=== PATIENT | female | born 1960 | race Caucasian/White ===

== ENCOUNTER 2018-04-30 11:20 | Emergency (ER) | payer OTHER ==
[2018-04-30 11:30] VITALS: TEMP 97.6
--- NOTE | 2018-04-30 12:16 | ED ---
General Adult HPI - General Chief complaint: Fall Stated complaint: fall Time Seen by Provider: 04/30/18 11:47 Source: patient, RN notes reviewed Mode of arrival: ambulatory Limitations: no limitations - History of Present Illness Initial comments: Patient's a 58-year-old female presented to the emergency room today with a chief complaint of a fall that occurred 2 days ago. She states that she was at work tripped over a pallet falling hitting right side of her head and cheek area. Patient also admits to pain to the right wrist and left shoulder and elbow area. Patient states that she was advised coming here to the emergency room for further evaluation today. Patient does admit that she's been having headaches. Does admit pain to the right cheek. Patient states pain to the right wrist, left shoulder and elbow are worse with movements. Patient denies any other complaints. Patient denies any recent fever, chills, shortness of breath, chest pain, back pain, abdominal pain, nausea or vomiting, numbness or tingling, visual changes, or any other complaints. - Related Data Allergies Allergy/AdvReac Type Severity Reaction Status Date / Time aspirin Allergy Unknown Verified 04/30/18 11:27 Penicillins Allergy Unknown Verified 04/30/18 11:27 Review of Systems ROS Statement: Those systems with pertinent positive or pertinent negative responses have been documented in the HPI. ROS Other: All systems not noted in ROS Statement are negative. Past Medical History Past Medical History: Diabetes Mellitus History of Any Multi-Drug Resistant Organisms: None Reported Past Surgical History: No Surgical Hx Reported Past Psychological History: No Psychological Hx Reported Smoking Status: Never smoker Past Alcohol Use History: None Reported Past Drug Use History: None Reported General Exam - General Exam Comments Initial Comments: General: The patient is awake and alert, in no distress, and does not appear acutely ill. Eye: Pupils are equal, round and reactive to light, extra-ocular movements are intact. No nystagmus. There is normal conjunctiva bilaterally. No signs of icterus. Ears, nose, mouth and throat: There are moist mucous membranes and no oral lesions. Tender around the right cheek. Mild bruising. Neck: The neck is supple, there is no tenderness or JVD. Cardiovascular: There is a regular rate and rhythm. No murmur, rub or gallop is appreciated. Respiratory: Lungs are clear to auscultation, respirations are non-labored, breath sounds are equal. No wheezes, stridor, rales, or rhonchi. Musculoskeletal: Normal ROM. Patient does have normal appearance of the cervical, thoracic or lumbar spine. No step-offs or deformity. Patient has tenderness over the distal radius and ulna on the right side. Patient tender to palpation over the proximal humerus on the left and posterior olecranon on the left. No other bony tenderness on exam. Strength 5/5. Sensation intact. Pulses equal bilaterally 2+. Neurological: A&O x 3. CN II-XII intact, There are no obvious motor or sensory deficits. Coordination appears grossly intact. Speech is normal. Skin: Skin is warm and dry and intact. Patient does have some mild bruising to the right cheek and swelling. Psychiatric: Cooperative, appropriate mood & affect, normal judgment. Limitations: no limitations Course Vital Signs 04/30/18 04/30/18 11:27 13:44 Temperature 97.6 F Pulse Rate 80 98 Respiratory 18 16 Rate Blood Pressure 154/87 125/80 O2 Sat by Pulse 99 Oximetry Medical Decision Making - Medical Decision Making Patient's a CT of the head neck and facial bones are negative for any acute abnormalities. Patient's x-ray of the left elbow shows loose body formations no other acute abnormality. Patient's x-ray of the right wrist shows possible ligamentous injury but no acute fracture or dislocation. Patient's x-ray of the left shoulder shows possible greater tuberosity fracture. Patient does have tenderness in this area. She'll be given arm sling. She is advised follow -up with orthopedics also her family physician for concussion-like symptoms. Advised return here to the emergency room symptoms increase or worsen or for any other concerns. Disposition Clinical Impression: Shoulder fracture, Concussion Disposition: HOME SELF-CARE Condition: Good Instructions: Scapular Fracture (ED) Additional Instructions: Please use medication as discussed. Please follow-up with family doctor in the next 2 days of symptoms have not improved. Please return to emergency room if the symptoms increase or worsen or for any other concerns. Is patient prescribed a controlled substance at d/c from ED?: No Referrals: None,Stated [Primary Care Provider] - 1-2 days Curt Delgado MD [STAFF PHYSICIAN] - 1-2 days Time of Disposition: 13:57
--- NOTE | 2018-04-30 13:10 | CT ---
EXAMINATION TYPE: CT brain jana wyatt con DATE OF EXAM: 04/30/2018 COMPARISON: 02/19/2012 HISTORY: 58-year-old femalek left sided injury. Complains of headache and dizziness CT DLP: 1421.5 mGycm Automated exposure control for dose reduction was used. Technique: Examination of the head was done in axial plane without intravenous contrast. Coronal and sagittal reconstructions performed. CT of the cervical spine was obtained in axial plane without intravenous injection of contrast mater ial. Coronal and sagittal reformatted images were obtained from the axial views for evaluation of f ractures, spinal alignment and canal. FINDINGS: Head: There is no evidence of acute intracranial hemorrhage, acute ischemic changes, mass, mass-effect, or extra-axial fluid collection. There is no effacement of cerebral sulci or basal subarachnoid cister ns. There is no hydrocephalus. There is no midline shift. Gallagher-white matter distinction is preserv ed. Benign basal ganglia calcifications. Mastoid air cells are well pneumatized. No calvarial fracture. Cervical spine: The alignment of the cervical spine is normal on coronal and reformatted images. There is no cranial vertebral abnormality. Fracture of the cervical spine is not seen. Moderate degenerative disc disease C6/C7 with disc osteophyte complex causing possible moderate narrowing of the spinal canal. Assessme nt of the spinal canal from C6-C7 and below with limited due to artifact from patient's shoulders. Mi ld bilateral neuroforaminal stenosis at this level. Straightening of the normal cervical curvature. Sagittal and coronal reformatted images confirm above findings. COMBINED IMPRESSION: 1. No acute intracranial abnormality seen. 2. No acute fracture or malalignment of the cervical spine. Moderate spondylotic change at C6-C7. 3. Facial bones reported separately.
--- NOTE | 2018-04-30 13:11 | CT ---
EXAMINATION TYPE: CT facial bones wo con DATE OF EXAM: 04/30/2018 COMPARISON: None HISTORY: 58-year-old female left sided injury. Complains of headache and dizziness TECHNIQUE: Contiguous high resolution axial scanning of the facial bones without IV contrast. Coronal reconstruction performed. CT DLP: 596.5 mGycm Automated exposure control for dose reduction was used. FINDINGS: Paranasal sinuses are well pneumatized. Orbits and globes are intact. No facial bone fracture. The ma ndible is intact. IMPRESSION: NO ACUTE FACIAL BONE FRACTURE.
--- NOTE | 2018-04-30 13:27 | XR ---
EXAMINATION TYPE: XR shoulder complete 3 views LT, XR elbow complete 3 views LT, XR wrist complete 4 views RT DATE OF EXAM: 04/30/2018 COMPARISON: Shoulder 07/17/2012 HISTORY: 50-year-old female fall a few days ago, pain. FINDINGS: Left shoulder: Mild degenerative joint space narrowing with marginal spurring and capsular hypertrophy at the acromi oclavicular joint. Subacromial space is preserved. The configuration of the greater tuberosity is dif ferent compared to 07/17/2012. A 1.9 x 0.7 cm mildly displaced fracture of the greater tube is diffic ult to exclude. Left elbow: Tiny loose bodies within the posterior elbow joint. Mild degenerative spurring at the coronoid proces s. No elbow joint effusion. Punctate density at the medial epicondyles suggest changes of common flex or tendinopathy. No acute fracture, subluxation, or dislocation. Right wrist: Degenerative spurring at the base of the thumb. The distal radial ulnar joint and radiocarpal joint a ppear intact. On the navicular view, there is underlying widening of the scapholunate interval. Other chow, no acute fracture, subluxation, or dislocation seen. IMPRESSION: 1. Left shoulder: Correlate for focal pain to exclude a mildly displaced fracture of the greater tube rosity. This appearance is different from the exam done on 2011. 2. Left elbow: Small posterior loose bodies and mild degenerative change at the elbow. No acute osseo us abnormality seen. 3. Right wrist: Borderline widening of the scapholunate interval suggests underlying age-indeterminat e ligamentous sprain. Mild degenerative change at the base of the thumb.
[2018-04-30] MEDS ORDERED: ACETAMINOPHEN TAB 325 MG TAB PO STA (13:37)
[2018-04-30 14:16] VITALS: BP 140/86; PULSE 80; RESP 18
== END 2018-04-30 14:15 | disposition home or self-care (01) ==
LOC: EC 11:20
DX: S06.0X0A Concussion without loss of consciousness, initial encounter (principal); S42.92XA Fracture of left shoulder girdle, part unspecified, initial encounter for closed fracture; M25.531 Pain in right wrist; M25.522 Pain in left elbow; Z88.0 Allergy status to penicillin; Z88.6 Allergy status to analgesic agent; W01.198A Fall on same level from slipping, tripping and stumbling with subsequent striking against other object, initial encounter; Y92.69 Other specified industrial and construction area as the place of occurrence of the external cause; Y99.0 Civilian activity done for income or pay
CPT/HCPCS: 70450; 70486; 72125; 99284

== ENCOUNTER 2018-10-24 12:16 | Emergency (ER) | payer OTHER ==
[2018-10-24 12:38] VITALS: RESP 18
[2018-10-24] MEDS ORDERED: Potassium Replacement Protocol 1 EACH MISC MISCELLANE PRN (13:04)
[2018-10-24] MEDS ORDERED: Magnesium Replacement Protocol 1 EACH MISC MISCELLANE PRN (13:04)
[2018-10-24] MEDS ORDERED: INSULIN REGULAR BOLUS (FROM DRIP BAG) IV ONE (13:04)
[2018-10-24] MEDS ORDERED: SODIUM CHLORIDE 0.9% 1,000 ML IV SCH (13:15)
[2018-10-24] MEDS ORDERED: INSULIN REGULAR 100 UNIT in SODIUM CHLORIDE 0.9% 100 ML IV SCH (13:15)
[2018-10-24 14:11] LABS: Basophils % (A) 1 %; Eosinophils # (A) 0.2 k/uL (0-0.7); Eosinophils % (A) 4 %; HCT 44.9 % (34.0-46.0); HGB 15.1 gm/dL (11.4-16.0); Lymphocytes # (A) 1.6 k/uL (1.0-4.8); Lymphocytes % (A) 34 %; MCH 29.6 pg (25.0-35.0); MCHC 33.6 g/dL (31.0-37.0); MCV 88.1 fL (80.0-100.0); Mean Platelet Volume 6.4; Monocytes # (A) 0.3 k/uL (0-1.0); Monocytes % (A) 6 %; Neutrophils # (A) 2.5 k/uL (1.3-7.7); Neutrophils % (A) 53 %; Platelet Count 271 k/uL (150-450); RDW 13.3 % (11.5-15.5); WBC 4.7 k/uL (3.8-10.6)
[2018-10-24 14:16] LABS: Appearance,Urine Clear (Clear); Bacteria,Urine Few /hpf; Bilirubin,Urine Negative (Negative); Blood,Urine Negative (Negative); Color,Urine Light Yellow; Glucose,Urine (UA) 4+ (Negative); Ketones,Urine Negative (Negative); Leukocyte Esterase,Urine Small (Negative); Mucus,Urine Rare /hpf; Nitrite,Urine Negative (Negative); Protein,Urine Negative (Negative); RBC,Urine 3 /hpf (0-5); Specific Gravity,Urine 1.034 (1.001-1.035); Squamous Epithelial Cell,Urine 2 /hpf (0-4); Urobilinogen,Urine <2.0 mg/dL (<2.0); WBC,Urine 8 /hpf (0-5)
[2018-10-24 14:20] LABS: Anion Gap 9 mmol/L; Blood Urea Nitrogen 11 mg/dL (7-17); Carbon Dioxide 29 mmol/L (22-30); Chloride 97 mmol/L (98-107); Potassium 4.1 mmol/L (3.5-5.1); Sodium 135 mmol/L (137-145)
[2018-10-24 15:08] LABS: Glucose,Whole Blood 476 mg/dL (75-99)
[2018-10-24 15:09] LABS: Glucose 517 mg/dL (74-99)
[2018-10-24 15:19] LABS: Glucose,Whole Blood 362 mg/dL (75-99)
--- NOTE | 2018-10-24 15:34 | ED ---
General Adult HPI - General Chief complaint: Nausea/Vomiting/Diarrhea Stated complaint: high blood sugar Time Seen by Provider: 10/24/18 12:20 Source: patient, RN notes reviewed Mode of arrival: ambulatory Limitations: no limitations - History of Present Illness Initial comments: This is a 58-year-old female who has diabetes. Patient comes in today because she was vomiting all day Tuesday and all day Tuesday. Patient states she has yet to vomit today. Patient states she's also been having diarrhea since she's been taking Pepto-Bismol and drinking a lot of Sprite so that she gets hydrated. Patient states her sugars were over 500 so she came to the emergency department. Patient denies any chest pain difficulty breathing shortness of breath per patient denies any headache patient denies numbness weakness. Patient denies lightheadedness dizziness or near syncopal episode. Patient denies any abdominal pain patient states she is not nauseated this time. Patient states her diarrhea is also slow down. Patient denies any recent fever chills or cough. - Related Data Previous Rx's Medication Instructions Recorded Insulin Glargine,Hum.rec.anlog 15 unit SQ DAILY 14 Days ml 10/24/18 [Lantus Solostar] Allergies Allergy/AdvReac Type Severity Reaction Status Date / Time aspirin Allergy Unknown Verified 10/24/18 12:48 Penicillins Allergy Unknown Verified 10/24/18 12:48 Review of Systems ROS Statement: Those systems with pertinent positive or pertinent negative responses have been documented in the HPI. ROS Other: All systems not noted in ROS Statement are negative. Past Medical History Past Medical History: Diabetes Mellitus, Hypertension History of Any Multi-Drug Resistant Organisms: None Reported Past Surgical History: Section, Hysterectomy Additional Past Surgical History / Comment(s): right rotator cuff, left hand surgery twice Past Psychological History: No Psychological Hx Reported Smoking Status: Never smoker Past Alcohol Use History: None Reported Past Drug Use History: None Reported General Exam - General Exam Comments Initial Comments: GENERAL: Patient is well-developed and well-nourished. Patient is nontoxic and well- hydrated and is in no acute distress. ENT: Neck is soft and supple. No significant lymphadenopathy is noted. Oropharynx is clear. Dry mucous membranes Neck has full range of motion without eliciting any pain. EYES: The sclera were anicteric and conjunctiva were pink and moist. Extraocular movements were intact and pupils were equal round and reactive to light. Eyelids were unremarkable. PULMONARY: Unlabored respirations. Good breath sounds bilaterally. No audible rales rhonchi or wheezing was noted. CARDIOVASCULAR: There is a regular rate and rhythm without any murmurs gallops or rubs. ABDOMEN: Soft and nontender with normal bowel sounds. No palpable organomegaly was noted. There is no palpable pulsatile mass. SKIN: Skin is clear with no lesions or rashes and otherwise unremarkable. NEUROLOGIC: Patient is alert and oriented x3. Cranial nerves II through XII are grossly intact. Motor and sensory are also intact. Normal speech, volume and content. Symmetrical smile. MUSCULOSKELETAL: Normal extremities with adequate strength and full range of motion. LYMPHATICS: No significant lymphadenopathy is noted PSYCHIATRIC: Normal psychiatric evaluation. Limitations: no limitations Course Vital Signs 10/24/18 10/24/18 12:35 15:27 Temperature 98.3 F Pulse Rate 86 89 Respiratory 18 18 Rate Blood Pressure 163/91 129/83 O2 Sat by Pulse 99 97 Oximetry Medical Decision Making - Medical Decision Making Patient was placed on an insulin drip after she had a bolus in the emergency department her sugar came down to 280 at which point time she had a Humalog injection subcu. Patient initially told me she was on insulin home but upon further review after 2-1/2 hours of being in the emergency department she indicated to me that she is supposed to be on insulin but she hasn't taken it in 2 months because she just moved to the area. Patient states she takes 15 units of Lantus once a day patient is feeling considerably better and would like to be discharged home. - Lab Data Result diagrams: 10/24/18 13:52 10/24/18 13:52 Lab Results 10/24/18 10/24/18 10/24/18 Range/Units 13:52 13:52 13:52 WBC 4.7 (3.8-10.6) k/uL RBC 5.10 (3.80-5.40) m/uL Hgb 15.1 (11.4-16.0) gm/dL Hct 44.9 (34.0-46.0) % MCV 88.1 (80.0-100.0) fL MCH 29.6 (25.0-35.0) pg MCHC 33.6 (31.0-37.0) g/dL RDW 13.3 (11.5-15.5) % Plt Count 271 (150-450) k/uL Neutrophils % 53 % Lymphocytes % 34 % Monocytes % 6 % Eosinophils % 4 % Basophils % 1 % Neutrophils # 2.5 (1.3-7.7) k/uL Lymphocytes # 1.6 (1.0-4.8) k/uL Monocytes # 0.3 (0-1.0) k/uL Eosinophils # 0.2 (0-0.7) k/uL Basophils # 0.0 (0-0.2) k/uL Sodium 135 L (137-145) mmol/L Potassium 4.1 (3.5-5.1) mmol/L Chloride 97 L (98-107) mmol/L Carbon Dioxide 29 (22-30) mmol/L Anion Gap 9 mmol/L BUN 11 (7-17) mg/dL Creatinine 0.42 L (0.52-1.04) mg/dL Est GFR (CKD-EPI)AfAm >90 (>60 ml/min/1.73 sqM) Est GFR (CKD-EPI)NonAf >90 (>60 ml/min/1.73 sqM) Glucose 517 H* (74-99) mg/dL POC Glucose (mg/dL) (75-99) mg/dL POC Glu Seasonal Recruiter ID Urine Color Light Yellow Urine Appearance Clear (Clear) Urine pH 5.0 (5.0-8.0) Ur Specific Flynn 1.034 (1.001-1.035) Urine Protein Negative (Negative) Urine Glucose (UA) 4+ H (Negative) Urine Ketones Negative (Negative) Urine Blood Negative (Negative) Urine Nitrite Negative (Negative) Urine Bilirubin Negative (Negative) Urine Urobilinogen <2.0 (<2.0) mg/dL Ur Leukocyte Esterase Small H (Negative) Urine RBC 3 (0-5) /hpf Urine WBC 8 H (0-5) /hpf Ur Squamous Epith Cells 2 (0-4) /hpf Urine Bacteria Few H (None) /hpf Urine Mucus Rare H (None) /hpf Acetone, Qual Negative (Negative) 10/24/18 10/24/18 Range/Units 14:27 15:17 WBC (3.8-10.6) k/uL RBC (3.80-5.40) m/uL Hgb (11.4-16.0) gm/dL Hct (34.0-46.0) % MCV (80.0-100.0) fL MCH (25.0-35.0) pg MCHC (31.0-37.0) g/dL RDW (11.5-15.5) % Plt Count (150-450) k/uL Neutrophils % % Lymphocytes % % Monocytes % % Eosinophils % % Basophils % % Neutrophils # (1.3-7.7) k/uL Lymphocytes # (1.0-4.8) k/uL Monocytes # (0-1.0) k/uL Eosinophils # (0-0.7) k/uL Basophils # (0-0.2) k/uL Sodium (137-145) mmol/L Potassium (3.5-5.1) mmol/L Chloride (98-107) mmol/L Carbon Dioxide (22-30) mmol/L Anion Gap mmol/L BUN (7-17) mg/dL Creatinine (0.52-1.04) mg/dL Est GFR (CKD-EPI)AfAm (>60 ml/min/1.73 sqM) Est GFR (CKD-EPI)NonAf (>60 ml/min/1.73 sqM) Glucose (74-99) mg/dL POC Glucose (mg/dL) 476 H 362 H (75-99) mg/dL POC Glu Seasonal Recruiter Kristopher Templeton [place] Urine Color Urine Appearance (Clear) Urine pH (5.0-8.0) Ur Specific Flynn (1.001-1.035) Urine Protein (Negative) Urine Glucose (UA) (Negative) Urine Ketones (Negative) Urine Blood (Negative) Urine Nitrite (Negative) Urine Bilirubin (Negative) Urine Urobilinogen (<2.0) mg/dL Ur Leukocyte Esterase (Negative) Urine RBC (0-5) /hpf Urine WBC (0-5) /hpf Ur Squamous Epith Cells (0-4) /hpf Urine Bacteria (None) /hpf Urine Mucus (None) /hpf Acetone, Qual (Negative) Disposition Clinical Impression: Gastroenteritis, Hyperglycemia Disposition: HOME SELF-CARE Condition: Good Instructions (If sedation given, give patient instructions): Gastroenteritis ( ED), Diabetic Hyperglycemia (ED) Prescriptions: Insulin Glargine,Hum.rec.anlog [Lantus Solostar] 15 unit SQ DAILY 14 Days ml Is patient prescribed a controlled substance at d/c from ED?: No Referrals: None,Stated [Primary Care Provider] - 1-2 days Time of Disposition: 15:54
[2018-10-24] MEDS ORDERED: ACETAMINOPHEN TAB 500 MG TAB PO STA (15:42)
[2018-10-24] MEDS ORDERED: INSULIN ASPART (NovoLOG) 100 UNIT/ML VIAL SQ ONE (15:52)
[2018-10-24 15:58] LABS: Glucose,Whole Blood 284 mg/dL (75-99)
[2018-10-24 16:17] LABS: Glucose,Whole Blood 229 mg/dL (75-99)
[2018-10-24 16:24] VITALS: BP 137/88; PULSE 86; TEMP 98
== END 2018-10-24 16:22 | disposition home or self-care (01) ==
LOC: EC 12:16
DX: K52.9 Noninfective gastroenteritis and colitis, unspecified (principal); E11.65 Type 2 diabetes mellitus with hyperglycemia; Z88.0 Allergy status to penicillin; Z88.6 Allergy status to analgesic agent
CPT/HCPCS: 36415; 80051; 81001; 82009; 82565; 82947; 84520; 85025; 96360; 99284

== ENCOUNTER 2019-11-13 21:33 | Emergency (ER) | payer OTHER ==
[2019-11-13 21:37] VITALS: RESP 18; TEMP 99.3
--- NOTE | 2019-11-13 21:49 | ED ---
General Adult HPI - General Chief complaint: Eye Problems Stated complaint: Head injury Time Seen by Provider: 11/13/19 21:37 Source: patient Mode of arrival: ambulatory Limitations: no limitations - History of Present Illness Initial comments: Dictation was produced using [employer] dictation software. please excuse any grammatical, word or spelling errors. Chief Complaint: 59-year-old female presents with facial pain after head trauma. History of Present Illness:-year-old female Tuesday she was trying to get into her car. She states her car . She Dr. devendra however did not do clonus. She struck the top of her head on her car. Patient states that since injury she's been having facial pain to the upper right face. 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 Denies any watering of the eye. Patient has any headache. Does complain of some point tenderness to the top of her head and to the right face. The ROS documented in this emergency department record has been reviewed and confirmed by me. Those systems with pertinent positive or negative responses have been documented in the HPI. All other systems are other negative and/or noncontributory. PHYSICAL EXAM: General Impression: Alert and oriented x3, not in acute distress HEENT: Small 2 x 2 centimeter hematoma over the top of the head just right of midline, extra-ocular movements intact, pupils equal and reactive to light bilaterally, mucous membranes moist, mild facial swelling around the right forehead and right maxillary area Ocular: Pupils are equal. No conjunctivitis Cardiovascular: Heart regular rate and rhythm, S1&S2 audible, no murmurs, rubs or gallops Chest: Lungs clear to auscultation bilaterally, no rhonchi, no wheeze, no rales Abdomen: Bowel sounds present, abdomen soft, non-tender, non-distended, no organomegaly Musculoskeletal: Pulses present and equal in all extremities, no peripheral edema Motor: no focal deficits noted Neurological: CN II-XII grossly intact, no focal motor or sensory deficits noted Skin: Intact with no visualized rashes Psych: Normal affect and mood ED course: 59yo F presents with head trauma and resultant facial pain. Upon arrival are within acceptable limits. Computed tomography scan of the brain is unremarkable. Vision testing shows 20/70 to the right eye and 20/100 to the left eye. Her vision surprisingly is better in the affected eye versus the contralateral eye. Patient given Tylenol 3 starter pack. Patient told that her symptoms are likely secondary to tissue swelling from the trauma. She is reassured that her symptoms should go away. She is advised follow-up with her primary care physician upon discharge. - Related Data Home Medications Medication Instructions Recorded Confirmed Insulin Glargine,Hum.rec.anlog 25 unit SQ HS 11/13/19 11/13/19 [Lantus Solostar] Allergies Allergy/AdvReac Type Severity Reaction Status Date / Time Penicillins Allergy Rash/Hives Verified 11/13/19 22:15 aspirin AdvReac Nausea & Verified 11/13/19 22:15 Vomiting & Diarrhea Review of Systems ROS Statement: Those systems with pertinent positive or pertinent negative responses have been documented in the HPI. ROS Other: All systems not noted in ROS Statement are negative. Past Medical History Past Medical History: Diabetes Mellitus, Hypertension History of Any Multi-Drug Resistant Organisms: None Reported Past Surgical History: Section, Hysterectomy Additional Past Surgical History / Comment(s): right rotator cuff, left hand surgery twice Past Psychological History: No Psychological Hx Reported Smoking Status: Never smoker Past Alcohol Use History: None Reported Past Drug Use History: None Reported General Exam Limitations: no limitations Course Vital Signs 11/13/19 21:34 Temperature 99.3 F Pulse Rate 94 Respiratory 18 Rate Blood Pressure 189/94 O2 Sat by Pulse 98 Oximetry Disposition Clinical Impression: Facial pain Disposition: HOME SELF-CARE Condition: Good Instructions (If sedation given, give patient instructions): Atypical Facial Pain (ED) Is patient prescribed a controlled substance at d/c from ED?: No Referrals: None,Stated [Primary Care Provider] - 1-2 days Time of Disposition: 22:26
--- NOTE | 2019-11-13 22:13 | CT ---
EXAMINATION TYPE: CT brain wo con DATE OF EXAM: 11/13/2019 COMPARISON: April 30, 2018 HISTORY: headache post head injury CT DLP: 1091.4 mGycm Automated exposure control for dose reduction was used. Ventricles have normal size. There is no mass effect nor midline shift. There is no sign of intracran ial hemorrhage. Calvarium is intact. There is mild right posterior frontal scalp soft tissue swelling . IMPRESSION: No acute intracranial abnormality. Mild scalp soft tissue swelling. Brain unchanged compared to old e kearam.
[2019-11-13] MEDS ORDERED: ACET/COD 300 MG/30 MG STARTER PACK 6 TAB BTL PO STA (22:26)
[2019-11-13 22:46] VITALS: BP 126/88; PULSE 76
== END 2019-11-13 22:45 | disposition home or self-care (01) ==
LOC: EC 21:33
DX: S00.83XA Contusion of other part of head, initial encounter (principal); E11.9 Type 2 diabetes mellitus without complications; Z88.0 Allergy status to penicillin; Z88.6 Allergy status to analgesic agent; Z79.4 Long term (current) use of insulin; W22.8XXA Striking against or struck by other objects, initial encounter; Y93.89 Activity, other specified
CPT/HCPCS: 70450; 99283

== ENCOUNTER 2022-07-24 15:01 | Emergency (ER) | payer MEDICARE, OTHER ==
[2022-07-24 16:56] VITALS: TEMP 98.1
[2022-07-24] MEDS ORDERED: SODIUM CHLORIDE 0.9% 1,000 ML IV ONE (18:07)
[2022-07-24] MEDS ORDERED: MORPHINE SULFATE 4 MG/ML SYRINGE IV STA (18:07)
[2022-07-24] MEDS ORDERED: ONDANSETRON 4 MG/2 ML VIAL IVP STA (18:07)
[2022-07-24 18:57] LABS: Basophils # (A) 0.1 k/uL (0-0.2); Basophils % (A) 1 %; Eosinophils # (A) 0.3 k/uL (0-0.7); Eosinophils % (A) 3 %; HCT 40.5 % (34.0-46.0); HGB 14.8 gm/dL (11.4-16.0); Lymphocytes # (A) 2.7 k/uL (1.0-4.8); Lymphocytes % (A) 32 %; MCH 30.8 pg (25.0-35.0); MCHC 36.5 g/dL (31.0-37.0); MCV 84.5 fL (80.0-100.0); Mean Platelet Volume 7.9; Monocytes # (A) 0.3 k/uL (0-1.0); Monocytes % (A) 4 %; Neutrophils # (A) 4.8 k/uL (1.3-7.7); Neutrophils % (A) 58 %; Platelet Count 266 k/uL (150-450); RBC 4.79 m/uL (3.80-5.40); WBC 8.3 k/uL (3.8-10.6)
[2022-07-24 19:07] LABS: Prothrombin Time 10.9 sec (9.0-12.0)
[2022-07-24 19:36] LABS: ALT 21 U/L (4-34); AST 23 U/L (14-36); African American GFR (CKD) >90 (>60 ml/min/1.73 sqM); Albumin 4.1 g/dL (3.5-5.0); Alkaline Phosphatase 69 U/L (38-126); Anion Gap 7 mmol/L; Blood Urea Nitrogen 22 mg/dL (7-17); Calcium 9.2 mg/dL (8.4-10.2); Carbon Dioxide 28 mmol/L (22-30); Chloride 99 mmol/L (98-107); Glucose 337 mg/dL (74-99); Non-African American GFR(CKD) >90 (>60 ml/min/1.73 sqM); Potassium 3.7 mmol/L (3.5-5.1); Sodium 134 mmol/L (137-145); Total Protein 6.9 g/dL (6.3-8.2)
[2022-07-24 20:23] VITALS: BP 129/78; PULSE 72; RESP 18
--- NOTE | 2022-07-24 20:24 | CT ---
EXAMINATION TYPE: CT abdomen pelvis w con DATE OF EXAM: 07/24/2022 COMPARISON: None HISTORY: Low back pain post fall one week ago, and abdominal pain. CT DLP: 971.5 mGycm Automated exposure control for dose reduction was used. CONTRAST: Performed with IV Contrast, patient injected with 100ML mL of Isovue 300. Images obtained from the diaphragm to the floor the pelvis with the IV contrast. There is coarse interstitial infiltrate at the lung bases. There are small right pleural effusion. He art size is normal. No pericardial effusion. Liver spleen and stomach pancreas and gallbladder appear normal. The bile ducts are not dilated. There is no adrenal mass. Kidneys show normal size and contour. No hydronephrosis. Ureters are not di lated. No retroperitoneal adenopathy. Bladder distends smoothly. No inguinal hernia. No free fluid in the pelvis. No pelvic mass. Delayed images show normal renal excretion. There is no mesenteric edema. No ascites or free air. No sign of a bowel obstruction. Appendix not se en. No signs of thickened appendix. There is hysterectomy. There is narrowing at L4-5 disc space. Lum bar vertebrae have normal alignment. No compression fracture. There is posterior disc bulging at L4-5 and L5-S1. Bony pelvis is intact. The hip joints are intact. IMPRESSION: No acute abnormality of the abdomen and pelvis. Mild interstitial infiltrate at the lung bases.
--- NOTE | 2022-07-24 20:38 | ED ---
Fall HPI - General Chief Complaint: Fall Stated Complaint: Fall-back injury Time Seen by Provider: 07/24/22 17:57 Source: patient, RN notes reviewed Mode of arrival: wheelchair - History of Present Illness Initial Comments: This is a pleasant 62-year-old diabetic female presents to emergency department after sustaining a mechanical fall about 8 days ago. Patient states she was leaning over by a fireplace and ended up falling forward and striking her right lower back on the handle of the fireplace. Patient was able to get up on her own but states she is still having pain to the area which is exacerbated by movement. No headache, no fever or chills, no changes in vision or hearing, no sore throat or difficulty with speech, no neck pain, no chest pain or shortness of breath, no abdominal pain, no nausea or vomiting, no changes in urination or bowel movements, no numbness or tingling, no extremity pain, no skin rashes or lesions. Past medical, surgical, social, and family history reviewed. MD Complaint: fall - Related Data Home Medications Medication Instructions Recorded Confirmed Insulin Glargine,Hum.rec.anlog 25 unit SQ HS 11/13/19 11/13/19 [Lantus Solostar] Previous Rx's Medication Instructions Recorded Acetaminophen Tab [Tylenol Tab] 500 mg PO Q6H PRN #24 tablet 07/24/22 Lidocaine 5% Patch [Lidoderm 5% 1 patch TOPICAL DAILY #9 patch 07/24/22 Patch] Allergies Allergy/AdvReac Type Severity Reaction Status Date / Time Penicillins Allergy Rash/Hives Verified 07/24/22 16:56 aspirin AdvReac Nausea & Verified 07/24/22 16:56 Vomiting & Diarrhea Review of Systems ROS Statement: Those systems with pertinent positive or pertinent negative responses have been documented in the HPI. ROS Other: All systems not noted in ROS Statement are negative. Past Medical History Past Medical History: Diabetes Mellitus, Hypertension History of Any Multi-Drug Resistant Organisms: None Reported Past Surgical History: Section, Hysterectomy Additional Past Surgical History / Comment(s): right rotator cuff, left hand surgery twice Past Psychological History: No Psychological Hx Reported Smoking Status: Never smoker Past Alcohol Use History: None Reported Past Drug Use History: None Reported General Exam - General Exam Comments Initial Comments: Vital signs stable, patient afebrile. Patient does not appear to be ill or toxic. Limitations: no limitations General appearance: in distress (Mild) Head exam: Present: atraumatic, normocephalic, normal inspection Eye exam: Present: normal appearance, PERRL, EOMI. Absent: scleral icterus, conjunctival injection, periorbital swelling ENT exam: Present: normal exam, normal oropharynx, mucous membranes dry, mucous membranes moist, normal external ear exam Neck exam: Present: normal inspection, full ROM. Absent: tenderness, meningismus, lymphadenopathy Respiratory exam: Present: normal lung sounds bilaterally. Absent: respiratory distress, wheezes, rales, rhonchi, stridor, chest wall tenderness, accessory muscle use, decreased breath sounds, prolonged expiratory Cardiovascular Exam: Present: regular rate, normal rhythm, normal heart sounds. Absent: systolic murmur, diastolic murmur, rubs, gallop, clicks GI/Abdominal exam: Present: soft, normal bowel sounds. Absent: distended, tenderness, guarding, rebound, rigid Extremities exam: Present: normal inspection, full ROM, normal capillary refill. Absent: tenderness, pedal edema, joint swelling, calf tenderness Back exam: Present: normal inspection, tenderness, paraspinal tenderness (Right lumbar paraspinal), other (Abrasion noted to the right lower back, appears to be healing well. No evidence of secondary infection.). Absent: CVA tenderness (L), muscle spasm, vertebral tenderness, rash noted Neurological exam: Present: alert, oriented X3, CN II-XII intact, normal gait. Absent: motor sensory deficit Psychiatric exam: Present: normal affect, normal mood Skin exam: Present: warm, dry, intact, normal color. Absent: rash, cyanosis, urticaria, vesicles, petechiae, pallor, mottled, abrasion Course Vital Signs 07/24/22 07/24/22 16:52 20:22 Temperature 98.1 F Pulse Rate 87 72 Respiratory 16 18 Rate Blood Pressure 101/67 129/78 O2 Sat by Pulse 99 97 Oximetry - Reevaluation(s) Reevaluation #1: 07/24/22 20:54 Medical record is reviewed Symptoms are improved here in the emergency department Patient is informed of results and questions answered Patient in no distress Medical Decision Making - Medical Decision Making Computed tomography scan of abdomen and pelvis with contrast interpreted by me reveals no evidence of acute abnormality. There is a tiny right pleural effusion. Per radiology interpretation patient's a small right pleural effusion, mild interstitial infiltrate lung bases. No other acute abnormality. Concur with radiology interpretation. Patient presents with mechanical back pain. Review be hyperglycemic with expected reduction and serum sodium. Computed tomography scan shows no evidence of acute findings. This showed evidence of bilateral lower lobe infiltrate and right pleural effusion. However the patient has no respiratory distress. Patient is afebrile. -No history of cancer, this is not a mass effect, MRI not indicated. -No anticoagulation, this is not a bleed. -No fevers, no IVDU, this is not an infectious process. -With a normal neuro exam, and no urinary or bowel retention or incontinence, there is no clinical sign of motor defect or cauda equina - MRI is not indicated at this point. -No pulsating abdominal mass or risk factors for AAA. -Pain is relieved with rest, which is also less concerning. -I do not believe emergent MRI is indicated at this time. -We will treat symptomatically and discharge home with follow up instructions. -Stretching/strengthening exercise given to patient and they will be referred to physical therapy -Patient is instructed to use [id number] analgesics as directed on packaging for pain. Patient was told to return to the ER for any signs or symptoms worsen. Told to return immediately if any other problems arise. All questions answered. Treatment plan discussed. Patient in agreement Every effort has been made to ensure accuracy of this dictation. However, due to the limitations of electronic medical records and dictation devices, errors in charting still occur. Supervising physician is Dr. Reeder - Lab Data Result diagrams: 07/24/22 18:44 07/24/22 18:44 Lab Results 07/24/22 07/24/22 07/24/22 Range/Units 18:44 18:44 18:44 WBC 8.3 (3.8-10.6) k/uL RBC 4.79 (3.80-5.40) m/uL Hgb 14.8 (11.4-16.0) gm/dL Hct 40.5 (34.0-46.0) % MCV 84.5 (80.0-100.0) fL MCH 30.8 (25.0-35.0) pg MCHC 36.5 (31.0-37.0) g/dL RDW 13.0 (11.5-15.5) % Plt Count 266 (150-450) k/uL MPV 7.9 Neutrophils % 58 % Lymphocytes % 32 % Monocytes % 4 % Eosinophils % 3 % Basophils % 1 % Neutrophils # 4.8 (1.3-7.7) k/uL Lymphocytes # 2.7 (1.0-4.8) k/uL Monocytes # 0.3 (0-1.0) k/uL Eosinophils # 0.3 (0-0.7) k/uL Basophils # 0.1 (0-0.2) k/uL PT 10.9 (9.0-12.0) sec INR 1.0 (<1.2) Sodium 134 L (137-145) mmol/L Potassium 3.7 (3.5-5.1) mmol/L Chloride 99 (98-107) mmol/L Carbon Dioxide 28 (22-30) mmol/L Anion Gap 7 mmol/L BUN 22 H (7-17) mg/dL Creatinine 0.61 (0.52-1.04) mg/dL Est GFR (CKD-EPI)AfAm >90 (>60 ml/min/1.73 sqM) Est GFR (CKD-EPI)NonAf >90 (>60 ml/min/1.73 sqM) Glucose 337 H (74-99) mg/dL Calcium 9.2 (8.4-10.2) mg/dL Total Bilirubin 2.0 H (0.2-1.3) mg/dL AST 23 (14-36) U/L ALT 21 (4-34) U/L Alkaline Phosphatase 69 (38-126) U/L Total Protein 6.9 (6.3-8.2) g/dL Albumin 4.1 (3.5-5.0) g/dL Disposition Clinical Impression: Contusion of lower back Disposition: HOME SELF-CARE Condition: Stable Instructions (If sedation given, give patient instructions): Fall Prevention for Older Adults (ED), Back Pain (ED), Contusion in Adults (ED), Abrasion (ED) Additional Instructions: Follow-up with your regular physician as directed. Return to the ER immediately if any symptoms worsen, new symptoms arise, or any other problems develop. Is patient prescribed a controlled substance at d/c from ED?: No Referrals: [facility] [Primary Care Provider] - 07/26/22 Time of Disposition: 20:54
[2022-07-24] MEDS ORDERED: ACETAMINOPHEN TAB 500 MG TAB PO STA (20:50)
[2022-07-24] MEDS ORDERED: LIDOCAINE 5% PATCH TOPICAL STA (20:50)
== END 2022-07-24 21:30 | disposition home or self-care (01) ==
LOC: EC 15:01
DX: S30.0XXA Contusion of lower back and pelvis, initial encounter (principal); E11.9 Type 2 diabetes mellitus without complications; I10 Essential (primary) hypertension; Z88.0 Allergy status to penicillin; Z88.6 Allergy status to analgesic agent; Z79.4 Long term (current) use of insulin; W01.198A Fall on same level from slipping, tripping and stumbling with subsequent striking against other object, initial encounter
CPT/HCPCS: 36415; 80053; 85025; 85610; 74177; 99284; 96374; 96375; 96361; J2270; J2405; Q9967

== ENCOUNTER 2022-11-25 11:28 | Observation (INO) | payer MEDICARE, OTHER ==
[2022-11-25 12:36] LABS: Glucose,Whole Blood 340 mg/dL (70-110)
[2022-11-25] MEDS ORDERED: SODIUM CHLORIDE 0.9% 1,000 ML IV SCH (13:00)
[2022-11-25] MEDS ORDERED: INSULIN ASPART (NovoLOG) 100 UNIT/ML VIAL SQ ONE (13:23)
[2022-11-25 15:04] LABS: Basophils % (A) 1 %; Eosinophils # (A) 0.1 k/uL (0-0.7); Eosinophils % (A) 2 %; HGB 13.6 gm/dL (11.4-16.0); Lymphocytes # (A) 2.2 k/uL (1.0-4.8); Lymphocytes % (A) 33 %; MCH 28.3 pg (25.0-35.0); MCHC 35.8 g/dL (31.0-37.0); MCV 78.9 fL (80.0-100.0); Mean Platelet Volume 8.3; Monocytes # (A) 0.3 k/uL (0-1.0); Monocytes % (A) 4 %; Neutrophils # (A) 3.8 k/uL (1.3-7.7); Neutrophils % (A) 59 %; Platelet Count 235 k/uL (150-450); RBC 4.81 m/uL (3.80-5.40); RDW 15.5 % (11.5-15.5); WBC 6.5 k/uL (3.8-10.6)
--- NOTE | 2022-11-25 15:04 | P.GSCN ---
History of Present Illness Consult date: 11/25/22 Reason for Consult: Triple-vessel coronary artery disease Requesting physician: Vincent Sanchez History of present illness: This is a 62-year-old female patient who follows on an outpatient basis with Dr. Michelle Caba for her primary care service and Dr. Sanchez for cardiology care. The patient has a past medical history significant for hypertension, dyslipidemia, diabetes mellitus type 2, COPD, TIA with left facial droop and 2000 with no residual deficits, vertigo, peripheral arterial disease with recent amputation of her great toe, second and third toe to her right foot, and she is a lifetime nonsmoker. Recently, the patient reports complaints of chest pain/pressure with episodes of shortness of breath and lower extremity edema. She denies any recent fever, chills, nausea, vomiting, diarrhea, constipation, lightheadedness, palpitations, presyncope or syncopal. On 09/20/2022 showed an underwent a transthoracic 2-D echocardiogram which showed severe cardiomyopathy with an ejection fraction between 30 and 35%. She was evaluated by Dr. Sanchez and recommendations were made to undergo an elective heart catheterization. The heart catheterization was completed today at [facility] which revealed triple-vessel coronary artery disease. The patient was subsequently transferred here to [facility] for further evaluation and treatment recommendations including myocardial revascularization surgery. A consult was placed to Dr. Sammy Sanchez from cardiothoracic surgery. Review of Systems A 14 point review of systems was completed and was negative except as mentioned in the HPI. Past Medical History Past Medical History: COPD, CVA/TIA (History of TIA in 1999 with facial droop with no residual deficits), Diabetes Mellitus, Hyperlipidemia, Hypertension, Osteoarthritis (OA) History of Any Multi-Drug Resistant Organisms: None Reported Past Surgical History: Section, Hernia Repair (Umbilical hernia repair), Hysterectomy Additional Past Surgical History / Comment(s): right rotator cuff, left hand surgery twice Past Anesthesia/Blood Transfusion Reactions: No Reported Reaction Past Psychological History: No Psychological Hx Reported Smoking Status: Never smoker Past Alcohol Use History: None Reported Past Drug Use History: None Reported Medications and Allergies Home Medications Medication Instructions Recorded Confirmed Type Insulin Glargine,Hum.rec.anlog 40 unit SQ HS 11/13/19 11/25/22 History [Lantus Solostar] Atorvastatin [Lipitor] 40 mg PO HS 11/25/22 11/25/22 History Empagliflozin [Jardiance] 10 mg PO DAILY 11/25/22 11/25/22 History Ergocalciferol [Vitamin D2 (1250 1,250 mcg PO FLOYD 11/25/22 11/25/22 History Mcg = 10184 Iu)] Furosemide [Lasix] 40 mg PO BID 11/25/22 11/25/22 History Insulin Lispro [humaLOG Kwikpen] 30 unit SQ AC-TID 11/25/22 11/25/22 History Loperamide [Imodium] 2 mg PO QID PRN 11/25/22 11/25/22 History Metoprolol Tartrate [Lopressor] 25 mg PO DAILY 11/25/22 11/25/22 History Potassium Chloride ER [K-Dur 20] 20 meq PO BID 11/25/22 11/25/22 History Allergies Allergy/AdvReac Type Severity Reaction Status Date / Time Penicillins Allergy Rash/Hives Verified 11/25/22 14:05 aspirin AdvReac Nausea & Verified 11/25/22 14:05 Vomiting & Diarrhea Surgical - Exam - General well developed, well nourished, no distress, no pain, chronically ill - Eyes PERRL, normal ocular movement, no pale, no icteric - ENT Edentulous normal pinna, normal nares, normal mucosa, no hearing loss, no congestion - Neck Neck is supple, no lymphadenopathy. no masses, no bruits, trachea midline, no venous distension - Respiratory Lungs sounds essentially clear throughout, diminished bilateral bases. Respirations are symmetrical and nonlabored. - Cardiovascular Regular rhythm and rate. S1 and S2 present, negative for S3, gallop or murmur. No edema present. - Abdomen Abdomen is soft, nontender and nondistended. Active bowel sounds present all 4 abdominal quadrants. No guarding or rigidity. No organomegaly appreciated. - Genitourinary Deferred - Rectum Deferred - Integumentary Skin is warm and dry. No clubbing or cyanosis is present. Right foot dressing is clean, dry and intact. no rash, no growths, no abnormal pigmentation - Neurologic No focal deficits. normal coordination - Musculoskeletal Moves all 4 extremities with equal strength bilateral. - Psychiatric oriented to time, oriented to person, oriented to place, speech is normal, memory intact Results - Labs Abnormal Lab Results - Last 24 Hours (Table) 11/25/22 Range/Units 12:34 POC Glucose (mg/dL) 340 H (70-110) mg/dL Assessment and Plan Assessment: Triple-vessel coronary artery disease Hypertension Hyperlipidemia Diabetes mellitus type 2 Cardiomyopathy with an ejection fraction per transthoracic 2-D echocardiogram 30-35% Peripheral arterial disease with history of amputation of her great toe, second and third toes to her right foot COPD History of TIA in 1999 with no residual deficits Vertigo Lifetime nonsmoker Plan: The patient was seen and examined at her bedside on the sixth floor cardiac observation unit with Dr. Sammy Sanchez. Her chart and diagnostics were reviewed. Dr. Sanchez reviewed her cardiac catheterization films and discussed the results with the patient. Treatment options have been discussed with the patient including myocardial revascularization surgery. The patient is scheduled to follow-up with Dr. Sanchez in the office next , 12/02/2022 at 11:15 AM. Preoperative testing and preoperative teaching has been initiated. Once all of her preoperative testing has been collected an STS risk score will be calculated in a discussed with the patient. We will obtain a 2-D transthoracic echocardiogram. Once the patient is able to ambulate a 5 m walk test will be completed with the patient. Continue to maximize medical therapy with statin and beta griselda, the patient is currently not on aspirin as she has an ALLERGY to aspirin. Medical management and other comorbidities primary care service and cardiology. Thank you Dr. Sanchez for this consult and we'll look for to working with you in the care of this patient. I have personally seen and examined the patient, performed the documentation and the assessment and plan as written. 30 minutes spent on the visit . [place] VALLADARES
[2022-11-25 15:10] LABS: Partial Thromboplastin Time 22.1 sec (22.0-30.0); Prothrombin Time 10.5 sec (9.0-12.0)
[2022-11-25 15:30] LABS: Glucose,Whole Blood 277 mg/dL (70-110)
--- NOTE | 2022-11-25 16:02 | XR ---
EXAMINATION TYPE: XR chest 2V DATE OF EXAM: 11/25/2022 COMPARISON: None INDICATION: Presurgical clearance TECHNIQUE: Frontal and lateral views of the chest are obtained. FINDINGS: The heart size is normal. The pulmonary vasculature is normal. The lungs are clear. IMPRESSION: 1. No acute pulmonary process.
[2022-11-25 17:17] LABS: Glucose,Whole Blood 324 mg/dL (70-110)
[2022-11-25] MEDS ORDERED: INSULIN ASPART (NovoLOG) 100 UNIT/ML VIAL SQ SCH (17:30)
[2022-11-25] MEDS: INSULIN ASPART (NovoLOG) 100 UNIT/ML VIAL SQ SCH ×3 (17:35→21:57)
[2022-11-25] MEDS: DAPAGLIFLOZIN PROPANEDIOL 5 MG TABLET PO SCH (17:56)
[2022-11-25] MEDS: FUROSEMIDE 40 MG TAB PO SCH (17:56)
--- NOTE | 2022-11-25 20:15 | US ---
EXAMINATION TYPE: US carotid duplex BILAT DATE OF EXAM: 11/25/2022 COMPARISON: None CLINICAL HISTORY: Pre-Op Cardiac Surgery. Pre-op cardiac surgery TECHNIQUE: Carotid duplex ultrasound examination. Indirect Doppler criteria was utilized. FINDINGS: EXAM MEASUREMENTS: RIGHT: Peak Systolic Velocity (PSV) cm/sec ----- Right CCA: 56.6 ----- Right ICA: 100.2 ----- Right ECA: 111.8 ICA/CCA ratio: 1.8 RIGHT: End Diastole cm/sec ----- Right CCA: 12.9 ----- Right ICA: 33.3 ----- Right ECA: 4.2 LEFT: Peak Systolic Velocity (PSV) cm/sec ----- Left CCA: 66.7 ----- Left ICA: 91.4 ----- Left ECA: 117.6 ICA/CCA ratio: 1.4 LEFT: End Diastole cm/sec ----- Left CCA: 14.4 ----- Left ICA: 26.0 ----- Left ECA: 5.7 VERTEBRALS (direction of flow): Right Vertebral: Antegrade Left Vertebral: Antegrade Rhythm: Normal IMPRESSION: 1. No significant stenosis. 2. Bilateral carotid bulb and proximal left ICA plaque noted. Criteria for Assigning % of Stenosis / Diameter reduction (Estimation based on the indirect measurements of the internal carotid artery velocities (ICA PSV). 1. Normal (no stenosis)=ICA PSV < 125 cm/s: ratio < 2.0: ICA EDV<40 cm/s. 2. Less than 50% stenosis=ICA PSV < 125 cm/s: ratio < 2.0: ICA EDV<40 cm/s. 3. 50 to 69% stenosis=ICA PSV of 125 to 230 cm/s: ration 2.0 ? 4.0: ICA EDV 40-100 cm/s. 4. Greater than 70% stenosis to near occlusion= ICA PSV > 230 cm/s: ratio > 4.0: ICA EDV > 100 cm/s. 5. Near occlusion= ICA PSV velocities may be low or undetectable: variable ratio and ICA EDV. 6. Total occlusion=unable to detect flow.
[2022-11-25 20:21] VITALS: RESP 16
[2022-11-25] MEDS ORDERED: ATORVASTATIN 40 MG TAB PO SCH (21:00)
[2022-11-25] MEDS ORDERED: INSULIN DETEMIR (LEVEMIR) 100 UNIT/ML SYR SQ SCH ×2 (21:00)
[2022-11-25 21:41] LABS: Glucose,Whole Blood 248 mg/dL (70-110)
[2022-11-25] MEDS: POTASSIUM CHLORIDE ER 20 MEQ TAB.ER PO SCH (21:55)
[2022-11-25 23:25] LABS: Amorphous Sediment,Urine Rare /hpf; Appearance,Urine Cloudy (Clear); Bacteria,Urine Few /hpf; Bilirubin,Urine Negative (Negative); Blood,Urine Negative (Negative); Color,Urine Colorless; Glucose,Urine (UA) 4+ (Negative); Ketones,Urine Negative (Negative); Leukocyte Esterase,Urine Moderate (Negative); Mucus,Urine Rare /hpf; Nitrite,Urine Negative (Negative); Protein,Urine Negative (Negative); RBC,Urine 1 /hpf (0-5); Specific Gravity,Urine 1.017 (1.001-1.035); Squamous Epithelial Cell,Urine 1 /hpf (0-4); Urobilinogen,Urine <2.0 mg/dL (<2.0); WBC,Urine 38 /hpf (0-5)
--- NOTE | 2022-11-25 23:34 | US ---
EXAMINATION TYPE: US vein mapping BILAT DATE OF EXAM: 11/25/2022 6:50 PM COMPARISON: NONE CLINICAL HISTORY: PreOp Cardiac Surgery. Pre-op cardiac surgery SIDE PERFORMED: Bilateral TECHNIQUE: Lower extremity saphenous vein is examined and measured utilizing real time linear array sonography. DUPLEX FINDINGS: Greater Saphenous: Color flow seen Measurements in mm: Right Greater Saphenous: Groin: 9.8 x 9.4 mm High Thigh: 7.4 x 4.1 mm Mid Thigh: 5.1 x 4.5 mm Above Knee: 5.0 x 4.4 mm Knee: 6.7 x 5.1 mm Below Knee: 4.7 x 5.0 mm Mid Calf: 3.2 x 3.1 mm At Ankle: 3.6 x 2.7 mm Left Greater Saphenous: Groin: 9.0 x 8.4 mm High Thigh: 3.8 x 3.2 mm Mid Thigh: 3.6 x 3.5 mm Above Knee: 3.0 x 1.8 mm Knee: 3.9 x 3.2 mm Below Knee: 2.0 x 1.5 mm Mid Calf: 3.2 x 3.2mm At Ankle: 2.8 x 1.9 mm IMPRESSION: 1. Bilateral GSV measurements listed above. 2. Performing surgeon to determine viability as conduit.
--- NOTE | 2022-11-25 23:34 | US ---
EXAMINATION TYPE: Pre-Operative Non-Invasive Evaluation of the hand for Potential Radial Artery Nik st, Measurements only DATE OF EXAM: 11/25/2022 6:49 PM CLINICAL HISTORY: Pre-Op Cardiac Surgery. Pre-op cardiac surgery SIDE PERFORMED: Left TECHNIQUE: Radial artery is measured utilizing real time linear array sonography. Dominant hand: Right Duplex Findings: Radial Artery: Color flow seen Measurements in mm, transverse view: Left Radial: mm Proximal: Not visualized due to IV Mid: 2.9 x 2.6 mm Distal: 2.4 x 2.4 mm IMPRESSION: 1. Left upper extremity radial artery measurements listed above. 2. Performing surgeon to determine viability as conduit.
[2022-11-26 00:15] LABS: ALT 30 U/L (8-44); AST 16 U/L (13-35); African American GFR (CKD) 46.6 (60.0-200.0); Albumin 4.2 g/dL (3.8-4.9); Albumin/Globulin Ratio 1.31 (1.60-3.17); Alkaline Phosphatase 111 U/L (41-126); BUN/Creat Ratio 46.64 Ratio (12.00-20.00); Blood Urea Nitrogen 65.3 mg/dL (9.0-27.0); Calcium 10.5 mg/dL (8.7-10.3); Carbon Dioxide 26.6 mmol/L (20.0-27.5); Chloride 93 mmol/L (96-109); Chol/HDL Ratio 3.68 Ratio; Globulin 3.2 g/dL (1.6-3.3); Glucose 288 mg/dL (70-110); LDL Cholesterol,Calculated 75.3 mg/dL (0.0-131.0); Magnesium 2.7 mg/dL (1.5-2.4); Non-African American GFR(CKD) 40.2 (60.0-200.0); Potassium 3.9 mmol/L (3.5-5.5); Sodium 134 mmol/L (135-145); Total Protein 7.4 g/dL (6.2-8.2)
[2022-11-26 00:35] LABS: Hepatitis A Antibody IgM Nonreactive (Nonreactive); Hepatitis B Core IgM Nonreactive (Nonreactive); Hepatitis B Surface Antigen Nonreactive (Nonreactive); Hepatitis C IgG Antibody Nonreactive (Nonreactive)
[2022-11-26 06:46] VITALS: BP 105/67; PULSE 69; TEMP 98
[2022-11-26 07:40] LABS: Glucose,Whole Blood 216 mg/dL (70-110)
[2022-11-26 08:14] LABS: African American GFR (CKD) 46 (>60 ml/min/1.73 sqM); Anion Gap 12 mmol/L; Blood Urea Nitrogen 66 mg/dL (7-17); Calcium 9.8 mg/dL (8.4-10.2); Carbon Dioxide 26 mmol/L (22-30); Chloride 96 mmol/L (98-107); Glucose 213 mg/dL (74-99); Non-African American GFR(CKD) 40 (>60 ml/min/1.73 sqM); Potassium 4.1 mmol/L (3.5-5.1); Sodium 134 mmol/L (137-145)
[2022-11-26] MEDS: INSULIN ASPART (NovoLOG) 100 UNIT/ML VIAL SQ SCH ×4 (08:29→13:52)
[2022-11-26] MEDS: FUROSEMIDE 40 MG TAB PO SCH (08:30)
[2022-11-26] MEDS: POTASSIUM CHLORIDE ER 20 MEQ TAB.ER PO SCH (08:30)
[2022-11-26] MEDS: DAPAGLIFLOZIN PROPANEDIOL 5 MG TABLET PO SCH (08:33)
[2022-11-26] MEDS ORDERED: METOPROLOL TARTRATE 25 MG TAB PO SCH (09:00)
--- NOTE | 2022-11-26 09:23 | CA ---
Transthoracic Echo Report Name: Aziza Harrison Age: 62 Gender: F : 1960 Exam Date: 11/25/2022 13:53 Exam Location: [facility] Ht (in): 65 Wt (lb): 147 Ordering Physician: Reyes Griffiths Attending/Referring Phys: Signal Helper Cedrick Tate RDCS Procedure CPT: Indications: pre op cardiac surgery Cardiac Hx: D. M. type I ; Diabetic arteriopathy; Technical Quality: Fair Contrast 1: Total Dose (mL): Contrast 2: Total Dose (mL): MEASUREMENTS (Male / Female) Normal Values 2D ECHO LV Diastolic Diameter PLAX 4.3 cm 4.2 - 5.9 / 3.9 - 5.3 cm LV Systolic Diameter PLAX 3.4 cm LV Fractional Shortening PLAX 20.3 % IVS Diastolic Thickness 1.0 cm 0.6 - 1.0 / 0.6 - 0.9 cm IVS Systolic Thickness 1.2 cm LVPW Diastolic Thickness 1.1 cm 0.6 - 1.0 / 0.6 - 0.9 cm LV Relative Wall Thickness 0.5 RV Internal Dim ED PLAX 2.8 cm LVOT Diameter 1.9 cm LA Systolic Diameter LX 2.8 cm 3.0 - 4.0 / 2.7 - 3.8 cm LV Diastolic Volume MOD BP 90.9 cm??? 67 - 155 / 56 - 104 cm??? LV Systolic Volume MOD BP 43.7 cm??? 22 - 58 / 19 - 49 cm??? LV Ejection Fraction MOD BP 52.0 % >= 55 % LV Stroke Volume MOD BP 47.3 cm??? LV Diastolic Volume MOD 4C 83.1 cm??? LV Systolic Volume MOD 4C 42.2 cm??? LV Ejection Fraction MOD 4C 49.2 % LV Stroke Volume MOD 4C 40.9 cm??? LV Diastolic Length 4C 7.3 cm LV Systolic Length 4C 5.9 cm LV Diastolic Volume MOD 2C 93.0 cm??? LV Systolic Volume MOD 2C 41.4 cm??? LV Ejection Fraction MOD 2C 55.5 % LV Stroke Volume MOD 2C 51.6 cm??? LV Diastolic Length 2C 6.8 cm LV Systolic Length 2C 5.3 cm Ascending Aorta Diameter 2.6 cm M-MODE Aortic Root Diameter MM 2.9 cm LA Systolic Diameter MM 3.1 cm LA Ao Ratio MM 1.1 MV E Point Septal Separation 2.1 cm AV Cusp Separation MM 1.3 cm DOPPLER AV Peak Velocity 99.1 cm/s AV Peak Gradient 3.9 mmHg MV Peak Velocity 105.4 cm/s MV Peak Gradient 4.4 mmHg MV Mean Velocity 60.8 cm/s MV Mean Gradient 1.7 mmHg MV Velocity Time Integral 31.4 cm MV Deceleration [place] 242.1 cm/s??? Mitral E Point Velocity 62.1 cm/s Mitral A Point Velocity 96.6 cm/s Mitral E to A Ratio 0.6 MV Deceleration Time 256.6 ms MV E' Velocity 3.3 cm/s Mitral E to MV E' Ratio 18.7 TR Peak Velocity 181.0 cm/s TR Peak Gradient 13.1 mmHg Right Ventricular Systolic Press 21.1 mmHg PV Peak Velocity 80.1 cm/s PV Peak Gradient 2.6 mmHg FINDINGS Left Ventricle Left ventricular ejection fraction is estimated at 50-55 %. Borderline left ventricular hypertrophy. Grade 1 diastolic dysfunction. Right Ventricle Normal right ventricular size and function. Right Atrium Normal right atrial size. Left Atrium Normal left atrial size. Mitral Valve Mitral valve thickened. Moderate thickening/calcification of the anterior mitral valve leaflet. Trace to mild mitral regurgitation. Aortic Valve Diffuse thickening (sclerosis) of the aortic valve cusps without reduced excursion. Tricuspid Valve Mild tricuspid regurgitation. Pulmonic Valve Structurally normal pulmonic valve. Pericardium Normal pericardium. No pericardial effusion. Aorta Normal size aortic root and proximal ascending aorta. CONCLUSIONS Left ventricular ejection fraction 50-55% Trace to mild mitral regurgitation Mild tricuspid regurgitation No pericardial effusion Previewed by: Dr. Bryce Peters DO (Electronically Signed) Final Date: 26 November 2022 09:22
--- NOTE | 2022-11-26 10:59 | P.PN ---
Subjective Progress Note Date: 11/26/22 Principal diagnosis: Triple-vessel coronary artery disease. Past medical history significant for hypertension, dyslipidemia, uncontrolled diabetes mellitus type 2 with hemoglobin A1c of 13.0, COPD, TIA with left facial droop and 2000 with no residual deficits, vertigo, peripheral arterial disease with recent amputation of her great toe, second and third toe to her right foot, and she is a lifetime nonsmoker. The patient was seen and examined in follow-up today 11/26/2022 at her bedside on the sixth floor cardiac observation unit. She is lying in bed, is awake, alert, oriented 3 and is in no acute distress. Denies any complaints of chest pain/chest pressure, shortness of breath nausea or vomiting. Preoperative testing is in progress. Laboratory results yesterday showed a WBC count 6.5, hemoglobin 13.6, hematocrit 38.0, PT 10.5, INR 1.0, PTT 22.1, sodium 134, pot assium 3.9, BUN 65.3, creatinine 1.4, glucose 288, hemoglobin A1c 13.0, calcium 10.5, magnesium 2.7, total bilirubin 1.3, and triglycerides 155. Repeat BMP this morning showed sodium 134, potassium 4.1, BUN 66, creatinine 1.42, glucose 216 and calcium 9.8. Oxygen saturations are 98% on room air and she is achieving 2500 mL on her incentive spirometry. A carotid duplex was completed just today which showed no significant stenosis. An STS risk score was calculated and discussed with the patient. A 5 m walk test was completed with the patient with time 1: 11.72 seconds, time 2: 10.9 seconds, and time 3:10.04 seconds. Also, as part of her preoperative workup a bedside FEV1 was completed which showed a 77% of predicted value with a base volume of 2.00 L. The patient's transthoracic 2-D echocardiogram completed yesterday 11/25/2022 demonstrated a left ventricular ejection fraction estimated at 50-55% which has improved since her August 2022 2-D echocardiogram. It also demonstrated trace to mild mitral valve regurgitation, mild tricuspid valve regurgitation, normal size aortic root and proximal ascending aorta and no pericardial effusion. Objective - Vital Signs Vital signs: Vital Signs Temp 98.0 F 11/26/22 06:44 Pulse 69 11/26/22 06:44 Resp 16 11/26/22 06:44 BP 105/67 11/26/22 06:44 Pulse Ox 98 11/26/22 06:44 FiO2 Intake & Output 11/25/22 11/26/22 11/26/22 18:59 06:59 18:59 Weight 66.8 kg Other: # Voids 1 1 - Exam CONSTITUTIONAL: Appears comfortable, cooperative, no acute distress RESPIRATORY: Lungs sounds essentially clear throughout. Respirations are symmetrical, nonlabored. Currently on room air with oxygen saturation 98%. Able to achieve 2500 mL on incentive spirometry. Strong cough. CARDIOVASCULAR: S1, S2 present, negative for S3, gallop or murmur. Regular rate and rhythm. Palpable peripheral pulses bilaterally. No edema present. No calf pain or tenderness noted. GASTROINTESTINAL: Abdomen soft, nontender, nondistended. Active bowel sounds present 4 quadrants. Tolerating diet. GENITOURINARY: Continues to void. INTEGUMENTARY: Skin is warm and dry with no clubbing or cyanosis. Dressing is clean, dry and intact to her right foot. NEUROLOGIC: Cranial nerves II through XII intact. No focal deficits. MUSKULOSKELETAL: Able to move all extremities, strength equal bilaterally, gait normal. PSYCHIATRIC: Alert and oriented to person place and time, appropriate affect, intact judgment and insight. - Allied health notes Allied health notes reviewed: nursing - Labs CBC & Chem 7: 11/25/22 14:36 11/26/22 07:35 Labs: Abnormal Lab Results - Last 24 Hours (Table) 11/25/22 11/25/22 11/25/22 Range/Units 12:34 14:36 14:36 MCV 78.9 L (80.0-100.0) fL Sodium (135-145) mmol/L Chloride (96-109) mmol/L BUN (9.0-27.0) mg/dL Creatinine (0.52-1.04) mg/dL Est GFR (CKD-EPI)AfAm (60.0-200.0) Est GFR (CKD-EPI)NonAf (60.0-200.0) BUN/Creatinine Ratio (12.00-20.00) Ratio Glucose (70-110) mg/dL POC Glucose (mg/dL) 340 H (70-110) mg/dL Hemoglobin A1c 13.0 H (0.0-6.0) % Calcium (8.7-10.3) mg/dL Magnesium (1.5-2.4) mg/dL Total Bilirubin (0.30-1.20) mg/dL Albumin/Globulin Ratio (1.60-3.17) g/dL Triglycerides (0.00-149.00) mg/dL HDL Cholesterol (40.00-60.00) mg/dL Urine Appearance (Clear) Urine Glucose (UA) (Negative) Ur Leukocyte Esterase (Negative) Urine WBC (0-5) /hpf Urine WBC Clumps (None) /hpf Amorphous Sediment (None) /hpf Urine Bacteria (None) /hpf Urine Mucus (None) /hpf 11/25/22 11/25/22 11/25/22 Range/Units 14:36 15:28 17:15 MCV (80.0-100.0) fL Sodium 134 L (135-145) mmol/L Chloride 93 L (96-109) mmol/L BUN 65.3 H (9.0-27.0) mg/dL Creatinine (0.52-1.04) mg/dL Est GFR (CKD-EPI)AfAm 46.6 L (60.0-200.0) Est GFR (CKD-EPI)NonAf 40.2 L (60.0-200.0) BUN/Creatinine Ratio 46.64 H (12.00-20.00) Ratio Glucose 288 H (70-110) mg/dL POC Glucose (mg/dL) 277 H 324 H (70-110) mg/dL Hemoglobin A1c (0.0-6.0) % Calcium 10.5 H (8.7-10.3) mg/dL Magnesium 2.7 H (1.5-2.4) mg/dL Total Bilirubin 1.30 H (0.30-1.20) mg/dL Albumin/Globulin Ratio 1.31 L (1.60-3.17) g/dL Triglycerides 155.00 H (0.00-149.00) mg/dL HDL Cholesterol 39.70 L (40.00-60.00) mg/dL Urine Appearance (Clear) Urine Glucose (UA) (Negative) Ur Leukocyte Esterase (Negative) Urine WBC (0-5) /hpf Urine WBC Clumps (None) /hpf Amorphous Sediment (None) /hpf Urine Bacteria (None) /hpf Urine Mucus (None) /hpf 11/25/22 11/25/22 11/26/22 Range/Units 21:11 21:39 07:35 MCV (80.0-100.0) fL Sodium 134 L (135-145) mmol/L Chloride 96 L (96-109) mmol/L BUN 66 H (9.0-27.0) mg/dL Creatinine 1.42 H (0.52-1.04) mg/dL Est GFR (CKD-EPI)AfAm (60.0-200.0) Est GFR (CKD-EPI)NonAf (60.0-200.0) BUN/Creatinine Ratio (12.00-20.00) Ratio Glucose 213 H (70-110) mg/dL POC Glucose (mg/dL) 248 H (70-110) mg/dL Hemoglobin A1c (0.0-6.0) % Calcium (8.7-10.3) mg/dL Magnesium (1.5-2.4) mg/dL Total Bilirubin (0.30-1.20) mg/dL Albumin/Globulin Ratio (1.60-3.17) g/dL Triglycerides (0.00-149.00) mg/dL HDL Cholesterol (40.00-60.00) mg/dL Urine Appearance Cloudy H (Clear) Urine Glucose (UA) 4+ H (Negative) Ur Leukocyte Esterase Moderate H (Negative) Urine WBC 38 H (0-5) /hpf Urine WBC Clumps Occasional H (None) /hpf Amorphous Sediment Rare H (None) /hpf Urine Bacteria Few H (None) /hpf Urine Mucus Rare H (None) /hpf 11/26/22 Range/Units 07:39 MCV (80.0-100.0) fL Sodium (135-145) mmol/L Chloride (96-109) mmol/L BUN (9.0-27.0) mg/dL Creatinine (0.52-1.04) mg/dL Est GFR (CKD-EPI)AfAm (60.0-200.0) Est GFR (CKD-EPI)NonAf (60.0-200.0) BUN/Creatinine Ratio (12.00-20.00) Ratio Glucose (70-110) mg/dL POC Glucose (mg/dL) 216 H (70-110) mg/dL Hemoglobin A1c (0.0-6.0) % Calcium (8.7-10.3) mg/dL Magnesium (1.5-2.4) mg/dL Total Bilirubin (0.30-1.20) mg/dL Albumin/Globulin Ratio (1.60-3.17) g/dL Triglycerides (0.00-149.00) mg/dL HDL Cholesterol (40.00-60.00) mg/dL Urine Appearance (Clear) Urine Glucose (UA) (Negative) Ur Leukocyte Esterase (Negative) Urine WBC (0-5) /hpf Urine WBC Clumps (None) /hpf Amorphous Sediment (None) /hpf Urine Bacteria (None) /hpf Urine Mucus (None) /hpf Microbiology - Last 24 Hours (Table) 11/25/22 21:11 Urine Culture - Preliminary Urine,Voided 11/25/22 17:08 Nasal Screen MRSA/MSSA - Preliminary Nasopharyngeal Swab - Imaging and Cardiology Chest x-ray: report reviewed, image reviewed Stress the 2-D echocardiogram results reviewed. Carotid duplex study results reviewed. Assessment and Plan Assessment: Triple-vessel coronary artery disease Hypertension Hyperlipidemia Uncontrolled diabetes mellitus type 2 with a hemoglobin A1c of 13.0% Cardiomyopathy with an ejection fraction per transthoracic 2-D echocardiogram 30-35% Peripheral arterial disease with history of amputation of her great toe, second and third toes to her right foot, most recent ABIs to her right 0.76 and to the left 1.41 COPD, with a preoperative FEV1 77% of predicted value with a base volume of 2.00 L History of TIA in 1999 with no residual deficits Vertigo Lifetime nonsmoker Plan: Continue to optimize medical management with statin and beta griselda. She is not on aspirin at this time due to an ALLERGY. She has been scheduled follow-up with her primary care physician on 11/29/2022 as her hemoglobin A1c is 13.0%, she needs better glucose control. She is scheduled to follow-up with Dr. Sammy Sanchez in the office on 12/02/2022 to discuss further treatment options including myocardial revascularization surgery. A 5 meter walk test was completed with the patient with time 1: 11.72 seconds, time 2: 10.9 seconds, and time 3: 10.04 seconds. STS risk score has been calculated discussed with the patient. Encourage use of incentive spirometry 10 times every hour while awake. Medical management and other comorbidities per primary care service and cardiology. More recommendations to follow based on patient's clinical course. Time with Patient: Greater than 30
[2022-11-26 11:57] LABS: Glucose,Whole Blood 196 mg/dL (70-110)
[2022-11-26 12:34] VITALS: BMI 24.5
--- NOTE | 2022-11-26 12:43 | P.DS ---
Providers Date of admission: 11/25/22 12:18 Attending physician: Vincent Sanchez Consults: 11/25/22 12:51 Consult Physician Routine Consulting Provider: Sammy Sanchez Consult Reason/Comments: triple vessel disease, open heart consult Do you want consulting provider notified?: Already Contacted Primary care physician: [facility] Hospital Course: This is a 62-year-old female patient with a past medical history significant for diabetes and hypertension and dyslipidemia who was diagnosed recently with cardiomyopathy. She underwent a heart catheterization yesterday and that revealed severe triple-vessel coronary artery disease was extremely calcified right and left coronary system. Subsequently the patient was transferred to [facility] where we consulted cardiothoracic surgery service on her and she was seen by Dr. Sanchez. Further investigation performed including an echo which revealed improvement in the left ventricular systolic function. Carotid duplex study showed mild disease bilaterally. Lower extremity is arterial duplex study showed mild abnormalities in the ANTONINA on the right side. The patient is scheduled to be seen by her clinical assistant professor because her last he moglobin A1c was elevated and she scheduled to undergo an open heart surgery in the next week or so. Clinically she is asymptomatic. Hemodynamically she is stable. The patient is going to be discharged home today and I'll follow-up with the patient in the next few days Plan - Discharge Summary New Discharge Prescriptions: Continue Insulin Glargine,Hum.rec.anlog [Lantus Solostar Pen] 14 unit SQ HS Loperamide [Imodium] 2 mg PO QID PRN PRN Reason: Diarrhea Potassium Chloride ER [K-Dur 20] 20 meq PO BID Metoprolol Tartrate [Lopressor] 25 mg PO DAILY Empagliflozin [Jardiance] 10 mg PO DAILY Atorvastatin [Lipitor] 40 mg PO HS Insulin Lispro [humaLOG Kwikpen] 5 unit SQ AC-TID Ergocalciferol [Vitamin D2 (1250 Mcg = 18461 Iu)] 1,250 mcg PO FLOYD Furosemide [Lasix] 40 mg PO BID Discharge Medication List Insulin Glargine,Hum.rec.anlog [Lantus Solostar Pen] 14 unit SQ HS 11/13/19 [History] Atorvastatin [Lipitor] 40 mg PO HS 11/25/22 [History] Empagliflozin [Jardiance] 10 mg PO DAILY 11/25/22 [History] Ergocalciferol [Vitamin D2 (1250 Mcg = 10266 Iu)] 1,250 mcg PO FLOYD 11/25/22 [History] Furosemide [Lasix] 40 mg PO BID 11/25/22 [History] Insulin Lispro [humaLOG Kwikpen] 5 unit SQ AC-TID 11/25/22 [History] Loperamide [Imodium] 2 mg PO QID PRN 11/25/22 [History] Metoprolol Tartrate [Lopressor] 25 mg PO DAILY 11/25/22 [History] Potassium Chloride ER [K-Dur 20] 20 meq PO BID 11/25/22 [History] Follow up Appointment(s)/Referral(s): Sammy Sanchez MD [STAFF PHYSICIAN] - 12/02/22 11:15 am Kaylin Reveles MD [STAFF PHYSICIAN] - 1 Week Michelle Caba [Primary Care Provider] - 11/29/22 1:00 pm (Hemoglobin A1c 13.0%) Vincent Sanchez MD [STAFF PHYSICIAN] - 3 Days
--- NOTE | 2022-11-29 07:43 | US ---
EXAMINATION TYPE: US arterial LE multi level DATE OF EXAM: 11/25/2022 8:31 PM CLINICAL HISTORY: Ankle Brachial Index (ANTONINA) . Cardiac pre-op surgery Right Brachial Pressure: 91 Left Brachial Pressure: Deferred due to IV Ankle-Brachial Indices: Right: 0.76, 1.09 in calf Left: 1.41 Toe Brachial Indices: Right: Deferred due to surgically removed big toe Left: 0.68 IMPRESSION: Known peripheral arterial disease in the right lower extremity is confirmed by this stud y.
== END 2022-11-26 14:41 | disposition home or self-care (01) ==
LOC: 6NMEDSUR 12:18
PROVIDERS: ADMIT Internal Medicine Interventional Cardiology; ATTEND Internal Medicine Interventional Cardiology
DX: I25.10 Atherosclerotic heart disease of native coronary artery without angina pectoris (principal); E11.65 Type 2 diabetes mellitus with hyperglycemia; I42.9 Cardiomyopathy, unspecified; I10 Essential (primary) hypertension; E78.5 Hyperlipidemia, unspecified; I65.22 Occlusion and stenosis of left carotid artery; I08.1 Rheumatic disorders of both mitral and tricuspid valves; J44.9 Chronic obstructive pulmonary disease, unspecified; E11.51 Type 2 diabetes mellitus with diabetic peripheral angiopathy without gangrene; R42 Dizziness and giddiness; Z79.84 Long term (current) use of oral hypoglycemic drugs; Z79.4 Long term (current) use of insulin; Z79.899 Other long term (current) drug therapy; Z88.0 Allergy status to penicillin; Z88.6 Allergy status to analgesic agent; Z86.73 Personal history of transient ischemic attack (TIA), and cerebral infarction without residual deficits; Z89.411 Acquired absence of right great toe; Z89.421 Acquired absence of other right toe(s); Z90.710 Acquired absence of both cervix and uterus; Z98.891 History of uterine scar from previous surgery
CPT/HCPCS: 96360; 96361; 94150; 93306; 80061; 80053; 80048; 80074; 84443; 83735; 85025; 85610; 85730; 81001; 87070; 87086; 87077; 87186; 83036; 71046; 93931; 93970; 93923; 93880; G0379; G0378 ×2

== ENCOUNTER → 2022-11-30 | Outpatient (CLI) | payer MEDICARE, OTHER ==
[2022-11-30 17:30] LABS: African American GFR (CKD) 47.8 (60.0-200.0); Albumin 4.2 g/dL (3.8-4.9); Albumin/Globulin Ratio 1.29 (1.60-3.17); BUN/Creat Ratio 40.66 Ratio (12.00-20.00); Blood Urea Nitrogen 55.7 mg/dL (9.0-27.0); Calcium 10.1 mg/dL (8.7-10.3); Carbon Dioxide 26.8 mmol/L (20.0-27.5); Globulin 3.3 g/dL (1.6-3.3); Non-African American GFR(CKD) 41.2 (60.0-200.0); Potassium 4.3 mmol/L (3.5-5.5); Total Bilirubin 0.9 mg/dL (0.30-1.20); Total Protein 7.5 g/dL (6.2-8.2)
[2022-12-01 08:49] LABS: C-Peptide 4.58 ng/mL (0.81-3.85)
== END | disposition home or self-care (01) ==
LOC: LABWHC1 10:41
PROVIDERS: ATTEND Internal Medicine Endocrinology, Diabetes & Metabolism
DX: E11.65 Type 2 diabetes mellitus with hyperglycemia (principal)
CPT/HCPCS: 36415; 80053; 84681

== ENCOUNTER 2022-12-07 05:37 | Inpatient (IN) | payer MEDICARE, OTHER ==
[~2022-12-07 05:37] MED LIST: ALBUMIN HUMAN 25% 50 ML IV ONE; ALBUMIN HUMAN 5% 500 ML IVPB ONE; CALCIUM CHLORIDE 100 MG/ML 10 ML SYRINGE IV ONE; CARDIOPLEGIC SOLN (K+ 16 MEQ/L 1,000 ML with SODIUM BICARB (1 MEQ/ML) 20 ML, LIDOCAINE ... PERFUSION ONE; CHLORHEXIDINE GLUCONATE 15 ML CUP MUCOUS MEM ONE; CLEVIDIPINE BUTYRATE 25 MG in EMPTY BAG 1 BAG IV ONE; DILTIAZEM 125 MG in SODIUM CHLORIDE 0.9% 100 ML IV ONE; HEPARIN SODIUM 1,000 UN/ML (10ML VL) IV ONE; HEPARIN SODIUM,PORCINE 5,000 UNIT in SODIUM CHLORIDE 0.9% 500 ML 500 ML IV ONE; INSULIN REGULAR 100 UNIT in SODIUM CHLORIDE 0.9% 100 ML IV ONE; LACTATED RINGERS 1,000 ML IV ONE; MAGNESIUM SULFATE 16.24 MEQ in EMPTY SYRINGE 1 SYR IV ONE; MANNITOL 25% 12.5 GM/50 ML VIAL IV ONE; NITROGLYCERIN SL TABS 0.4 MG TAB SUBLINGUAL ONE; NITROGLYCERIN-D5W PMX 25 MG/250 ML BTL IV ONE; NITROGLYCERIN-D5W PMX 50 MG in DEXTROSE/WATER 1 250ML.BAG IV ONE; NOREPINEPHRINE 4 MG in SODIUM CHLORIDE 0.9% 250 ML IV ONE; PAPAVERINE 360 MG in SODIUM CHLORIDE 0.9% 90 ML IV ONE; PHENYLEPHRINE 10 MG/ML VIAL IV ONE; PHENYLEPHRINE 40 MG in SODIUM CHLORIDE 0.9% 250 ML IV ONE; PROTAMINE SULFATE 10 MG/ML 25 ML VIAL IV ONE; PROTAMINE SULFATE 250 MG in EMPTY BAG 1 BAG IV ONE; SODIUM BICARB 8.4% 50 ML SYR (1 MEQ/ML) IV ONE; SODIUM CHLORIDE 0.9% 1,000 ML IV ONE; TRANEXAMIC ACID 2,000 MG in SODIUM CHLORIDE 0.9% 80 ML IV ONE; ceFAZolin 1,000 MG in SODIUM CHLORIDE 0.9% IRRIGATIO 1,000 ML IRRIGATION ONE; propofoL 1,000 MG/100 ML VIAL IV ONE
[2022-12-07] MEDS ORDERED: LACTATED RINGERS 1,000 ML IV SCH (06:00)
[2022-12-07] MEDS ORDERED: ONDANSETRON 4 MG/2 ML VIAL IVP ONE (06:00)
[2022-12-07] MEDS ORDERED: DEXAMETHASONE SOD PHOSPHATE 4 MG/ML 1 ML VIAL IV ONE (06:00)
[2022-12-07] MEDS ORDERED: LIDOCAINE 1% (10MG/ML) FOR IV START INTRADERMA PRN (06:00)
[2022-12-07] MEDS: ATORVASTATIN 10 MG TAB PO ONE ×2 (06:40→06:52)
[2022-12-07] MEDS: METOPROLOL TARTRATE 12.5 MG TAB PO ONE ×2 (06:40→06:52)
[2022-12-07 06:41] LABS: Glucose,Whole Blood 105 mg/dL (70-110)
[2022-12-07] MEDS ORDERED: HYDROmorphone 0.5 MG/0.5 ML SYRINGE IVP PRN (07:00)
[2022-12-07] MEDS ORDERED: SODIUM CHLORIDE 0.9% IRRIG 1,000 ML BTL IRRIGATION ONE (07:50)
[2022-12-07] MEDS ORDERED: KETOROLAC 30 MG/ML 1 ML VIAL ONE (07:50)
[2022-12-07] MEDS ORDERED: ALBUMIN HUMAN 5% (25gm) 500 ML VIAL IVPB ONE (07:50)
[2022-12-07] MEDS ORDERED: POTASSIUM CHLORIDE OPEN HEART 20 MEQ/50 ML BAG IVPB ONE (07:50)
[2022-12-07] MEDS ORDERED: NITROGLYCERIN-D5W PMX 50 MG/250 ML BOTTLE IV ONE (07:50)
[2022-12-07] MEDS ORDERED: WATER FOR INJECTION, STERILE 10 ML VIAL IV ONE (07:50)
[2022-12-07] MEDS ORDERED: ELECTROLYTE-R (PH 7.4) 1,000 ML IV.SOLN IV ONE (07:50)
[2022-12-07] MEDS ORDERED: HEPARIN SODIUM,PORCINE 10,000 UNIT/ML 1 ML VIAL ONE (07:50)
[2022-12-07] MEDS ORDERED: INSULIN REGULAR 100 UNIT/ML VIAL (IV) ONE (07:50)
[2022-12-07] MEDS ORDERED: LIDOCAINE 1% INJ 10MG/ML (20 ML MDV) ONE (07:50)
[2022-12-07] MEDS ORDERED: VECURONIUM 10 MG VIAL IV ONE (07:50)
[2022-12-07] MEDS ORDERED: fentaNYL (PF) 50 MCG/ML 50 ML VIAL ONE (07:50)
[2022-12-07] MEDS ORDERED: HEPARIN SODIUM,PORCINE 5,000 UNIT/ML 1 ML VIAL ONE (07:50)
[2022-12-07] MEDS ORDERED: MAGNESIUM SULFATE 4 MEQ/ML 10ML VIAL ONE (07:50)
[2022-12-07] MEDS ORDERED: PROTAMINE SULFATE 10 MG/ML 5 ML VIAL IV ONE (07:50)
[2022-12-07] MEDS ORDERED: PROPOFOL 10 MG/ML 20 ML VIAL IV ONE (07:50)
[2022-12-07] MEDS ORDERED: PHENYLEPHRINE-0.9% NACL SYG 1,000 MCG/10 ML SYRINGE ONE (07:50)
[2022-12-07] MEDS ORDERED: SODIUM CHLORIDE 0.9% 500 ML 500 ML with HEPARIN SODIUM,PORCINE 5,000 UNIT IV ONE ×2 (09:24)
[2022-12-07] MEDS ORDERED: PAPAVERINE 360 MG in SODIUM CHLORIDE 0.9% 90 ML IV ONE (09:25)
[2022-12-07] MEDS ORDERED: ceFAZolin 1,000 MG in SODIUM CHLORIDE 0.9% 1,000 ML IRRIGATION ONE (09:25)
[2022-12-07] MEDS ORDERED: POTASSIUM CHLORIDE 20 MEQ in WATER FOR INJECTION 1 100ML.BAG IVPB SCH (10:55)
--- NOTE | 2022-12-07 13:22 | P.ANPRN ---
Procedure Note - Anesthesia - Invasive Line Right [place] Time Out Performed: Yes Date of Procedure: 12/07/22 Time of Procedure: 07:45 Location of Patient: PreOp Preparation: Sterile Prep, Sterile Dressing Central Line Location: Internal Jugular [place] Line Location: Internal Jugular Ultrasound Used: No Purpose - Visualization and Identification of Vasculature: No Image Stored and Saved: No Narrative: Central line placement per sterile protocol utilized.
[2022-12-07] MEDS ORDERED: AMIODARONE 360 MG in DEXTROSE 5% IN WATER 200 ML IV ONE ×2 (13:45)
[2022-12-07] MEDS ORDERED: CLEVIDIPINE BUTYRATE 25 MG in EMPTY BAG 1 BAG IV SCH (13:45)
[2022-12-07] MEDS ORDERED: Phosphorus Replacement Protoco 1 EACH MISC MISCELLANE PRN (13:45)
[2022-12-07] MEDS ORDERED: BENZOCAINE/MENTHOL LOZENG 1 EACH LOZENGE MUCOUS MEM PRN (13:45)
[2022-12-07] MEDS ORDERED: DEXTROSE 5% IN WATER 100 ML with AMIODARONE 150 MG IV PRN (13:45)
[2022-12-07] MEDS ORDERED: Magnesium Replacement Protocol 1 EACH MISC MISCELLANE PRN (13:45)
[2022-12-07] MEDS ORDERED: HYDROcodone/APAP 10-325MG 1 EACH TAB PO PRN (13:45)
[2022-12-07] MEDS ORDERED: CALCIUM GLUCONATE IN NACL 2 GM in SALINE 1 100ML.BAG IVPB PRN (13:45)
[2022-12-07] MEDS ORDERED: Potassium Replacement Protocol 1 EACH MISC MISCELLANE PRN (13:45)
[2022-12-07] MEDS ORDERED: DEXTROSE 50% SYRINGE 50 ML IVP PRN ×2 (13:45)
--- NOTE | 2022-12-07 13:53 | P.OP ---
Date of Procedure: 12/07/22 Preoperative Diagnosis: CAD Postoperative Diagnosis: Same Procedure(s) Performed: Off-pump CABG 2 with BRISENO to LAD, saphenous vein graft to obtuse marginal 2; occlusion of base of left atrial appendage with 35 mm AtriCure clip, placement of intra-aortic balloon pump percutaneously via left femoral arterial approach, endovascular vein harvest Implants: 35 mm AtriCure clip Anesthesia: GETA Surgeon: Sammy Sanchez Bundle Tier #1: Tobias Guerrero Bundle Tier #2: Reyes Griffiths Estimated Blood Loss (ml): 500 IV fluids (ml): 2,500 Urine output (ml): 400 Pathology: none sent Condition: critical Disposition: ICU Indications for Procedure: 62-year-old female presents with anginal symptomatology noted to have left main and three-vessel coronary artery disease and referred for elective coronary bypass grafting. She is severe diabetic with open ulceration of an amputation site on her right foot which is been slowly healing since July. She walks with a walker because of this wound. She was evaluated and felt to be high risk for CABG but nonetheless appropriate. Operative Findings: On preop IESHA, the left ventricular ejection fraction was somewhat diminished in the overall function of the heart appeared somewhat boggy. There was no significant valvular heart disease noted. All carter were moving. Coronary targets were small and easily disease. The LAD was heavily calcified for much of its length. It was grafted at the junction of the middle and distal third and a soft spot. First obtuse marginal was heavily and diffusely diseased. The second obtuse marginal was diseased but had a graftable it point. Inferior wall vessels were all less than 1 mm in diameter not felt to be appropriate targets for coronary bypass surgery. Right main coronary artery was heavily heavily calcified and not felt to be appropriate for coronary bypass surgery. Saphenous vein was of reasonable quality. Attempts to start a right r adial arterial line were unsuccessful. Attempts to start a left radial arterial line were successful but this rapidly failed. Description of Procedure: Once patient was asleep left femoral arterial line was placed under ultrasound guidance and a soft portion of the left femoral artery. This had a good lumen. Greater saphenous vein was harvested from the left lower extremity from mid calf to groin using endovascular vein harvest technique. Simultaneous sternotomy was performed a left hemisternum was retracted upwards left internal mammary artery was harvested on a vascularized pedicle, left intact on its origin from the subclavian and divided distally. Was good appearing conduit however when tested the flow was somewhat lethargic. Vessel was carefully probed and an obstruction was found very proximally at the level of the subclavian vein. Was decided to harvest the BRISENO free and it was clamped and divided at the level of the subclavian vein. It was doubly ligated distally. Was brought up on the field. It was evidence of dissection in the proximal portion of the BRISENO and this was resected back until we came to good BRISENO. It was flushed and placed on the back table and a heparin bath. Standard sternotomy retractor was placed and the patient was heparinized. A CTs were maintained greater than 250 during grafting. Pericardium was opened in the midline and the heart was exposed with pericardial sutures. We began with the BRISENO to the LAD. The LAD was stabilized and opened and blood flow control with a 1.5 L flow through. End to side anastomosis between the BRISENO and the LAD was performed with running 7-0 Prolene suture. On completion anastomosis the flow through was removed 50 probe the proximal distal portion anastomosis. Suture w as tied with good result RAY stasis area and backbleeding from the free BRISENO was controlled with a bulldog clamp. Next lateral wall the heart was exposed. Second obtuse marginal coronary artery was stabilized and opened. Blood flow was controlled with a 1.5 mm flow through. It was 1.75 mm vessel. End-to-side anastomosis between the saphenous vein and the obtuse marginal was performed with running 7-0 Prolene suture. During this time the patient can get hypotensive. Inotropic support was begun. On completion anastomosis the flow through was removed effectively probing the proximal distal portion anastomosis. Suture was tied. Heart was lowered into anatomic position. Good backbleeding was noted the vein graft. It was more than adequate length to reach the ascending aorta. Blood pressure was good. Unexpectedly the patient fibrillated. Open cardiac massage was begun. Patient was defibrillated. Patient continued to have runs of VT and VF for the next few minutes. Was decided to place a balloon pump. Left femoral arterial catheter was wired and 7.5 sheathless balloon was placed and appropriately positioned. Intra-aortic balloon pumping was begun. Patient now stabilized. Heartstring device was deployed inside a 4 mm punch hole in the mid ascending aorta and the proximal anastomosis saphenous vein graft to the obtuse marginal was performed with running 5-0 Prolene suture. Completion anastomosis suture was tied and the heartstring device was removed. Inflow was open. Graft was noted to lay well and be of more than adequate length. Was decided to jump the BRISENO off the vein. Bulldog clamps were placed proximally on the vein just distal to its proximal anastomosis of more distally. It was opened longitudinally just distal to the bulldog clamp by the proximal anastomosis and a linear longitudinal fashion. Side to end anastomosis of the vein graft to the BRISENO was performed with running 8-0 Prolene suture. On completion anastomosis was de-aired by backbleeding in the suture tied and the inflow open. Both grafts lay well. Both filled well. Distal anastomoses were hemostatic. At this point we explored the right coronary artery targets decided there was nothing that was appropriate for bypass surgery. Heparin was reversed with protamine. Good hemostasis was obtained throughout. Bilateral pleural spaces were drained with 32-Algerian chest tubes. The mediastinum was drained with a 36-Algerian chest tube. Chest was irrigated with antibiotic solution. Sternum was closed with 8 sternal wires. Fascia was closed with 0 Ethibond. Subcutaneous and subcuticular layers in the leg and chest were closed with layers of Vicryl suture. Dry sterile dressings were applied. Wound pump was secured appropriately. Patient was transferred to ICU in stable hemodynamic condition on minimal inotropic support. Patient did receive 1 unit of packed red blood cells during the procedure.
[2022-12-07] MEDS: LACTATED RINGERS 1,000 ML IV SCH (14:00)
[2022-12-07] MEDS: EPINEPHrine 4 MG in DEXTROSE 5% IN WATER 250 ML IV SCH ×2 (14:00)
[2022-12-07] MEDS: NITROGLYCERIN-D5W PMX 50 MG in DEXTROSE/WATER 1 250ML.BAG IV SCH (14:00)
[2022-12-07 14:10] LABS: Glucose,Whole Blood 153 mg/dL (70-110)
[2022-12-07 14:18] LABS: Basophils % (A) 0 %; Eosinophils # (A) 0.2 k/uL (0-0.7); Eosinophils % (A) 1 %; HCT 28.8 % (34.0-46.0); Lymphocytes # (A) 1.7 k/uL (1.0-4.8); Lymphocytes % (A) 12 %; MCH 27.8 pg (25.0-35.0); MCHC 34.5 g/dL (31.0-37.0); MCV 80.7 fL (80.0-100.0); Mean Platelet Volume 8.3; Monocytes # (A) 0.7 k/uL (0-1.0); Monocytes % (A) 5 %; Neutrophils # (A) 11.1 k/uL (1.3-7.7); Neutrophils % (A) 81 %; Platelet Count 133 k/uL (150-450); RBC 3.57 m/uL (3.80-5.40); RDW 15.9 % (11.5-15.5); WBC 13.7 k/uL (3.8-10.6)
[2022-12-07 14:32] LABS: Ionized Calcium 5.5 mg/dL (4.5-5.3)
[2022-12-07 14:35] LABS: INR 1.2 (<1.2); Prothrombin Time 12.7 sec (9.0-12.0)
[2022-12-07 14:42] LABS: ALT 32 U/L (4-34); AST 60 U/L (14-36); African American GFR (CKD) >90 (>60 ml/min/1.73 sqM); Alkaline Phosphatase 54 U/L (38-126); Anion Gap 10 mmol/L; Blood Urea Nitrogen 23 mg/dL (7-17); Calcium 9.3 mg/dL (8.4-10.2); Carbon Dioxide 26 mmol/L (22-30); Chloride 106 mmol/L (98-107); Glucose 146 mg/dL (74-99); Magnesium 2.4 mg/dL (1.6-2.3); Non-African American GFR(CKD) 88 (>60 ml/min/1.73 sqM); Potassium 3.1 mmol/L (3.5-5.1); Sodium 142 mmol/L (137-145); Total Bilirubin 1.2 mg/dL (0.2-1.3)
[2022-12-07 15:01] LABS: HGB 9.9 gm/dL (11.4-16.0)
[2022-12-07] MEDS: ALBUMIN HUMAN 5% 250 ML in EMPTY BAG 1 BAG IVPB PRN ×4 (15:01→15:37)
[2022-12-07 15:04] LABS: Glucose,Whole Blood 163 mg/dL (70-110)
[2022-12-07] MEDS: INSULIN REGULAR 100 UNIT in SODIUM CHLORIDE 0.9% 100 ML IV SCH (15:07)
[2022-12-07 15:13] LABS: ABG Base Excess -0.4 mmol/L; ABG HCO3 26 mmol/L (21-25); ABG PCO2 48 mmHg (35-45); ABG PH 7.33 (7.35-7.45); ABG PO2 >400 mmHg (83-108); ABG TCO2 27 mmol/L (19-24); Allen Test Performed? Yes
[2022-12-07] MEDS ORDERED: MUPIROCIN 2% OINT 22 GM TUBE NASAL ONE (15:15)
--- NOTE | 2022-12-07 15:16 | XR ---
EXAMINATION TYPE: XR chest 1V portable DATE OF EXAM: 12/07/2022 2:59 PM COMPARISON: Chest radiographs from 11/25/2022 TECHNIQUE: XR chest 1V portable Frontal view of the chest. CLINICAL INDICATION:Female, 62 years old with history of Post Operative Cardiac Surgery; FINDINGS: Lungs/Pleura: There is no evidence of pleural effusion, focal consolidation, or pneumothorax. Pulmonary vascularity: Unremarkable. Heart/mediastinum: Cardiomediastinal silhouette is unremarkable. Left atrial appendage occlusion tate ce is present. Musculoskeletal: No acute osseous pathology. Other findings: None Lines/Tubes: Endotracheal tube with distal tip 3.2 cm above the vernell. Nasogastric tube with its distal tip and side-port projecting under the diaphragm and projecting over the gastric lumen. There is a [place]Freddy catheter with tip projecting over the spine. Bilateral thoracotomy tubes are present without evidence of pneumothorax. Drainage tubes with tips projecting over the mediastinum. IMPRESSION: Post surgical changes tubes in appropriate position.
[2022-12-07] MEDS: POTASSIUM CHLORIDE 20 MEQ in WATER FOR INJECTION 1 100ML.BAG IVPB SCH ×2 (15:43→17:34)
[2022-12-07] MEDS: ACETAMINOPHEN IV (For NPO) 1,000 MG in EMPTY BAG 1 BAG IVPB SCH ×2 (15:44→17:35)
[2022-12-07] MEDS ORDERED: IPRATROPIUM-ALBUTEROL 3 ML NEB INHALATION SCH (16:00)
[2022-12-07 16:05] LABS: Anisocytosis Slight; Basophils % (A) 0 %; Eosinophils # (A) 0.1 k/uL (0-0.7); Eosinophils % (A) 1 %; HCT 23.1 % (34.0-46.0); Lymphocytes # (A) 1.4 k/uL (1.0-4.8); Lymphocytes % (A) 12 %; MCH 28.2 pg (25.0-35.0); MCHC 34.9 g/dL (31.0-37.0); Mean Platelet Volume 8.4; Monocytes # (A) 0.7 k/uL (0-1.0); Monocytes % (A) 6 %; Neutrophils # (A) 9.2 k/uL (1.3-7.7); Neutrophils % (A) 80 %; Platelet Count 121 k/uL (150-450); RBC 2.85 m/uL (3.80-5.40); RDW 16.1 % (11.5-15.5); WBC 11.5 k/uL (3.8-10.6)
[2022-12-07 16:11] LABS: Glucose,Whole Blood 177 mg/dL (70-110)
--- NOTE | 2022-12-07 16:25 | P.GSCN ---
History of Present Illness History of present illness: 62-year-old old white female well known to me patient came to me for gangrene of the right foot toes patient had a ray amputation we've been treating her in the wound clinic her on weekly basis she was seen by me yesterday in the wound clinic with the debridement and placed a excess silver for the wound patient has history of diabetes controlled with medication recently patient went for c oronary artery bypass graft. Patient had a CABG done today patient in intensive care unit stable femorals are 1+ PTDP by the Doppler patient has a wound on the right foot post debridement and we will change her dressing tomorrow. With the excess silver follow with you Past Medical History Past Medical History: COPD, CVA/TIA, Diabetes Mellitus, Eye Disorder, Hyperlipidemia, Hypertension, Osteoarthritis (OA), Skin Disorder Additional Past Medical History / Comment(s): first 3 toes right foot removed 2021-still healing, bandaged, past hx. TIA 1999-no residual affects, decreased vision right eye History of Any Multi-Drug Resistant Organisms: None Reported Past Surgical History: Section, Heart Catheterization, Hernia Repair, Hysterectomy, Orthopedic Surgery Additional Past Surgical History / Comment(s): right rotator cuff, left hand preet jamilah twice, big toe, 2nd & 3rd toes removed right foot, recent heart cath. @[facility] Past Anesthesia/Blood Transfusion Reactions: No Reported Reaction Past Psychological History: No Psychological Hx Reported Smoking Status: Never smoker Past Alcohol Use History: None Reported Past Drug Use History: None Reported - Past Family History Father Family Medical History: Coronary Artery Disease (CAD) Medications and Allergies Home Medications Medication Instructions Recorded Confirmed Type Atorvastatin [Lipitor] 40 mg PO HS 11/25/22 12/07/22 History Empagliflozin [Jardiance] 10 mg PO DAILY 11/25/22 12/07/22 History Ergocalciferol [Vitamin D2 (1250 1,250 mcg PO FLOYD 11/25/22 12/07/22 History Mcg = 91458 Iu)] Furosemide [Lasix] 40 mg PO BID 11/25/22 12/07/22 History Loperamide [Imodium] 2 mg PO QID PRN 11/25/22 12/07/22 History Metoprolol Tartrate [Lopressor] 25 mg PO DAILY 11/25/22 12/07/22 History Potassium Chloride ER [K-Dur 20] 20 meq PO BID 11/25/22 12/07/22 History Aspirin 81 mg PO DAILY 12/03/22 12/07/22 History Insulin Degludec [Tresiba] 200 units SQ HS 12/07/22 12/07/22 History Semaglutide [Ozempic] 2 mg SQ WEEKLY 12/07/22 12/07/22 History Allergies Allergy/AdvReac Type Severity Reaction Status Date / Time Penicillins Allergy Rash/Hives Verified 12/07/22 06:00 aspirin AdvReac Nausea & Verified 12/07/22 06:00 Vomiting & Diarrhea Surgical - Exam Vital Signs Temp Pulse Resp BP Pulse Ox 97.4 F L 85 18 105/71 95 12/07/22 06:20 12/07/22 06:20 12/07/22 06:20 12/07/22 06:20 12/07/22 06:20 Results - Labs 12/07/22 15:46 12/07/22 14:04 Abnormal Lab Results - Last 24 Hours (Table) 12/07/22 12/07/22 12/07/22 Range/Units 07:20 14:04 14:04 WBC 13.7 H (3.8-10.6) k/uL RBC 3.57 L (3.80-5.40) m/uL Hgb 9.9 L D (11.4-16.0) gm/dL Hct 28.8 L (34.0-46.0) % RDW 15.9 H (11.5-15.5) % Plt Count 133 L (150-450) k/uL Neutrophils # 11.1 H (1.3-7.7) k/uL PT 12.7 H (9.0-12.0) sec INR 1.2 H (<1.2) ABG pH (7.35-7.45) ABG pCO2 (35-45) mmHg ABG pO2 (83-108) mmHg ABG HCO3 (21-25) mmol/L ABG Total CO2 (19-24) mmol/L ABG O2 Saturation (94-97) % Potassium (3.5-5.1) mmol/L BUN (7-17) mg/dL Glucose (74-99) mg/dL POC Glucose (mg/dL) (70-110) mg/dL Ionized Calcium Kp (4.5-5.3) mg/dL Magnesium (1.6-2.3) mg/dL AST (14-36) U/L Total Protein (6.3-8.2) g/dL Albumin (3.5-5.0) g/dL Crossmatch See Detail 12/07/22 12/07/22 12/07/22 Range/Units 14:04 14:08 15:03 WBC (3.8-10.6) k/uL RBC (3.80-5.40) m/uL Hgb (11.4-16.0) gm/dL Hct (34.0-46.0) % RDW (11.5-15.5) % Plt Count (150-450) k/uL Neutrophils # (1.3-7.7) k/uL PT (9.0-12.0) sec INR (<1.2) ABG pH (7.35-7.45) ABG pCO2 (35-45) mmHg ABG pO2 (83-108) mmHg ABG HCO3 (21-25) mmol/L ABG Total CO2 (19-24) mmol/L ABG O2 Saturation (94-97) % Potassium 3.1 L (3.5-5.1) mmol/L BUN 23 H (7-17) mg/dL Glucose 146 H (74-99) mg/dL POC Glucose (mg/dL) 153 H 163 H (70-110) mg/dL Ionized Calcium Kp 5.5 H (4.5-5.3) mg/dL Magnesium 2.4 H (1.6-2.3) mg/dL AST 60 H (14-36) U/L Total Protein 5.0 L (6.3-8.2) g/dL Albumin 3.0 L (3.5-5.0) g/dL Crossmatch 12/07/22 12/07/22 12/07/22 Range/Units 15:12 15:46 16:09 WBC 11.5 H (3.8-10.6) k/uL RBC 2.85 L (3.80-5.40) m/uL Hgb 8.0 L D (11.4-16.0) gm/dL Hct 23.1 L (34.0-46.0) % RDW 16.1 H (11.5-15.5) % Plt Count 121 L (150-450) k/uL Neutrophils # 9.2 H (1.3-7.7) k/uL PT (9.0-12.0) sec INR (<1.2) ABG pH 7.33 L (7.35-7.45) ABG pCO2 48 H (35-45) mmHg ABG pO2 >400 H (83-108) mmHg ABG HCO3 26 H (21-25) mmol/L ABG Total CO2 27 H (19-24) mmol/L ABG O2 Saturation 100.0 H (94-97) % Potassium (3.5-5.1) mmol/L BUN (7-17) mg/dL Glucose (74-99) mg/dL POC Glucose (mg/dL) 177 H (70-110) mg/dL Ionized Calcium Kp (4.5-5.3) mg/dL Magnesium (1.6-2.3) mg/dL AST (14-36) U/L Total Protein (6.3-8.2) g/dL Albumin (3.5-5.0) g/dL Crossmatch Diabetes panel 12/07/22 Range/Units 14:04 Sodium 142 (137-145) mmol/L Potassium 3.1 L (3.5-5.1) mmol/L Chloride 106 (98-107) mmol/L Carbon Dioxide 26 (22-30) mmol/L BUN 23 H (7-17) mg/dL Creatinine 0.74 (0.52-1.04) mg/dL Glucose 146 H (74-99) mg/dL Calcium 9.3 (8.4-10.2) mg/dL AST 60 H (14-36) U/L ALT 32 (4-34) U/L Alkaline Phosphatase 54 (38-126) U/L Total Protein 5.0 L (6.3-8.2) g/dL Albumin 3.0 L (3.5-5.0) g/dL Calcium panel 12/07/22 Range/Units 14:04 Calcium 9.3 (8.4-10.2) mg/dL Ionized Calcium Kp 5.5 H (4.5-5.3) mg/dL Albumin 3.0 L (3.5-5.0) g/dL Pituitary panel 12/07/22 Range/Units 14:04 Sodium 142 (137-145) mmol/L Potassium 3.1 L (3.5-5.1) mmol/L Chloride 106 (98-107) mmol/L Carbon Dioxide 26 (22-30) mmol/L BUN 23 H (7-17) mg/dL Creatinine 0.74 (0.52-1.04) mg/dL Glucose 146 H (74-99) mg/dL Calcium 9.3 (8.4-10.2) mg/dL Adrenal panel 12/07/22 Range/Units 14:04 Sodium 142 (137-145) mmol/L Potassium 3.1 L (3.5-5.1) mmol/L Chloride 106 (98-107) mmol/L Carbon Dioxide 26 (22-30) mmol/L BUN 23 H (7-17) mg/dL Creatinine 0.74 (0.52-1.04) mg/dL Glucose 146 H (74-99) mg/dL Calcium 9.3 (8.4-10.2) mg/dL Total Bilirubin 1.2 (0.2-1.3) mg/dL AST 60 H (14-36) U/L ALT 32 (4-34) U/L Alkaline Phosphatase 54 (38-126) U/L Total Protein 5.0 L (6.3-8.2) g/dL Albumin 3.0 L (3.5-5.0) g/dL
[2022-12-07] MEDS: HEPARIN SODIUM,PORCINE/PF 5,000 UNIT/0.5 ML SYRINGE SQ SCH ×2 (16:44→23:50)
[2022-12-07 17:11] LABS: Glucose,Whole Blood 177 mg/dL (70-110)
[2022-12-07 17:56] LABS: Glucose,Whole Blood 170 mg/dL (70-110)
[2022-12-07] MEDS: NOREPINEPHRINE 4 MG in SODIUM CHLORIDE 0.9% 250 ML IV SCH (18:23)
[2022-12-07 19:05] LABS: Glucose,Whole Blood 160 mg/dL (70-110)
[2022-12-07 19:26] LABS: Basophils % (A) 0 %; Eosinophils % (A) 0 %; HCT 25.7 % (34.0-46.0); HGB 8.9 gm/dL (11.4-16.0); Lymphocytes # (A) 0.8 k/uL (1.0-4.8); Lymphocytes % (A) 8 %; MCH 28.2 pg (25.0-35.0); MCHC 34.6 g/dL (31.0-37.0); MCV 81.7 fL (80.0-100.0); Mean Platelet Volume 8.7; Monocytes # (A) 0.5 k/uL (0-1.0); Monocytes % (A) 5 %; Neutrophils # (A) 9.3 k/uL (1.3-7.7); Neutrophils % (A) 87 %; Platelet Count 146 k/uL (150-450); RBC 3.14 m/uL (3.80-5.40); RDW 15.4 % (11.5-15.5); WBC 10.7 k/uL (3.8-10.6)
[2022-12-07 20:01] LABS: Glucose,Whole Blood 139 mg/dL (70-110)
[2022-12-07] MEDS: AMIODARONE 450 MG in DEXTROSE 5% IN WATER 250 ML IV SCH ×2 (20:16)
[2022-12-07] MEDS: IPRATROPIUM-ALBUTEROL 3 ML NEB INHALATION SCH (20:20)
[2022-12-07 21:02] LABS: Glucose,Whole Blood 132 mg/dL (70-110)
[2022-12-07] MEDS: HYDROcodone/APAP 5-325MG 1 EACH TAB PO PRN (21:07)
[2022-12-07 21:58] LABS: Glucose,Whole Blood 119 mg/dL (70-110)
[2022-12-07] MEDS: ONDANSETRON 4 MG/2 ML VIAL IVP PRN (22:42)
[2022-12-07] MEDS ORDERED: POTASSIUM BICARBONATE/CIT AC 20 MEQ TABLET.EFF NG-TUBE SCH (23:00)
[2022-12-07 23:02] LABS: Glucose,Whole Blood 106 mg/dL (70-110)
[2022-12-07] MEDS: METOCLOPRAMIDE 5 MG/ML 2 ML VIAL IVP PRN (23:48)
[2022-12-07 23:55] LABS: Glucose,Whole Blood 103 mg/dL (70-110)
[2022-12-07 23:57] LABS: ABG Base Excess 2.3 mmol/L; ABG HCO3 27 mmol/L (21-25); ABG PCO2 40 mmHg (35-45); ABG PH 7.43 (7.35-7.45); ABG PO2 202 mmHg (83-108); ABG TCO2 28 mmol/L (19-24)
[2022-12-08 01:00] LABS: Glucose,Whole Blood 122 mg/dL (70-110)
--- NOTE | 2022-12-08 01:21 | P.CNPUL ---
History of Present Illness Consult date: 12/08/22 Requesting physician: Reyes Griffiths Reason for consult: other (ICU management) Chief complaint: Elective CABG History of present illness: I am seeing this patient in new consultation today 12/08/2022 in regard to postoperative open-heart ICU management. Patient is a 62-year-old white female with past significant medical history of hypertension, hyperlipidemia, diabetes mellitus type 2, COPD, previous TIA, vertigo, peripheral 2-year-old disease with recent amputation of her great toe second and third toes of the right foot. On 09/20/2022 patient had a transthoracic 2-D echocardiogram which showed severe cardiomyopathy with an ejection fraction between 30 and 35%. A follow-up elective heart catheterization was done at [facility] which reportedly demonstrated triple-vessel coronary artery disease. Patient was scheduled for an elective CABG with Dr. Sanchez yesterday. Based on the patient's preoperative PFT, she was at no increased intraoperative risk. Patient underwent an off-pump CABG 2 with a BRISENO to the LAD, saphenous vein graft to the obtuse marginal 2, and ligation of the left atrial appendage. Intraoperatively, the patient did have a V. fib arrest. There was placement of an intra-aortic balloon pump via the left femoral artery. ROSC was achieved after a few minutes, and the procedure was completed. Patient has received a total of 2 units of PRBCs and 1 of platelets for some postoperative bleeding. Patient is currently in the intensive care unit remaining mechanically ventilated with settings of assist control, respiratory rate 14, tidal volume 400, FiO2 50%, PEEP of 5. Postoperative ABGs show a pO2 greater than 400, pCO2 48, pH of 7.33. This was done on FiO2 of 100%, which was dropped down to 50%. Postoperative chest x-ray shows endotracheal tube 3.2 cm the vernell, a NG-tube coursing below the diaphragm, an appropriately placed [place]-Freddy catheter, bilateral thoracotomy tubes without evidence of pneumothorax, a chest tube within the mediastinum, and postoperative surgical changes. IABP remains in place at a 1-1 ratio. Augmented pressure is 93 mmHg, and mean arterial pressure is 73 mmHg. Patient currently has epinephrine infusing at 0.025 mics per kilogram per minute, Levophed infusing at 0.03 mics per kilogram per minute, amiodarone infusing at 0.5 mg/m, nitro infusing at 5 mics per minute. Propofol and insulin are currently paused. So far, there have been no attempts at weaning. Patient is awake, alert and following commands. There have been no acute titrations to the patient's vasopressors. Patient's most recent CO/CI is 5.4 and 3.1 respectively, pulmonary artery pressure 30/14, heart rhythm is normal sinus at 90 bpm. Urine output is approximately 80-100 ML's per hour. Patient's chest tube output has slowed down to less than 50 ML's per hour. There is a total of 550 ML's of serosanguineous output out of the mediastinal chest tube, and a total of 700 ML's of serosanguinous output from the right and left pleural chest tube. Most recent CBC shows a hemoglobin of 8.9 and hematocrit of 25.7. INR is 1.2. Most recent BMP shows a sodium 142, potassium 3.7, chloride 106, serum CO2 26, BUN 23, creatinine 0.74, glucose 146. Magnesium was 2.4. Lactated Ringer's is infusing at 50 ML's per hour. Patient is currently calm and following commands. No recent acute changes in patient's hemodynamics, and patient is a potential candidate for weaning from the mechanical ventilator. Review of Systems Unable to obtain review of systems due to the patient being intubated Past Medical History Past Medical History: COPD, CVA/TIA, Diabetes Mellitus, Eye Disorder, Hyperlipidemia, Hypertension, Osteoarthritis (OA), Skin Disorder Additional Past Medical History / Comment(s): first 3 toes right foot removed 2021-still healing, bandaged, past hx. TIA 1999-no residual affects, decreased vision right eye History of Any Multi-Drug Resistant Organisms: None Reported Past Surgical History: Section, Heart Catheterization, Hernia Repair, Hysterectomy, Orthopedic Surgery Additional Past Surgical History / Comment(s): right rotator cuff, left hand surgery twice, big toe, 2nd & 3rd toes removed right foot, recent heart cath. @[facility] Past Anesthesia/Blood Transfusion Reactions: No Reported Reaction Past Psychological History: No Psychological Hx Reported Smoking Status: Never smoker Past Alcohol Use History: None Reported Past Drug Use History: None Reported - Past Family History Father Family Medical History: Coronary Artery Disease (CAD) Medications and Allergies Home Medications Medication Instructions Recorded Confirmed Type Atorvastatin [Lipitor] 40 mg PO HS 11/25/22 12/07/22 History Empagliflozin [Jardiance] 10 mg PO DAILY 11/25/22 12/07/22 History Ergocalciferol [Vitamin D2 (1250 1,250 mcg PO FLOYD 11/25/22 12/07/22 History Mcg = 20307 Iu)] Furosemide [Lasix] 40 mg PO BID 11/25/22 12/07/22 History Loperamide [Imodium] 2 mg PO QID PRN 11/25/22 12/07/22 History Metoprolol Tartrate [Lopressor] 25 mg PO DAILY 11/25/22 12/07/22 History Potassium Chloride ER [K-Dur 20] 20 meq PO BID 11/25/22 12/07/22 History Aspirin 81 mg PO DAILY 12/03/22 12/07/22 History Insulin Degludec [Tresiba] 200 units SQ HS 12/07/22 12/07/22 History Semaglutide [Ozempic] 2 mg SQ WEEKLY 12/07/22 12/07/22 History Allergies Allergy/AdvReac Type Severity Reaction Status Date / Time Penicillins Allergy Rash/Hives Verified 12/07/22 06:00 aspirin AdvReac Nausea & Verified 12/07/22 06:00 Vomiting & Diarrhea Physical Exam Vitals: Vital Signs Temp Pulse Pulse Resp BP BP BP 12/08/22 00:00 86 14 12/07/22 23:45 92 27 H 12/07/22 23:30 99.9 F H 93 28 H 12/07/22 23:19 12/07/22 23:15 88 16 91/54 12/07/22 23:00 89 17 12/07/22 22:45 85 15 12/07/22 22:30 90 18 12/07/22 22:15 85 15 12/07/22 22:00 87 16 12/07/22 21:45 90 16 12/07/22 21:30 93 16 12/07/22 21:15 92 16 12/07/22 21:00 91 14 12/07/22 20:45 91 19 12/07/22 20:36 90 12/07/22 20:30 91 14 12/07/22 20:26 87 12/07/22 20:19 12/07/22 20:15 83 15 12/07/22 20:00 98.8 F 84 17 12/07/22 19:45 83 11 L 12/07/22 19:30 89 15 12/07/22 19:00 89 15 12/07/22 18:45 89 14 12/07/22 18:30 88 16 12/07/22 18:15 97 13 12/07/22 18:00 89 14 12/07/22 17:45 92 12 12/07/22 17:30 97 15 12/07/22 17:25 12/07/22 17:16 97.3 F L 96 14 79/40 12/07/22 17:15 97 15 12/07/22 17:00 96 14 12/07/22 16:50 95.2 F L 97 14 81/46 12/07/22 16:45 98 11 L 12/07/22 16:40 96.4 F L 94 14 80/50 12/07/22 16:39 96.4 F L 95 14 81/50 12/07/22 16:30 93 14 12/07/22 16:28 96.4 F L 95 14 85/48 12/07/22 16:15 93 15 12/07/22 16:08 95.2 F L 91 14 77/45 12/07/22 16:05 92 12/07/22 16:00 93 14 12/07/22 15:58 34.9 F L 93 84/48 12/07/22 15:45 93 14 12/07/22 15:42 90 12/07/22 15:30 89 14 12/07/22 15:15 87 14 12/07/22 15:00 89 14 12/07/22 14:45 93 14 12/07/22 14:30 91 14 12/07/22 14:15 87 14 12/07/22 14:01 12 12/07/22 14:00 12/07/22 06:20 97.4 F L 85 18 109/71 105/71 Pulse Ox FiO2 12/08/22 00:00 99 50 12/07/22 23:45 100 50 12/07/22 23:30 100 50 12/07/22 23:19 50 12/07/22 23:15 100 12/07/22 23:00 100 12/07/22 22:45 100 12/07/22 22:30 100 50 12/07/22 22:15 100 50 12/07/22 22:00 100 50 12/07/22 21:45 100 50 12/07/22 21:30 100 50 12/07/22 21:15 100 50 12/07/22 21:00 100 50 12/07/22 20:45 100 50 12/07/22 20:36 12/07/22 20:30 100 50 12/07/22 20:26 12/07/22 20:19 50 12/07/22 20:15 100 50 12/07/22 20:00 100 50 12/07/22 19:45 100 50 12/07/22 19:30 100 50 12/07/22 19:00 100 12/07/22 18:45 100 12/07/22 18:30 99 12/07/22 18:15 99 12/07/22 18:00 99 12/07/22 17:45 99 12/07/22 17:30 99 12/07/22 17:25 50 12/07/22 17:16 99 12/07/22 17:15 99 12/07/22 17:00 99 12/07/22 16:50 99 12/07/22 16:45 99 12/07/22 16:40 99 12/07/22 16:39 99 12/07/22 16:30 99 12/07/22 16:28 99 12/07/22 16:15 99 12/07/22 16:08 99 12/07/22 16:05 12/07/22 16:00 100 50 12/07/22 15:58 100 12/07/22 15:45 100 12/07/22 15:42 12/07/22 15:30 99 12/07/22 15:15 100 12/07/22 15:00 100 12/07/22 14:45 100 12/07/22 14:30 100 12/07/22 14:15 100 12/07/22 14:01 12/07/22 14:00 100 12/07/22 06:20 95 Intake and Output 12/07/22 12/07/22 12/08/22 14:59 22:59 06:59 Intake Total 633 2774.321 95.621 Output Total 7776 9105 130 Balance -4217 629.321 -34.379 Intake: IV 323 2010 80 ACETAMINOPHEN IV (For NPO 200 ) 1,000 mg In Empty Bag 1 bag @ 400 mls/hr IVPB Q6HR HELEN Rx#:[id number] Albumin Human 5% 250 ml 250 1000 In Empty Bag 1 bag @ 250 mls/hr IVPB Q1HR PRN Rx#: [id number] CO/CI 20 210 30 Lactated Ringers 1,000 ml 50 400 50 @ 50 mls/hr IV .Q20H HELEN Rx#:[id number] Potassium Chloride 20 meq 200 In Water For Injection 1 100ml.bag @ 50 mls/hr IVPB Q2H HELEN Rx#: [id number] Intake, IV Titration 106.321 15.621 Amount EPINEPHrine 4 mg In 2.64 Dextrose 5% in Water 250 ml @ 0.01 MCG/KG/MIN 2.64 mls/hr IV .Q24H HELEN Rx#: [id number] Insulin Regular 100 unit 29.131 3.653 In Sodium Chloride 0.9% 100 ml @ Per Protocol IV .Q0M HELEN Rx#:[id number] Norepinephrine 4 mg In 18.195 Sodium Chloride 0.9% 250 ml @ 0.03 MCG/KG/MIN 8. 047 mls/hr IV .Q24H HELEN Rx#:[id number] propofoL 1,000 mg In 56.355 11.968 Empty Bag 1 bag @ Titrate IV .Q0M HELEN Rx#: [id number] Blood Product 310 658 Platelet Pheresis Pas 348 Psoralen Unit [id number] Rc As-1 Unit 310 [id number] Rc As-1 Unit 310 [id number] Output: Chest Tube Drainage 1210 50 Left/Right Pleural 630 50 Mediastinal 580 0 Urine 1400 935 80 Estimated Blood Loss 1900 Other: Voiding Method Indwelling Catheter ABP, PAP, CO, CI - Last 8 Hours Arterial Blood Pressure 104/48 Arterial Blood Pressure 67/54 Arterial Blood Pressure 85/46 Arterial Blood Pressure 71/50 Arterial Blood Pressure 107/46 Arterial Blood Pressure 103/49 Arterial Blood Pressure 99/51 Arterial Blood Pressure 92/47 Arterial Blood Pressure 95/47 Arterial Blood Pressure 102/44 Arterial Blood Pressure 96/44 Arterial Blood Pressure 96/45 Arterial Blood Pressure 90/48 Arterial Blood Pressure 98/48 Arterial Blood Pressure 119/57 Arterial Blood Pressure 88/49 Arterial Blood Pressure 81/43 Arterial Blood Pressure 77/40 Arterial Blood Pressure 98/47 Arterial Blood Pressure 99/49 Arterial Blood Pressure 99/50 Arterial Blood Pressure 108/57 Arterial Blood Pressure 82/51 Arterial Blood Pressure 68/44 Arterial Blood Pressure 80/39 Arterial Blood Pressure 81/49 Arterial Blood Pressure 83/54 Arterial Blood Pressure 90/49 Arterial Blood Pressure 96/57 Arterial Blood Pressure 78/49 Pulmonary Artery Pressure 33/15 Pulmonary Artery Pressure 32/14 Pulmonary Artery Pressure 32/15 Pulmonary Artery Pressure 28/12 Pulmonary Artery Pressure 30/15 Pulmonary Artery Pressure 31/15 Pulmonary Artery Pressure 29/14 Pulmonary Artery Pressure 29/15 Pulmonary Artery Pressure 30/15 Pulmonary Artery Pressure 28/15 Pulmonary Artery Pressure 28/15 Pulmonary Artery Pressure 27/16 Pulmonary Artery Pressure 27/22 Pulmonary Artery Pressure 26/19 Pulmonary Artery Pressure 28/23 Pulmonary Artery Pressure 27/17 Pulmonary Artery Pressure 30/21 Pulmonary Artery Pressure 27/13 Pulmonary Artery Pressure 31/11 Pulmonary Artery Pressure 33/12 Pulmonary Artery Pressure 31/13 Pulmonary Artery Pressure 32/12 Pulmonary Artery Pressure 33/12 Pulmonary Artery Pressure 30/11 Pulmonary Artery Pressure 31/10 Pulmonary Artery Pressure 33/14 Pulmonary Artery Pressure 34/15 Pulmonary Artery Pressure 34/14 Pulmonary Artery Pressure 38/12 Pulmonary Artery Pressure 35/11 Cardiac Output 5.5 Cardiac Output 5.4 Cardiac Output 5.5 Cardiac Output 6.2 Cardiac Output 4.7 Cardiac Output 4.6 Cardiac Output 4.8 Cardiac Output 5.4 Cardiac Output 5.4 Cardiac Output 5.4 Cardiac Output 5.4 Cardiac Output 6.5 Cardiac Output 6.5 Cardiac Output 6.5 Cardiac Output 6.5 Cardiac Output 6.7 Cardiac Output 6.7 Cardiac Index 3.1 Cardiac Index 3.1 Cardiac Index 3.1 Cardiac Index 3.5 Cardiac Index 2.7 Cardiac Index 2.6 Cardiac Index 2.7 Cardiac Index 3.1 Cardiac Index 3.1 Cardiac Index 3.1 Cardiac Index 3.1 Cardiac Index 3.7 Cardiac Index 3.7 Cardiac Index 3.7 Cardiac Index 3.7 Cardiac Index 3.8 Cardiac Index 3.8 GENERAL EXAM: Patient is alert and following commands while intubated to the mechanical ventilator HEAD: Normocephalic and atraumatic EYES: Normal reaction of pupils, equal size. NOSE: Clear with pink turbinates. THROAT: No erythema or exudates. NECK: No masses, no JVD. Right IJ introducer sheath with [place]-Freddy catheter CHEST: Postoperative incisional dressing intact. Bilateral pleural chest tubes and mediastinal chest tube hooked to Pleur-evacs at -20 cm H2O LUNGS: Endotracheal intubated to the mechanical ventilator. Equal air entry with no crackles, wheeze, rhonchi or dullness. CVS: IABP balloon artifact heard at a 1-1 ratio ABDOMEN: No hepatosplenomegaly, active bowel sounds, no guarding or rigidity. SPINE: No scoliosis or deformity SKIN: No rashes CENTRAL NERVOUS SYSTEM: No focal deficits, tone is normal in all 4 extremities. Patient is alert and following commands. EXTREMITIES: Patient has right great toe, second toe, third toe amputations with a dressing clean, dry, intact. Left pedal and left radial pulses are palpable. Results - Laboratory Findings CBC and BMP: 12/07/22 19:00 12/07/22 21:00 ABG ABG pH 7.43 (7.35-7.45) 12/07/22 23:55 ABG pCO2 40 mmHg (35-45) 12/07/22 23:55 ABG pO2 202 mmHg (83-108) H 12/07/22 23:55 ABG O2 Saturation 100.0 % (94-97) H 12/07/22 23:55 PT/INR, D-dimer PT 12.7 sec (9.0-12.0) H 12/07/22 14:04 INR 1.2 (<1.2) H 12/07/22 14:04 Abnormal lab findings: Abnormal Labs 12/07/22 12/07/22 12/07/22 07:20 14:04 14:04 WBC 13.7 H RBC 3.57 L Hgb 9.9 L D Hct 28.8 L RDW 15.9 H Plt Count 133 L Neutrophils # 11.1 H Lymphocytes # PT 12.7 H INR 1.2 H Fibrinogen ABG pH ABG pCO2 ABG pO2 ABG HCO3 ABG Total CO2 ABG O2 Saturation Potassium BUN Glucose POC Glucose (mg/dL) Ionized Calcium Kp Magnesium AST Total Protein Albumin Crossmatch See Detail 12/07/22 12/07/22 12/07/22 14:04 14:04 14:08 WBC RBC Hgb Hct RDW Plt Count Neutrophils # Lymphocytes # PT INR Fibrinogen 179 L ABG pH ABG pCO2 ABG pO2 ABG HCO3 ABG Total CO2 ABG O2 Saturation Potassium 3.1 L BUN 23 H Glucose 146 H POC Glucose (mg/dL) 153 H Ionized Calcium Kp 5.5 H Magnesium 2.4 H AST 60 H Total Protein 5.0 L Albumin 3.0 L Crossmatch 12/07/22 12/07/22 12/07/22 15:03 15:12 15:46 WBC 11.5 H RBC 2.85 L Hgb 8.0 L D Hct 23.1 L RDW 16.1 H Plt Count 121 L Neutrophils # 9.2 H Lymphocytes # PT INR Fibrinogen ABG pH 7.33 L ABG pCO2 48 H ABG pO2 >400 H ABG HCO3 26 H ABG Total CO2 27 H ABG O2 Saturation 100.0 H Potassium BUN Glucose POC Glucose (mg/dL) 163 H Ionized Calcium Kp Magnesium AST Total Protein Albumin Crossmatch 12/07/22 12/07/22 12/07/22 16:09 17:09 17:54 WBC RBC Hgb Hct RDW Plt Count Neutrophils # Lymphocytes # PT INR Fibrinogen ABG pH ABG pCO2 ABG pO2 ABG HCO3 ABG Total CO2 ABG O2 Saturation Potassium BUN Glucose POC Glucose (mg/dL) 177 H 177 H 170 H Ionized Calcium Kp Magnesium AST Total Protein Albumin Crossmatch 12/07/22 12/07/22 12/07/22 19:00 19:02 19:59 WBC 10.7 H RBC 3.14 L Hgb 8.9 L Hct 25.7 L RDW Plt Count 146 L Neutrophils # 9.3 H Lymphocytes # 0.8 L PT INR Fibrinogen ABG pH ABG pCO2 ABG pO2 ABG HCO3 ABG Total CO2 ABG O2 Saturation Potassium BUN Glucose POC Glucose (mg/dL) 160 H 139 H Ionized Calcium Kp Magnesium AST Total Protein Albumin Crossmatch 12/07/22 12/07/22 12/07/22 21:01 21:57 23:55 WBC RBC Hgb Hct RDW Plt Count Neutrophils # Lymphocytes # PT INR Fibrinogen ABG pH ABG pCO2 ABG pO2 202 H ABG HCO3 27 H ABG Total CO2 28 H ABG O2 Saturation 100.0 H Potassium BUN Glucose POC Glucose (mg/dL) 132 H 119 H Ionized Calcium Kp Magnesium AST Total Protein Albumin Crossmatch - Diagnostic Findings Chest x-ray: image reviewed Assessment and Plan Assessment: Postop day #1 of an elective off-pump CABG 2 with a BRISENO to LAD, saphenous vein graft to the obtuse marginal 2, ligation of left atrial appendage. Intraoperatively, the patient did have a V. fib arrest. There was placement of an intra-aortic balloon pump via the left femoral artery. Acute hypoxemic respiratory failure secondary to above. Patient remains mechanically ventilated Acute blood loss, expected following the procedure. Post transfusion of 2 units PRBC and one unit of platelets Coronary artery disease Cardiomyopathy with an ejection fraction of 30-35% Diabetes mellitus type 2 Hyperlipidemia Hypertension Previous TIA Background COPD. No increased intraoperative risk based on patient's preoperative PFT Peripheral arterial disease with recent amputation of the great toe, second toe, and third toe of the right foot. Plan: Patient's medications, labs, chest x-ray reviewed Patient's weaning parameters were excellent with a respiratory rate of 17, tidal volume 485, minute ventilation 8.2, NIF -18, vital capacity 1 L, RSV and 35, and there was a positive cuff leak. Patient did have a weaning trial with pressure support of 5 and CPAP of 5 for 30 minutes. A follow-up ABG showed a pO2 of 202, pCO2 40, pH 7.43 I did confer with Dr. Stroud, and it was decided to extubate the patient. Patient was successfully extubated at 0019 to nasal cannula Encourage incentive spirometer IABP is set at a ratio 1-1 with good augmented pressures Continue vasopressor support in the form of epinephrine and Levophed Chest tube output has slowed down Repeat labs in the morning Repeat chest x-ray in the morning Dr. Boggs is seeing the patient for wound care of the recent right toe amputations Prognosis is guarded, we will continue to follow I have personally seen and examined the patient, performed the documentation and the assessment and plan as written. Number of minutes spent on the visit:20 Time with Patient: Greater than 30
[2022-12-08] MEDS: HYDROcodone/APAP 5-325MG 1 EACH TAB PO PRN ×5 (01:44→20:13)
[2022-12-08 02:00] LABS: Glucose,Whole Blood 120 mg/dL (70-110)
[2022-12-08 03:02] LABS: Glucose,Whole Blood 99 mg/dL (70-110)
[2022-12-08 03:58] LABS: Glucose,Whole Blood 95 mg/dL (70-110)
[2022-12-08 04:33] LABS: Basophils # (A) 0.1 k/uL (0-0.2); Basophils % (A) 1 %; Eosinophils # (A) 0.1 k/uL (0-0.7); Eosinophils % (A) 1 %; HCT 24.3 % (34.0-46.0); HGB 8.4 gm/dL (11.4-16.0); Lymphocytes # (A) 1.5 k/uL (1.0-4.8); Lymphocytes % (A) 16 %; MCH 27.8 pg (25.0-35.0); MCHC 34.6 g/dL (31.0-37.0); MCV 80.3 fL (80.0-100.0); Mean Platelet Volume 7.8; Monocytes # (A) 0.6 k/uL (0-1.0); Monocytes % (A) 7 %; Neutrophils # (A) 6.6 k/uL (1.3-7.7); Neutrophils % (A) 74 %; Platelet Count 122 k/uL (150-450); RBC 3.03 m/uL (3.80-5.40); RDW 15.9 % (11.5-15.5)
[2022-12-08 04:53] LABS: ALT 25 U/L (4-34); AST 148 U/L (14-36); African American GFR (CKD) >90 (>60 ml/min/1.73 sqM); Albumin 3.1 g/dL (3.5-5.0); Alkaline Phosphatase 46 U/L (38-126); Anion Gap 6 mmol/L; Blood Urea Nitrogen 20 mg/dL (7-17); Calcium 8.5 mg/dL (8.4-10.2); Carbon Dioxide 27 mmol/L (22-30); Chloride 107 mmol/L (98-107); Glucose 91 mg/dL (74-99); Non-African American GFR(CKD) 82 (>60 ml/min/1.73 sqM); Potassium 4.4 mmol/L (3.5-5.1); Sodium 140 mmol/L (137-145); Total Bilirubin 1.5 mg/dL (0.2-1.3); Total Protein 4.9 g/dL (6.3-8.2)
[2022-12-08 04:58] LABS: Glucose,Whole Blood 112 mg/dL (70-110)
[2022-12-08] MEDS: ONDANSETRON 4 MG/2 ML VIAL IVP PRN (05:57)
[2022-12-08 06:02] LABS: Glucose,Whole Blood 126 mg/dL (70-110)
[2022-12-08 07:04] LABS: Glucose,Whole Blood 111 mg/dL (70-110)
[2022-12-08] MEDS: IPRATROPIUM-ALBUTEROL 3 ML NEB INHALATION SCH ×4 (07:50→21:06)
--- NOTE | 2022-12-08 08:05 | XR ---
EXAMINATION TYPE: XR chest 1V portable DATE OF EXAM: 12/08/2022 5:55 AM COMPARISON: Chest radiographs from 12/07/2022 TECHNIQUE: XR chest 1V portable Frontal view of the chest. CLINICAL INDICATION:Female, 62 years old with history of Post Operative Cardiac Surgery; FINDINGS: Lungs/Pleura: There is no evidence of pleural effusion, focal consolidation, or pneumothorax. Pulmonary vascularity: Unremarkable. Heart/mediastinum: Cardiomediastinal silhouette is unremarkable. Left atrial appendage occlusion tate ce is present. Musculoskeletal: No acute osseous pathology. Other findings: Suspected abandoned lead projects over the left heart. Lines/Tubes: Endotracheal tube with distal tip 3.2 cm above the vernell. Nasogastric tube with its distal tip and side-port projecting under the diaphragm and projecting over the gastric lumen. There is a [place]-Freddy catheter with tip projecting over the spine. Bilateral thoracotomy tubes are present without evidence of pneumothorax. Drainage tubes with tips projecting over the mediastinum. IMPRESSION: Post surgical changes tubes in appropriate position. No significant change from one day prior.
[2022-12-08] MEDS ORDERED: fentaNYL (PF) 50 MCG/ML 2 ML AMP IVP STA (08:11)
[2022-12-08] MEDS: METOCLOPRAMIDE 5 MG/ML 2 ML VIAL IVP PRN (08:24)
[2022-12-08 08:28] LABS: Glucose,Whole Blood 113 mg/dL (70-110)
[2022-12-08] MEDS ORDERED: PANTOPRAZOLE 40 MG/10 ML VIAL IVP SCH (09:00)
[2022-12-08] MEDS ORDERED: bisacodyL 10 MG SUPP RECTAL PRN (09:00)
[2022-12-08] MEDS: HEPARIN SODIUM,PORCINE/PF 5,000 UNIT/0.5 ML SYRINGE SQ SCH ×2 (09:16→17:45)
[2022-12-08] MEDS: ATORVASTATIN 40 MG TAB PO SCH (09:17)
[2022-12-08] MEDS: CLOPIDOGREL 75 MG TAB PO SCH (09:17)
[2022-12-08 09:33] LABS: Glucose,Whole Blood 129 mg/dL (70-110)
[2022-12-08 10:21] LABS: Glucose,Whole Blood 117 mg/dL (70-110)
[2022-12-08] MEDS: AMIODARONE 450 MG in DEXTROSE 5% IN WATER 250 ML IV SCH ×2 (10:22)
[2022-12-08] MEDS: METOPROLOL TARTRATE 12.5 MG TAB PO SCH ×2 (10:28→20:06)
--- NOTE | 2022-12-08 10:55 | P.PN ---
Subjective Progress Note Date: 12/08/22 Principal diagnosis: Coronary artery disease. History of cardiomyopathy, hypertension, hyperlipidemia, uncontrolled type 2 diabetes with hyperglycemia, peripheral arterial disease with toe amputation right foot, TIA in 1999, vertigo, lifetime non-smoker POD #1 Off pump coronary artery bypass x 2, left internal mammary artery to the left anterior descending artery, reverse saphenous vein graft to the second obtuse marginal artery, occlusion of the base of the left atrial appendage with 35 mm AtriCure clip, placement of intra-aortic balloon pump percutaneously via left femoral arterial approach, endovascular vein harvest of the left greater saphenous vein from the midcalf to the groin Postoperative acute blood loss anemia and thrombocytopenia, expected given hemodilution The patient was seen and examined this morning laying flat in bed in the ICU in no acute distress. She was successfully extubated this morning at 00:19. Remains in sinus rhythm, on epi/NTG/levo for hemodynamic support. Remains on amio for afib/vfib prophylaxis. 1:1 IABP was discontinued this morning without incident. Patient reports minimal postoperative pain, denies shortness of breath. Right internal jugular swan/cordis, left radial arterial line, mediastinal/right/left chest tubes remain. Labs/CXR reviewed. Objective - Vital Signs Vital signs: Vital Signs Temp 37.8 F L 12/08/22 08:00 Pulse 80 12/08/22 09:30 Resp 12 12/08/22 09:30 BP 92/54 12/08/22 09:30 Pulse Ox 96 12/08/22 09:30 FiO2 50 12/08/22 00:00 Intake & Output 12/07/22 12/08/22 12/08/22 18:59 06:59 18:59 Intake Total 3028.353 1125.760 250.957 Output Total 4650 1925 230 Balance -1621.647 -799.240 20.957 Weight 73.6 kg Intake: IV 2022 950 223.0 ACETAMINOPHEN IV (For NPO 200 ) 1,000 mg In Empty Bag 1 bag @ 400 mls/hr IVPB Q6HR HELEN Rx#:[id number] Albumin Human 5% 250 ml 1250 In Empty Bag 1 bag @ 250 mls/hr IVPB Q1HR PRN Rx#: [id number] CO/CI 120 350 70 Lactated Ringers 1,000 ml 250 600 150 @ 50 mls/hr IV .Q20H HELEN Rx#:[id number] Nitroglycerin-D5w Pmx 50 3.0 mg In Dextrose/Water 1 250ml.bag @ 5 MCG/MIN 1.5 mls/hr IV .Q24H HELEN Rx#: [id number] Potassium Chloride 20 meq 200 In Water For Injection 1 100ml.bag @ 50 mls/hr IVPB Q2H HELEN Rx#: [id number] Intake, IV Titration 37.353 175.760 27.957 Amount EPINEPHrine 4 mg In 2.64 Dextrose 5% in Water 250 ml @ 0.01 MCG/KG/MIN 2.64 mls/hr IV .Q24H HELEN Rx#: [id number] Insulin Regular 100 unit 9.545 29.248 2.879 In Sodium Chloride 0.9% 100 ml @ Per Protocol IV .Q0M HELEN Rx#:[id number] Norepinephrine 4 mg In 103.357 25.078 Sodium Chloride 0.9% 250 ml @ 0.03 MCG/KG/MIN 8. 047 mls/hr IV .Q24H HELEN Rx#:[id number] propofoL 1,000 mg In 25.168 43.155 Empty Bag 1 bag @ Titrate IV .Q0M HELEN Rx#: [id number] Blood Product 968 Platelet Pheresis Pas 348 Psoralen Unit [id number] Rc As-1 Unit 310 [id number] Rc As-1 Unit 310 [id number] Output: Chest Tube Drainage 820 920 70 Left/Right Pleural 260 780 70 Mediastinal 560 140 0 Urine 1930 1005 160 Estimated Blood Loss 1900 Other: Voiding Method Indwelling Catheter Indwelling Catheter Indwelling Catheter ABP, PAP, CO, CI - Last Documented Arterial Blood Pressure 99/45 Pulmonary Artery Pressure 30/10 Cardiac Output 4.3 Cardiac Index 2.7 - Exam CONSTITUTIONAL: Appears comfortable, cooperative, no acute distress RESPIRATORY: Lungs sounds diminished bilaterally. Respirations even, nonlabored. Currently on 1 LPM NC with oxygen saturation 98% CARDIOVASCULAR: S1, S2 present. Regular rate and rhythm, sinus rhythm on telemetry. Sternum stable. Palpable peripheral pulses bilaterally. No edema present. No calf pain or tenderness noted. Heart hugger in place with patient demonstrating appropriate use. Antiembolism stockings, SCDs present. GASTROINTESTINAL: Abdomen soft, nontender, nondistended. Hypoactive bowel sounds present 4 quadrants. Tolerating clear liquid diet GENITOURINARY: Shrestha present draining clear, yellow urine. Output overnight 60-95 mL per hour INTEGUMENTARY: Skin is warm and dry with evidence of good perfusion. Anterior chest incision well approximated and covered with dry intact dressing. Left lower extremity EVH site well approximated without redness or drainage. NEUROLOGIC: Cranial nerves II through XII intact MUSKULOSKELETAL: Able to move all extremities, strength equal bilaterally PSYCHIATRIC: Alert and oriented to person place and time, appropriate affect, intact judgment and insight INVASIVE LINES AND TUBES: Mediastinal/left/right pleural chest tubes present and connected to wall suction, no air leaks present. Mediastinal tube with 120 mL serosanguineous drainage overnight, 800 mL since surgery. Left/right pleural chest tubes with 410 mL serosanguineous drainage overnight, 1050 mL since surgery. A/V epicardial pacemaker wires present, connected to generator, backup rate 50 bpm. Right internal jugular [place]/Cordis, left radial arterial line present. Last CO/CI 4.3/2.4, PA 28/8, CVP 5. - Allied health notes Allied health notes reviewed: nursing - Labs CBC & Chem 7: 12/08/22 03:56 12/08/22 03:56 Labs: Abnormal Lab Results - Last 24 Hours (Table) 12/07/22 12/07/22 12/07/22 Range/Units 07:20 14:04 14:04 WBC 13.7 H (3.8-10.6) k/uL RBC 3.57 L (3.80-5.40) m/uL Hgb 9.9 L D (11.4-16.0) gm/dL Hct 28.8 L (34.0-46.0) % RDW 15.9 H (11.5-15.5) % Plt Count 133 L (150-450) k/uL Neutrophils # 11.1 H (1.3-7.7) k/uL Lymphocytes # (1.0-4.8) k/uL PT 12.7 H (9.0-12.0) sec INR 1.2 H (<1.2) Fibrinogen (200-500) mg/dL ABG pH (7.35-7.45) ABG pCO2 (35-45) mmHg ABG pO2 (83-108) mmHg ABG HCO3 (21-25) mmol/L ABG Total CO2 (19-24) mmol/L ABG O2 Saturation (94-97) % Potassium (3.5-5.1) mmol/L BUN (7-17) mg/dL Glucose (74-99) mg/dL POC Glucose (mg/dL) (70-110) mg/dL Ionized Calcium Kp (4.5-5.3) mg/dL Magnesium (1.6-2.3) mg/dL Total Bilirubin (0.2-1.3) mg/dL AST (14-36) U/L Total Protein (6.3-8.2) g/dL Albumin (3.5-5.0) g/dL Crossmatch See Detail 12/07/22 12/07/22 12/07/22 Range/Units 14:04 14:04 14:08 WBC (3.8-10.6) k/uL RBC (3.80-5.40) m/uL Hgb (11.4-16.0) gm/dL Hct (34.0-46.0) % RDW (11.5-15.5) % Plt Count (150-450) k/uL Neutrophils # (1.3-7.7) k/uL Lymphocytes # (1.0-4.8) k/uL PT (9.0-12.0) sec INR (<1.2) Fibrinogen 179 L (200-500) mg/dL ABG pH (7.35-7.45) ABG pCO2 (35-45) mmHg ABG pO2 (83-108) mmHg ABG HCO3 (21-25) mmol/L ABG Total CO2 (19-24) mmol/L ABG O2 Saturation (94-97) % Potassium 3.1 L (3.5-5.1) mmol/L BUN 23 H (7-17) mg/dL Glucose 146 H (74-99) mg/dL POC Glucose (mg/dL) 153 H (70-110) mg/dL Ionized Calcium Kp 5.5 H (4.5-5.3) mg/dL Magnesium 2.4 H (1.6-2.3) mg/dL Total Bilirubin (0.2-1.3) mg/dL AST 60 H (14-36) U/L Total Protein 5.0 L (6.3-8.2) g/dL Albumin 3.0 L (3.5-5.0) g/dL Crossmatch 12/07/22 12/07/22 12/07/22 Range/Units 15:03 15:12 15:46 WBC 11.5 H (3.8-10.6) k/uL RBC 2.85 L (3.80-5.40) m/uL Hgb 8.0 L D (11.4-16.0) gm/dL Hct 23.1 L (34.0-46.0) % RDW 16.1 H (11.5-15.5) % Plt Count 121 L (150-450) k/uL Neutrophils # 9.2 H (1.3-7.7) k/uL Lymphocytes # (1.0-4.8) k/uL PT (9.0-12.0) sec INR (<1.2) Fibrinogen (200-500) mg/dL ABG pH 7.33 L (7.35-7.45) ABG pCO2 48 H (35-45) mmHg ABG pO2 >400 H (83-108) mmHg ABG HCO3 26 H (21-25) mmol/L ABG Total CO2 27 H (19-24) mmol/L ABG O2 Saturation 100.0 H (94-97) % Potassium (3.5-5.1) mmol/L BUN (7-17) mg/dL Glucose (74-99) mg/dL POC Glucose (mg/dL) 163 H (70-110) mg/dL Ionized Calcium Kp (4.5-5.3) mg/dL Magnesium (1.6-2.3) mg/dL Total Bilirubin (0.2-1.3) mg/dL AST (14-36) U/L Total Protein (6.3-8.2) g/dL Albumin (3.5-5.0) g/dL Crossmatch 12/07/22 12/07/22 12/07/22 Range/Units 16:09 17:09 17:54 WBC (3.8-10.6) k/uL RBC (3.80-5.40) m/uL Hgb (11.4-16.0) gm/dL Hct (34.0-46.0) % RDW (11.5-15.5) % Plt Count (150-450) k/uL Neutrophils # (1.3-7.7) k/uL Lymphocytes # (1.0-4.8) k/uL PT (9.0-12.0) sec INR (<1.2) Fibrinogen (200-500) mg/dL ABG pH (7.35-7.45) ABG pCO2 (35-45) mmHg ABG pO2 (83-108) mmHg ABG HCO3 (21-25) mmol/L ABG Total CO2 (19-24) mmol/L ABG O2 Saturation (94-97) % Potassium (3.5-5.1) mmol/L BUN (7-17) mg/dL Glucose (74-99) mg/dL POC Glucose (mg/dL) 177 H 177 H 170 H (70-110) mg/dL Ionized Calcium Kp (4.5-5.3) mg/dL Magnesium (1.6-2.3) mg/dL Total Bilirubin (0.2-1.3) mg/dL AST (14-36) U/L Total Protein (6.3-8.2) g/dL Albumin (3.5-5.0) g/dL Crossmatch 12/07/22 12/07/22 12/07/22 Range/Units 19:00 19:02 19:59 WBC 10.7 H (3.8-10.6) k/uL RBC 3.14 L (3.80-5.40) m/uL Hgb 8.9 L (11.4-16.0) gm/dL Hct 25.7 L (34.0-46.0) % RDW (11.5-15.5) % Plt Count 146 L (150-450) k/uL Neutrophils # 9.3 H (1.3-7.7) k/uL Lymphocytes # 0.8 L (1.0-4.8) k/uL PT (9.0-12.0) sec INR (<1.2) Fibrinogen (200-500) mg/dL ABG pH (7.35-7.45) ABG pCO2 (35-45) mmHg ABG pO2 (83-108) mmHg ABG HCO3 (21-25) mmol/L ABG Total CO2 (19-24) mmol/L ABG O2 Saturation (94-97) % Potassium (3.5-5.1) mmol/L BUN (7-17) mg/dL Glucose (74-99) mg/dL POC Glucose (mg/dL) 160 H 139 H (70-110) mg/dL Ionized Calcium Kp (4.5-5.3) mg/dL Magnesium (1.6-2.3) mg/dL Total Bilirubin (0.2-1.3) mg/dL AST (14-36) U/L Total Protein (6.3-8.2) g/dL Albumin (3.5-5.0) g/dL Crossmatch 12/07/22 12/07/22 12/07/22 Range/Units 21:01 21:57 23:55 WBC (3.8-10.6) k/uL RBC (3.80-5.40) m/uL Hgb (11.4-16.0) gm/dL Hct (34.0-46.0) % RDW (11.5-15.5) % Plt Count (150-450) k/uL Neutrophils # (1.3-7.7) k/uL Lymphocytes # (1.0-4.8) k/uL PT (9.0-12.0) sec INR (<1.2) Fibrinogen (200-500) mg/dL ABG pH (7.35-7.45) ABG pCO2 (35-45) mmHg ABG pO2 202 H (83-108) mmHg ABG HCO3 27 H (21-25) mmol/L ABG Total CO2 28 H (19-24) mmol/L ABG O2 Saturation 100.0 H (94-97) % Potassium (3.5-5.1) mmol/L BUN (7-17) mg/dL Glucose (74-99) mg/dL POC Glucose (mg/dL) 132 H 119 H (70-110) mg/dL Ionized Calcium Kp (4.5-5.3) mg/dL Magnesium (1.6-2.3) mg/dL Total Bilirubin (0.2-1.3) mg/dL AST (14-36) U/L Total Protein (6.3-8.2) g/dL Albumin (3.5-5.0) g/dL Crossmatch 12/08/22 12/08/22 12/08/22 Range/Units 00:58 01:58 03:56 WBC (3.8-10.6) k/uL RBC 3.03 L (3.80-5.40) m/uL Hgb 8.4 L (11.4-16.0) gm/dL Hct 24.3 L (34.0-46.0) % RDW 15.9 H (11.5-15.5) % Plt Count 122 L (150-450) k/uL Neutrophils # (1.3-7.7) k/uL Lymphocytes # (1.0-4.8) k/uL PT (9.0-12.0) sec INR (<1.2) Fibrinogen (200-500) mg/dL ABG pH (7.35-7.45) ABG pCO2 (35-45) mmHg ABG pO2 (83-108) mmHg ABG HCO3 (21-25) mmol/L ABG Total CO2 (19-24) mmol/L ABG O2 Saturation (94-97) % Potassium (3.5-5.1) mmol/L BUN (7-17) mg/dL Glucose (74-99) mg/dL POC Glucose (mg/dL) 122 H 120 H (70-110) mg/dL Ionized Calcium Kp (4.5-5.3) mg/dL Magnesium (1.6-2.3) mg/dL Total Bilirubin (0.2-1.3) mg/dL AST (14-36) U/L Total Protein (6.3-8.2) g/dL Albumin (3.5-5.0) g/dL Crossmatch 12/08/22 12/08/22 12/08/22 Range/Units 03:56 04:57 06:01 WBC (3.8-10.6) k/uL RBC (3.80-5.40) m/uL Hgb (11.4-16.0) gm/dL Hct (34.0-46.0) % RDW (11.5-15.5) % Plt Count (150-450) k/uL Neutrophils # (1.3-7.7) k/uL Lymphocytes # (1.0-4.8) k/uL PT (9.0-12.0) sec INR (<1.2) Fibrinogen (200-500) mg/dL ABG pH (7.35-7.45) ABG pCO2 (35-45) mmHg ABG pO2 (83-108) mmHg ABG HCO3 (21-25) mmol/L ABG Total CO2 (19-24) mmol/L ABG O2 Saturation (94-97) % Potassium (3.5-5.1) mmol/L BUN 20 H (7-17) mg/dL Glucose (74-99) mg/dL POC Glucose (mg/dL) 112 H 126 H (70-110) mg/dL Ionized Calcium Kp (4.5-5.3) mg/dL Magnesium (1.6-2.3) mg/dL Total Bilirubin 1.5 H (0.2-1.3) mg/dL AST 148 H (14-36) U/L Total Protein 4.9 L (6.3-8.2) g/dL Albumin 3.1 L (3.5-5.0) g/dL Crossmatch 12/08/22 12/08/22 12/08/22 Range/Units 07:02 08:27 09:31 WBC (3.8-10.6) k/uL RBC (3.80-5.40) m/uL Hgb (11.4-16.0) gm/dL Hct (34.0-46.0) % RDW (11.5-15.5) % Plt Count (150-450) k/uL Neutrophils # (1.3-7.7) k/uL Lymphocytes # (1.0-4.8) k/uL PT (9.0-12.0) sec INR (<1.2) Fibrinogen (200-500) mg/dL ABG pH (7.35-7.45) ABG pCO2 (35-45) mmHg ABG pO2 (83-108) mmHg ABG HCO3 (21-25) mmol/L ABG Total CO2 (19-24) mmol/L ABG O2 Saturation (94-97) % Potassium (3.5-5.1) mmol/L BUN (7-17) mg/dL Glucose (74-99) mg/dL POC Glucose (mg/dL) 111 H 113 H 129 H (70-110) mg/dL Ionized Calcium Kp (4.5-5.3) mg/dL Magnesium (1.6-2.3) mg/dL Total Bilirubin (0.2-1.3) mg/dL AST (14-36) U/L Total Protein (6.3-8.2) g/dL Albumin (3.5-5.0) g/dL Crossmatch - Imaging and Cardiology Chest x-ray: report reviewed, image reviewed Assessment and Plan Assessment: Coronary artery disease, status post 2V CABG Cardiomyopathy, EF 30-35% on TTE 08/2022, 50-55% TTE 10/2022 Hypertension, currently hypotensive on pressors Hyperlipidemia, treated, cholesterol 146, LDL 75, triglycerides 155 Uncontrolled type 2 diabetes with hyperglycemia, hemoglobin A1c 13% Peripheral arterial disease with toe amputation right foot TIA in 1999 Vertigo Lifetime non-smoker, preoperative FEV1 77% Postoperative acute blood loss anemia and thrombocytopenia, expected Plan: Continue to maximize medical therapy with plavix, statin. No ASA, contraindicated due to allergy. Will hold BB while on pressors Wean levo as tolerated Continue amio, will transition to oral Wean oxygen as tolerated. Bronchodilators per pulmonology. Encourage incentive spirometry 10 times every hour while awake GI/DVT prophylaxis Pain control per current medication regimen Insulin management per internal medicine service. Patient needs tight blood sugar control to prevent infection and promote healing Continue [place]/Cordis, arterial line for another 24 hours Continue mediastinal/left/right pleural chest tubes for another 24 hours Continue Shrestha catheter for another 24 hours for strict accurate intake and output Daily weights Will monitor daily labs and x-rays. Electrolyte replacement per protocol Dr. Boggs consulted for right foot dressing change Monitor left groin site after IABP removal More recommendations to follow
--- NOTE | 2022-12-08 10:59 | P.OP ---
Date of Procedure: 12/08/22 Indications for Procedure: This is a 62-year-old female who was found to have multivessel coronary artery disease. An intra-aortic balloon pump was placed in the operating room by Dr. Sanchez. She has done well after her coronary artery bypass surgery. This morning she is relatively hemodynamically stable and is no longer in need of intra-aortic balloon pump assistance. Removal of the device was recommended. The risks, benefits, alternatives to this procedure were discussed with the patient and all questions are answered. Consent was obtained. Description of Procedure: The left groin was examined. There was no evidence of hematoma. The balloon pump was turned off. The pre-existing sheath and balloon were removed en sydnie and the artery was allowed to bleed both anterograde and retrograde for several beats. Direct pressure was held over the site for 30 minutes. There was no residual bleeding or hematoma noted. The groin itself was soft. The left lower extremity appeared warm and well perfused. There was no immediate complication. She remained stable with good follow-up cardiac index.
[2022-12-08 11:14] LABS: Glucose,Whole Blood 93 mg/dL (70-110)
[2022-12-08 12:11] LABS: Glucose,Whole Blood 101 mg/dL (70-110)
--- NOTE | 2022-12-08 13:37 | CONS ---
CONSULTATION HISTORY OF PRESENT ILLNESS: This is a 62-year-old lady with a history of significant CAD, who underwent a cardiac catheterization by Dr. Sanchez performed on November 25, at [facility]. Echo prior to that revealed ejection fraction of 30% with global decrease in contractility. She has a history of hypertension, diabetes, hyperlipidemia, and severe calcified triple- vessel disease. She underwent aortocoronary bypass surgery yesterday by Dr. Sanchez. She had a vein graft to the obtuse marginal and a BRISENO to LAD. She also had an intraoperative balloon pump placement. She had ventricular arrhythmias as well. She seems to be making modest progress. She has been extubated. She is on a combination of Levophed and dopamine. I am recommending that if she has no further arrhythmias and electrolytes are good, we can start her on a small dose of dobutamine and wean off the Levophed and then work on intra-aortic balloon pump. Her renal perfusion appears to be fair. At the time of my evaluation, she is resting comfortably. Please refer to the detailed consultation by Dr. Sanchez from November 25, about 2 weeks ago. PAST MEDICAL HISTORY: Remarkable for peripheral arterial disease, hypertension, hyperlipidemia, type 2 diabetes, osteoarthritis, COPD, history of amputation of the right foot toes. She has also hysterectomy and orthopedic surgery. PHYSICAL EXAMINATION: VITAL SIGNS: Blood pressure is 98/60. Pulse rate is about 60 per minute, regular. HEENT: Unremarkable. Fundus was not examined. HEART: S1 and S2 heard normally. Short systolic murmur noted. LUNGS: Reveal fair air entry. ABDOMEN: Soft and nontender. EXTREMITIES: Lower extremities reveal diminished pulses. CENTRAL NERVOUS SYSTEM: Grossly, no focal deficits. RECOMMENDATIONS: Recommend to continue current supportive care and gradually wean off the pressors. Can start a small dose of dobutamine if okay with Cardiac Surgery. Thank you very much for the consult. MMODL / IJN: [id number] /
[2022-12-08 14:01] LABS: Glucose,Whole Blood 246 mg/dL (70-110)
[2022-12-08 14:58] LABS: Glucose,Whole Blood 204 mg/dL (70-110)
[2022-12-08] MEDS: ALBUMIN HUMAN 5% 250 ML in EMPTY BAG 1 BAG IVPB PRN (15:05)
[2022-12-08 16:22] LABS: Glucose,Whole Blood 118 mg/dL (70-110)
[2022-12-08] MEDS: INSULIN REGULAR 100 UNIT in SODIUM CHLORIDE 0.9% 100 ML IV SCH (17:35)
[2022-12-08 18:28] LABS: Glucose,Whole Blood 66 mg/dL (70-110)
[2022-12-08 18:48] LABS: Glucose,Whole Blood 65 mg/dL (70-110)
[2022-12-08 19:12] LABS: Glucose,Whole Blood 77 mg/dL (70-110)
[2022-12-08] MEDS: NOREPINEPHRINE 4 MG in SODIUM CHLORIDE 0.9% 250 ML IV SCH (19:25)
[2022-12-08 20:05] LABS: Glucose,Whole Blood 142 mg/dL (70-110)
[2022-12-08] MEDS: NITROGLYCERIN-D5W PMX 50 MG in DEXTROSE/WATER 1 250ML.BAG IV SCH (20:05)
[2022-12-08] MEDS: LACTATED RINGERS 1,000 ML IV SCH (20:05)
[2022-12-08] MEDS: EPINEPHrine 4 MG in DEXTROSE 5% IN WATER 250 ML IV SCH ×2 (20:05)
[2022-12-08] MEDS: AMIODARONE 200 MG TAB PO SCH (20:13)
[2022-12-08] MEDS: SENNOSIDES-DOCUSATE SODIUM 1 EACH TAB PO SCH (20:13)
[2022-12-08 21:04] LABS: Glucose,Whole Blood 161 mg/dL (70-110)
[2022-12-08 21:59] LABS: Glucose,Whole Blood 145 mg/dL (70-110)
[2022-12-08 23:00] LABS: Glucose,Whole Blood 97 mg/dL (70-110)
--- NOTE | 2022-12-08 23:40 | P.CONS ---
History of Present Illness - Reason for Consult Consult date: 12/07/22 Medical management - Chief Complaint Status post two-vessel CABG - History of Present Illness Patient is a 60-year-old female with a known history of uncontrolled diabetes, hypertension, hyperlipidemia, osteoarthritis, COPD, history of CVA/TIA no residual defects history of recent cardiac catheterization with significant coronary artery disease. Patient is status post CABG x2 vessel with BRISENO to LAD, saphenous vein graft to obtuse marginal. Occlusion of the base of the left atrial appendage with 35 mm AtriCure clip.Intra-aortic balloon pump placement Patient does have right foot gangrenous toe status post ray amputation and is on follow-up with wound care clinic with Dr. Parmar. Preoperatively patient was intubated and currently on mechanical ventilator. Transferred to MICU. Patient is also on pressor support and also being continued on insulin drip. Laboratory showed WBC 11.4 hemoglobin 8.0 and platelets 121 ABG showed pH 7.3 PCO2 48 PO2 greater than 400 Sodium 142 potassium 3.1 chloride 106 bicarb is 26 BUN 23 and creatinine 0.74 Magnesium 2.4 AST 60 and ALT 32 and alk phos 54. Review of Systems ROS unobtainable: due to endotracheal tube, due to mental status Past Medical History Past Medical History: COPD, CVA/TIA, Diabetes Mellitus, Eye Disorder, Hyperlipidemia, Hypertension, Osteoarthritis (OA), Skin Disorder Additional Past Medical History / Comment(s): first 3 toes right foot removed 2021-still healing, bandaged, past hx. TIA 1999-no residual affects, d ecreased vision right eye History of Any Multi-Drug Resistant Organisms: None Reported Past Surgical History: Section, Heart Catheterization, Hernia Repair, Hysterectomy, Orthopedic Surgery Additional Past Surgical History / Comment(s): right rotator cuff, left hand surgery twice, big toe, 2nd & 3rd toes removed right foot, recent heart cath. @[facility] Past Anesthesia/Blood Transfusion Reactions: No Reported Reaction Past Psychological History: No Psychological Hx Reported Smoking Status: Never smoker Past Alcohol Use History: None Reported Past Drug Use History: None Reported - Past Family History Father Family Medical History: Coronary Artery Disease (CAD) Medications and Allergies Home Medications Medication Instructions Recorded Confirmed Type Atorvastatin [Lipitor] 40 mg PO HS 11/25/22 12/07/22 History Empagliflozin [Jardiance] 10 mg PO DAILY 11/25/22 12/07/22 History Ergocalciferol [Vitamin D2 (1250 1,250 mcg PO FLOYD 11/25/22 12/07/22 History Mcg = [id number] Iu)] Furosemide [Lasix] 40 mg PO BID 11/25/22 12/07/22 History Loperamide [Imodium] 2 mg PO QID PRN 11/25/22 12/07/22 History Metoprolol Tartrate [Lopressor] 25 mg PO DAILY 11/25/22 12/07/22 History Potassium Chloride ER [K-Dur 20] 20 meq PO BID 11/25/22 12/07/22 History Aspirin 81 mg PO DAILY 12/03/22 12/07/22 History Insulin Degludec [Tresiba] 200 units SQ HS 12/07/22 12/07/22 History Semaglutide [Ozempic] 2 mg SQ WEEKLY 12/07/22 12/07/22 History Allergies Allergy/AdvReac Type Severity Reaction Status Date / Time Penicillins Allergy Rash/Hives Verified 12/07/22 06:00 aspirin AdvReac Nausea & Verified 12/07/22 06:00 Vomiting & Diarrhea Physical Exam Vitals: Vital Signs Temp Pulse Pulse Resp BP BP BP 12/07/22 19:00 89 15 12/07/22 18:45 89 14 12/07/22 18:30 88 16 12/07/22 18:15 97 13 12/07/22 18:00 89 14 12/07/22 17:45 92 12 12/07/22 17:30 97 15 12/07/22 17:25 12/07/22 17:16 97.3 F L 96 14 79/40 12/07/22 17:15 97 15 12/07/22 17:00 96 14 12/07/22 16:50 95.2 F L 97 14 81/46 12/07/22 16:45 98 11 L 12/07/22 16:40 96.4 F L 94 14 80/50 12/07/22 16:39 96.4 F L 95 14 81/50 12/07/22 16:30 93 14 12/07/22 16:28 96.4 F L 95 14 85/48 12/07/22 16:15 93 15 12/07/22 16:08 95.2 F L 91 14 77/45 12/07/22 16:05 92 12/07/22 16:00 93 14 12/07/22 15:58 34.9 F L 93 84/48 12/07/22 15:45 93 14 12/07/22 15:42 90 12/07/22 15:30 89 14 12/07/22 15:15 87 14 12/07/22 15:00 89 14 12/07/22 14:45 93 14 12/07/22 14:30 91 14 12/07/22 14:15 87 14 12/07/22 14:01 12 12/07/22 14:00 12/07/22 06:20 97.4 F L 85 18 109/71 105/71 Pulse Ox FiO2 12/07/22 19:00 100 12/07/22 18:45 100 12/07/22 18:30 99 12/07/22 18:15 99 12/07/22 18:00 99 12/07/22 17:45 99 12/07/22 17:30 99 12/07/22 17:25 50 12/07/22 17:16 99 12/07/22 17:15 99 12/07/22 17:00 99 12/07/22 16:50 99 12/07/22 16:45 99 12/07/22 16:40 99 12/07/22 16:39 99 12/07/22 16:30 99 12/07/22 16:28 99 12/07/22 16:15 99 12/07/22 16:08 99 12/07/22 16:05 12/07/22 16:00 100 50 12/07/22 15:58 100 12/07/22 15:45 100 12/07/22 15:42 12/07/22 15:30 99 12/07/22 15:15 100 12/07/22 15:00 100 12/07/22 14:45 100 12/07/22 14:30 100 12/07/22 14:15 100 12/07/22 14:01 12/07/22 14:00 100 12/07/22 06:20 95 Intake and Output 12/07/22 12/07/22 12/07/22 06:59 14:59 22:59 Intake Total 319 957 9877.353 Output Total 3300 1670 Balance 100 -6057 795.353 Intake: IV 160 002 7961 ACETAMINOPHEN IV (For NPO 200 ) 1,000 mg In Empty Bag 1 bag @ 400 mls/hr IVPB Q6HR [facility] Rx#:[id number] Albumin Human 5% 250 ml 250 1000 In Empty Bag 1 bag @ 250 mls/hr IVPB Q1HR PRN Rx#: [id number] CO/CI 20 120 Lactated Ringers 1,000 ml 50 250 @ 50 mls/hr IV .Q20H [facility] Rx#:[id number] Potassium Chloride 20 meq 200 In Water For Injection 1 100ml.bag @ 50 mls/hr IVPB Q2H [facility] Rx#: [id number] Intake, IV Titration 37.353 Amount EPINEPHrine 4 mg In 2.64 Dextrose 5% in Water 250 ml @ 0.01 MCG/KG/MIN 2.64 mls/hr IV .Q24H [facility] Rx#: [id number] Insulin Regular 100 unit 9.545 In Sodium Chloride 0.9% 100 ml @ Per Protocol IV .Q0M [facility] Rx#:[id number] propofoL 1,000 mg In 25.168 Empty Bag 1 bag @ Titrate IV .Q0M [facility] Rx#: [id number] Blood Product 310 658 Platelet Pheresis Pas 348 Psoralen Unit [id number] Rc As-1 Unit 310 [id number] Rc As-1 Unit 310 [id number] Output: Chest Tube Drainage 980 Left/Right Pleural 410 Mediastinal 570 Urine 1400 690 Estimated Blood Loss 1900 Other: Voiding Method Indwelling Catheter Weight 70.4 kg ABP, PAP, CO, CI - Last 8 Hours Arterial Blood Pressure 99/49 Arterial Blood Pressure 99/50 Arterial Blood Pressure 108/57 Arterial Blood Pressure 82/51 Arterial Blood Pressure 68/44 Arterial Blood Pressure 80/39 Arterial Blood Pressure 81/49 Arterial Blood Pressure 83/54 Arterial Blood Pressure 90/49 Arterial Blood Pressure 96/57 Arterial Blood Pressure 78/49 Arterial Blood Pressure 80/47 Arterial Blood Pressure 82/47 Arterial Blood Pressure 94/48 Arterial Blood Pressure 93/45 Arterial Blood Pressure 123/59 Arterial Blood Pressure 91/42 Arterial Blood Pressure 138/52 Arterial Blood Pressure 147/44 Arterial Blood Pressure 134/58 Pulmonary Artery Pressure 33/12 Pulmonary Artery Pressure 31/13 Pulmonary Artery Pressure 32/12 Pulmonary Artery Pressure 33/12 Pulmonary Artery Pressure 30/11 Pulmonary Artery Pressure 31/10 Pulmonary Artery Pressure 33/14 Pulmonary Artery Pressure 34/15 Pulmonary Artery Pressure 34/14 Pulmonary Artery Pressure 38/12 Pulmonary Artery Pressure 35/11 Pulmonary Artery Pressure 34/11 Pulmonary Artery Pressure 31/9 Pulmonary Artery Pressure 32/14 Pulmonary Artery Pressure 34/18 Pulmonary Artery Pressure 24/14 Pulmonary Artery Pressure 26/12 Pulmonary Artery Pressure 25/8 Pulmonary Artery Pressure 22/9 Cardiac Output 4.8 Cardiac Output 5.4 Cardiac Output 5.4 Cardiac Output 5.4 Cardiac Output 5.4 Cardiac Output 6.5 Cardiac Output 6.5 Cardiac Output 6.5 Cardiac Output 6.5 Cardiac Output 6.7 Cardiac Output 6.7 Cardiac Output 6.7 Cardiac Output 6.7 Cardiac Output 5.5 Cardiac Output 5.5 Cardiac Output 5.7 Cardiac Output 5.7 Cardiac Output 5.2 Cardiac Index 2.7 Cardiac Index 3.1 Cardiac Index 3.1 Cardiac Index 3.1 Cardiac Index 3.1 Cardiac Index 3.7 Cardiac Index 3.7 Cardiac Index 3.7 Cardiac Index 3.7 Cardiac Index 3.8 Cardiac Index 3.8 Cardiac Index 3.8 Cardiac Index 3.8 Cardiac Index 3.1 Cardiac Index 3.1 Cardiac Index 3.2 Cardiac Index 3.2 Cardiac Index 3 PHYSICAL EXAMINATION: Patient is lying in the bed. On mechanical ventilator. Sedated. HEENT: Normocephalic. Neck is supple. Pupils reactive. Nostrils clear. Oral cavity is moist. Neck reveals no JVD, carotid bruits, or thyromegaly. CHEST EXAMINATION: Trachea is central. Symmetrical expansion. Lung barrientos clear to auscultation and percussion. Chest tubes in place. CARDIAC: Normal S1, S2 with no gallops. No murmurs ABDOMEN: Soft. Bowel sounds present. Nontender. No organomegaly. No abdominal bruits. Extremities: reveal no edema. No clubbing or cyanosis Right foot wound is bandaged. Neurologically patient is sedated and intubated. No gross focal deficits noted Skin: No rash or skin lesions. Psychiatric: Could not be assessed at this time., Musculoskeletal: No joint swelling or deformity. Results CBC & Chem 7: 12/08/22 03:56 12/08/22 03:56 Labs: Abnormal Lab Results - Last 24 Hours (Table) 12/07/22 12/07/22 12/07/22 Range/Units 07:20 14:04 14:04 WBC 13.7 H (3.8-10.6) k/uL RBC 3.57 L (3.80-5.40) m/uL Hgb 9.9 L D (11.4-16.0) gm/dL Hct 28.8 L (34.0-46.0) % RDW 15.9 H (11.5-15.5) % Plt Count 133 L (150-450) k/uL Neutrophils # 11.1 H (1.3-7.7) k/uL PT 12.7 H (9.0-12.0) sec INR 1.2 H (<1.2) Fibrinogen (200-500) mg/dL ABG pH (7.35-7.45) ABG pCO2 (35-45) mmHg ABG pO2 (83-108) mmHg ABG HCO3 (21-25) mmol/L ABG Total CO2 (19-24) mmol/L ABG O2 Saturation (94-97) % Potassium (3.5-5.1) mmol/L BUN (7-17) mg/dL Glucose (74-99) mg/dL POC Glucose (mg/dL) (70-110) mg/dL Ionized Calcium Kp (4.5-5.3) mg/dL Magnesium (1.6-2.3) mg/dL AST (14-36) U/L Total Protein (6.3-8.2) g/dL Albumin (3.5-5.0) g/dL Crossmatch See Detail 12/07/22 12/07/22 12/07/22 Range/Units 14:04 14:04 14:08 WBC (3.8-10.6) k/uL RBC (3.80-5.40) m/uL Hgb (11.4-16.0) gm/dL Hct (34.0-46.0) % RDW (11.5-15.5) % Plt Count (150-450) k/uL Neutrophils # (1.3-7.7) k/uL PT (9.0-12.0) sec INR (<1.2) Fibrinogen 179 L (200-500) mg/dL ABG pH (7.35-7.45) ABG pCO2 (35-45) mmHg ABG pO2 (83-108) mmHg ABG HCO3 (21-25) mmol/L ABG Total CO2 (19-24) mmol/L ABG O2 Saturation (94-97) % Potassium 3.1 L (3.5-5.1) mmol/L BUN 23 H (7-17) mg/dL Glucose 146 H (74-99) mg/dL POC Glucose (mg/dL) 153 H (70-110) mg/dL Ionized Calcium Kp 5.5 H (4.5-5.3) mg/dL Magnesium 2.4 H (1.6-2.3) mg/dL AST 60 H (14-36) U/L Total Protein 5.0 L (6.3-8.2) g/dL Albumin 3.0 L (3.5-5.0) g/dL Crossmatch 12/07/22 12/07/22 12/07/22 Range/Units 15:03 15:12 15:46 WBC 11.5 H (3.8-10.6) k/uL RBC 2.85 L (3.80-5.40) m/uL Hgb 8.0 L D (11.4-16.0) gm/dL Hct 23.1 L (34.0-46.0) % RDW 16.1 H (11.5-15.5) % Plt Count 121 L (150-450) k/uL Neutrophils # 9.2 H (1.3-7.7) k/uL PT (9.0-12.0) sec INR (<1.2) Fibrinogen (200-500) mg/dL ABG pH 7.33 L (7.35-7.45) ABG pCO2 48 H (35-45) mmHg ABG pO2 >400 H (83-108) mmHg ABG HCO3 26 H (21-25) mmol/L ABG Total CO2 27 H (19-24) mmol/L ABG O2 Saturation 100.0 H (94-97) % Potassium (3.5-5.1) mmol/L BUN (7-17) mg/dL Glucose (74-99) mg/dL POC Glucose (mg/dL) 163 H (70-110) mg/dL Ionized Calcium Kp (4.5-5.3) mg/dL Magnesium (1.6-2.3) mg/dL AST (14-36) U/L Total Protein (6.3-8.2) g/dL Albumin (3.5-5.0) g/dL Crossmatch 12/07/22 12/07/22 12/07/22 Range/Units 16:09 17:09 17:54 WBC (3.8-10.6) k/uL RBC (3.80-5.40) m/uL Hgb (11.4-16.0) gm/dL Hct (34.0-46.0) % RDW (11.5-15.5) % Plt Count (150-450) k/uL Neutrophils # (1.3-7.7) k/uL PT (9.0-12.0) sec INR (<1.2) Fibrinogen (200-500) mg/dL ABG pH (7.35-7.45) ABG pCO2 (35-45) mmHg ABG pO2 (83-108) mmHg ABG HCO3 (21-25) mmol/L ABG Total CO2 (19-24) mmol/L ABG O2 Saturation (94-97) % Potassium (3.5-5.1) mmol/L BUN (7-17) mg/dL Glucose (74-99) mg/dL POC Glucose (mg/dL) 177 H 177 H 170 H (70-110) mg/dL Ionized Calcium Kp (4.5-5.3) mg/dL Magnesium (1.6-2.3) mg/dL AST (14-36) U/L Total Protein (6.3-8.2) g/dL Albumin (3.5-5.0) g/dL Crossmatch 12/07/22 Range/Units 19:02 WBC (3.8-10.6) k/uL RBC (3.80-5.40) m/uL Hgb (11.4-16.0) gm/dL Hct (34.0-46.0) % RDW (11.5-15.5) % Plt Count (150-450) k/uL Neutrophils # (1.3-7.7) k/uL PT (9.0-12.0) sec INR (<1.2) Fibrinogen (200-500) mg/dL ABG pH (7.35-7.45) ABG pCO2 (35-45) mmHg ABG pO2 (83-108) mmHg ABG HCO3 (21-25) mmol/L ABG Total CO2 (19-24) mmol/L ABG O2 Saturation (94-97) % Potassium (3.5-5.1) mmol/L BUN (7-17) mg/dL Glucose (74-99) mg/dL POC Glucose (mg/dL) 160 H (70-110) mg/dL Ionized Calcium Kp (4.5-5.3) mg/dL Magnesium (1.6-2.3) mg/dL AST (14-36) U/L Total Protein (6.3-8.2) g/dL Albumin (3.5-5.0) g/dL Crossmatch Assessment and Plan Assessment: Status post CABG 2 vessel with BRISENO to LAD and saphenous vein graft to obtuse marginal. Postoperative day 0. Acute hypoxic respiratory failure. Currently is on mechanical ventilator. Coronary artery disease with recent cardiac catheterization at [facility] Ischemic cardiomyopathy ejection fraction 30 to 35% Right foot diabetic wound status post ray amputation and is being followed at wound care clinic Uncontrolled diabetes type 2 Hypertension Hyperlipidemia History of TIA/CVA in 1999 with no residual effects. Osteoarthritis COPD not on oxygen at home. GI and DVT prophylaxis Plan: Patient is currently in the MICU. Sedated on mechanical ventilator. Continued on pressor support. Patient is being continued on Plavix, metoprolol and statins. Replace potassium Current with insulin drip for better blood sugar control. Pulmonary, CT surgery is on board. We will continue to follow closely. Thank you for your consult. Time with Patient: Greater than 30
[2022-12-08 23:52] LABS: Glucose,Whole Blood 93 mg/dL (70-110)
[2022-12-09] MEDS: HEPARIN SODIUM,PORCINE/PF 5,000 UNIT/0.5 ML SYRINGE SQ SCH ×4 (00:41→23:58)
[2022-12-09 01:06] LABS: Glucose,Whole Blood 119 mg/dL (70-110)
[2022-12-09 02:13] LABS: Glucose,Whole Blood 122 mg/dL (70-110)
[2022-12-09] MEDS: HYDROcodone/APAP 5-325MG 1 EACH TAB PO PRN ×2 (02:49→10:24)
[2022-12-09 03:20] LABS: Glucose,Whole Blood 118 mg/dL (70-110)
[2022-12-09 03:52] LABS: Glucose,Whole Blood 106 mg/dL (70-110)
[2022-12-09] MEDS: EPINEPHrine 4 MG in DEXTROSE 5% IN WATER 250 ML IV SCH ×4 (04:05→18:45)
[2022-12-09 04:16] LABS: Anisocytosis Slight; Basophils % (A) 0 %; Eosinophils # (A) 0.1 k/uL (0-0.7); Eosinophils % (A) 1 %; HCT 22.1 % (34.0-46.0); HGB 7.7 gm/dL (11.4-16.0); Lymphocytes # (A) 1.5 k/uL (1.0-4.8); Lymphocytes % (A) 17 %; MCH 28.4 pg (25.0-35.0); MCHC 34.7 g/dL (31.0-37.0); MCV 81.8 fL (80.0-100.0); Mean Platelet Volume 8.5; Monocytes # (A) 0.5 k/uL (0-1.0); Monocytes % (A) 5 %; Neutrophils # (A) 6.9 k/uL (1.3-7.7); Neutrophils % (A) 75 %; RDW 16.4 % (11.5-15.5); WBC 9.1 k/uL (3.8-10.6)
[2022-12-09 05:00] LABS: Platelet Count 97 k/uL (150-450)
[2022-12-09 05:05] LABS: Ionized Calcium 5.1 mg/dL (4.5-5.3)
[2022-12-09 05:34] LABS: Albumin 2.9 g/dL (3.5-5.0); Calcium 8.4 mg/dL (8.4-10.2); Total Protein 4.9 g/dL (6.3-8.2)
[2022-12-09 06:55] LABS: Glucose,Whole Blood 125 mg/dL (70-110)
[2022-12-09] MEDS: CLOPIDOGREL 75 MG TAB PO SCH (08:00)
[2022-12-09] MEDS: ATORVASTATIN 40 MG TAB PO SCH (08:00)
[2022-12-09] MEDS: AMIODARONE 200 MG TAB PO SCH ×2 (08:00→21:15)
[2022-12-09] MEDS: PANTOPRAZOLE 40 MG TABLET PO SCH (08:00)
[2022-12-09 08:07] LABS: Glucose,Whole Blood 127 mg/dL (70-110)
[2022-12-09] MEDS: IPRATROPIUM-ALBUTEROL 3 ML NEB INHALATION SCH ×4 (09:19→21:00)
--- NOTE | 2022-12-09 09:22 | XR ---
EXAMINATION TYPE: XR chest 1V portable DATE OF EXAM: 12/09/2022 COMPARISON: 12/08/2022 HISTORY: SOB, Follow Up FINDINGS: Indwelling tubes and catheters are unchanged. No evidence for pneumothorax. [place] catheter, bilat eral chest tubes and mediastinal drains remain in place. Left atrial clip is also unchanged. Sternoto my wires are in place. No change in bibasilar opacities. Stable appearance of the cardio-mediastinal structures at this time. IMPRESSION: 1. Stable portable chest. Clinical correlation and follow up until resolution is recommended.
--- NOTE | 2022-12-09 09:30 | P.PN ---
Subjective Progress Note Date: 12/09/22 I am seeing this patient in new consultation today 12/08/2022 in regard to postoperative open-heart ICU management. Patient is a 62-year-old white female with past significant medical history of hypertension, hyperlipidemia, diabetes mellitus type 2, COPD, previous TIA, vertigo, peripheral 2-year-old disease with recent amputation of her great toe second and third toes of the right foot. On 09/20/2022 patient had a transthoracic 2-D echocardiogram which showed severe cardiomyopathy with an ejection fraction between 30 and 35%. A follow-up elective heart catheterization was done at [facility] which reportedly demonstrated triple-vessel coronary artery disease. Patient was scheduled for an elective CABG with Dr. Sanchez yesterday. Based on the patient's preoperative PFT, she was at no increased intraoperative risk. Patient underwent an off-pump CABG 2 with a BRISENO to the LAD, saphenous vein graft to the obtuse marginal 2, and ligation of the left atrial appendage. Intraoperatively, the patient did have a V. fib arrest. There was placement of an intra-aortic balloon pump via the left femoral artery. ROSC was achieved after a few minutes, and the procedure was completed. Patient has received a total of 2 units of PRBCs and 1 of platelets for some postoperative bleeding. Patient is currently in the intensive care unit remaining mechanically ventilated with settings of assist control, respiratory rate 14, tidal volume 400, FiO2 50%, PEEP of 5. Postoperative ABGs show a pO2 greater than 400, pCO2 48, pH of 7.33. This was done on FiO2 of 100%, which was dropped down to 50%. Postoperative chest x-ray shows endotracheal tube 3.2 cm the vernell, a NG-tube coursing below the diaphragm, an appropriately placed [place]-Freddy catheter, bilateral thoracotomy tubes without evidence of pneumothorax, a chest tube within the mediastinum, and postoperative surgical changes. IABP remains in place at a 1-1 ratio. Augmented pressure is 93 mmHg, and mean arterial pressure is 73 mmHg. Patient currently has epinephrine infusing at 0.025 mics per kilogram per minute, Levophed inf using at 0.03 mics per kilogram per minute, amiodarone infusing at 0.5 mg/m, nitro infusing at 5 mics per minute. Propofol and insulin are currently paused. So far, there have been no attempts at weaning. Patient is awake, alert and following commands. There have been no acute titrations to the patient's vasopressors. Patient's most recent CO/CI is 5.4 and 3.1 respectively, pulmonary artery pressure 30/14, heart rhythm is normal sinus at 90 bpm. Urine output is approximately 80-100 ML's per hour. Patient's chest tube output has slowed down to less than 50 ML's per hour. There is a total of 550 ML's of serosanguineous output out of the mediastinal chest tube, and a total of 700 ML's of serosanguinous output from the right and left pleural chest tube. Most recent CBC shows a hemoglobin of 8.9 and hematocrit of 25.7. INR is 1.2. Most recent BMP shows a sodium 142, potassium 3.7, chloride 106, serum CO2 26, BUN 23, creatinine 0.74, glucose 146. Magnesium was 2.4. Lactated Ringer's is infusing at 50 ML's per hour. Patient is currently calm and following commands. No recent acute changes in patient's hemodynamics, and patient is a potential candidate for weaning from the mechanical ventilator. The patient is seen today 12/09/2022 in follow-up in the intensive care unit. She is currently sitting up in a chair at the bedside. Awake and alert in no acute distress. She is maintaining good O2 saturations in the 90s on room air. She is postoperative day #2. She is continued on a insulin drip at 15 units per hour, nitroglycerin drip at 5 mcg/m on a lactated Ringer's at 40 ML's per hour, epinephrine and 0.025 mcg/kg/m. Norepinephrine is currently off. He is curre ntly in normal sinus rhythm. No arrhythmias noted. Blood pressure stable. PA pressure 30/12. CVP 15. Chest x-ray reveals no evidence of pleural effusion, focal consolidation or pneumothorax. Chest tubes remain in place. She is status post 2 units of packed red blood cells and 1 unit of platelets. White count 9.1. Hemoglobin 7.7. Platelets 97,000. Sodium 133. Potassium 5.0. Bicarb 30. BUN 17. Creatinine 0.99. AST 105. ALT 20. Albumin 2.9. She is working well with the incentive spirometer. Continued on DuoNeb inhalations. Heparin for DVT prophylaxis. Objective - Vital Signs Vital signs: Vital Signs Temp 99.7 F H 12/09/22 04:00 Pulse 87 12/09/22 07:00 Resp 19 12/09/22 07:00 BP 116/63 12/09/22 05:15 Pulse Ox 94 L 12/09/22 07:00 FiO2 50 12/08/22 00:00 Intake & Output 12/08/22 12/09/22 12/09/22 18:59 06:59 18:59 Intake Total 1578.092 730.096 3.735 Output Total 960 475 Balance 618.092 255.096 3.735 Weight 64.7 kg Intake: IV 896.5 371.5 5% Albumin 250 CO/CI 90 90 Lactated Ringers 1,000 ml 540 280 @ 20 mls/hr IV .Q24H HELEN Rx#:[id number] Nitroglycerin-D5w Pmx 50 16.5 1.5 mg In Dextrose/Water 1 250ml.bag @ 5 MCG/MIN 1.5 mls/hr IV .Q24H HELEN Rx#: [id number] Intake, IV Titration 431.592 358.596 3.735 Amount Amiodarone 450 mg In 312.229 Dextrose 5% in Water 250 ml @ 0.5 MG/MIN 16.667 mls/hr IV .Q15H HELEN Rx#: [id number] EPINEPHrine 4 mg In 244.75 Dextrose 5% in Water 250 ml @ 0.01 MCG/KG/MIN 2.64 mls/hr IV .Q24H HELEN Rx#: [id number] Insulin Regular 100 unit 22.220 15.277 1.768 In Sodium Chloride 0.9% 100 ml @ Per Protocol IV .Q0M HELEN Rx#:[id number] Norepinephrine 4 mg In 97.143 98.569 1.967 Sodium Chloride 0.9% 250 ml @ 0.03 MCG/KG/MIN 8. 047 mls/hr IV .Q24H HELEN Rx#:[id number] Oral 250 Output: Chest Tube Drainage 390 50 Left/Right Pleural 370 40 Mediastinal 20 10 Urine 570 425 Other: Voiding Method Indwelling Catheter Indwelling Catheter ABP, PAP, CO, CI - Last Documented Arterial Blood Pressure 132/55 Pulmonary Artery Pressure 30/12 Cardiac Output 4.5 Cardiac Index 2.6 - Exam GENERAL EXAM: Reveals a very pleasant 62-year-old female, pale, up in a chair at the bedside, on room air HEAD: Normocephalic and atraumatic EYES: Normal reaction of pupils, equal size. NOSE: Clear with pink turbinates. THROAT: No erythema or exudates. NECK: No masses, no JVD. Right IJ introducer sheath with [place]-Freddy catheter CHEST: Heart hugger in place. Postoperative incisional dressing intact. Bilateral pleural chest tubes and mediastinal chest tube hooked to Pleur-evacs at -20 cm H2O LUNGS: Equal air entry with no crackles, wheeze, rhonchi or dullness. CVS: Regular rate and rhythm ABDOMEN: No hepatosplenomegaly, active bowel sounds, no guarding or rigidity. SPINE: No scoliosis or deformity SKIN: No rashes CENTRAL NERVOUS SYSTEM: No focal deficits, tone is normal in all 4 extremities. Patient is alert and oriented. EXTREMITIES: Patient has right great toe, second toe, third toe amputations with a dressing clean, dry, intact. Left pedal and left radial pulses are palpable. - Labs CBC & Chem 7: 12/09/22 03:56 12/09/22 03:56 Labs: Abnormal Lab Results - Last 24 Hours (Table) 12/08/22 12/08/22 12/08/22 Range/Units 09:31 10:20 14:00 RBC (3.80-5.40) m/uL Hgb (11.4-16.0) gm/dL Hct (34.0-46.0) % RDW (11.5-15.5) % Plt Count (150-450) k/uL Sodium (137-145) mmol/L POC Glucose (mg/dL) 129 H 117 H 246 H (70-110) mg/dL Total Bilirubin (0.2-1.3) mg/dL AST (14-36) U/L Total Protein (6.3-8.2) g/dL Albumin (3.5-5.0) g/dL 12/08/22 12/08/22 12/08/22 Range/Units 14:57 16:21 18:26 RBC (3.80-5.40) m/uL Hgb (11.4-16.0) gm/dL Hct (34.0-46.0) % RDW (11.5-15.5) % Plt Count (150-450) k/uL Sodium (137-145) mmol/L POC Glucose (mg/dL) 204 H 118 H 66 L (70-110) mg/dL Total Bilirubin (0.2-1.3) mg/dL AST (14-36) U/L Total Protein (6.3-8.2) g/dL Albumin (3.5-5.0) g/dL 12/08/22 12/08/22 12/08/22 Range/Units 18:47 20:04 21:02 RBC (3.80-5.40) m/uL Hgb (11.4-16.0) gm/dL Hct (34.0-46.0) % RDW (11.5-15.5) % Plt Count (150-450) k/uL Sodium (137-145) mmol/L POC Glucose (mg/dL) 65 L 142 H 161 H (70-110) mg/dL Total Bilirubin (0.2-1.3) mg/dL AST (14-36) U/L Total Protein (6.3-8.2) g/dL Albumin (3.5-5.0) g/dL 12/08/22 12/09/22 12/09/22 Range/Units 21:58 01:04 02:12 RBC (3.80-5.40) m/uL Hgb (11.4-16.0) gm/dL Hct (34.0-46.0) % RDW (11.5-15.5) % Plt Count (150-450) k/uL Sodium (137-145) mmol/L POC Glucose (mg/dL) 145 H 119 H 122 H (70-110) mg/dL Total Bilirubin (0.2-1.3) mg/dL AST (14-36) U/L Total Protein (6.3-8.2) g/dL Albumin (3.5-5.0) g/dL 12/09/22 12/09/22 12/09/22 Range/Units 03:18 03:56 03:56 RBC 2.70 L (3.80-5.40) m/uL Hgb 7.7 L (11.4-16.0) gm/dL Hct 22.1 L (34.0-46.0) % RDW 16.4 H (11.5-15.5) % Plt Count 97 L (150-450) k/uL Sodium 133 L (137-145) mmol/L POC Glucose (mg/dL) 118 H (70-110) mg/dL Total Bilirubin 2.0 H (0.2-1.3) mg/dL AST 105 H (14-36) U/L Total Protein 4.9 L (6.3-8.2) g/dL Albumin 2.9 L (3.5-5.0) g/dL 12/09/22 12/09/22 Range/Units 06:54 08:06 RBC (3.80-5.40) m/uL Hgb (11.4-16.0) gm/dL Hct (34.0-46.0) % RDW (11.5-15.5) % Plt Count (150-450) k/uL Sodium (137-145) mmol/L POC Glucose (mg/dL) 125 H 127 H (70-110) mg/dL Total Bilirubin (0.2-1.3) mg/dL AST (14-36) U/L Total Protein (6.3-8.2) g/dL Albumin (3.5-5.0) g/dL Assessment and Plan Assessment: Postop day #2 of an elective off-pump CABG 2 with a BRISENO to LAD, saphenous vein graft to the obtuse marginal 2, ligation of left atrial appendage. Intraoperatively, the patient did have a V. fib arrest. There was placement of an intra-aortic balloon pump via the left femoral artery. Acute hypoxemic respiratory failure secondary to above. Recovered and on room air Acute blood loss, expected following the procedure. Post transfusion of 2 units PRBC and one unit of platelets Coronary artery disease Cardiomyopathy with an ejection fraction of 30-35% Diabetes mellitus type 2 Hyperlipidemia Hypertension Previous TIA Background COPD. No increased intraoperative risk based on patient's preoperative PFT Peripheral arterial disease with recent amputation of the great toe, second toe, and third toe of the right foot. Plan: The patient was seen and evaluated Chest x-ray, labs and medications reviewed Currently stable, up in a chair, on room air Intra-aortic balloon pump has been removed Remains on epinephrine drip Remains on nitroglycerin drip Remains on insulin drip Norepinephrine titrated off Working with the incentive spirometer Continue to monitor her closely here in the intensive care unit We'll follow and make further recommendations based on her clinical status I have personally seen and examined the patient, performed the documentation and the assessment and plan as written. Number of minutes spent on the visit: 15.
[2022-12-09] MEDS ORDERED: FUROSEMIDE 10 MG/ML 2 ML VIAL IV STA (09:53)
[2022-12-09 10:17] LABS: Glucose,Whole Blood 116 mg/dL (70-110)
[2022-12-09] MEDS: ASCORBIC ACID 500 MG TAB PO SCH ×2 (10:22→21:15)
[2022-12-09] MEDS: FERROUS SULFATE 325 MG TAB PO SCH ×2 (10:22→18:39)
[2022-12-09] MEDS: METOPROLOL TARTRATE 12.5 MG TAB PO SCH ×2 (10:44→21:15)
[2022-12-09] MEDS: ASPIRIN 81 MG PO SCH (10:44)
[2022-12-09] MEDS: SODIUM CHLORIDE 0.9% 500 ML 500 ML IV SCH (10:45)
[2022-12-09 11:05] VITALS: BMI 23.7
[2022-12-09 11:24] LABS: Glucose,Whole Blood 114 mg/dL (70-110)
[2022-12-09] MEDS: MIDODRINE 5 MG TAB PO SCH ×2 (11:50→18:39)
[2022-12-09] MEDS: ALBUMIN HUMAN 5% 250 ML in EMPTY BAG 1 BAG IVPB PRN (11:51)
[2022-12-09 12:03] LABS: Glucose,Whole Blood 143 mg/dL (70-110)
[2022-12-09] MEDS ORDERED: DOPamine DRIP 800 MG in DEXTROSE/WATER 1 250ML.BAG IV SCH (12:30)
[2022-12-09 12:56] LABS: Glucose,Whole Blood 191 mg/dL (70-110)
[2022-12-09] MEDS: ONDANSETRON 4 MG/2 ML VIAL IVP PRN ×2 (13:34→20:24)
[2022-12-09] MEDS ORDERED: ALBUMIN HUMAN 25% 50 ML in EMPTY BAG 1 BAG IVPB ONE (13:45)
[2022-12-09 14:01] LABS: Glucose,Whole Blood 174 mg/dL (70-110)
--- NOTE | 2022-12-09 14:43 | P.PN ---
Subjective Progress Note Date: 12/09/22 Principal diagnosis: Coronary artery disease. History of cardiomyopathy, hypertension, hyperlipidemia, uncontrolled type 2 diabetes with hyperglycemia, peripheral arterial disease with toe amputation right foot, TIA in 1999, vertigo, lifetime non-smoker POD #2 Off pump coronary artery bypass x 2, left internal mammary artery to the left anterior descending artery, reverse saphenous vein graft to the second obtuse marginal artery, occlusion of the base of the left atrial appendage with 35 mm AtriCure clip, placement of intra-aortic balloon pump percutaneously via left femoral arterial approach, endovascular vein harvest of the left greater saphenous vein from the midcalf to the groin Postoperative acute blood loss anemia and thrombocytopenia, expected given hemodilution The patient was seen and examined in follow-up today. We'll 2022 at her bedside in the intensive care unit. Currently she is sitting up to the bedside chair, is awake, alert, oriented 3 and is in no acute apparent distress. Oxygen saturations are 94% on room air and she is achieving 500 mL on her incentive spirometry with encouragement. She remains on epinephrine drip due to some hypotension at 0.25 mcg/kg/m. Right IJ Cordis and Upham-Freddy catheter remained in place with current hemodynamic showing and cardiac output 4.5, cardiac index 2.6, PA pressures 28/8 and CVP 6 mmHg. Mediastinal, left and right pleural chest tubes remain in placed to low continuous wall suction -20 cm H2O. No air leak is present. Draining thin serosanguineous drainage. Pleural chest tubes drained 30 mL output in the last 8 hours and 565 mL output in the last 24 hours. Mediastinal chest tube drained 30 mL output in the last 24 hours. Shrestha catheter remains in place for accurate I's and O's with 355 mL of urine output in the last 8 hours. Bedside telemetry showing normal sinus rhythm heart rate 84 BPM. Laboratory results reviewed. Chest x-ray reviewed. IABP was removed yesterday without incident, left groin remained soft and nontender. Patient denies any complaints of shortness of breath at this time although is complaining of some surgical type pain to her chest tube insertion site. Objective - Vital Signs Vital signs: Vital Signs Temp 99.7 F H 12/09/22 04:00 Pulse 85 12/09/22 10:00 Resp 16 12/09/22 10:00 BP 94/57 04/13/23 10:00 Pulse Ox 94 L 12/09/22 10:00 FiO2 50 12/08/22 00:00 Intake & Output 12/08/22 12/09/22 12/09/22 18:59 06:59 18:59 Intake Total 1578.092 730.096 548.763 Output Total 960 475 360 Balance 618.092 255.096 188.763 Weight 64.7 kg 64.7 kg Intake: IV 896.5 371.5 144.5 5% Albumin 250 CO/CI 90 90 20 Lactated Ringers 1,000 ml 540 280 120 @ 20 mls/hr IV .Q24H HELEN Rx#:[id number] Nitroglycerin-D5w Pmx 50 16.5 1.5 4.5 mg In Dextrose/Water 1 250ml.bag @ 5 MCG/MIN 1.5 mls/hr IV .Q24H HELEN Rx#: [id number] Intake, IV Titration 431.592 358.596 154.263 Amount Amiodarone 450 mg In 312.229 Dextrose 5% in Water 250 ml @ 0.5 MG/MIN 16.667 mls/hr IV .Q15H HELEN Rx#: [id number] EPINEPHrine 4 mg In 244.75 79.97 Dextrose 5% in Water 250 ml @ 0.01 MCG/KG/MIN 2.64 mls/hr IV .Q24H HELEN Rx#: [id number] Insulin Regular 100 unit 22.220 15.277 5.076 In Sodium Chloride 0.9% 100 ml @ Per Protocol IV .Q0M HELEN Rx#:[id number] Nitroglycerin-D5w Pmx 50 67.25 mg In Dextrose/Water 1 250ml.bag @ 5 MCG/MIN 1.5 mls/hr IV .Q24H HELEN Rx#: [id number] Norepinephrine 4 mg In 97.143 98.569 1.967 Sodium Chloride 0.9% 250 ml @ 0.03 MCG/KG/MIN 8. 047 mls/hr IV .Q24H HELEN Rx#:[id number] Oral 250 250 Output: Chest Tube Drainage 390 50 230 Left/Right Pleural 370 40 220 Mediastinal 20 10 10 Urine 570 425 130 Other: Voiding Method Indwelling Catheter Indwelling Catheter ABP, PAP, CO, CI - Last Documented Arterial Blood Pressure 100/48 Pulmonary Artery Pressure 30/10 Cardiac Output 4.7 Cardiac Index 2.7 - Exam CONSTITUTIONAL: Appears comfortable, cooperative, no acute distress RESPIRATORY: Lungs sounds diminished bilaterally. Respirations are symmetrical, nonlabored. Currently on room air with oxygen saturation 94% CARDIOVASCULAR: S1, S2 present. Regular rate and rhythm, sinus rhythm on telemetry. Sternum stable. Palpable peripheral pulses bilaterally. +1 edema present to her bilateral upper extremities. No calf pain or tenderness noted. Heart hugger in place with patient demonstrating appropriate use. Antiembolism stockings, SCDs present. GASTROINTESTINAL: Abdomen soft, nontender, nondistended. Hypoactive bowel sounds present 4 quadrants. Tolerating clear liquid diet. Passing flatus. GENITOURINARY: Shrestha present draining clear, yellow urine. Output overnight 25-60 mL per hour. INTEGUMENTARY: Skin is warm and dry, pale with no evidence of cyanosis or clubbing. Midline sternal incision well approximated and covered with dry intact dressing. Left lower extremity EVH site well approximated without redness or drainage. NEUROLOGIC: Cranial nerves II through XII intact MUSKULOSKELETAL: Able to move all extremities, strength equal bilaterally, generalized weakness. PSYCHIATRIC: Alert and oriented to person place and time, appropriate affect, intact judgment and insight INVASIVE LINES AND TUBES: Mediastinal/left/right pleural chest tubes present and connected to wall suction, no air leaks present. Mediastinal tube with 0 mL serosanguineous drainage overnight, 30 mL in the last 24 hours. Left/right pleural chest tubes with 30 mL serosanguineous drainage overnight, 565 mL in the last 24 hours. A/V epicardial pacemaker wires present, connected to generator, backup rate 50 bpm. Right internal jugular Upham/Cordis, left radial arterial line present. Last CO/CI 4.5/2.6, PA 28/8, CVP 6 mmHg. - Allied health notes Allied health notes reviewed: nursing - Labs CBC & Chem 7: 12/09/22 03:56 12/09/22 03:56 Labs: Abnormal Lab Results - Last 24 Hours (Table) 12/08/22 12/08/22 12/08/22 Range/Units 14:00 14:57 16:21 RBC (3.80-5.40) m/uL Hgb (11.4-16.0) gm/dL Hct (34.0-46.0) % RDW (11.5-15.5) % Plt Count (150-450) k/uL Sodium (137-145) mmol/L POC Glucose (mg/dL) 246 H 204 H 118 H (70-110) mg/dL Total Bilirubin (0.2-1.3) mg/dL AST (14-36) U/L Total Protein (6.3-8.2) g/dL Albumin (3.5-5.0) g/dL 12/08/22 12/08/22 12/08/22 Range/Units 18:26 18:47 20:04 RBC (3.80-5.40) m/uL Hgb (11.4-16.0) gm/dL Hct (34.0-46.0) % RDW (11.5-15.5) % Plt Count (150-450) k/uL Sodium (137-145) mmol/L POC Glucose (mg/dL) 66 L 65 L 142 H (70-110) mg/dL Total Bilirubin (0.2-1.3) mg/dL AST (14-36) U/L Total Protein (6.3-8.2) g/dL Albumin (3.5-5.0) g/dL 12/08/22 12/08/22 12/09/22 Range/Units 21:02 21:58 01:04 RBC (3.80-5.40) m/uL Hgb (11.4-16.0) gm/dL Hct (34.0-46.0) % RDW (11.5-15.5) % Plt Count (150-450) k/uL Sodium (137-145) mmol/L POC Glucose (mg/dL) 161 H 145 H 119 H (70-110) mg/dL Total Bilirubin (0.2-1.3) mg/dL AST (14-36) U/L Total Protein (6.3-8.2) g/dL Albumin (3.5-5.0) g/dL 12/09/22 12/09/22 12/09/22 Range/Units 02:12 03:18 03:56 RBC 2.70 L (3.80-5.40) m/uL Hgb 7.7 L (11.4-16.0) gm/dL Hct 22.1 L (34.0-46.0) % RDW 16.4 H (11.5-15.5) % Plt Count 97 L (150-450) k/uL Sodium (137-145) mmol/L POC Glucose (mg/dL) 122 H 118 H (70-110) mg/dL Total Bilirubin (0.2-1.3) mg/dL AST (14-36) U/L Total Protein (6.3-8.2) g/dL Albumin (3.5-5.0) g/dL 12/09/22 12/09/22 12/09/22 Range/Units 03:56 06:54 08:06 RBC (3.80-5.40) m/uL Hgb (11.4-16.0) gm/dL Hct (34.0-46.0) % RDW (11.5-15.5) % Plt Count (150-450) k/uL Sodium 133 L (137-145) mmol/L POC Glucose (mg/dL) 125 H 127 H (70-110) mg/dL Total Bilirubin 2.0 H (0.2-1.3) mg/dL AST 105 H (14-36) U/L Total Protein 4.9 L (6.3-8.2) g/dL Albumin 2.9 L (3.5-5.0) g/dL 12/09/22 12/09/22 Range/Units 10:16 11:23 RBC (3.80-5.40) m/uL Hgb (11.4-16.0) gm/dL Hct (34.0-46.0) % RDW (11.5-15.5) % Plt Count (150-450) k/uL Sodium (137-145) mmol/L POC Glucose (mg/dL) 116 H 114 H (70-110) mg/dL Total Bilirubin (0.2-1.3) mg/dL AST (14-36) U/L Total Protein (6.3-8.2) g/dL Albumin (3.5-5.0) g/dL - Imaging and Cardiology Chest x-ray: report reviewed, image reviewed Assessment and Plan Assessment: Coronary artery disease, status post 2V CABG Cardiomyopathy, EF 30-35% on TTE 08/2022, 50-55% TTE 10/2022 Hypertension, currently hypotensive on pressors Hyperlipidemia, treated, cholesterol 146, LDL 75, triglycerides 155 Uncontrolled type 2 diabetes with hyperglycemia, hemoglobin A1c 13% Peripheral arterial disease with toe amputation right foot TIA in 1999 Vertigo Lifetime non-smoker, preoperative FEV1 77% Postoperative acute blood loss anemia and thrombocytopenia, expected Plan: Continue to maximize medical therapy with low-dose aspirin, plavix, statin. Low-dose aspirin was started as the patient reports she can tolerate this dose. Will continue to hold beta griselda while on pressors. Wean epinephrine drip as tolerated. Continue by mouth amiodarone per protocol, atrial fibrillation prophylaxis. Bronchodilators per pulmonology recommendations. Encourage incentive spirometry 10 times every hour while awake GI/DVT prophylaxis. Pain control per current medication regimen. Insulin management per internal medicine service. Patient needs tight blood sugar control to prevent infection and promote healing. Continue Upham/Cordis, arterial line for another 24 hours. Mediastinal/left/right pleural chest tubes discontinued without incident. Continue Shrestha catheter for another 24 hours for strict accurate intake and output. Daily weights. Will monitor daily labs and chest x-rays. Electrolyte replacement per protocol. Dr. Boggs following for right foot dressing change. Increase activity as tolerated, physical, occupational and cardiac rehab consulted. Lasix 20 mg IV 1 now. Ferrous sulfate 325 mg by mouth twice a day and vitamin C 500 mg by mouth twice a day with meals started. Keep atrial and ventricular epicardial pacemaker wires in place and connected to back up to bedside pacemaker generator, currently on VVI 50 Discontinue nitroglycerin drip. More recommendations to follow based on patient's clinical course Time with Patient: Greater than 30
[2022-12-09 15:19] LABS: Glucose,Whole Blood 126 mg/dL (70-110)
[2022-12-09 16:24] LABS: Glucose,Whole Blood 116 mg/dL (70-110)
[2022-12-09 16:56] LABS: Glucose,Whole Blood 99 mg/dL (70-110)
[2022-12-09] MEDS ORDERED: CALCIUM GLUCONATE IN NACL 1 GM in SALINE 1 100ML.BAG IVPB ONE (17:30)
--- NOTE | 2022-12-09 17:47 | PN ---
PROGRESS NOTE SUBJECTIVE: Ms. Harrison is a lady with a history of aortocoronary bypass surgery. She has been extubated. She is off the Levophed. She seems to be progressing well. She is currently on oral amiodarone 400 mg b.i.d. She is maintaining sinus rhythm. Making modest progress. Urine output is fairly decent. OBJECTIVE: VITAL SIGNS: Stable. HEART: S1 and S2 heard normally. Short systolic murmur noted. LUNGS: Reveal fair air entry in bilateral lung barrientos. ABDOMEN: Soft. EXTREMITIES: Lower extremities reveal diminished pulses. PLAN: To continue supportive care, incentive spirometry, and pulmonary toilet. MMODL / IJN: [id number] /
[2022-12-09 17:57] LABS: Glucose,Whole Blood 174 mg/dL (70-110)
[2022-12-09 18:52] LABS: Glucose,Whole Blood 179 mg/dL (70-110)
[2022-12-09 19:27] LABS: Anisocytosis Slight; HCT 25.7 % (34.0-46.0); HGB 8.9 gm/dL (11.4-16.0); MCH 29.4 pg (25.0-35.0); MCHC 34.8 g/dL (31.0-37.0); MCV 84.4 fL (80.0-100.0); Mean Platelet Volume 8.5; RBC 3.04 m/uL (3.80-5.40); RDW 16.3 % (11.5-15.5); WBC 9.2 k/uL (3.8-10.6)
[2022-12-09 19:31] LABS: Platelet Count 89 k/uL (150-450)
[2022-12-09 20:06] LABS: Glucose,Whole Blood 145 mg/dL (70-110)
[2022-12-09 21:14] LABS: Glucose,Whole Blood 120 mg/dL (70-110)
[2022-12-09] MEDS: SENNOSIDES-DOCUSATE SODIUM 1 EACH TAB PO SCH (21:15)
[2022-12-09 22:12] LABS: Glucose,Whole Blood 123 mg/dL (70-110)
[2022-12-09 22:57] LABS: Glucose,Whole Blood 108 mg/dL (70-110)
[2022-12-09] MEDS: NOREPINEPHRINE 4 MG in SODIUM CHLORIDE 0.9% 250 ML IV SCH (23:54)
[2022-12-10 00:03] LABS: Glucose,Whole Blood 103 mg/dL (70-110)
[2022-12-10] MEDS: IPRATROPIUM-ALBUTEROL 3 ML NEB INHALATION PRN (00:13)
[2022-12-10 02:06] LABS: Glucose,Whole Blood 115 mg/dL (70-110)
[2022-12-10] MEDS: HYDROcodone/APAP 5-325MG 1 EACH TAB PO PRN (04:00)
[2022-12-10 04:09] LABS: Glucose,Whole Blood 130 mg/dL (70-110)
[2022-12-10 06:10] LABS: Glucose,Whole Blood 217 mg/dL (70-110)
[2022-12-10 06:34] LABS: Glucose,Whole Blood 247 mg/dL (70-110)
[2022-12-10 06:58] LABS: Glucose,Whole Blood 245 mg/dL (70-110)
[2022-12-10] MEDS: PANTOPRAZOLE 40 MG TABLET PO SCH (07:09)
[2022-12-10] MEDS: MIDODRINE 5 MG TAB PO SCH ×3 (07:09→16:39)
[2022-12-10] MEDS: FERROUS SULFATE 325 MG TAB PO SCH ×2 (07:09→16:39)
[2022-12-10] MEDS: ONDANSETRON 4 MG/2 ML VIAL IVP PRN ×2 (07:13→13:56)
--- NOTE | 2022-12-10 07:38 | XR ---
EXAMINATION TYPE: XR chest 1V portable DATE OF EXAM: 12/10/2022 6:26 AM COMPARISON: Chest radiograph from one day prior. TECHNIQUE: XR chest 1V portable Frontal view of the chest. CLINICAL INDICATION:Female, 62 years old with history of Post open heart surgery; FINDINGS: Lungs/Pleura: Small left pleural effusion. Bibasilar atelectasis. There is no evidence or focal conso lidation, or pneumothorax. Pulmonary vascularity: Unremarkable. Heart/mediastinum: Cardiomediastinal silhouette is partially obscured due to overlying and adjacent o pacities. Musculoskeletal: No acute osseous pathology. Midline sternotomy wires and surgical clips project over the mediastinum.Rotator cuff repair changes on the right. Other findings: None Lines/Tubes: Thoracotomy tubes have been removed on today's exam with no evidence of pneumothorax. There is a Loris-Freddy catheter with tip projecting over the spine. IMPRESSION: 1. Postsurgical changes, exam status post thoracotomy tube removal without evidence of pneumothorax. 2. Trace left pleural effusion with associated atelectasis.
[2022-12-10 08:10] LABS: Glucose,Whole Blood 175 mg/dL (70-110)
[2022-12-10 08:29] LABS: Anisocytosis Slight; Basophils % (A) 0 %; Eosinophils # (A) 0.1 k/uL (0-0.7); Eosinophils % (A) 1 %; HCT 27.7 % (34.0-46.0); HGB 9.1 gm/dL (11.4-16.0); Lymphocytes # (A) 1.1 k/uL (1.0-4.8); Lymphocytes % (A) 13 %; MCH 28.5 pg (25.0-35.0); MCHC 32.8 g/dL (31.0-37.0); MCV 86.9 fL (80.0-100.0); Mean Platelet Volume 8.9; Monocytes # (A) 0.4 k/uL (0-1.0); Monocytes % (A) 4 %; Neutrophils # (A) 7.2 k/uL (1.3-7.7); Neutrophils % (A) 82 %; Platelet Count 117 k/uL (150-450); RBC 3.19 m/uL (3.80-5.40); RDW 16.4 % (11.5-15.5); WBC 8.8 k/uL (3.8-10.6)
[2022-12-10] MEDS: IPRATROPIUM-ALBUTEROL 3 ML NEB INHALATION SCH ×4 (08:49→20:29)
[2022-12-10 08:53] LABS: Albumin 3.1 g/dL (3.5-5.0); Calcium 8.5 mg/dL (8.4-10.2); Total Bilirubin 2.6 mg/dL (0.2-1.3); Total Protein 5.2 g/dL (6.3-8.2)
--- NOTE | 2022-12-10 08:54 | P.PN ---
Subjective Progress Note Date: 12/10/22 Principal diagnosis: Coronary artery disease. History of cardiomyopathy, hypertension, hyperlipidemia, uncontrolled type 2 diabetes with hyperglycemia, peripheral arterial disease with toe amputation right foot, TIA in 1999, vertigo, lifetime non-smoker POD #3 Off pump coronary artery bypass x 2, left internal mammary artery to the left anterior descending artery, reverse saphenous vein graft to the second obtuse marginal artery, occlusion of the base of the left atrial appendage with 35 mm AtriCure clip, placement of intra-aortic balloon pump percutaneously via left femoral arterial approach, endovascular vein harvest of the left greater saphenous vein from the midcalf to the groin Postoperative acute blood loss anemia and thrombocytopenia, expected given hemodilution The patient was seen and examined sitting up in her recliner in the intensive care unit eating breakfast this morning in no acute distress. States pain is controlled on current medication regimen, denies shortness of breath. Remains in sinus rhythm, blood pressure supported with epinephrine IV and oral midodrine. She did receive 1 unit packed red blood cells yesterday. Chest tubes were discontinued yesterday. Right internal jugular [place]/Cordis, left radial arterial line present, although no blood able to be withdrawn from arterial line. Labs and x-rays reviewed. No other new concerns. Objective - Vital Signs Vital signs: Vital Signs Temp 98.1 F 12/10/22 00:00 Pulse 71 12/10/22 06:15 Resp 21 12/10/22 06:15 BP 125/67 12/10/22 06:15 Pulse Ox 97 12/10/22 06:15 FiO2 50 12/08/22 00:00 Intake & Output 12/09/22 12/10/22 12/10/22 18:59 06:59 18:59 Intake Total 1192.473 162.496 4.461 Output Total 850 395 Balance 342.473 -232.504 4.461 Weight 64.7 kg 75.6 kg Intake: IV 764.5 140 Albumin Human 25% 50 ml 50 In Empty Bag 1 bag @ 50 mls/hr IVPB ONCE ONE Rx#: [id number] Albumin Human 5% 250 ml 250 In Empty Bag 1 bag @ 250 mls/hr IVPB Q1HR PRN Rx#: [id number] CO/CI 20 Calcium Gluconate in NaCl 100 1 gm In Saline 1 100ml. bag @ 100 mls/hr IVPB ONCE ONE Rx#:[id number] Lactated Ringers 1,000 ml 200 @ 20 mls/hr IV .Q24H [facility] Rx#:[id number] Nitroglycerin-D5w Pmx 50 4.5 mg In Dextrose/Water 1 250ml.bag @ 5 MCG/MIN 1.5 mls/hr IV .Q24H [facility] Rx#: [id number] Sodium Chloride 0.9% 500 240 40 ml 500 ml @ 20 mls/hr IV .Q24H [facility] Rx#:[id number] Intake, IV Titration 177.973 22.496 4.461 Amount DOPamine DRIP 800 mg In 7.077 Dextrose/Water 1 250ml. bag @ 5 MCG/KG/MIN 6.066 mls/hr IV .Q24H [facility] Rx#: [id number] EPINEPHrine 4 mg In 79.97 Dextrose 5% in Water 250 ml @ 0.01 MCG/KG/MIN 2.64 mls/hr IV .Q24H [facility] Rx#: [id number] EPINEPHrine 4 mg In 1.699 Dextrose 5% in Water 250 ml @ 0.025 MCG/KG/MIN 6. 066 mls/hr IV .Q24H [facility] Rx#:[id number] Insulin Regular 100 unit 21.709 20.797 4.461 In Sodium Chloride 0.9% 100 ml @ Per Protocol IV .Q0M [facility] Rx#:[id number] Nitroglycerin-D5w Pmx 50 67.25 mg In Dextrose/Water 1 250ml.bag @ 5 MCG/MIN 1.5 mls/hr IV .Q24H [facility] Rx#: [id number] Norepinephrine 4 mg In 1.967 Sodium Chloride 0.9% 250 ml @ 0.03 MCG/KG/MIN 8. 047 mls/hr IV .Q24H [facility] Rx#:[id number] Oral 250 Blood Product 0 Unit 0 Output: Chest Tube Drainage 230 Left/Right Pleural 220 Mediastinal 10 Urine 620 395 Other: Voiding Method Indwelling Catheter Indwelling Catheter ABP, PAP, CO, CI - Last Documented Arterial Blood Pressure 105/76 Pulmonary Artery Pressure 29/7 Cardiac Output 3.6 Cardiac Index 2 - Exam CONSTITUTIONAL: Appears comfortable, cooperative, no acute distress RESPIRATORY: Lungs sounds diminished bilaterally. Respirations even, nonlabored. Currently on 2 LPM NC with oxygen saturation 94%. Able to achieve 750 mL on her incentive spirometry. Strong cough CARDIOVASCULAR: S1, S2 present. Regular rate and rhythm, sinus rhythm on telemetry. Sternum stable. Palpable peripheral pulses bilaterally. No edema present. No calf pain or tenderness noted. Heart hugger in place with patient demonstrating appropriate use. Antiembolism stockings, SCDs present. GASTROINTESTINAL: Abdomen soft, nontender, nondistended. Active bowel sounds present 4 quadrants. Tolerating diet. Negative bowel movement, positive flatus GENITOURINARY: Shrestha present draining clear, yellow urine. Output overnight 25-45 mL per hour, 1015 mL last 24 hours INTEGUMENTARY: Skin is warm and dry with evidence of good perfusion. Anterior chest incision well approximated and covered with dry intact dressing. Left lower extremity EVH site well approximated without redness or drainage. NEUROLOGIC: Cranial nerves II through XII intact MUSKULOSKELETAL: Able to move all extremities, strength equal bilaterally PSYCHIATRIC: Alert and oriented to person place and time, appropriate affect, intact judgment and insight INVASIVE LINES AND TUBES: A/V epicardial pacemaker wires present, connected to generator, backup rate 50 bpm. Right internal jugular Oakland/Cordis, left radial arterial line present. Last CO/CI 3.6/2.0, PA 25/9, CVP 6 - Allied health notes Allied health notes reviewed: nursing - Labs CBC & Chem 7: 12/10/22 07:00 12/10/22 07:00 Labs: Abnormal Lab Results - Last 24 Hours (Table) 12/07/22 12/09/22 12/09/22 Range/Units 07:20 08:06 10:16 RBC (3.80-5.40) m/uL Hgb (11.4-16.0) gm/dL Hct (34.0-46.0) % RDW (11.5-15.5) % Plt Count (150-450) k/uL POC Glucose (mg/dL) 127 H 116 H (70-110) mg/dL Crossmatch See Detail 12/09/22 12/09/22 12/09/22 Range/Units 11:23 12:00 12:55 RBC (3.80-5.40) m/uL Hgb (11.4-16.0) gm/dL Hct (34.0-46.0) % RDW (11.5-15.5) % Plt Count (150-450) k/uL POC Glucose (mg/dL) 114 H 143 H 191 H (70-110) mg/dL Crossmatch 12/09/22 12/09/22 12/09/22 Range/Units 13:59 15:18 16:23 RBC (3.80-5.40) m/uL Hgb (11.4-16.0) gm/dL Hct (34.0-46.0) % RDW (11.5-15.5) % Plt Count (150-450) k/uL POC Glucose (mg/dL) 174 H 126 H 116 H (70-110) mg/dL Crossmatch 12/09/22 12/09/22 12/09/22 Range/Units 17:55 18:48 18:51 RBC 3.04 L (3.80-5.40) m/uL Hgb 8.9 L (11.4-16.0) gm/dL Hct 25.7 L (34.0-46.0) % RDW 16.3 H (11.5-15.5) % Plt Count 89 L (150-450) k/uL POC Glucose (mg/dL) 174 H 179 H (70-110) mg/dL Crossmatch 12/09/22 12/09/22 12/09/22 Range/Units 20:04 21:12 22:10 RBC (3.80-5.40) m/uL Hgb (11.4-16.0) gm/dL Hct (34.0-46.0) % RDW (11.5-15.5) % Plt Count (150-450) k/uL POC Glucose (mg/dL) 145 H 120 H 123 H (70-110) mg/dL Crossmatch 12/10/22 12/10/22 12/10/22 Range/Units 02:04 04:07 06:09 RBC (3.80-5.40) m/uL Hgb (11.4-16.0) gm/dL Hct (34.0-46.0) % RDW (11.5-15.5) % Plt Count (150-450) k/uL POC Glucose (mg/dL) 115 H 130 H 217 H (70-110) mg/dL Crossmatch 12/10/22 12/10/22 Range/Units 06:33 06:56 RBC (3.80-5.40) m/uL Hgb (11.4-16.0) gm/dL Hct (34.0-46.0) % RDW (11.5-15.5) % Plt Count (150-450) k/uL POC Glucose (mg/dL) 247 H 245 H (70-110) mg/dL Crossmatch - Imaging and Cardiology Chest x-ray: report reviewed, image reviewed Assessment and Plan Assessment: Coronary artery disease, status post 2V CABG Cardiomyopathy, EF 30-35% on TTE 08/2022, 50-55% TTE 10/2022 Hypertension, currently hypotensive on pressors Hyperlipidemia, treated, cholesterol 146, LDL 75, triglycerides 155 Uncontrolled type 2 diabetes with hyperglycemia, hemoglobin A1c 13% Peripheral arterial disease with toe amputation right foot TIA in 1999 Vertigo Lifetime non-smoker, preoperative FEV1 77% Postoperative acute blood loss anemia and thrombocytopenia, expected Plan: Continue to maximize medical therapy with low-dose aspirin, plavix, statin. Continue beta griselda with hold parameters. Continue midodrine Wean epi as tolerated Continue amio for A. fib prophylaxis, will decrease to 200 mg BID Wean oxygen as tolerated. Bronchodilators per pulmonology. Encourage incentive spirometry 10 times every hour while awake GI/DVT prophylaxis Pain control per current medication regimen Insulin management per internal medicine service. Patient needs tighter blood sugar control to prevent infection and promote healing Continue [place]/Cordis for another 24 hours, discontinue arterial line as it is not working appropriately Continue Shrestah catheter for another 24 hours for strict accurate intake and output Daily weights Will monitor daily labs and x-rays. Electrolyte replacement per protocol. No further blood transfusions at this time Dr. Boggs following for right foot dressing change More recommendations to follow
[2022-12-10 09:38] LABS: Glucose,Whole Blood 84 mg/dL (70-110)
[2022-12-10] MEDS: HEPARIN SODIUM,PORCINE/PF 5,000 UNIT/0.5 ML SYRINGE SQ SCH ×3 (09:42→23:50)
[2022-12-10] MEDS: CLOPIDOGREL 75 MG TAB PO SCH (09:43)
[2022-12-10] MEDS: ASCORBIC ACID 500 MG TAB PO SCH ×2 (09:43→20:24)
[2022-12-10] MEDS: AMIODARONE 200 MG TAB PO SCH ×2 (09:43→20:24)
[2022-12-10] MEDS: ATORVASTATIN 40 MG TAB PO SCH (09:43)
[2022-12-10] MEDS: MAGNESIUM HYDROXIDE 2,400 MG/10 ML CUP PO PRN (09:43)
[2022-12-10] MEDS: ASPIRIN 81 MG PO SCH (09:43)
[2022-12-10] MEDS: METOPROLOL TARTRATE 12.5 MG TAB PO SCH ×2 (09:50→20:00)
--- NOTE | 2022-12-10 11:19 | P.PN ---
Subjective Progress Note Date: 12/10/22 I am seeing this patient in new consultation today 12/08/2022 in regard to postoperative open-heart ICU management. Patient is a 62-year-old white female with past significant medical history of hypertension, hyperlipidemia, diabetes mellitus type 2, COPD, previous TIA, vertigo, peripheral 2-year-old disease with recent amputation of her great toe second and third toes of the right foot. On 09/20/2022 patient had a transthoracic 2-D echocardiogram which showed severe cardiomyopathy with an ejection fraction between 30 and 35%. A follow-up elective heart catheterization was done at [facility] which reportedly demonstrated triple-vessel coronary artery disease. Patient was scheduled for an elective CABG with Dr. Sanchez yesterday. Based on the patient's preoperative PFT, she was at no increased intraoperative risk. Patient underwent an off-pump CABG 2 with a BRISENO to the LAD, saphenous vein graft to the obtuse marginal 2, and ligation of the left atrial appendage. Intraoperatively, the patient did have a V. fib arrest. There was placement of an intra-aortic balloon pump via the left femoral artery. ROSC was achieved after a few minutes, and the procedure was completed. Patient has received a total of 2 units of PRBCs and 1 of platelets for some postoperative bleeding. Patient is currently in the intensive care unit remaining mechanically ventilated with settings of assist control, respiratory rate 14, tidal volume 400, FiO2 50%, PEEP of 5. Postoperative ABGs show a pO2 greater than 400, pCO2 48, pH of 7.33. This was done on FiO2 of 100%, which was dropped down to 50%. Postoperative chest x-ray shows endotracheal tube 3.2 cm the vernell, a NG-tube coursing below the diaphragm, an appropriately placed Eitzen-Freddy catheter, bilateral thoracotomy tubes without evidence of pneumothorax, a chest tube within the mediastinum, and postoperative surgical changes. IABP remains in place at a 1-1 ratio. Augmented pressure is 93 mmHg, and mean arterial pressure is 73 mmHg. Patient currently has epinephrine infusing at 0.025 mics per kilogram per minute, Levophed inf using at 0.03 mics per kilogram per minute, amiodarone infusing at 0.5 mg/m, nitro infusing at 5 mics per minute. Propofol and insulin are currently paused. So far, there have been no attempts at weaning. Patient is awake, alert and following commands. There have been no acute titrations to the patient's vasopressors. Patient's most recent CO/CI is 5.4 and 3.1 respectively, pulmonary artery pressure 30/14, heart rhythm is normal sinus at 90 bpm. Urine output is approximately 80-100 ML's per hour. Patient's chest tube output has slowed down to less than 50 ML's per hour. There is a total of 550 ML's of serosanguineous output out of the mediastinal chest tube, and a total of 700 ML's of serosanguinous output from the right and left pleural chest tube. Most recent CBC shows a hemoglobin of 8.9 and hematocrit of 25.7. INR is 1.2. Most recent BMP shows a sodium 142, potassium 3.7, chloride 106, serum CO2 26, BUN 23, creatinine 0.74, glucose 146. Magnesium was 2.4. Lactated Ringer's is infusing at 50 ML's per hour. Patient is currently calm and following commands. No recent acute changes in patient's hemodynamics, and patient is a potential candidate for weaning from the mechanical ventilator. The patient is seen today 12/09/2022 in follow-up in the intensive care unit. She is currently sitting up in a chair at the bedside. Awake and alert in no acute distress. She is maintaining good O2 saturations in the 90s on room air. She is postoperative day #2. She is continued on a insulin drip at 15 units per hour, nitroglycerin drip at 5 mcg/m on a lactated Ringer's at 40 ML's per hour, epinephrine and 0.025 mcg/kg/m. Norepinephrine is currently off. He is curre ntly in normal sinus rhythm. No arrhythmias noted. Blood pressure stable. PA pressure 30/12. CVP 15. Chest x-ray reveals no evidence of pleural effusion, focal consolidation or pneumothorax. Chest tubes remain in place. She is status post 2 units of packed red blood cells and 1 unit of platelets. White count 9.1. Hemoglobin 7.7. Platelets 97,000. Sodium 133. Potassium 5.0. Bicarb 30. BUN 17. Creatinine 0.99. AST 105. ALT 20. Albumin 2.9. She is working well with the incentive spirometer. Continued on DuoNeb inhalations. Heparin for DVT prophylaxis. Patient is seen today 12/10/2022 in follow-up in the intensive care unit. Postoperative day #3. She is currently awake and alert in no acute distress. Sitting up in a chair at the bedside. Maintaining good O2 saturations in the 90s on room air. She is on lactated Ringer's at 40 ML's per hour. On epinephrine at 0.12 mcg/kg per hour. Remains on insulin drip at 5 units per hour. Current blood pressure 107/62 with a mean of 83. PA pressures 30/11. CVP of 7. Recent cardiac output 3.6. Cardiac index 2.0. She remains afebrile. Chest x-ray reveals postsurgical changes. Chest tubes have been removed. No evidence of pneumothorax. There is trace left pleural effusion with associated atelectasis. She continues to work well with the incentive spirometer. She is status post 2 units of packed red blood cells and 1 unit of platelets this admission. White count 8.8. Hemoglobin 9.1. Platelets 117. Sodium 131. Potassium 5.0. Bicarb 24. BUN 22. Creatinine 1.21. Glucose 202. AST 72. ALT 26. Albumin 3.1. She remains on bronchodilators, heparin for DVT prophylaxis. Objective - Vital Signs Vital signs: Vital Signs Temp 99.0 F 12/10/22 08:00 Pulse 67 12/10/22 10:15 Resp 16 12/10/22 10:15 BP 107/62 12/10/22 10:15 Pulse Ox 92 L 12/10/22 10:15 FiO2 50 12/08/22 00:00 Intake & Output 12/09/22 12/10/22 12/10/22 18:59 06:59 18:59 Intake Total 1192.473 162.496 383.046 Output Total 850 395 95 Balance 342.473 -232.504 288.046 Weight 64.7 kg 75.6 kg Intake: IV 764.5 140 120 Albumin Human 25% 50 ml 50 In Empty Bag 1 bag @ 50 mls/hr IVPB ONCE ONE Rx#: [id number] Albumin Human 5% 250 ml 250 In Empty Bag 1 bag @ 250 mls/hr IVPB Q1HR PRN Rx#: [id number] CO/CI 20 Calcium Gluconate in NaCl 100 1 gm In Saline 1 100ml. bag @ 100 mls/hr IVPB ONCE ONE Rx#:[id number] Lactated Ringers 1,000 ml 200 @ 20 mls/hr IV .Q24H [facility] Rx#:[id number] Nitroglycerin-D5w Pmx 50 4.5 mg In Dextrose/Water 1 250ml.bag @ 5 MCG/MIN 1.5 mls/hr IV .Q24H [facility] Rx#: [id number] Sodium Chloride 0.9% 500 240 40 120 ml 500 ml @ 20 mls/hr IV .Q24H [facility] Rx#:[id number] Intake, IV Titration 177.973 22.496 13.046 Amount DOPamine DRIP 800 mg In 7.077 Dextrose/Water 1 250ml. bag @ 5 MCG/KG/MIN 6.066 mls/hr IV .Q24H [facility] Rx#: [id number] EPINEPHrine 4 mg In 79.97 Dextrose 5% in Water 250 ml @ 0.01 MCG/KG/MIN 2.64 mls/hr IV .Q24H [facility] Rx#: [id number] EPINEPHrine 4 mg In 1.699 Dextrose 5% in Water 250 ml @ 0.025 MCG/KG/MIN 6. 066 mls/hr IV .Q24H [facility] Rx#:[id number] Insulin Regular 100 unit 21.709 20.797 13.046 In Sodium Chloride 0.9% 100 ml @ Per Protocol IV .Q0M [facility] Rx#:[id number] Nitroglycerin-D5w Pmx 50 67.25 mg In Dextrose/Water 1 250ml.bag @ 5 MCG/MIN 1.5 mls/hr IV .Q24H [facility] Rx#: [id number] Norepinephrine 4 mg In 1.967 Sodium Chloride 0.9% 250 ml @ 0.03 MCG/KG/MIN 8. 047 mls/hr IV .Q24H [facility] Rx#:[id number] Oral 250 250 Blood Product 0 Unit 0 Output: Chest Tube Drainage 230 Left/Right Pleural 220 Mediastinal 10 Urine 620 395 95 Other: Voiding Method Indwelling Catheter Indwelling Catheter Indwelling Catheter ABP, PAP, CO, CI - Last Documented Arterial Blood Pressure 87/84 Pulmonary Artery Pressure 30/11 Cardiac Output 3.6 Cardiac Index 2 - Exam GENERAL EXAM: Reveals a very pleasant 62-year-old female, up in a chair at the bedside, on room air. No pulmonary complaints HEAD: Normocephalic and atraumatic EYES: Normal reaction of pupils, equal size. NOSE: Clear with pink turbinates. THROAT: No erythema or exudates. NECK: No masses, no JVD. Right IJ introducer sheath CHEST: Heart hugger in place. Postoperative incisional dressing intact. LUNGS: Equal air entry with no crackles, wheeze, rhonchi or dullness. CVS: Regular rate and rhythm ABDOMEN: No hepatosplenomegaly, active bowel sounds, no guarding or rigidity. SPINE: No scoliosis or deformity SKIN: No rashes CENTRAL NERVOUS SYSTEM: No focal deficits, tone is normal in all 4 extremities. Patient is alert and oriented. EXTREMITIES: Patient has right great toe, second toe, third toe amputations with a dressing clean, dry, intact. Left pedal and left radial pulses are palpable. - Labs CBC & Chem 7: 12/10/22 07:00 12/10/22 07:00 Labs: Abnormal Lab Results - Last 24 Hours (Table) 12/07/22 12/09/22 12/09/22 Range/Units 07:20 11:23 12:00 RBC (3.80-5.40) m/uL Hgb (11.4-16.0) gm/dL Hct (34.0-46.0) % RDW (11.5-15.5) % Plt Count (150-450) k/uL Sodium (137-145) mmol/L BUN (7-17) mg/dL Creatinine (0.52-1.04) mg/dL Glucose (74-99) mg/dL POC Glucose (mg/dL) 114 H 143 H (70-110) mg/dL Total Bilirubin (0.2-1.3) mg/dL AST (14-36) U/L Alkaline Phosphatase (38-126) U/L Total Protein (6.3-8.2) g/dL Albumin (3.5-5.0) g/dL Crossmatch See Detail 12/09/22 12/09/22 12/09/22 Range/Units 12:55 13:59 15:18 RBC (3.80-5.40) m/uL Hgb (11.4-16.0) gm/dL Hct (34.0-46.0) % RDW (11.5-15.5) % Plt Count (150-450) k/uL Sodium (137-145) mmol/L BUN (7-17) mg/dL Creatinine (0.52-1.04) mg/dL Glucose (74-99) mg/dL POC Glucose (mg/dL) 191 H 174 H 126 H (70-110) mg/dL Total Bilirubin (0.2-1.3) mg/dL AST (14-36) U/L Alkaline Phosphatase (38-126) U/L Total Protein (6.3-8.2) g/dL Albumin (3.5-5.0) g/dL Crossmatch 12/09/22 12/09/22 12/09/22 Range/Units 16:23 17:55 18:48 RBC 3.04 L (3.80-5.40) m/uL Hgb 8.9 L (11.4-16.0) gm/dL Hct 25.7 L (34.0-46.0) % RDW 16.3 H (11.5-15.5) % Plt Count 89 L (150-450) k/uL Sodium (137-145) mmol/L BUN (7-17) mg/dL Creatinine (0.52-1.04) mg/dL Glucose (74-99) mg/dL POC Glucose (mg/dL) 116 H 174 H (70-110) mg/dL Total Bilirubin (0.2-1.3) mg/dL AST (14-36) U/L Alkaline Phosphatase (38-126) U/L Total Protein (6.3-8.2) g/dL Albumin (3.5-5.0) g/dL Crossmatch 12/09/22 12/09/22 12/09/22 Range/Units 18:51 20:04 21:12 RBC (3.80-5.40) m/uL Hgb (11.4-16.0) gm/dL Hct (34.0-46.0) % RDW (11.5-15.5) % Plt Count (150-450) k/uL Sodium (137-145) mmol/L BUN (7-17) mg/dL Creatinine (0.52-1.04) mg/dL Glucose (74-99) mg/dL POC Glucose (mg/dL) 179 H 145 H 120 H (70-110) mg/dL Total Bilirubin (0.2-1.3) mg/dL AST (14-36) U/L Alkaline Phosphatase (38-126) U/L Total Protein (6.3-8.2) g/dL Albumin (3.5-5.0) g/dL Crossmatch 12/09/22 12/10/22 12/10/22 Range/Units 22:10 02:04 04:07 RBC (3.80-5.40) m/uL Hgb (11.4-16.0) gm/dL Hct (34.0-46.0) % RDW (11.5-15.5) % Plt Count (150-450) k/uL Sodium (137-145) mmol/L BUN (7-17) mg/dL Creatinine (0.52-1.04) mg/dL Glucose (74-99) mg/dL POC Glucose (mg/dL) 123 H 115 H 130 H (70-110) mg/dL Total Bilirubin (0.2-1.3) mg/dL AST (14-36) U/L Alkaline Phosphatase (38-126) U/L Total Protein (6.3-8.2) g/dL Albumin (3.5-5.0) g/dL Crossmatch 12/10/22 12/10/22 12/10/22 Range/Units 06:09 06:33 06:56 RBC (3.80-5.40) m/uL Hgb (11.4-16.0) gm/dL Hct (34.0-46.0) % RDW (11.5-15.5) % Plt Count (150-450) k/uL Sodium (137-145) mmol/L BUN (7-17) mg/dL Creatinine (0.52-1.04) mg/dL Glucose (74-99) mg/dL POC Glucose (mg/dL) 217 H 247 H 245 H (70-110) mg/dL Total Bilirubin (0.2-1.3) mg/dL AST (14-36) U/L Alkaline Phosphatase (38-126) U/L Total Protein (6.3-8.2) g/dL Albumin (3.5-5.0) g/dL Crossmatch 12/10/22 12/10/22 12/10/22 Range/Units 07:00 07:00 08:09 RBC 3.19 L (3.80-5.40) m/uL Hgb 9.1 L (11.4-16.0) gm/dL Hct 27.7 L (34.0-46.0) % RDW 16.4 H (11.5-15.5) % Plt Count 117 L (150-450) k/uL Sodium 131 L (137-145) mmol/L BUN 22 H (7-17) mg/dL Creatinine 1.21 H (0.52-1.04) mg/dL Glucose 202 H (74-99) mg/dL POC Glucose (mg/dL) 175 H (70-110) mg/dL Total Bilirubin 2.6 H (0.2-1.3) mg/dL AST 72 H (14-36) U/L Alkaline Phosphatase 163 H (38-126) U/L Total Protein 5.2 L (6.3-8.2) g/dL Albumin 3.1 L (3.5-5.0) g/dL Crossmatch Assessment and Plan Assessment: Postop day #3 of an elective off-pump CABG 2 with a BRISENO to LAD, saphenous vein graft to the obtuse marginal 2, ligation of left atrial appendage. Intraoperat ively, the patient did have a V. fib arrest. There was placement of an intra- aortic balloon pump via the left femoral artery. Acute hypoxemic respiratory failure secondary to above. Recovered and on room air Acute blood loss, expected following the procedure. Post transfusion of 2 units PRBC and one unit of platelets current hemoglobin 9.1 Coronary artery disease Cardiomyopathy with an ejection fraction of 30-35% Diabetes mellitus type 2 Hyperlipidemia Hypertension Previous TIA Background COPD. No increased intraoperative risk based on patient's preoperative PFT Peripheral arterial disease with recent amputation of the great toe, second toe, and third toe of the right foot. Plan: The patient was seen and evaluated Chest x-ray, labs and medications reviewed Currently stable, up in a chair, on room air Remains on epinephrine drip Remains on insulin drip Working with the incentive spirometer We'll continue to follow I have personally seen and examined the patient, performed the documentation and the assessment and plan as written. Number of minutes spent on the visit: 10.
[2022-12-10 11:42] LABS: Glucose,Whole Blood 136 mg/dL (70-110)
[2022-12-10] MEDS ORDERED: DEXTROSE 50% SYRINGE 50 ML IVP PRN ×2 (11:42)
[2022-12-10] MEDS: INSULIN ASPART (NovoLOG) 100 UNIT/ML VIAL SQ SCH ×3 (11:57→20:24)
[2022-12-10] MEDS ORDERED: INSULIN DETEMIR (LEVEMIR) 100 UNIT/ML SYR SQ ONE (12:30)
[2022-12-10] MEDS: SODIUM CHLORIDE 0.9% 500 ML 500 ML IV SCH (12:31)
--- NOTE | 2022-12-10 13:47 | PN ---
PROGRESS NOTE SUBJECTIVE: Ms. Harrison is status post aortocoronary bypass surgery. She is doing well, extubated yesterday. She is on a small dose of epinephrine, in sinus rhythm with heart rate in the 70s. OBJECTIVE: VITAL SIGNS: Blood pressure 120/70. HEART: S1 and S2 heard normally. Distant heart sounds. LUNGS: Reveal bilateral decent air entry. ABDOMEN: Unchanged. LOWER EXTREMITIES: Unchanged. PLAN: To continue incentive spirometry, pulmonary toilet, continued supportive care, and hopefully, we can wean off the epinephrine drip which has been reduced already. The patient is making decent progress. MMODL / IJN: [id number] /
[2022-12-10] MEDS: METOCLOPRAMIDE 5 MG/ML 2 ML VIAL IVP PRN (16:38)
[2022-12-10 16:43] LABS: Glucose,Whole Blood 198 mg/dL (70-110)
[2022-12-10 20:13] LABS: Glucose,Whole Blood 188 mg/dL (70-110)
[2022-12-10] MEDS: SENNOSIDES-DOCUSATE SODIUM 1 EACH TAB PO SCH (20:24)
[2022-12-10] MEDS: EPINEPHrine 4 MG in DEXTROSE 5% IN WATER 250 ML IV SCH ×2 (22:26)
--- NOTE | 2022-12-11 00:52 | P.PN ---
Subjective Date of service 12/10/2022 Patient is a 60-year-old female with a known history of uncontrolled diabetes, hypertension, hyperlipidemia, osteoarthritis, COPD, history of CVA/TIA no residual defects history of recent cardiac catheterization with significant coronary artery disease. Patient is status post CABG x2 vessel with BRISENO to LAD, saphenous vein graft to obtuse marginal. Occlusion of the base of the left atrial appendage with 35 mm AtriCure clip.Intra-aortic balloon pump placement Patient does have right foot gangrenous toe status post ray amputation and is on follow-up with wound care clinic with Dr. Parmar. Preoperatively patient was intubated and currently on mechanical ventilator. Transferred to MICU. Patient is also on pressor support and also being continued on insulin drip. Laboratory showed WBC 11.4 hemoglobin 8.0 and platelets 121 ABG showed pH 7.3 PCO2 48 PO2 greater than 400 Sodium 142 potassium 3.1 chloride 106 bicarb is 26 BUN 23 and creatinine 0.74 Magnesium 2.4 AST 60 and ALT 32 and alk phos 54. 12/10/2022 Patient comfortable sitting in chair, no chest pain or dyspnea, no other complaint She finished her oatmeal ball and some other extra stuff. But she did not eat a full meal. She was on insulin drip this morning which was discontinued and started on Levemir daily, at home she was taken tresiba 15 units, GERD. And ozempic 2 mg We'll continue with sliding scale Patient also on amiodarone by plumber helper She is also on aspirin and Plavix. Check hemoglobin A1c in the morning Monitor myoglobin, currently 9.1, platelet count improved 117. Creatinine slightly up at 0.9 up to 1.2. Objective - Vital Signs Vital signs: Vital Signs Temp 98.6 F 12/10/22 12:00 Pulse 65 12/11/22 00:00 Resp 16 12/11/22 00:00 BP 137/76 12/11/22 00:00 Pulse Ox 99 12/11/22 00:00 FiO2 50 12/08/22 00:00 Intake & Output 12/10/22 12/10/22 12/11/22 06:59 18:59 06:59 Intake Total 293.742 7928.289 685.464 Output Total 395 540 305 Balance -232.504 477.289 380.464 Weight 75.6 kg Intake: IV 140 390 240 CO/CI 60 60 Calcium Gluconate in NaCl 100 1 gm In Saline 1 100ml. bag @ 100 mls/hr IVPB ONCE ONE Rx#:[id number] Sodium Chloride 0.9% 500 40 330 180 ml 500 ml @ 20 mls/hr IV .Q24H [facility] Rx#:[id number] Intake, IV Titration 22.496 127.289 20.464 Amount EPINEPHrine 4 mg In 1.699 114.243 20.464 Dextrose 5% in Water 250 ml @ 0.012 MCG/KG/MIN 2. 912 mls/hr IV .Q24H [facility] Rx#:[id number] Insulin Regular 100 unit 20.797 13.046 In Sodium Chloride 0.9% 100 ml @ Per Protocol IV .Q0M [facility] Rx#:[id number] Oral 500 425 Output: Urine 395 340 305 Emesis 200 Other: Voiding Method Indwelling Catheter Indwelling Catheter Indwelling Catheter ABP, PAP, CO, CI - Last Documented Arterial Blood Pressure 87/84 Pulmonary Artery Pressure 29/12 Cardiac Output 3.1 Cardiac Index 1.8 - Exam GENERAL: The patient is alert and oriented x3, not in any acute distress. Well developed, well nourished. HEENT: Pupils are round and equally reacting to light. EOMI. No scleral icterus. No conjunctival pallor. Normocephalic, atraumatic. No pharyngeal erythema. No thyromegaly. -CARDIOVASCULAR: S1 and S2 present. No murmurs, rubs, or gallops. Surgical wound closed and healing PULMONARY: Chest is clear to auscultation, no wheezing or crackles. ABDOMEN: Soft, nontender, nondistended, normoactive bowel sounds. No palpable organomegaly. MUSCULOSKELETAL: No joint swelling or deformity. EXTREMITIES: No cyanosis, clubbing, or pedal edema. NEUROLOGICAL: Gross neurological examination did not reveal any focal deficits. SKIN: No rashes. no petechiae. - Labs CBC & Chem 7: 12/10/22 07:00 12/10/22 07:00 Labs: Abnormal Lab Results - Last 24 Hours (Table) 12/07/22 12/10/22 12/10/22 Range/Units 07:20 02:04 04:07 RBC (3.80-5.40) m/uL Hgb (11.4-16.0) gm/dL Hct (34.0-46.0) % RDW (11.5-15.5) % Plt Count (150-450) k/uL Sodium (137-145) mmol/L BUN (7-17) mg/dL Creatinine (0.52-1.04) mg/dL Glucose (74-99) mg/dL POC Glucose (mg/dL) 115 H 130 H (70-110) mg/dL Total Bilirubin (0.2-1.3) mg/dL AST (14-36) U/L Alkaline Phosphatase (38-126) U/L Total Protein (6.3-8.2) g/dL Albumin (3.5-5.0) g/dL Crossmatch See Detail 12/10/22 12/10/22 12/10/22 Range/Units 06:09 06:33 06:56 RBC (3.80-5.40) m/uL Hgb (11.4-16.0) gm/dL Hct (34.0-46.0) % RDW (11.5-15.5) % Plt Count (150-450) k/uL Sodium (137-145) mmol/L BUN (7-17) mg/dL Creatinine (0.52-1.04) mg/dL Glucose (74-99) mg/dL POC Glucose (mg/dL) 217 H 247 H 245 H (70-110) mg/dL Total Bilirubin (0.2-1.3) mg/dL AST (14-36) U/L Alkaline Phosphatase (38-126) U/L Total Protein (6.3-8.2) g/dL Albumin (3.5-5.0) g/dL Crossmatch 12/10/22 12/10/22 12/10/22 Range/Units 07:00 07:00 08:09 RBC 3.19 L (3.80-5.40) m/uL Hgb 9.1 L (11.4-16.0) gm/dL Hct 27.7 L (34.0-46.0) % RDW 16.4 H (11.5-15.5) % Plt Count 117 L (150-450) k/uL Sodium 131 L (137-145) mmol/L BUN 22 H (7-17) mg/dL Creatinine 1.21 H (0.52-1.04) mg/dL Glucose 202 H (74-99) mg/dL POC Glucose (mg/dL) 175 H (70-110) mg/dL Total Bilirubin 2.6 H (0.2-1.3) mg/dL AST 72 H (14-36) U/L Alkaline Phosphatase 163 H (38-126) U/L Total Protein 5.2 L (6.3-8.2) g/dL Albumin 3.1 L (3.5-5.0) g/dL Crossmatch 12/10/22 12/10/22 12/10/22 Range/Units 11:41 16:41 20:11 RBC (3.80-5.40) m/uL Hgb (11.4-16.0) gm/dL Hct (34.0-46.0) % RDW (11.5-15.5) % Plt Count (150-450) k/uL Sodium (137-145) mmol/L BUN (7-17) mg/dL Creatinine (0.52-1.04) mg/dL Glucose (74-99) mg/dL POC Glucose (mg/dL) 136 H 198 H 188 H (70-110) mg/dL Total Bilirubin (0.2-1.3) mg/dL AST (14-36) U/L Alkaline Phosphatase (38-126) U/L Total Protein (6.3-8.2) g/dL Albumin (3.5-5.0) g/dL Crossmatch Assessment and Plan Assessment: Status post CABG 2 vessel with BRISENO to LAD and saphenous vein graft to obtuse marginal. Postoperative day 0. Acute hypoxic respiratory failure. Currently is on mechanical ventilator. Coronary artery disease with recent cardiac catheterization at [facility] Ischemic cardiomyopathy ejection fraction 30 to 35% Right foot diabetic wound status post ray amputation and is being followed at wound care clinic Uncontrolled diabetes type 2 Hypertension Hyperlipidemia History of TIA/CVA in 1999 with no residual effects. Osteoarthritis COPD not on oxygen at home. GI and DVT prophylaxis Plan: Patient is currently in the MICU. Continue with aspirin and Plavix 2. Insulin drip and start Levemir 10 units with insulin sliding scale Monitor hemoglobin and platelet count Monitor creatinine Pulmonary, CT surgery is on board. We will continue to follow closely. Thank you for your consult.
[2022-12-11 05:16] LABS: Albumin 2.6 g/dL (3.5-5.0); Calcium 8.2 mg/dL (8.4-10.2); Magnesium 2.2 mg/dL (1.6-2.3); Potassium 4.7 mmol/L (3.5-5.1); Total Bilirubin 1.8 mg/dL (0.2-1.3); Total Protein 4.8 g/dL (6.3-8.2)
[2022-12-11 05:33] LABS: Anisocytosis Slight; HCT 27.5 % (34.0-46.0); HGB 9.3 gm/dL (11.4-16.0); MCH 28.6 pg (25.0-35.0); MCHC 33.9 g/dL (31.0-37.0); MCV 84.2 fL (80.0-100.0); Mean Platelet Volume 8.4; Platelet Count 141 k/uL (150-450); RBC 3.26 m/uL (3.80-5.40); RDW 16.9 % (11.5-15.5); WBC 7.7 k/uL (3.8-10.6)
[2022-12-11 06:59] LABS: Glucose,Whole Blood 122 mg/dL (70-110)
[2022-12-11] MEDS: INSULIN ASPART (NovoLOG) 100 UNIT/ML VIAL SQ SCH ×4 (07:00→21:26)
[2022-12-11] MEDS: MIDODRINE 5 MG TAB PO SCH ×2 (07:03→11:48)
[2022-12-11] MEDS: INSULIN DETEMIR (LEVEMIR) 100 UNIT/ML SYR SQ SCH (07:04)
[2022-12-11] MEDS: PANTOPRAZOLE 40 MG TABLET PO SCH (07:04)
[2022-12-11] MEDS: METOCLOPRAMIDE 5 MG/ML 2 ML VIAL IVP PRN ×3 (07:10→18:06)
[2022-12-11] MEDS: MAGNESIUM HYDROXIDE 2,400 MG/10 ML CUP PO PRN (07:10)
--- NOTE | 2022-12-11 07:25 | XR ---
EXAMINATION TYPE: XR chest 1V portable DATE OF EXAM: 12/11/2022 5:47 AM COMPARISON: Chest radiographs from 12/10/2022 TECHNIQUE: XR chest 1V portable Portable AP radiograph of the chest. CLINICAL INDICATION:Female, 62 years old with history of post cardiac surgery; FINDINGS: Lungs/Pleura: Blunting of the left costophrenic angle. No focal consolidation or pneumothorax. Pulmonary vascularity: Unremarkable. Heart/mediastinum: Cardiomediastinal silhouette is enlarged and stable. Left atrial appendage occlus ion device. Post CABG changes. Musculoskeletal: No acute osseous pathology. Midline sternotomy wires are noted and stable. Rotator c uff repair changes on the right. Other findings: None Lines/Tubes: Stable position of Middleton-Freddy catheter. IMPRESSION: 1. Postsurgical changes without evidence for pneumothorax. 2. Small left pleural effusion.
[2022-12-11] MEDS: METOPROLOL TARTRATE 12.5 MG TAB PO SCH ×2 (08:18→21:25)
--- NOTE | 2022-12-11 08:27 | P.PN ---
Subjective Progress Note Date: 12/11/22 Principal diagnosis: Coronary artery disease. History of cardiomyopathy, hypertension, hyperlipidemia, uncontrolled type 2 diabetes with hyperglycemia, peripheral arterial disease with toe amputation right foot, TIA in 1999, vertigo, lifetime non-smoker POD #4 Off pump coronary artery bypass x 2, left internal mammary artery to the left anterior descending artery, reverse saphenous vein graft to the second obtuse marginal artery, occlusion of the base of the left atrial appendage with 35 mm AtriCure clip, placement of intra-aortic balloon pump percutaneously via left femoral arterial approach, endovascular vein harvest of the left greater saphenous vein from the midcalf to the groin Intraoperative vfib arrest with cardiac massage and defibrillation, unexpected Postoperative acute blood loss anemia and thrombocytopenia, expected given hemodilution Postoperative hypovolemic shock with hypotension requiring pressor support and blood transfusion, expected given volume loss The patient was seen and examined sitting up in her recliner in the intensive care unit eating breakfast this morning in no acute distress. States pain is controlled on current medication regimen, denies shortness of breath. Remains in sinus rhythm, blood pressure more stable however cardiac output/index still marginal despite IV epi. Has not received any beta griselda due to pressor use. Had a few episodes of N/V yesterday with possible vasovagal response, given IV reglan, no episodes of N/V overnight or this morning. Right internal jugular [place]/Cordis remains present. Labs and x-rays reviewed. Patient did ambulate a short distance yesterday. No other new concerns. Objective - Vital Signs Vital signs: Vital Signs Temp 98.6 F 12/10/22 12:00 Pulse 72 12/11/22 07:00 Resp 28 H 12/11/22 07:00 BP 119/68 12/11/22 07:00 Pulse Ox 96 12/11/22 07:00 FiO2 50 12/08/22 00:00 Intake & Output 12/10/22 12/11/22 12/11/22 18:59 06:59 18:59 Intake Total 1017.289 970.464 30 Output Total 540 835 35 Balance 477.289 135.464 -5 Weight 78.608 kg Intake: IV 390 450 30 CO/CI 60 90 Sodium Chloride 0.9% 500 330 360 30 ml 500 ml @ 20 mls/hr IV .Q24H [facility] Rx#:[id number] Intake, IV Titration 127.289 20.464 Amount EPINEPHrine 4 mg In 114.243 20.464 Dextrose 5% in Water 250 ml @ 0.012 MCG/KG/MIN 2. 912 mls/hr IV .Q24H [facility] Rx#:[id number] Insulin Regular 100 unit 13.046 In Sodium Chloride 0.9% 100 ml @ Per Protocol IV .Q0M [facility] Rx#:[id number] Oral 500 500 Output: Urine 340 835 35 Emesis 200 Other: Voiding Method Indwelling Catheter Indwelling Catheter ABP, PAP, CO, CI - Last Documented Arterial Blood Pressure 87/84 Pulmonary Artery Pressure 29/8 Cardiac Output 3.4 Cardiac Index 1.9 - Exam CONSTITUTIONAL: Appears comfortable, cooperative, no acute distress RESPIRATORY: Lungs sounds diminished bilaterally. Respirations even, nonlabored. Currently on 2 LPM NC with oxygen saturation 96%. Able to achieve 750 mL on her incentive spirometry. Strong cough CARDIOVASCULAR: S1, S2 present. Regular rate and rhythm, sinus rhythm on telemetry. Sternum stable. Palpable peripheral pulses bilaterally. No edema present. No calf pain or tenderness noted. Heart hugger in place with patient demonstrating appropriate use. Antiembolism stockings, SCDs present. GASTROINTESTINAL: Abdomen soft, nontender, nondistended. Active bowel sounds present 4 quadrants. Tolerating diet, mostly soup and liquids. Negative bowel movement, positive flatus GENITOURINARY: Shrestha present draining clear, yellow urine. Output overnight 50-100 mL per hour, 1175 mL last 24 hours INTEGUMENTARY: Skin is warm and dry with evidence of good perfusion. Anterior chest incision well approximated and covered with dry intact dressing. Left lower extremity EVH site well approximated without redness or drainage. NEUROLOGIC: Cranial nerves II through XII intact MUSKULOSKELETAL: Able to move all extremities, strength equal bilaterally PSYCHIATRIC: Alert and oriented to person place and time, appropriate affect, intact judgment and insight INVASIVE LINES AND TUBES: A/V epicardial pacemaker wires present, connected to generator, backup rate 50 bpm. Right internal jugular [place]/Cordis present. Last CO/CI 3.4/1.9, PA 25/6, CVP 3 - Allied health notes Allied health notes reviewed: nursing - Labs CBC & Chem 7: 12/11/22 04:27 12/11/22 04:27 Labs: Abnormal Lab Results - Last 24 Hours (Table) 12/07/22 12/10/22 12/10/22 Range/Units 07:20 07:00 07:00 RBC 3.19 L (3.80-5.40) m/uL Hgb 9.1 L (11.4-16.0) gm/dL Hct 27.7 L (34.0-46.0) % RDW 16.4 H (11.5-15.5) % Plt Count 117 L (150-450) k/uL Sodium 131 L (137-145) mmol/L BUN 22 H (7-17) mg/dL Creatinine 1.21 H (0.52-1.04) mg/dL Glucose 202 H (74-99) mg/dL POC Glucose (mg/dL) (70-110) mg/dL Calcium (8.4-10.2) mg/dL Total Bilirubin 2.6 H (0.2-1.3) mg/dL AST 72 H (14-36) U/L Alkaline Phosphatase 163 H (38-126) U/L Total Protein 5.2 L (6.3-8.2) g/dL Albumin 3.1 L (3.5-5.0) g/dL Crossmatch See Detail 12/10/22 12/10/22 12/10/22 Range/Units 08:09 11:41 16:41 RBC (3.80-5.40) m/uL Hgb (11.4-16.0) gm/dL Hct (34.0-46.0) % RDW (11.5-15.5) % Plt Count (150-450) k/uL Sodium (137-145) mmol/L BUN (7-17) mg/dL Creatinine (0.52-1.04) mg/dL Glucose (74-99) mg/dL POC Glucose (mg/dL) 175 H 136 H 198 H (70-110) mg/dL Calcium (8.4-10.2) mg/dL Total Bilirubin (0.2-1.3) mg/dL AST (14-36) U/L Alkaline Phosphatase (38-126) U/L Total Protein (6.3-8.2) g/dL Albumin (3.5-5.0) g/dL Crossmatch 12/10/22 12/11/22 12/11/22 Range/Units 20:11 04:27 04:27 RBC 3.26 L (3.80-5.40) m/uL Hgb 9.3 L (11.4-16.0) gm/dL Hct 27.5 L (34.0-46.0) % RDW 16.9 H (11.5-15.5) % Plt Count 141 L (150-450) k/uL Sodium 132 L (137-145) mmol/L BUN 21 H (7-17) mg/dL Creatinine (0.52-1.04) mg/dL Glucose (74-99) mg/dL POC Glucose (mg/dL) 188 H (70-110) mg/dL Calcium 8.2 L (8.4-10.2) mg/dL Total Bilirubin 1.8 H (0.2-1.3) mg/dL AST 42 H (14-36) U/L Alkaline Phosphatase 202 H (38-126) U/L Total Protein 4.8 L (6.3-8.2) g/dL Albumin 2.6 L (3.5-5.0) g/dL Crossmatch 12/11/22 Range/Units 06:58 RBC (3.80-5.40) m/uL Hgb (11.4-16.0) gm/dL Hct (34.0-46.0) % RDW (11.5-15.5) % Plt Count (150-450) k/uL Sodium (137-145) mmol/L BUN (7-17) mg/dL Creatinine (0.52-1.04) mg/dL Glucose (74-99) mg/dL POC Glucose (mg/dL) 122 H (70-110) mg/dL Calcium (8.4-10.2) mg/dL Total Bilirubin (0.2-1.3) mg/dL AST (14-36) U/L Alkaline Phosphatase (38-126) U/L Total Protein (6.3-8.2) g/dL Albumin (3.5-5.0) g/dL Crossmatch - Imaging and Cardiology Chest x-ray: report reviewed, image reviewed Assessment and Plan Assessment: Coronary artery disease, status post 2V CABG Cardiomyopathy, EF 30-35% on TTE 08/2022, 50-55% TTE 10/2022 Hypertension Hyperlipidemia, treated, cholesterol 146, LDL 75, triglycerides 155 Uncontrolled type 2 diabetes with hyperglycemia, hemoglobin A1c 13% Peripheral arterial disease with toe amputation right foot TIA in 1999 Vertigo Lifetime non-smoker, preoperative FEV1 77% Intraoperative vfib arrest with cardiac massage and defibrillation, unexpected Postoperative acute blood loss anemia and thrombocytopenia, expected Postoperative hypovolemic shock with hypotension requiring pressor support and blood transfusion, expected Plan: Continue to maximize medical therapy with low-dose aspirin, plavix, statin. Continue beta griselda with hold parameters-patient hasn't received due to IV pressors. Discontinue midodrine Wean epi as tolerated Continue amio for A. fib prophylaxis Wean oxygen as tolerated. Bronchodilators per pulmonology. Encourage incentive spirometry 10 times every hour while awake Increase activity, ambulate as tolerated. PT/OT/cardiac rehab following GI/DVT prophylaxis Pain control per current medication regimen Insulin management per internal medicine service. Patient needs tight blood sugar control to prevent infection and promote healing Likely will discontinue swan/cordis today Likely will discontinue Shrestha catheter Strict accurate intake and output Daily weights Will monitor daily labs and x-rays. Electrolyte replacement per protocol. No further blood transfusions at this time Dr. Boggs following for right foot dressing change More recommendations to follow
[2022-12-11] MEDS: IPRATROPIUM-ALBUTEROL 3 ML NEB INHALATION SCH ×4 (09:39→21:17)
[2022-12-11] MEDS: ASPIRIN 81 MG PO SCH (09:51)
[2022-12-11] MEDS: AMIODARONE 200 MG TAB PO SCH ×2 (09:51→21:26)
[2022-12-11] MEDS: ASCORBIC ACID 500 MG TAB PO SCH ×2 (09:51→21:26)
[2022-12-11] MEDS: CLOPIDOGREL 75 MG TAB PO SCH (09:51)
[2022-12-11] MEDS: ATORVASTATIN 40 MG TAB PO SCH (09:51)
[2022-12-11] MEDS: HEPARIN SODIUM,PORCINE/PF 5,000 UNIT/0.5 ML SYRINGE SQ SCH ×3 (09:51→23:18)
--- NOTE | 2022-12-11 11:23 | P.PN ---
Subjective Progress Note Date: 12/11/22 I am seeing this patient in new consultation today 12/08/2022 in regard to postoperative open-heart ICU management. Patient is a 62-year-old white female with past significant medical history of hypertension, hyperlipidemia, diabetes mellitus type 2, COPD, previous TIA, vertigo, peripheral 2-year-old disease with recent amputation of her great toe second and third toes of the right foot. On 09/20/2022 patient had a transthoracic 2-D echocardiogram which showed severe cardiomyopathy with an ejection fraction between 30 and 35%. A follow-up elective heart catheterization was done at [facility] which reportedly demonstrated triple-vessel coronary artery disease. Patient was scheduled for an elective CABG with Dr. Sanchez yesterday. Based on the patient's preoperative PFT, she was at no increased intraoperative risk. Patient underwent an off-pump CABG 2 with a BRISENO to the LAD, saphenous vein graft to the obtuse marginal 2, and ligation of the left atrial appendage. Intraoperatively, the patient did have a V. fib arrest. There was placement of an intra-aortic balloon pump via the left femoral artery. ROSC was achieved after a few minutes, and the procedure was completed. Patient has received a total of 2 units of PRBCs and 1 of platelets for some postoperative bleeding. Patient is currently in the intensive care unit remaining mechanically ventilated with settings of assist control, respiratory rate 14, tidal volume 400, FiO2 50%, PEEP of 5. Postoperative ABGs show a pO2 greater than 400, pCO2 48, pH of 7.33. This was done on FiO2 of 100%, which was dropped down to 50%. Postoperative chest x-ray shows endotracheal tube 3.2 cm the vernell, a NG-tube coursing below the diaphragm, an appropriately placed [place]-Freddy catheter, bilateral thoracotomy tubes without evidence of pneumothorax, a chest tube within the mediastinum, and postoperative surgical changes. IABP remains in place at a 1-1 ratio. Augmented pressure is 93 mmHg, and mean arterial pressure is 73 mmHg. Patient currently has epinephrine infusing at 0.025 mics per kilogram per minute, Levophed inf using at 0.03 mics per kilogram per minute, amiodarone infusing at 0.5 mg/m, nitro infusing at 5 mics per minute. Propofol and insulin are currently paused. So far, there have been no attempts at weaning. Patient is awake, alert and following commands. There have been no acute titrations to the patient's vasopressors. Patient's most recent CO/CI is 5.4 and 3.1 respectively, pulmonary artery pressure 30/14, heart rhythm is normal sinus at 90 bpm. Urine output is approximately 80-100 ML's per hour. Patient's chest tube output has slowed down to less than 50 ML's per hour. There is a total of 550 ML's of serosanguineous output out of the mediastinal chest tube, and a total of 700 ML's of serosanguinous output from the right and left pleural chest tube. Most recent CBC shows a hemoglobin of 8.9 and hematocrit of 25.7. INR is 1.2. Most recent BMP shows a sodium 142, potassium 3.7, chloride 106, serum CO2 26, BUN 23, creatinine 0.74, glucose 146. Magnesium was 2.4. Lactated Ringer's is infusing at 50 ML's per hour. Patient is currently calm and following commands. No recent acute changes in patient's hemodynamics, and patient is a potential candidate for weaning from the mechanical ventilator. The patient is seen today 12/09/2022 in follow-up in the intensive care unit. She is currently sitting up in a chair at the bedside. Awake and alert in no acute distress. She is maintaining good O2 saturations in the 90s on room air. She is postoperative day #2. She is continued on a insulin drip at 15 units per hour, nitroglycerin drip at 5 mcg/m on a lactated Ringer's at 40 ML's per hour, epinephrine and 0.025 mcg/kg/m. Norepinephrine is currently off. He is curre ntly in normal sinus rhythm. No arrhythmias noted. Blood pressure stable. PA pressure 30/12. CVP 15. Chest x-ray reveals no evidence of pleural effusion, focal consolidation or pneumothorax. Chest tubes remain in place. She is status post 2 units of packed red blood cells and 1 unit of platelets. White count 9.1. Hemoglobin 7.7. Platelets 97,000. Sodium 133. Potassium 5.0. Bicarb 30. BUN 17. Creatinine 0.99. AST 105. ALT 20. Albumin 2.9. She is working well with the incentive spirometer. Continued on DuoNeb inhalations. Heparin for DVT prophylaxis. Patient is seen today 12/10/2022 in follow-up in the intensive care unit. Postoperative day #3. She is currently awake and alert in no acute distress. Sitting up in a chair at the bedside. Maintaining good O2 saturations in the 90s on room air. She is on lactated Ringer's at 40 ML's per hour. On epinephrine at 0.12 mcg/kg per hour. Remains on insulin drip at 5 units per hour. Current blood pressure 107/62 with a mean of 83. PA pressures 30/11. CVP of 7. Recent cardiac output 3.6. Cardiac index 2.0. She remains afebrile. Chest x-ray reveals postsurgical changes. Chest tubes have been removed. No evidence of pneumothorax. There is trace left pleural effusion with associated atelectasis. She continues to work well with the incentive spirometer. She is status post 2 units of packed red blood cells and 1 unit of platelets this admission. White count 8.8. Hemoglobin 9.1. Platelets 117. Sodium 131. Potassium 5.0. Bicarb 24. BUN 22. Creatinine 1.21. Glucose 202. AST 72. ALT 26. Albumin 3.1. She remains on bronchodilators, heparin for DVT prophylaxis. The patient is seen today 12/11/2022 in follow-up in the intensive care unit. Postoperative day #4. She is sitting up in a chair at the bedside. Awake and alert in no acute distress. Denies any worsening shortness of breath, cough or congestion. Pain is well managed. Working well with the incentive spirometer. Maintaining good O2 saturations in the 90s on 2 L/m per nasal cannula. Chest x- ray reveals blunting of left costophrenic angle. No focal consolidation or pneumothorax. Postsurgical changes without evidence of pneumothorax. She has normal saline at 20 MLS per hour. On epinephrine drip at 0.01 mcg/kg/min. He maría for DVT prophylaxis. He remains on bronchodilators. She's been transitioned to Levemir. She is status post 3 units of packed red blood cells and 1 unit of platelets this admission. Current hemoglobin 9.3. Platelets 141. White count 7.7. Sodium 132. Potassium 4.7. Bicarb 24. BUN 21. Creatinine 0.89. Glucose 89. Albumin 2.6. Magnesium 2.2 Objective - Vital Signs Vital signs: Vital Signs Temp 97.5 F L 12/11/22 08:00 Pulse 67 12/11/22 10:00 Resp 21 12/11/22 10:00 BP 117/71 12/11/22 10:00 Pulse Ox 98 12/11/22 10:00 FiO2 50 12/08/22 00:00 Intake & Output 12/10/22 12/11/22 12/11/22 18:59 06:59 18:59 Intake Total 1017.289 970.464 130 Output Total 540 835 300 Balance 477.289 135.464 -170 Weight 78.608 kg Intake: IV 390 450 130 CO/CI 60 90 10 Sodium Chloride 0.9% 500 330 360 120 ml 500 ml @ 20 mls/hr IV .Q24H [facility] Rx#:[id number] Intake, IV Titration 127.289 20.464 Amount EPINEPHrine 4 mg In 114.243 20.464 Dextrose 5% in Water 250 ml @ 0.012 MCG/KG/MIN 2. 912 mls/hr IV .Q24H [facility] Rx#:[id number] Insulin Regular 100 unit 13.046 In Sodium Chloride 0.9% 100 ml @ Per Protocol IV .Q0M [facility] Rx#:[id number] Oral 500 500 Output: Urine 340 835 300 Emesis 200 Other: Voiding Method Indwelling Catheter Indwelling Catheter Indwelling Catheter ABP, PAP, CO, CI - Last Documented Arterial Blood Pressure 87/84 Pulmonary Artery Pressure 26/7 Cardiac Output 3.8 Cardiac Index 2.2 - Exam GENERAL EXAM: Reveals a pleasant 62-year-old female, up in a chair at the bedside, on room air. No pulmonary complaints HEAD: Normocephalic and atraumatic EYES: Normal reaction of pupils, equal size. NOSE: Clear with pink turbinates. THROAT: No erythema or exudates. NECK: No masses, no JVD. Right IJ Cordis in place CHEST: Heart hugger in place. Postoperative incisional dressing intact. LUNGS: Equal air entry with no crackles, wheeze, rhonchi or dullness. CVS: Regular rate and rhythm ABDOMEN: No hepatosplenomegaly, active bowel sounds, no guarding or rigidity. SPINE: No scoliosis or deformity SKIN: No rashes CENTRAL NERVOUS SYSTEM: No focal deficits, tone is normal in all 4 extremities. Patient is alert and oriented. EXTREMITIES: Patient has right great toe, second toe, third toe amputations with a dressing clean, dry, intact. Left pedal and left radial pulses are palpable. - Labs CBC & Chem 7: 12/11/22 04:27 12/11/22 04:27 Labs: Abnormal Lab Results - Last 24 Hours (Table) 12/07/22 12/10/22 12/10/22 Range/Units 07:20 11:41 16:41 RBC (3.80-5.40) m/uL Hgb (11.4-16.0) gm/dL Hct (34.0-46.0) % RDW (11.5-15.5) % Plt Count (150-450) k/uL Sodium (137-145) mmol/L BUN (7-17) mg/dL POC Glucose (mg/dL) 136 H 198 H (70-110) mg/dL Hemoglobin A1c (0.0-6.0) % Calcium (8.4-10.2) mg/dL Total Bilirubin (0.2-1.3) mg/dL AST (14-36) U/L Alkaline Phosphatase (38-126) U/L Total Protein (6.3-8.2) g/dL Albumin (3.5-5.0) g/dL Crossmatch See Detail 12/10/22 12/11/22 12/11/22 Range/Units 20:11 04:27 04:27 RBC 3.26 L (3.80-5.40) m/uL Hgb 9.3 L (11.4-16.0) gm/dL Hct 27.5 L (34.0-46.0) % RDW 16.9 H (11.5-15.5) % Plt Count 141 L (150-450) k/uL Sodium (137-145) mmol/L BUN (7-17) mg/dL POC Glucose (mg/dL) 188 H (70-110) mg/dL Hemoglobin A1c 9.7 H (0.0-6.0) % Calcium (8.4-10.2) mg/dL Total Bilirubin (0.2-1.3) mg/dL AST (14-36) U/L Alkaline Phosphatase (38-126) U/L Total Protein (6.3-8.2) g/dL Albumin (3.5-5.0) g/dL Crossmatch 12/11/22 12/11/22 Range/Units 04:27 06:58 RBC (3.80-5.40) m/uL Hgb (11.4-16.0) gm/dL Hct (34.0-46.0) % RDW (11.5-15.5) % Plt Count (150-450) k/uL Sodium 132 L (137-145) mmol/L BUN 21 H (7-17) mg/dL POC Glucose (mg/dL) 122 H (70-110) mg/dL Hemoglobin A1c (0.0-6.0) % Calcium 8.2 L (8.4-10.2) mg/dL Total Bilirubin 1.8 H (0.2-1.3) mg/dL AST 42 H (14-36) U/L Alkaline Phosphatase 202 H (38-126) U/L Total Protein 4.8 L (6.3-8.2) g/dL Albumin 2.6 L (3.5-5.0) g/dL Crossmatch Assessment and Plan Assessment: Postop day #4 of an elective off-pump CABG 2 with a BRISENO to LAD, saphenous vein graft to the obtuse marginal 2, ligation of left atrial appendage. Intraoperatively, the patient did have a V. fib arrest. There was placement of an intra-aortic balloon pump via the left femoral artery. Acute hypoxemic respiratory failure as an expected outcome of surgery. Leonel cristy and on room air Acute blood loss, expected following the procedure. Post transfusion of 3 units PRBC and one unit of platelets current hemoglobin 9.3 Coronary artery disease Cardiomyopathy with an ejection fraction of 30-35% Diabetes mellitus type 2 Hyperlipidemia Hypertension Previous TIA Background COPD. No increased intraoperative risk based on patient's preoperative PFT Peripheral arterial disease with recent amputation of the great toe, second toe, and third toe of the right foot. Plan: The patient was seen and evaluated Chest x-ray, labs and medications reviewed Off insulin drip, transitioned to Levemir Remains on epinephrine drip Currently stable, up in a chair, on room air Working with the incentive spirometer We'll continue to follow I have personally seen and examined the patient, performed the documentation and the assessment and plan as written. Number of minutes spent on the visit: 10.
[2022-12-11 11:43] LABS: Glucose,Whole Blood 221 mg/dL (70-110)
[2022-12-11] MEDS: SODIUM CHLORIDE 0.9% 500 ML 500 ML IV SCH (11:48)
[2022-12-11] MEDS ORDERED: INSULIN DETEMIR (LEVEMIR) 100 UNIT/ML SYR SQ ONE (12:00)
[2022-12-11 13:47] LABS: ABG Base Excess 1.5 mmol/L; ABG HCO3 27 mmol/L (21-25); ABG Oxygen Saturation 45.5 % (94-97); ABG PCO2 46 mmHg (35-45); ABG PH 7.37 (7.35-7.45); ABG TCO2 28 mmol/L (19-24)
[2022-12-11 13:50] LABS: ABG PO2 27 mmHg (83-108); Allen Test Performed? no
[2022-12-11 16:11] LABS: Glucose,Whole Blood 119 mg/dL (70-110)
[2022-12-11] MEDS: EPINEPHrine 4 MG in DEXTROSE 5% IN WATER 250 ML IV SCH ×2 (21:07)
[2022-12-11 21:21] LABS: Glucose,Whole Blood 159 mg/dL (70-110)
[2022-12-11] MEDS: SENNOSIDES-DOCUSATE SODIUM 1 EACH TAB PO SCH (21:26)
--- NOTE | 2022-12-11 21:55 | P.PN ---
Subjective Date of service 12/10/2022 Patient is a 60-year-old female with a known history of uncontrolled diabetes, hypertension, hyperlipidemia, osteoarthritis, COPD, history of CVA/TIA no residual defects history of recent cardiac catheterization with significant coronary artery disease. Patient is status post CABG x2 vessel with BRISENO to LAD, saphenous vein graft to obtuse marginal. Occlusion of the base of the left atrial appendage with 35 mm AtriCure clip.Intra-aortic balloon pump placement Patient does have right foot gangrenous toe status post ray amputation and is on follow-up with wound care clinic with Dr. Parmar. Preoperatively patient was intubated and currently on mechanical ventilator. Transferred to MICU. Patient is also on pressor support and also being continued on insulin drip. Laboratory showed WBC 11.4 hemoglobin 8.0 and platelets 121 ABG showed pH 7.3 PCO2 48 PO2 greater than 400 Sodium 142 potassium 3.1 chloride 106 bicarb is 26 BUN 23 and creatinine 0.74 Magnesium 2.4 AST 60 and ALT 32 and alk phos 54. 12/10/2022 Patient comfortable sitting in chair, no chest pain or dyspnea, no other complaint She finished her oatmeal ball and some other extra stuff. But she did not eat a full meal. She was on insulin drip this morning which was discontinued and started on Levemir daily, at home she was taken tresiba 15 units, GERD. And ozempic 2 mg We'll continue with sliding scale Patient also on amiodarone by post doctoral fellow She is also on aspirin and Plavix. Check hemoglobin A1c in the morning Monitor myoglobin, currently 9.1, platelet count improved 117. Creatinine slightly up at 0.9 up to 1.2. 12/11/2022 Patient sitting in chair, in the ICU, no chest pain or dyspnea. She had some nausea vomiting buttresses resolved now. She tolerates diet well. She is postop day #4 Her vital staple Creatinine down to 0.8 Platelet improved 141, hemoglobin stable 9.3. Degenerative status post blood transfusion There sugar is well-controlled on 10 units of Levemir she requires between 0-2 Units of insulin sliding scale. Continue with aspirin and Plavix Objective - Vital Signs Vital signs: Vital Signs Temp 97.5 F L 12/11/22 08:00 Pulse 67 12/11/22 10:00 Resp 21 12/11/22 10:00 BP 117/71 12/11/22 10:00 Pulse Ox 98 12/11/22 10:00 FiO2 50 12/08/22 00:00 Intake & Output 12/10/22 12/11/22 12/11/22 18:59 06:59 18:59 Intake Total 1017.289 970.464 130 Output Total 540 835 300 Balance 477.289 135.464 -170 Weight 78.608 kg Intake: IV 390 450 130 CO/CI 60 90 10 Sodium Chloride 0.9% 500 330 360 120 ml 500 ml @ 20 mls/hr IV .Q24H [facility] Rx#:[id number] Intake, IV Titration 127.289 20.464 Amount EPINEPHrine 4 mg In 114.243 20.464 Dextrose 5% in Water 250 ml @ 0.012 MCG/KG/MIN 2. 912 mls/hr IV .Q24H [facility] Rx#:[id number] Insulin Regular 100 unit 13.046 In Sodium Chloride 0.9% 100 ml @ Per Protocol IV .Q0M [facility] Rx#:[id number] Oral 500 500 Output: Urine 340 835 300 Emesis 200 Other: Voiding Method Indwelling Catheter Indwelling Catheter Indwelling Catheter ABP, PAP, CO, CI - Last Documented Arterial Blood Pressure 87/84 Pulmonary Artery Pressure 26/7 Cardiac Output 3.8 Cardiac Index 2.2 - Exam GENERAL: The patient is alert and oriented x3, not in any acute distress. Well developed, well nourished. HEENT: Pupils are round and equally reacting to light. EOMI. No scleral icterus. No conjunctival pallor. Normocephalic, atraumatic. No pharyngeal erythema. No thyromegaly. -CARDIOVASCULAR: S1 and S2 present. No murmurs, rubs, or gallops. Surgical wound closed and healing PULMONARY: Chest is clear to auscultation, no wheezing or crackles. ABDOMEN: Soft, nontender, nondistended, normoactive bowel sounds. No palpable organomegaly. MUSCULOSKELETAL: No joint swelling or deformity. EXTREMITIES: No cyanosis, clubbing, or pedal edema. NEUROLOGICAL: Gross neurological examination did not reveal any focal deficits. SKIN: No rashes. no petechiae. - Labs CBC & Chem 7: 12/11/22 04:27 12/11/22 04:27 Labs: Abnormal Lab Results - Last 24 Hours (Table) 12/07/22 12/10/22 12/10/22 Range/Units 07:20 11:41 16:41 RBC (3.80-5.40) m/uL Hgb (11.4-16.0) gm/dL Hct (34.0-46.0) % RDW (11.5-15.5) % Plt Count (150-450) k/uL Sodium (137-145) mmol/L BUN (7-17) mg/dL POC Glucose (mg/dL) 136 H 198 H (70-110) mg/dL Hemoglobin A1c (0.0-6.0) % Calcium (8.4-10.2) mg/dL Total Bilirubin (0.2-1.3) mg/dL AST (14-36) U/L Alkaline Phosphatase (38-126) U/L Total Protein (6.3-8.2) g/dL Albumin (3.5-5.0) g/dL Crossmatch See Detail 12/10/22 12/11/22 12/11/22 Range/Units 20:11 04:27 04:27 RBC 3.26 L (3.80-5.40) m/uL Hgb 9.3 L (11.4-16.0) gm/dL Hct 27.5 L (34.0-46.0) % RDW 16.9 H (11.5-15.5) % Plt Count 141 L (150-450) k/uL Sodium (137-145) mmol/L BUN (7-17) mg/dL POC Glucose (mg/dL) 188 H (70-110) mg/dL Hemoglobin A1c 9.7 H (0.0-6.0) % Calcium (8.4-10.2) mg/dL Total Bilirubin (0.2-1.3) mg/dL AST (14-36) U/L Alkaline Phosphatase (38-126) U/L Total Protein (6.3-8.2) g/dL Albumin (3.5-5.0) g/dL Crossmatch 12/11/22 12/11/22 Range/Units 04:27 06:58 RBC (3.80-5.40) m/uL Hgb (11.4-16.0) gm/dL Hct (34.0-46.0) % RDW (11.5-15.5) % Plt Count (150-450) k/uL Sodium 132 L (137-145) mmol/L BUN 21 H (7-17) mg/dL POC Glucose (mg/dL) 122 H (70-110) mg/dL Hemoglobin A1c (0.0-6.0) % Calcium 8.2 L (8.4-10.2) mg/dL Total Bilirubin 1.8 H (0.2-1.3) mg/dL AST 42 H (14-36) U/L Alkaline Phosphatase 202 H (38-126) U/L Total Protein 4.8 L (6.3-8.2) g/dL Albumin 2.6 L (3.5-5.0) g/dL Crossmatch Assessment and Plan Assessment: Status post CABG 2 vessel with BRISENO to LAD and saphenous vein graft to obtuse marginal. Postoperative day 0. Acute hypoxic respiratory failure. Currently is on mechanical ventilator. Coronary artery disease with recent cardiac catheterization at [facility] Ischemic cardiomyopathy ejection fraction 30 to 35% Right foot diabetic wound status post ray amputation and is being followed at wound care clinic Uncontrolled diabetes type 2 Hypertension Hyperlipidemia History of TIA/CVA in 1999 with no residual effects. Osteoarthritis COPD not on oxygen at home. GI and DVT prophylaxis Plan: Patient is currently in the MICU. Continue with aspirin and Plavix 2. Insulin drip and start Levemir 10 units with insulin sliding scale Monitor hemoglobin and platelet count Monitor creatinine Pulmonary, CT surgery is on board. We will continue to follow closely. Thank you for your consult.
--- NOTE | 2022-12-11 23:33 | P.PN ---
Subjective HISTORY OF PRESENTING ILLNESS Patient is pleasant 62-year-old female with history of cardiomyopathy, hypertension, hyperlipidemia, diabetes mellitus type 2, TIA, vertigo, PAD with prior toe amputation. Patient underwent off-pump CABG 2 complicated by hypotension requiring vasopressors and blood transfusion and had postoperative anemia and thrombocytopenia as well as intraoperative V. fib arrests with cardiac massage and defibrillation. 12/11 Patient denies any chest pain or pressure. [place]-Freddy catheter remains in place with improved cardiac output/cardiac index however epinephrine able to be weaned. Denies any nausea or vomiting today however had some yesterday. Admits to some lightheadedness with standing up however states feeling somewhat better than yesterday. PHYSICAL EXAMINATION Vital signs reviewed. CONSTITUTIONAL: No apparent distress. HEENT: Head is normocephalic. Pupils are equal, round. Sclerae anicteric. Mucous membranes of the mouth are moist. No JVD. No carotid bruit. CHEST EXAMINATION: Lungs are clear to auscultation. No chest wall tenderness is noted on palpation or with deep breathing. HEART EXAMINATION: Regular rate and rhythm. S1, S2 heard. No murmurs, gallops or rub. ABDOMEN: Soft, nontender. Positive bowel sounds. EXTREMITIES: 2+ peripheral pulses, no lower extremity edema and no calf tenderness. NEUROLOGIC EXAMINATION: Patient is awake, alert and oriented x3. ASSESSMENT CAD status post CABG 2 Ischemic cardiomyopathy EF 30-35% Hypertension Hyperlipidemia Diabetes mellitus type 2 PAD TIA Vertigo Intraoperative V. fib arrest with cardiac massage and defibrillation Postoperative anemia and thrombocytopenia Postoperative hypotension requiring pressor support, slowly improving PLAN Continue to optimize heart failure regimen as able. Continue beta griselda with hold parameters. Appears to be improving with decreased vasopressor demand and still marginal cardiac output/cardiac index however slowly improving. Objective - Vital Signs Vital signs: Vital Signs Temp 97.7 F 12/11/22 20:00 Pulse 65 12/11/22 21:00 Resp 14 12/11/22 21:00 BP 104/73 12/11/22 21:00 Pulse Ox 98 12/11/22 21:00 FiO2 50 12/08/22 00:00 Intake & Output 12/11/22 12/11/22 12/12/22 06:59 18:59 06:59 Intake Total 970.464 458.368 110 Output Total 835 680 135 Balance 135.464 -221.632 -25 Weight 78.608 kg Intake: IV 450 380 110 CO/CI 90 50 20 Sodium Chloride 0.9% 500 360 330 90 ml 500 ml @ 20 mls/hr IV .Q24H [facility] Rx#:[id number] Intake, IV Titration 20.464 78.368 Amount EPINEPHrine 4 mg In 20.464 78.368 Dextrose 5% in Water 250 ml @ 0.012 MCG/KG/MIN 2. 912 mls/hr IV .Q24H [facility] Rx#:[id number] Oral 500 Output: Urine 835 680 135 Other: Voiding Method Indwelling Catheter Indwelling Catheter Indwelling Catheter ABP, PAP, CO, CI - Last Documented Arterial Blood Pressure 87/84 Pulmonary Artery Pressure 28/11 Cardiac Output 3.7 Cardiac Index 2.1 - Labs CBC & Chem 7: 12/11/22 04:27 12/11/22 04:27 Labs: Abnormal Lab Results - Last 24 Hours (Table) 12/11/22 12/11/22 12/11/22 Range/Units 04: 04: 04:27 RBC 3.26 L (3.80-5.40) m/uL Hgb 9.3 L (11.4-16.0) gm/dL Hct 27.5 L (34.0-46.0) % RDW 16.9 H (11.5-15.5) % Plt Count 141 L (150-450) k/uL ABG pCO2 (35-45) mmHg ABG pO2 (83-108) mmHg ABG HCO3 (21-25) mmol/L ABG Total CO2 (19-24) mmol/L ABG O2 Saturation (94-97) % Sodium 132 L (137-145) mmol/L BUN 21 H (7-17) mg/dL POC Glucose (mg/dL) (70-110) mg/dL Hemoglobin A1c 9.7 H (0.0-6.0) % Calcium 8.2 L (8.4-10.2) mg/dL Total Bilirubin 1.8 H (0.2-1.3) mg/dL AST 42 H (14-36) U/L Alkaline Phosphatase 202 H (38-126) U/L Total Protein 4.8 L (6.3-8.2) g/dL Albumin 2.6 L (3.5-5.0) g/dL 12/11/22 12/11/22 12/11/22 Range/Units 06:58 11:41 13:44 RBC (3.80-5.40) m/uL Hgb (11.4-16.0) gm/dL Hct (34.0-46.0) % RDW (11.5-15.5) % Plt Count (150-450) k/uL ABG pCO2 46 H (35-45) mmHg ABG pO2 27 L* (83-108) mmHg ABG HCO3 27 H (21-25) mmol/L ABG Total CO2 28 H (19-24) mmol/L ABG O2 Saturation 45.5 L (94-97) % Sodium (137-145) mmol/L BUN (7-17) mg/dL POC Glucose (mg/dL) 122 H 221 H (70-110) mg/dL Hemoglobin A1c (0.0-6.0) % Calcium (8.4-10.2) mg/dL Total Bilirubin (0.2-1.3) mg/dL AST (14-36) U/L Alkaline Phosphatase (38-126) U/L Total Protein (6.3-8.2) g/dL Albumin (3.5-5.0) g/dL 12/11/22 12/11/22 Range/Units 16:10 21:20 RBC (3.80-5.40) m/uL Hgb (11.4-16.0) gm/dL Hct (34.0-46.0) % RDW (11.5-15.5) % Plt Count (150-450) k/uL ABG pCO2 (35-45) mmHg ABG pO2 (83-108) mmHg ABG HCO3 (21-25) mmol/L ABG Total CO2 (19-24) mmol/L ABG O2 Saturation (94-97) % Sodium (137-145) mmol/L BUN (7-17) mg/dL POC Glucose (mg/dL) 119 H 159 H (70-110) mg/dL Hemoglobin A1c (0.0-6.0) % Calcium (8.4-10.2) mg/dL Total Bilirubin (0.2-1.3) mg/dL AST (14-36) U/L Alkaline Phosphatase (38-126) U/L Total Protein (6.3-8.2) g/dL Albumin (3.5-5.0) g/dL
[2022-12-12 06:11] LABS: Anisocytosis Slight; HCT 27.2 % (34.0-46.0); HGB 9.1 gm/dL (11.4-16.0); MCH 28.8 pg (25.0-35.0); MCHC 33.5 g/dL (31.0-37.0); Mean Platelet Volume 7.9; Platelet Count 191 k/uL (150-450); RBC 3.16 m/uL (3.80-5.40); RDW 16.8 % (11.5-15.5); WBC 5.6 k/uL (3.8-10.6)
[2022-12-12 06:27] LABS: Calcium 8.4 mg/dL (8.4-10.2); Potassium 4.5 mmol/L (3.5-5.1)
--- NOTE | 2022-12-12 06:37 | XR ---
EXAMINATION TYPE: XR chest 1V portable DATE OF EXAM: 12/12/2022 CLINICAL HISTORY: Difficulty breathing progress study. Postopen cardiac surgery. TECHNIQUE: Single AP portable upright view of the chest is obtained. COMPARISON: Chest x-ray from one day earlier and older studies. FINDINGS: Stable right internal jugular [place]-Freddy catheter. Overlying sternal wires and mediastinal clips along with left atrial appendage clipping are redemonstrated. Persistent small to moderate size left pleural effusion. Persistent bibasilar opacities. Persistent c ardiomegaly and mild central vascular congestion. No pneumothorax is seen. Osseous structures are int act. IMPRESSION: Persistent cardiomegaly and central vascular congestion and small to moderate size left p leural effusion with bibasilar acute infiltrates and/or atelectasis are all redemonstrated. No signif icant change from one day earlier.
[2022-12-12 06:55] LABS: Glucose,Whole Blood 90 mg/dL (70-110)
[2022-12-12] MEDS: INSULIN DETEMIR (LEVEMIR) 100 UNIT/ML SYR SQ SCH (06:57)
[2022-12-12] MEDS: METOCLOPRAMIDE 5 MG/ML 2 ML VIAL IVP PRN ×2 (06:57→14:21)
--- NOTE | 2022-12-12 08:07 | P.PN ---
Subjective Progress Note Date: 12/12/22 Principal diagnosis: Coronary artery disease. History of cardiomyopathy, hypertension, hyperlipidemia, uncontrolled type 2 diabetes with hyperglycemia, peripheral arterial disease with toe amputation right foot, TIA in 1999, vertigo, lifetime non-smoker POD #5 Off pump coronary artery bypass x 2, left internal mammary artery to the left anterior descending artery, reverse saphenous vein graft to the second obtuse marginal artery, occlusion of the base of the left atrial appendage with 35 mm AtriCure clip, placement of intra-aortic balloon pump percutaneously via left femoral arterial approach, endovascular vein harvest of the left greater saphenous vein from the midcalf to the groin Intraoperative vfib arrest with cardiac massage and defibrillation, unexpected Postoperative acute blood loss anemia and thrombocytopenia, expected given hemodilution Postoperative hypovolemic shock with hypotension requiring pressor support and blood transfusion, expected given volume loss The patient was seen and examined sitting up in her recliner in the intensive care unit this morning in no acute distress. States pain is controlled on current medication regimen, denies shortness of breath. Remains in sinus rhythm, blood pressure stable, off epi since yesterday. Has not received any beta griselda due to pressor use. No further episodes of vomiting. Right internal jugular [place]/Cordis remains present. Labs and x-rays reviewed. Patient did ambulate a short distance yesterday. She is hoping to have her other tubes removed today to allow for better mobility. No other new concerns. Objective - Vital Signs Vital signs: Vital Signs Temp 97.5 F L 12/12/22 04:00 Pulse 69 12/12/22 07:00 Resp 12 12/12/22 07:00 BP 102/68 12/12/22 07:00 Pulse Ox 96 12/12/22 07:00 FiO2 50 12/08/22 00:00 Intake & Output 12/11/22 12/12/22 12/12/22 18:59 06:59 18:59 Intake Total 458.368 450 40 Output Total 680 565 30 Balance -221.632 -115 10 Weight 80.5 kg Intake: IV 380 450 40 CO/CI 50 90 10 Sodium Chloride 0.9% 500 330 360 30 ml 500 ml @ 20 mls/hr IV .Q24H [facility] Rx#:[id number] Intake, IV Titration 78.368 Amount EPINEPHrine 4 mg In 78.368 Dextrose 5% in Water 250 ml @ 0.012 MCG/KG/MIN 2. 912 mls/hr IV .Q24H [facility] Rx#:[id number] Output: Urine 680 565 30 Other: Voiding Method Indwelling Catheter Indwelling Catheter ABP, PAP, CO, CI - Last Documented Arterial Blood Pressure 87/84 Pulmonary Artery Pressure 38/18 Cardiac Output 3.7 Cardiac Index 2.1 - Exam CONSTITUTIONAL: Appears comfortable, cooperative, no acute distress RESPIRATORY: Lungs sounds diminished bilaterally. Respirations even, nonlabored. Currently on room air with oxygen saturation 94%. Able to achieve 750 mL on her incentive spirometry. Strong cough CARDIOVASCULAR: S1, S2 present. Regular rate and rhythm, sinus rhythm on telemetry. Sternum stable. Palpable peripheral pulses bilaterally. No edema present. No calf pain or tenderness noted. Heart hugger in place with patient demonstrating appropriate use. Antiembolism stockings, SCDs present. GASTROINTESTINAL: Abdomen soft, nontender, nondistended. Active bowel sounds present 4 quadrants. Tolerating diet. Negative bowel movement, positive flatus GENITOURINARY: Shrestha present draining clear, yellow urine. Output overnight 25-75 mL per hour, 1230 mL last 24 hours INTEGUMENTARY: Skin is warm and dry with evidence of good perfusion. Anterior chest incision well approximated and covered with dry intact dressing. Left lower extremity EVH site well approximated without redness or drainage. NEUROLOGIC: Cranial nerves II through XII intact MUSKULOSKELETAL: Able to move all extremities, strength equal bilaterally PSYCHIATRIC: Alert and oriented to person place and time, appropriate affect, intact judgment and insight INVASIVE LINES AND TUBES: A/V epicardial pacemaker wires present, connected to generator, backup rate 50 bpm. Right internal jugular [place]/Cordis present. Last CO/CI 3.7/2.1, PA 32/11, CVP 9 - Allied health notes Allied health notes reviewed: nursing - Labs CBC & Chem 7: 12/12/22 05:45 12/12/22 05:45 Labs: Abnormal Lab Results - Last 24 Hours (Table) 12/11/22 12/11/22 12/11/22 Range/Units 04:27 11:41 13:44 RBC (3.80-5.40) m/uL Hgb (11.4-16.0) gm/dL Hct (34.0-46.0) % RDW (11.5-15.5) % ABG pCO2 46 H (35-45) mmHg ABG pO2 27 L* (83-108) mmHg ABG HCO3 27 H (21-25) mmol/L ABG Total CO2 28 H (19-24) mmol/L ABG O2 Saturation 45.5 L (94-97) % Sodium (137-145) mmol/L Glucose (74-99) mg/dL POC Glucose (mg/dL) 221 H (70-110) mg/dL Hemoglobin A1c 9.7 H (0.0-6.0) % 12/11/22 12/11/22 12/12/22 Range/Units 16:10 21:20 05:45 RBC 3.16 L (3.80-5.40) m/uL Hgb 9.1 L (11.4-16.0) gm/dL Hct 27.2 L (34.0-46.0) % RDW 16.8 H (11.5-15.5) % ABG pCO2 (35-45) mmHg ABG pO2 (83-108) mmHg ABG HCO3 (21-25) mmol/L ABG Total CO2 (19-24) mmol/L ABG O2 Saturation (94-97) % Sodium (137-145) mmol/L Glucose (74-99) mg/dL POC Glucose (mg/dL) 119 H 159 H (70-110) mg/dL Hemoglobin A1c (0.0-6.0) % 12/12/22 Range/Units 05:45 RBC (3.80-5.40) m/uL Hgb (11.4-16.0) gm/dL Hct (34.0-46.0) % RDW (11.5-15.5) % ABG pCO2 (35-45) mmHg ABG pO2 (83-108) mmHg ABG HCO3 (21-25) mmol/L ABG Total CO2 (19-24) mmol/L ABG O2 Saturation (94-97) % Sodium 134 L (137-145) mmol/L Glucose 63 L (74-99) mg/dL POC Glucose (mg/dL) (70-110) mg/dL Hemoglobin A1c (0.0-6.0) % - Imaging and Cardiology Chest x-ray: report reviewed, image reviewed Assessment and Plan Assessment: Coronary artery disease, status post 2V CABG Cardiomyopathy, EF 30-35% on TTE 08/2022, 50-55% TTE 10/2022 Hypertension Hyperlipidemia, treated, cholesterol 146, LDL 75, triglycerides 155 Uncontrolled type 2 diabetes with hyperglycemia, hemoglobin A1c 13% Peripheral arterial disease with toe amputation right foot TIA in 1999 Vertigo Lifetime non-smoker, preoperative FEV1 77% Intraoperative vfib arrest with cardiac massage and defibrillation, unexpected Postoperative acute blood loss anemia and thrombocytopenia, expected Postoperative hypovolemic shock with hypotension requiring pressor support and blood transfusion, expected Plan: Continue to maximize medical therapy with low-dose aspirin, plavix, statin. Continue beta griselda with hold parameters-patient still hasn't received any yet. Will add midodrine 5 mg BID Continue amio for A. fib prophylaxis Bronchodilators per pulmonology. Encourage incentive spirometry 10 times every hour while awake Increase activity, ambulate as tolerated. PT/OT/cardiac rehab following GI/DVT prophylaxis Pain control per current medication regimen Insulin management per internal medicine service. Patient needs tight blood sugar control to prevent infection and promote healing Will discontinue swan/cordis today Will discontinue Shrestha catheter, may bladder scan and straight cath for >300 mL residual Strict accurate intake and output Daily weights Will monitor daily labs and x-rays. Electrolyte replacement per protocol Ground epicardial pacer wires Dr. Boggs following for right foot dressing change More recommendations to follow
[2022-12-12] MEDS: IPRATROPIUM-ALBUTEROL 3 ML NEB INHALATION SCH ×4 (08:43→21:03)
[2022-12-12] MEDS: INSULIN ASPART (NovoLOG) 100 UNIT/ML VIAL SQ SCH ×4 (09:09→20:24)
[2022-12-12] MEDS: HEPARIN SODIUM,PORCINE/PF 5,000 UNIT/0.5 ML SYRINGE SQ SCH ×2 (09:59→16:25)
[2022-12-12] MEDS: MAGNESIUM HYDROXIDE 2,400 MG/10 ML CUP PO PRN (09:59)
[2022-12-12] MEDS: METOPROLOL TARTRATE 12.5 MG TAB PO SCH ×2 (10:00→20:14)
[2022-12-12] MEDS: CLOPIDOGREL 75 MG TAB PO SCH (10:00)
[2022-12-12] MEDS: ASPIRIN 81 MG PO SCH (10:00)
[2022-12-12] MEDS: ASCORBIC ACID 500 MG TAB PO SCH ×2 (10:00→20:23)
[2022-12-12] MEDS: AMIODARONE 200 MG TAB PO SCH ×2 (10:00→20:23)
[2022-12-12] MEDS: PANTOPRAZOLE 40 MG TABLET PO SCH (10:00)
[2022-12-12] MEDS: ATORVASTATIN 40 MG TAB PO SCH (10:00)
[2022-12-12] MEDS: MIDODRINE 5 MG TAB PO SCH ×2 (10:55→17:14)
[2022-12-12 11:29] LABS: Glucose,Whole Blood 139 mg/dL (70-110)
--- NOTE | 2022-12-12 11:35 | P.PN ---
Subjective Progress Note Date: 12/12/22 I am seeing this patient in new consultation today 12/08/2022 in regard to postoperative open-heart ICU management. Patient is a 62-year-old white female with past significant medical history of hypertension, hyperlipidemia, diabetes mellitus type 2, COPD, previous TIA, vertigo, peripheral 2-year-old disease with recent amputation of her great toe second and third toes of the right foot. On 09/20/2022 patient had a transthoracic 2-D echocardiogram which showed severe cardiomyopathy with an ejection fraction between 30 and 35%. A follow-up elective heart catheterization was done at [facility] which reportedly demonstrated triple-vessel coronary artery disease. Patient was scheduled for an elective CABG with Dr. Sanchez yesterday. Based on the patient's preoperative PFT, she was at no increased intraoperative risk. Patient underwent an off-pump CABG 2 with a BRISENO to the LAD, saphenous vein graft to the obtuse marginal 2, and ligation of the left atrial appendage. Intraoperatively, the patient did have a V. fib arrest. There was placement of an intra-aortic balloon pump via the left femoral artery. ROSC was achieved after a few minutes, and the procedure was completed. Patient has received a total of 2 units of PRBCs and 1 of platelets for some postoperative bleeding. Patient is currently in the intensive care unit remaining mechanically ventilated with settings of assist control, respiratory rate 14, tidal volume 400, FiO2 50%, PEEP of 5. Postoperative ABGs show a pO2 greater than 400, pCO2 48, pH of 7.33. This was done on FiO2 of 100%, which was dropped down to 50%. Postoperative chest x-ray shows endotracheal tube 3.2 cm the vernell, a NG-tube coursing below the diaphragm, an appropriately placed [place]-Fred[place] catheter, bilateral thoracotomy tubes without evidence of pneumothorax, a chest tube within the mediastinum, and postoperative surgical changes. IABP remains in place at a 1-1 ratio. Augmented pressure is 93 mmHg, and mean arterial pressure is 73 mmHg. Patient currently has epinephrine infusing at 0.025 mics per kilogram per minute, Levophed inf using at 0.03 mics per kilogram per minute, amiodarone infusing at 0.5 mg/m, nitro infusing at 5 mics per minute. Propofol and insulin are currently paused. So far, there have been no attempts at weaning. Patient is awake, alert and following commands. There have been no acute titrations to the patient's vasopressors. Patient's most recent CO/CI is 5.4 and 3.1 respectively, pulmonary artery pressure 30/14, heart rhythm is normal sinus at 90 bpm. Urine output is approximately 80-100 ML's per hour. Patient's chest tube output has slowed down to less than 50 ML's per hour. There is a total of 550 ML's of serosanguineous output out of the mediastinal chest tube, and a total of 700 ML's of serosanguinous output from the right and left pleural chest tube. Most recent CBC shows a hemoglobin of 8.9 and hematocrit of 25.7. INR is 1.2. Most recent BMP shows a sodium 142, potassium 3.7, chloride 106, serum CO2 26, BUN 23, creatinine 0.74, glucose 146. Magnesium was 2.4. Lactated Ringer's is infusing at 50 ML's per hour. Patient is currently calm and following commands. No recent acute changes in patient's hemodynamics, and patient is a potential candidate for weaning from the mechanical ventilator. The patient is seen today 12/09/2022 in follow-up in the intensive care unit. She is currently sitting up in a chair at the bedside. Awake and alert in no acute distress. She is maintaining good O2 saturations in the 90s on room air. She is postoperative day #2. She is continued on a insulin drip at 15 units per hour, nitroglycerin drip at 5 mcg/m on a lactated Ringer's at 40 ML's per hour, epinephrine and 0.025 mcg/kg/m. Norepinephrine is currently off. He is curre ntly in normal sinus rhythm. No arrhythmias noted. Blood pressure stable. PA pressure 30/12. CVP 15. Chest x-ray reveals no evidence of pleural effusion, focal consolidation or pneumothorax. Chest tubes remain in place. She is status post 2 units of packed red blood cells and 1 unit of platelets. White count 9.1. Hemoglobin 7.7. Platelets 97,000. Sodium 133. Potassium 5.0. Bicarb 30. BUN 17. Creatinine 0.99. AST 105. ALT 20. Albumin 2.9. She is working well with the incentive spirometer. Continued on DuoNeb inhalations. Heparin for DVT prophylaxis. Patient is seen today 12/10/2022 in follow-up in the intensive care unit. Postoperative day #3. She is currently awake and alert in no acute distress. Sitting up in a chair at the bedside. Maintaining good O2 saturations in the 90s on room air. She is on lactated Ringer's at 40 ML's per hour. On epinephrine at 0.12 mcg/kg per hour. Remains on insulin drip at 5 units per hour. Current blood pressure 107/62 with a mean of 83. PA pressures 30/11. CVP of 7. Recent cardiac output 3.6. Cardiac index 2.0. She remains afebrile. Chest x-ray reveals postsurgical changes. Chest tubes have been removed. No evidence of pneumothorax. There is trace left pleural effusion with associated atelectasis. She continues to work well with the incentive spirometer. She is status post 2 units of packed red blood cells and 1 unit of platelets this admission. White count 8.8. Hemoglobin 9.1. Platelets 117. Sodium 131. Potassium 5.0. Bicarb 24. BUN 22. Creatinine 1.21. Glucose 202. AST 72. ALT 26. Albumin 3.1. She remains on bronchodilators, heparin for DVT prophylaxis. The patient is seen today 12/11/2022 in follow-up in the intensive care unit. Postoperative day #4. She is sitting up in a chair at the bedside. Awake and alert in no acute distress. Denies any worsening shortness of breath, cough or congestion. Pain is well managed. Working well with the incentive spirometer. Maintaining good O2 saturations in the 90s on 2 L/m per nasal cannula. Chest x- ray reveals blunting of left costophrenic angle. No focal consolidation or pneumothorax. Postsurgical changes without evidence of pneumothorax. She has normal saline at 20 MLS per hour. On epinephrine drip at 0.01 mcg/kg/min. He maría for DVT prophylaxis. He remains on bronchodilators. She's been transitioned to Levemir. She is status post 3 units of packed red blood cells and 1 unit of platelets this admission. Current hemoglobin 9.3. Platelets 141. White count 7.7. Sodium 132. Potassium 4.7. Bicarb 24. BUN 21. Creatinine 0.89. Glucose 89. Albumin 2.6. Magnesium 2.2 The patient is seen today 12/12/2022 in follow-up in the intensive care unit. Postoperative day #5. She is awake and alert in no acute distress. Sitting up in a chair at the bedside. Maintaining good O2 saturations in the 90s on room air. She is off the epinephrine drip. Midodrine has been added. Vital signs stable. Current blood pressure 102/60 with a mean of 79. PA pressure 29/10 and a CVP of 7. Currently in sinus rhythm. Maintaining on amiodarone. Heparin for DVT prophylaxis. Continued on bronchodilators. Working well with the incentive spirometer. Chest x-ray shows persistent cardiomegaly and central vascular fuad estion with small to moderate left pleural effusion and bibasilar atelectasis. No change compared to previous. White count 5.6. Hemoglobin 9.1. Platelets 191. Sodium 134. Potassium 4.5. Bicarb 27. BUN 17. Creatinine 0.88. Glucose 139. Calcium 8.4. Objective - Vital Signs Vital signs: Vital Signs Temp 96.6 F L 12/12/22 08:00 Pulse 69 12/12/22 10:00 Resp 12 12/12/22 10:00 BP 102/60 12/12/22 10:00 Pulse Ox 92 L 12/12/22 10:00 FiO2 50 12/08/22 00:00 Intake & Output 12/11/22 12/12/22 12/12/22 18:59 06:59 18:59 Intake Total 458.368 450 160 Output Total 680 565 230 Balance -221.632 -115 -70 Weight 80.5 kg Intake: IV 380 450 160 CO/CI 50 90 10 Sodium Chloride 0.9% 500 330 360 150 ml 500 ml @ 20 mls/hr IV .Q24H [facility] Rx#:[id number] Intake, IV Titration 78.368 Amount EPINEPHrine 4 mg In 78.368 Dextrose 5% in Water 250 ml @ 0.012 MCG/KG/MIN 2. 912 mls/hr IV .Q24H [facility] Rx#:[id number] Output: Urine 680 565 230 Other: Voiding Method Indwelling Catheter Indwelling Catheter ABP, PAP, CO, CI - Last Documented Arterial Blood Pressure 87/84 Pulmonary Artery Pressure 29/10 Cardiac Output 3.7 Cardiac Index 2.1 - Exam GENERAL EXAM: Reveals a pleasant 62-year-old female, up in a chair at the bedside, on room air. Comfortable in no acute distress. HEAD: Normocephalic and atraumatic EYES: Normal reaction of pupils, equal size. NOSE: Clear with pink turbinates. THROAT: No erythema or exudates. NECK: No masses, no JVD. CHEST: Heart hugger in place. Postoperative incisional dressing intact. LUNGS: Equal air entry with crackles in the posterior bases. CVS: Regular rate and rhythm ABDOMEN: No hepatosplenomegaly, active bowel sounds, no guarding or rigidity. SPINE: No scoliosis or deformity SKIN: No rashes CENTRAL NERVOUS SYSTEM: No focal deficits, tone is normal in all 4 extremities. Patient is alert and oriented. EXTREMITIES: Patient has right great toe, second toe, third toe amputations with a dressing clean, dry, intact. Left pedal and left radial pulses are palpable. - Labs CBC & Chem 7: 12/12/22 05:45 12/12/22 05:45 Labs: Abnormal Lab Results - Last 24 Hours (Table) 12/11/22 12/11/22 12/11/22 Range/Units 11:41 13:44 16:10 RBC (3.80-5.40) m/uL Hgb (11.4-16.0) gm/dL Hct (34.0-46.0) % RDW (11.5-15.5) % ABG pCO2 46 H (35-45) mmHg ABG pO2 27 L* (83-108) mmHg ABG HCO3 27 H (21-25) mmol/L ABG Total CO2 28 H (19-24) mmol/L ABG O2 Saturation 45.5 L (94-97) % Sodium (137-145) mmol/L Glucose (74-99) mg/dL POC Glucose (mg/dL) 221 H 119 H (70-110) mg/dL 12/11/22 12/12/22 12/12/22 Range/Units 21:20 05:45 05:45 RBC 3.16 L (3.80-5.40) m/uL Hgb 9.1 L (11.4-16.0) gm/dL Hct 27.2 L (34.0-46.0) % RDW 16.8 H (11.5-15.5) % ABG pCO2 (35-45) mmHg ABG pO2 (83-108) mmHg ABG HCO3 (21-25) mmol/L ABG Total CO2 (19-24) mmol/L ABG O2 Saturation (94-97) % Sodium 134 L (137-145) mmol/L Glucose 63 L (74-99) mg/dL POC Glucose (mg/dL) 159 H (70-110) mg/dL 12/12/22 Range/Units 11:27 RBC (3.80-5.40) m/uL Hgb (11.4-16.0) gm/dL Hct (34.0-46.0) % RDW (11.5-15.5) % ABG pCO2 (35-45) mmHg ABG pO2 (83-108) mmHg ABG HCO3 (21-25) mmol/L ABG Total CO2 (19-24) mmol/L ABG O2 Saturation (94-97) % Sodium (137-145) mmol/L Glucose (74-99) mg/dL POC Glucose (mg/dL) 139 H (70-110) mg/dL Assessment and Plan Assessment: Postop day #5 of an elective off-pump CABG 2 with a BRISENO to LAD, saphenous vein graft to the obtuse marginal 2, ligation of left atrial appendage. Intraoperatively, the patient did have a V. fib arrest. There was placement of an intra-aortic balloon pump via the left femoral artery with subsequent removal. Acute hypoxemic respiratory failure as an expected outcome of surgery. Recovered and on room air Acute blood loss, expected following the procedure. Post transfusion of 3 units PRBC and one unit of platelets current hemoglobin 9.1 Coronary artery disease Cardiomyopathy with an ejection fraction of 30-35% Diabetes mellitus type 2 Hyperlipidemia Hypertension Previous TIA Background COPD. There was no increased intraoperative risk based on patient's preoperative PFT Peripheral arterial disease with recent amputation of the great toe, second toe, and third toe of the right foot. Plan: The patient was seen and evaluated Chest x-ray, labs and medications reviewed Off epinephrine, midodrine added Currently stable, up in a chair, on room air Working with the incentive spirometer Continue the current treatment plan Creaser activity as tolerated We'll continue to follow I have personally seen and examined the patient, performed the documentation and the assessment and plan as written. Number of minutes spent on the visit: 10.
--- NOTE | 2022-12-12 12:23 | P.PN ---
Subjective HISTORY OF PRESENTING ILLNESS Patient is pleasant 62-year-old female with history of cardiomyopathy, hypertension, hyperlipidemia, diabetes mellitus type 2, TIA, vertigo, PAD with prior toe amputation. Patient underwent off-pump CABG 2 complicated by hypotension requiring vasopressors and blood transfusion and had postoperative anemia and thrombocytopenia as well as intraoperative V. fib arrests with cardiac massage and defibrillation. 12/11 Patient denies any chest pain or pressure. [place]-Freddy catheter remains in place with improved cardiac output/cardiac index however epinephrine able to be weaned. Denies any nausea or vomiting today however had some yesterday. Admits to some lightheadedness with standing up however states feeling somewhat better than yesterday. 12/12 Patient seen and examined. Creatinine stable 0.8, hemoglobin 9.1, platelets 191. She denies any chest pain or pressure. She did have the [place]-Freddy catheter removed this afternoon. She is off of any vasopressors. She is in sinus rhythm on telemetry. PHYSICAL EXAMINATION Vital signs reviewed. CONSTITUTIONAL: No apparent distress. HEENT: Head is normocephalic. Pupils are equal, round. Sclerae anicteric. Mucous membranes of the mouth are moist. No JVD. No carotid bruit. CHEST EXAMINATION: Lungs are clear to auscultation. No chest wall tenderness is noted on palpation or with deep breathing. HEART EXAMINATION: Regular rate and rhythm. S1, S2 heard. No murmurs, gallops or rub. ABDOMEN: Soft, nontender. Positive bowel sounds. EXTREMITIES: 2+ peripheral pulses, no lower extremity edema and no calf tenderness. NEUROLOGIC EXAMINATION: Patient is awake, alert and oriented x3. ASSESSMENT CAD status post CABG 2 Ischemic cardiomyopathy EF 30-35% Hypertension Hyperlipidemia Diabetes mellitus type 2 PAD TIA Vertigo Intraoperative V. fib arrest with cardiac massage and defibrillation Postoperative anemia and thrombocytopenia Postoperative hypotension requiring pressor support, slowly improving PLAN Continue to optimize heart failure regimen as able. Continue beta griselda with hold parameters, off of vasopressors. Appears to be slowly improving, swan removed today. Objective - Vital Signs Vital signs: Vital Signs Temp 96.6 F L 12/12/22 08:00 Pulse 68 12/12/22 12:17 Resp 12 12/12/22 11:00 BP 93/71 12/12/22 11:00 Pulse Ox 93 L 12/12/22 11:00 FiO2 50 12/08/22 00:00 Intake & Output 12/11/22 12/12/22 12/12/22 18:59 06:59 18:59 Intake Total 458.368 450 160 Output Total 680 565 230 Balance -221.632 -115 -70 Weight 80.5 kg Intake: IV 380 450 160 CO/CI 50 90 10 Sodium Chloride 0.9% 500 330 360 150 ml 500 ml @ 20 mls/hr IV .Q24H [facility] Rx#:[id number] Intake, IV Titration 78.368 Amount EPINEPHrine 4 mg In 78.368 Dextrose 5% in Water 250 ml @ 0.012 MCG/KG/MIN 2. 912 mls/hr IV .Q24H [facility] Rx#:[id number] Output: Urine 680 565 230 Other: Voiding Method Indwelling Catheter Indwelling Catheter Indwelling Catheter ABP, PAP, CO, CI - Last Documented Arterial Blood Pressure 87/84 Pulmonary Artery Pressure 29/10 Cardiac Output 3.7 Cardiac Index 2.1 - Labs CBC & Chem 7: 12/12/22 05:45 12/12/22 05:45 Labs: Abnormal Lab Results - Last 24 Hours (Table) 12/11/22 12/11/22 12/11/22 Range/Units 13:44 16:10 21:20 RBC (3.80-5.40) m/uL Hgb (11.4-16.0) gm/dL Hct (34.0-46.0) % RDW (11.5-15.5) % ABG pCO2 46 H (35-45) mmHg ABG pO2 27 L* (83-108) mmHg ABG HCO3 27 H (21-25) mmol/L ABG Total CO2 28 H (19-24) mmol/L ABG O2 Saturation 45.5 L (94-97) % Sodium (137-145) mmol/L Glucose (74-99) mg/dL POC Glucose (mg/dL) 119 H 159 H (70-110) mg/dL 12/12/22 12/12/22 12/12/22 Range/Units 05:45 05:45 11:27 RBC 3.16 L (3.80-5.40) m/uL Hgb 9.1 L (11.4-16.0) gm/dL Hct 27.2 L (34.0-46.0) % RDW 16.8 H (11.5-15.5) % ABG pCO2 (35-45) mmHg ABG pO2 (83-108) mmHg ABG HCO3 (21-25) mmol/L ABG Total CO2 (19-24) mmol/L ABG O2 Saturation (94-97) % Sodium 134 L (137-145) mmol/L Glucose 63 L (74-99) mg/dL POC Glucose (mg/dL) 139 H (70-110) mg/dL
[2022-12-12] MEDS: ACETAMINOPHEN TAB 325 MG TAB PO PRN (13:27)
[2022-12-12 16:22] LABS: Glucose,Whole Blood 134 mg/dL (70-110)
[2022-12-12 19:58] LABS: Glucose,Whole Blood 258 mg/dL (70-110)
[2022-12-12] MEDS: SENNOSIDES-DOCUSATE SODIUM 1 EACH TAB PO SCH (20:24)
[2022-12-13] MEDS: HEPARIN SODIUM,PORCINE/PF 5,000 UNIT/0.5 ML SYRINGE SQ SCH ×4 (00:19→23:58)
--- NOTE | 2022-12-13 02:24 | P.PN ---
Subjective Progress Note Date: 12/12/22 Patient is a 60-year-old female with a known history of uncontrolled diabetes, hypertension, hyperlipidemia, osteoarthritis, COPD, history of CVA/TIA no residual defects history of recent cardiac catheterization with significant coronary artery disease. Patient is status post CABG x2 vessel with BRISENO to L AD, saphenous vein graft to obtuse marginal. Occlusion of the base of the left atrial appendage with 35 mm AtriCure clip.Intra-aortic balloon pump placement Patient does have right foot gangrenous toe status post ray amputation and is on follow-up with wound care clinic with Dr. Parmar. Preoperatively patient was intubated and currently on mechanical ventilator. Transferred to MICU. Patient is also on pressor support and also being continued on insulin drip. Laboratory showed WBC 11.4 hemoglobin 8.0 and platelets 121 ABG showed pH 7.3 PCO2 48 PO2 greater than 400 Sodium 142 potassium 3.1 chloride 106 bicarb is 26 BUN 23 and creatinine 0.74 Magnesium 2.4 AST 60 and ALT 32 and alk phos 54. 12/10/2022 Patient comfortable sitting in chair, no chest pain or dyspnea, no other complaint She finished her oatmeal ball and some other extra stuff. But she did not eat a full meal. She was on insulin drip this morning which was discontinued and started on Levemir daily, at home she was taken tresiba 15 units, GERD. And ozempic 2 mg We'll continue with sliding scale Patient also on amiodarone by cage fighter She is also on aspirin and Plavix. Check hemoglobin A1c in the morning Monitor myoglobin, currently 9.1, platelet count improved 117. Creatinine slightly up at 0.9 up to 1.2. 12/11/2022 Patient sitting in chair, in the ICU, no chest pain or dyspnea. She had some nausea vomiting buttresses resolved now. She tolerates diet well. She is postop day #4 Her vital staple Creatinine down to 0.8 Platelet improved 141, hemoglobin stable 9.3. Degenerative status post blood transfusion There sugar is well-controlled on 10 units of Levemir she requires between 0-2 Units of insulin sliding scale. Continue with aspirin and Plavix 12/12/2022 Patient is currently in the MICU. Awake alert and oriented x3. Sitting in a chair comfortably. Currently on room air. No complaints of chest pain or worsening shortness of breath. Blood pressure stable. Off pressor support. Chest x-ray showed persistent cardiomegaly and central vascular congestion and small to moderate left pleural effusion and basilar atelectasis. No change compared to previous study. Patient is being continued on amiodarone 200 mg twice daily Laboratory test showed WBC 5.6 hemoglobin 9.1 and platelets 191 sodium 134 potassium 4.5 chloride 102 bicarb is 27 BUN 17 and creatinine 0.88 and blood sugar was 63 this morning. Patient did not have bowel movement today. Current medications reviewed. Objective - Vital Signs Vital signs: Vital Signs Temp 96.6 F L 12/12/22 08:00 Pulse 69 12/12/22 10:00 Resp 12 12/12/22 10:00 BP 102/60 12/12/22 10:00 Pulse Ox 92 L 12/12/22 10:00 FiO2 50 12/08/22 00:00 Intake & Output 12/11/22 12/12/22 12/12/22 18:59 06:59 18:59 Intake Total 458.368 450 160 Output Total 680 565 230 Balance -221.632 -115 -70 Weight 80.5 kg Intake: IV 380 450 160 CO/CI 50 90 10 Sodium Chloride 0.9% 500 330 360 150 ml 500 ml @ 20 mls/hr IV .Q24H [facility] Rx#:[id number] Intake, IV Titration 78.368 Amount EPINEPHrine 4 mg In 78.368 Dextrose 5% in Water 250 ml @ 0.012 MCG/KG/MIN 2. 912 mls/hr IV .Q24H [facility] Rx#:[id number] Output: Urine 680 565 230 Other: Voiding Method Indwelling Catheter Indwelling Catheter ABP, PAP, CO, CI - Last Documented Arterial Blood Pressure 87/84 Pulmonary Artery Pressure 29/10 Cardiac Output 3.7 Cardiac Index 2.1 - Exam - Exam GENERAL: The patient is alert and oriented x3, not in any acute distress. Well developed, well nourished. HEENT: Pupils are round and equally reacting to light. EOMI. No scleral icterus. No conjunctival pallor. Normocephalic, atraumatic. No pharyngeal erythema. No thyromegaly. -CARDIOVASCULAR: S1 and S2 present. No murmurs, rubs, or gallops. Surgical wound closed and healing. Heart hugger in place PULMONARY: Chest is clear to auscultation, no wheezing or crackles. ABDOMEN: Soft, nontender, nondistended, normoactive bowel sounds. No palpable organomegaly. MUSCULOSKELETAL: No joint swelling or deformity. EXTREMITIES: No cyanosis, clubbing, or pedal edema. NEUROLOGICAL: Gross neurological examination did not reveal any focal deficits. SKIN: No rashes. no petechiae. - Labs CBC & Chem 7: 12/12/22 05:45 12/12/22 05:45 Labs: Abnormal Lab Results - Last 24 Hours (Table) 12/11/22 12/11/22 12/11/22 Range/Units 11:41 13:44 16:10 RBC (3.80-5.40) m/uL Hgb (11.4-16.0) gm/dL Hct (34.0-46.0) % RDW (11.5-15.5) % ABG pCO2 46 H (35-45) mmHg ABG pO2 27 L* (83-108) mmHg ABG HCO3 27 H (21-25) mmol/L ABG Total CO2 28 H (19-24) mmol/L ABG O2 Saturation 45.5 L (94-97) % Sodium (137-145) mmol/L Glucose (74-99) mg/dL POC Glucose (mg/dL) 221 H 119 H (70-110) mg/dL 12/11/22 12/12/22 12/12/22 Range/Units 21:20 05:45 05:45 RBC 3.16 L (3.80-5.40) m/uL Hgb 9.1 L (11.4-16.0) gm/dL Hct 27.2 L (34.0-46.0) % RDW 16.8 H (11.5-15.5) % ABG pCO2 (35-45) mmHg ABG pO2 (83-108) mmHg ABG HCO3 (21-25) mmol/L ABG Total CO2 (19-24) mmol/L ABG O2 Saturation (94-97) % Sodium 134 L (137-145) mmol/L Glucose 63 L (74-99) mg/dL POC Glucose (mg/dL) 159 H (70-110) mg/dL Assessment and Plan Assessment: Status post CABG 2 vessel with BRISENO to LAD and saphenous vein graft to obtuse marginal. Postoperative day 5. Acute hypoxic respiratory failure. Currently is on mechanical ventilator. Coronary artery disease with recent cardiac catheterization at [facility] Ischemic cardiomyopathy ejection fraction 30 to 35% Right foot diabetic wound status post ray amputation and is being followed at wound care clinic Uncontrolled diabetes type 2 Hypertension Hyperlipidemia History of TIA/CVA in 1999 with no residual effects. Osteoarthritis COPD not on oxygen at home. GI and DVT prophylaxis Plan: Patient is currently in the MICU. Continue with aspirin and Plavix and also amiodarone po DCed Insulin drip and start Levemir 10-->7 units with insulin sliding scale Monitor hemoglobin and platelet count Monitor creatinine Pulmonary, CT surgery is on board. We will continue to follow closely.
[2022-12-13 04:43] LABS: Anisocytosis Slight; HCT 22.7 % (34.0-46.0); HGB 8.5 gm/dL (11.4-16.0); MCHC 37.5 g/dL (31.0-37.0); MCV 85.1 fL (80.0-100.0); Mean Platelet Volume 7.8; Platelet Count 197 k/uL (150-450); RBC 2.67 m/uL (3.80-5.40); RDW 17.7 % (11.5-15.5); WBC 4.8 k/uL (3.8-10.6)
[2022-12-13 05:25] LABS: Calcium 8.3 mg/dL (8.4-10.2); Potassium 4.8 mmol/L (3.5-5.1)
--- NOTE | 2022-12-13 06:12 | P.PN ---
Subjective Progress Note Date: 12/13/22 Principal diagnosis: Status post CABG. I am seeing this patient in new consultation today 12/08/2022 in regard to postoperative open-heart ICU management. Patient is a 62-year-old white female with past significant medical history of hypertension, hyperlipidemia, diabetes mellitus type 2, COPD, previous TIA, vertigo, peripheral 2-year-old disease with recent amputation of her great toe second and third toes of the right foot. On 09/20/2022 patient had a transthoracic 2-D echocardiogram which showed severe cardiomyopathy with an ejection fraction between 30 and 35%. A follow-up elective heart catheterization was done at [facility] which reportedly demonstrated triple-vessel coronary artery disease. Patient was scheduled for an elective CABG with Dr. Sanchez yesterday. Based on the patient's preoperative PFT, she was at no increased intraoperative risk. Patient underwent an off-pump CABG 2 with a BRISENO to the LAD, saphenous vein graft to the obtuse marginal 2, and ligation of the left atrial appendage. Intraoperatively, the patient did have a V. fib arrest. There was placement of an intra-aortic balloon pump via the left femoral artery. ROSC was achieved after a few minutes, and the procedure was completed. Patient has received a total of 2 units of PRBCs and 1 of platelets for some postoperative bleeding. Patient is currently in the intensive care unit remaining mechanically ventilated with settings of assist control, respiratory rate 14, tidal volume 400, FiO2 50%, PEEP of 5. Postoperative ABGs show a pO2 greater than 400, pCO2 48, pH of 7.33. This was done on FiO2 of 100%, which was dropped down to 50%. Postoperative chest x-ray shows endotracheal tube 3.2 cm the vernell, a NG-tube coursing below the diaphragm, an appropriately placed [place]-Freddy catheter, bilateral thoracotomy tubes without evidence of pneumothorax, a chest tube within the mediastinum, and postoperative surgical changes. IABP remains in place at a 1-1 ratio. Augmented pressure is 93 mmHg, and mean arterial pressure is 73 mmHg. Patient currently has epinephrine infusing at 0.025 mics per kilogram per minute, Levophed infusing at 0.03 mics per kilogram per minute, amiodarone infusing at 0.5 mg/m, nitro infusing at 5 mics per minute. Propofol and insulin are currently paused. So far, there have been no attempts at weaning. Patient is awake, alert and following commands. There have been no acute titrations to the patient's vasopressors. Patient's most recent CO/CI is 5.4 and 3.1 respectively, pulmonary artery pressure 30/14, heart rhythm is normal sinus at 90 bpm. Urine output is approximately 80-100 ML's per hour. Patient's chest tube output has slowed down to less than 50 ML's per hour. There is a total of 550 ML's of serosanguineous output out of the mediastinal chest tube, and a total of 700 ML's of serosanguinous output from the right and left pleural chest tube. Most recent CBC shows a hemoglobin of 8.9 and hematocrit of 25.7. INR is 1.2. Most recent BMP shows a sodium 142, potassium 3.7, chloride 106, serum CO2 26, BUN 23 , creatinine 0.74, glucose 146. Magnesium was 2.4. Lactated Ringer's is infusing at 50 ML's per hour. Patient is currently calm and following commands. No recent acute changes in patient's hemodynamics, and patient is a potential candidate for weaning from the mechanical ventilator. The patient is seen today 12/09/2022 in follow-up in the intensive care unit. She is currently sitting up in a chair at the bedside. Awake and alert in no acute distress. She is maintaining good O2 saturations in the 90s on room air. She is postoperative day #2. She is continued on a insulin drip at 15 units per hour, nitroglycerin drip at 5 mcg/m on a lactated Ringer's at 40 ML's per hour, epinephrine and 0.025 mcg/kg/m. Norepinephrine is currently off. He is currently in normal sinus rhythm. No arrhythmias noted. Blood pressure stable. PA pressure 30/12. CVP 15. Chest x-ray reveals no evidence of pleural effusion, focal consolidation or pneumothorax. Chest tubes remain in place. She is status post 2 units of packed red blood cells and 1 unit of platelets. White count 9.1. Hemoglobin 7.7. Platelets 97,000. Sodium 133. Potassium 5.0. Bicarb 30. BUN 17. Creatinine 0.99. AST 105. ALT 20. Albumin 2.9. She is working well with the incentive spirometer. Continued on DuoNeb in halations. Heparin for DVT prophylaxis. Patient is seen today 12/10/2022 in follow-up in the intensive care unit. Postoperative day #3. She is currently awake and alert in no acute distress. Sitting up in a chair at the bedside. Maintaining good O2 saturations in the 90s on room air. She is on lactated Ringer's at 40 ML's per hour. On epinephrine at 0.12 mcg/kg per hour. Remains on insulin drip at 5 units per hour. Current blood pressure 107/62 with a mean of 83. PA pressures 30/11. CVP of 7. Recent cardiac output 3.6. Cardiac index 2.0. She remains afebrile. Chest x-ray reveals postsurgical changes. Chest tubes have been removed. No evidence of pneumothorax. There is trace left pleural effusion with associated atelectasis. She continues to work well with the incentive spirometer. She is status post 2 units of packed red blood cells and 1 unit of platelets this admis burak. White count 8.8. Hemoglobin 9.1. Platelets 117. Sodium 131. Potassium 5.0. Bicarb 24. BUN 22. Creatinine 1.21. Glucose 202. AST 72. ALT 26. Albumin 3.1. She remains on bronchodilators, heparin for DVT prophylaxis. The patient is seen today 12/11/2022 in follow-up in the intensive care unit. Postoperative day #4. She is sitting up in a chair at the bedside. Awake and alert in no acute distress. Denies any worsening shortness of breath, cough or congestion. Pain is well managed. Working well with the incentive spirometer. Maintaining good O2 saturations in the 90s on 2 L/m per nasal cannula. Chest x- ray reveals blunting of left costophrenic angle. No focal consolidation or pneumothorax. Postsurgical changes without evidence of pneumothorax. She has normal saline at 20 MLS per hour. On epinephrine drip at 0.01 mcg/kg/min. Heparin for DVT prophylaxis. He remains on bronchodilators. She's been transitioned to Levemir. She is status post 3 units of packed red blood cells and 1 unit of platelets this admission. Current hemoglobin 9.3. Platelets 141. White count 7.7. Sodium 132. Potassium 4.7. Bicarb 24. BUN 21. Creatinine 0.89. Glucose 89. Albumin 2.6. Magnesium 2.2 The patient is seen today 12/12/2022 in follow-up in the intensive care unit. Postoperative day #5. She is awake and alert in no acute distress. Sitting up in a chair at the bedside. Maintaining good O2 saturations in the 90s on room air. She is off the epinephrine drip. Midodrine has been added. Vital signs stable. Current blood pressure 102/60 with a mean of 79. PA pressure 29/10 and a CVP of 7. Currently in sinus rhythm. Maintaining on amiodarone. Heparin for DVT prophylaxis. Continued on bronchodilators. Working well with the incentive spirometer. Chest x-ray shows persistent cardiomegaly and central vascular congestion with small to moderate left pleural effusion and bibasilar atelectasis. No change compared to previous. White count 5.6. Hemoglobin 9.1. Platelets 191. Sodium 134. Potassium 4.5. Bicarb 27. BUN 17. Creatinine 0.88. Glucose 139. Calcium 8.4. Progress note dated 12/13/2022. This is a 62-year-old female postop day #6, status post CABG. The patient's doing well. She's currently on room air. She does get 1 L at nighttime. She's not receiving any IV fluids. She's getting about 750 mL on her incentive spirometer. White count 4.8, hemoglobin 8.5, hematocrit 22.7, and platelet count 197,000. Sodium 134, potassium 4.8, chlorides 102, CO2 27, BUN 19, creatinine 1.02. Objective - Vital Signs Vital signs: Vital Signs Temp 98.6 F 12/13/22 04:00 Pulse 73 12/13/22 05:00 Resp 31 H 12/13/22 05:00 BP 109/64 12/13/22 05:00 Pulse Ox 96 12/13/22 05:00 FiO2 50 12/08/22 00:00 Intake & Output 12/12/22 12/12/22 12/13/22 06:59 18:59 06:59 Intake Total 450 160 540 Output Total 565 450 900 Balance -115 290 -360 Weight 80.5 kg Intake: IV 450 160 CO/CI 90 10 Sodium Chloride 0.9% 500 360 150 ml 500 ml @ 20 mls/hr IV .Q24H [facility] Rx#:[id number] Oral 540 Output: Urine 565 450 450 Straight 450 Post Void Residual 450 Other: Voiding Method Indwelling Catheter Indwelling Catheter Toilet # Bowel Movements 1 ABP, PAP, CO, CI - Last Documented Arterial Blood Pressure 87/84 Pulmonary Artery Pressure 29/10 Cardiac Output 3.7 Cardiac Index 2.1 - Exam No acute distress, oriented 3. Currently on room air. HEENT examination is grossly unremarkable. Mucous membranes are moist. No oral lesions. Neck supple. Full range of motion. No adenopathy thyromegaly or neck vein distention. Cardiovascular examination reveals regular rhythm rate. S1-S2 normal. No S3 or S4. No discernible murmur noted. Heart rate 73 bpm. Lungs reveal minimal scattered rhonchi. No wheezes or crackles. Breath sounds are equal. Saturations are 96%. Abdomen soft bowel sounds are heard. No masses or tenderness. Extremities are intact. No cyanosis clubbing or edema. Skin is without rash or lesion. Neurologic examination is brief but nonfocal. - Labs CBC & Chem 7: 12/13/22 04:19 12/13/22 04:19 Labs: Abnormal Lab Results - Last 24 Hours (Table) 12/12/22 12/12/22 12/12/22 Range/Units 05:45 05:45 11:27 RBC 3.16 L (3.80-5.40) m/uL Hgb 9.1 L (11.4-16.0) gm/dL Hct 27.2 L (34.0-46.0) % MCHC (31.0-37.0) g/dL RDW 16.8 H (11.5-15.5) % Sodium 134 L (137-145) mmol/L BUN (7-17) mg/dL Glucose 63 L (74-99) mg/dL POC Glucose (mg/dL) 139 H (70-110) mg/dL Calcium (8.4-10.2) mg/dL 12/12/22 12/12/22 12/13/22 Range/Units 16:21 19:57 04:19 RBC 2.67 L (3.80-5.40) m/uL Hgb 8.5 L (11.4-16.0) gm/dL Hct 22.7 L (34.0-46.0) % MCHC 37.5 H (31.0-37.0) g/dL RDW 17.7 H (11.5-15.5) % Sodium (137-145) mmol/L BUN (7-17) mg/dL Glucose (74-99) mg/dL POC Glucose (mg/dL) 134 H 258 H (70-110) mg/dL Calcium (8.4-10.2) mg/dL 12/13/22 Range/Units 04:19 RBC (3.80-5.40) m/uL Hgb (11.4-16.0) gm/dL Hct (34.0-46.0) % MCHC (31.0-37.0) g/dL RDW (11.5-15.5) % Sodium 134 L (137-145) mmol/L BUN 19 H (7-17) mg/dL Glucose 107 H (74-99) mg/dL POC Glucose (mg/dL) (70-110) mg/dL Calcium 8.3 L (8.4-10.2) mg/dL Assessment and Plan Assessment: Postop day #6 of an elective off-pump CABG 2 with a BRISENO to LAD, saphenous vein graft to the obtuse marginal 2, ligation of left atrial appendage. Intraoperatively, the patient did have a V. fib arrest. There was placement of an intra-aortic balloon pump via the left femoral artery with subsequent removal. Acute hypoxemic respiratory failure as an expected outcome of surgery. Acute blood loss, expected following the procedure. Post transfusion of 3 units PRBC and one unit of platelets current hemoglobin 9.1. Coronary artery disease. Cardiomyopathy with an ejection fraction of 30-35%. Diabetes mellitus type 2. Hyperlipidemia. Hypertension. Previous TIA. Background COPD. There was no increased intraoperative risk based on patient's preoperative PFT. Peripheral arterial disease with recent amputation of the great toe, second toe, and third toe of the right foot. Plan: Plan dated 12/13/2022. The patient appears to be doing well. Labs, x-rays, and medications are all reviewed. The patient is postop day #6, status post elective off-pump 2 vessel bypass. The patient did have a ventricular fibrillation arrest and was placed on intra-aortic balloon pump, which has subsequently been removed. We will continue to follow the patient and make recommendations along the way. Prognosis is guarded. She's been weaned down to room air. Time with Patient: Less than 30
[2022-12-13 07:10] LABS: Glucose,Whole Blood 159 mg/dL (70-110)
[2022-12-13] MEDS: MIDODRINE 5 MG TAB PO SCH (07:20)
[2022-12-13] MEDS: METOCLOPRAMIDE 5 MG/ML 2 ML VIAL IVP SCH ×4 (07:20→23:56)
[2022-12-13] MEDS: INSULIN ASPART (NovoLOG) 100 UNIT/ML VIAL SQ SCH ×7 (07:20→21:26)
[2022-12-13] MEDS: INSULIN DETEMIR (LEVEMIR) 100 UNIT/ML SYR SQ SCH (07:20)
[2022-12-13] MEDS: PANTOPRAZOLE 40 MG TABLET PO SCH (07:20)
--- NOTE | 2022-12-13 07:24 | XR ---
EXAMINATION TYPE: XR chest 2V DATE OF EXAM: 12/13/2022 6:50 AM COMPARISON: Chest radiographs from 12/12/2022 TECHNIQUE: XR chest 2V Frontal and lateral views of the chest. CLINICAL INDICATION:Female, 62 years old with history of post cardiac surgery; FINDINGS: Lungs/Pleura: Small left pleural effusion with associated atelectasis. No pneumothorax appreciated. Pulmonary vascularity: Unremarkable. Heart/mediastinum: Cardiomediastinal silhouette is enlarged and stable. Atherosclerotic calcificatio ns are seen in the aorta. Left atrial appendage occlusion device is present. Musculoskeletal: No acute osseous pathology. Interval removal of [place]-Freddy catheter. IMPRESSION: Stable exam with Persistent small left effusion with atelectasis changes.
--- NOTE | 2022-12-13 07:32 | P.PN ---
Subjective Progress Note Date: 12/13/22 PROGRESS NOTE The patient is status post CABG with BRISENO to the LAD and SVG to the OM her intraoperative course was complicated IV A. fib and cardiac massage and intra- aortic balloon pump placement. She is feeling well this morning, awake and alert. She denies any chest discomfort, dizziness or palpitations. She denies any nausea or vomiting. Hemodynamically she is stable and continues to be in sinus mechanism. She has no evidence of ventricle tachycardia. Her ejection fraction in October was 50-55%. Her appetite is good. Medications: Amiodarone 200 mg twice a day, aspirin, Lipitor 40 mg daily, Plavix 75 mg daily, insulin, metoprolol tartrate 12-1/2 mg twice a day PHYSICAL EXAMINATION: Blood pressure 119/70 heart rate 70 LUNGS: Mild decreased breath sounds at the bases HEART: Regular rate and rhythm, S1, S2. No S3. systolic ejection murmur ABDOMEN: Soft, nontender, no organomegaly EXTREMETIES: Trace edema LAB: BUN 19, creatinine 1.02, hemoglobin 8.5 IMPRESSION: 1. Status post CABG, stable 2. History of diabetes 3. History of hypertension 4. Hyperlipidemia PLAN: 1. Add low-dose ASHU inhibitor 2. Restart Jardiance 3. Increase physical activity 4. Depending on her progress further recommendations will be made Objective - Vital Signs Vital signs: Vital Signs Temp 98.6 F 12/13/22 04:00 Pulse 77 12/13/22 07:00 Resp 8 L 12/13/22 07:00 BP 119/70 12/13/22 07:00 Pulse Ox 92 L 12/13/22 07:00 FiO2 50 12/08/22 00:00 Intake & Output 12/12/22 12/13/22 12/13/22 18:59 06:59 18:59 Intake Total 160 540 Output Total 450 900 0 Balance -290 -360 0 Weight 73.3 kg Intake: IV 160 CO/CI 10 Sodium Chloride 0.9% 500 150 ml 500 ml @ 20 mls/hr IV .Q24H [facility] Rx#:[id number] Oral 540 Output: Urine 450 450 0 Straight 450 Post Void Residual 450 Other: Voiding Method Indwelling Catheter Toilet # Bowel Movements 1 ABP, PAP, CO, CI - Last Documented Arterial Blood Pressure 87/84 Pulmonary Artery Pressure 29/10 Cardiac Output 3.7 Cardiac Index 2.1 - Labs CBC & Chem 7: 12/13/22 04:19 12/13/22 04:19 Labs: Abnormal Lab Results - Last 24 Hours (Table) 12/12/22 12/12/22 12/12/22 Range/Units 11:27 16:21 19:57 RBC (3.80-5.40) m/uL Hgb (11.4-16.0) gm/dL Hct (34.0-46.0) % MCHC (31.0-37.0) g/dL RDW (11.5-15.5) % Sodium (137-145) mmol/L BUN (7-17) mg/dL Glucose (74-99) mg/dL POC Glucose (mg/dL) 139 H 134 H 258 H (70-110) mg/dL Calcium (8.4-10.2) mg/dL 12/13/22 12/13/22 12/13/22 Range/Units 04:19 04:19 07:09 RBC 2.67 L (3.80-5.40) m/uL Hgb 8.5 L (11.4-16.0) gm/dL Hct 22.7 L (34.0-46.0) % MCHC 37.5 H (31.0-37.0) g/dL RDW 17.7 H (11.5-15.5) % Sodium 134 L (137-145) mmol/L BUN 19 H (7-17) mg/dL Glucose 107 H (74-99) mg/dL POC Glucose (mg/dL) 159 H (70-110) mg/dL Calcium 8.3 L (8.4-10.2) mg/dL
[2022-12-13] MEDS: ASCORBIC ACID 500 MG TAB PO SCH ×2 (08:12→21:42)
[2022-12-13] MEDS: ASPIRIN 81 MG PO SCH (08:13)
[2022-12-13] MEDS: ATORVASTATIN 40 MG TAB PO SCH (08:13)
[2022-12-13] MEDS: DAPAGLIFLOZIN PROPANEDIOL 10 MG TABLET PO SCH (08:13)
[2022-12-13] MEDS: CLOPIDOGREL 75 MG TAB PO SCH (08:13)
[2022-12-13] MEDS: METOPROLOL TARTRATE 12.5 MG TAB PO SCH ×2 (08:13→23:57)
[2022-12-13] MEDS: AMIODARONE 200 MG TAB PO SCH ×2 (08:13→21:42)
--- NOTE | 2022-12-13 08:18 | P.PN ---
Subjective Progress Note Date: 12/13/22 Principal diagnosis: Coronary artery disease. History of cardiomyopathy, hypertension, hyperlipidemia, uncontrolled type 2 diabetes with hyperglycemia, peripheral arterial disease with toe amputation right foot, TIA in 1999, vertigo, lifetime non-smoker POD #6 Off pump coronary artery bypass x 2, left internal mammary artery to the left anterior descending artery, reverse saphenous vein graft to the second obtuse marginal artery, occlusion of the base of the left atrial appendage with 35 mm AtriCure clip, placement of intra-aortic balloon pump percutaneously via left femoral arterial approach, endovascular vein harvest of the left greater saphenous vein from the midcalf to the groin Intraoperative vfib arrest with cardiac massage and defibrillation, unexpected Postoperative acute blood loss anemia and thrombocytopenia, expected given hemodilution Postoperative hypovolemic shock with hypotension requiring pressor support and blood transfusion, expected given volume loss The patient was seen and examined sitting up in her recliner in the intensive care unit this morning in no acute distress. States pain is controlled on current medication regimen, denies shortness of breath. Remains in sinus rhythm, blood pressure stable although he was restarted on low-dose midodrine. Has not received any beta griselda due to pressor use/hypotension. No further episodes of vomiting. Labs and x-rays reviewed. Patient has ambulated short distances. No other new concerns. Objective - Vital Signs Vital signs: Vital Signs Temp 98.6 F 12/13/22 04:00 Pulse 77 12/13/22 07:00 Resp 8 L 12/13/22 07:00 BP 119/70 12/13/22 07:00 Pulse Ox 92 L 12/13/22 07:00 FiO2 50 12/08/22 00:00 Intake & Output 12/12/22 12/13/22 12/13/22 18:59 06:59 18:59 Intake Total 160 540 Output Total 450 900 0 Balance -290 -360 0 Weight 73.3 kg Intake: IV 160 CO/CI 10 Sodium Chloride 0.9% 500 150 ml 500 ml @ 20 mls/hr IV .Q24H [facility] Rx#:[id number] Oral 540 Output: Urine 450 450 0 Straight 450 Post Void Residual 450 Other: Voiding Method Indwelling Catheter Toilet # Bowel Movements 1 ABP, PAP, CO, CI - Last Documented Arterial Blood Pressure 87/84 Pulmonary Artery Pressure 29/10 Cardiac Output 3.7 Cardiac Index 2.1 - Exam CONSTITUTIONAL: Appears comfortable, cooperative, no acute distress RESPIRATORY: Lungs sounds diminished bilaterally. Respirations even, nonlabored. Currently on room air with oxygen saturation 96%. Able to achieve 750 mL on her incentive spirometry. Strong cough CARDIOVASCULAR: S1, S2 present. Regular rate and rhythm, sinus rhythm on telemetry. Sternum stable. Palpable peripheral pulses bilaterally. No edema present. No calf pain or tenderness noted. Heart hugger in place with patient demonstrating appropriate use. Antiembolism stockings, SCDs present. GASTROINTESTINAL: Abdomen soft, nontender, nondistended. Active bowel sounds present 4 quadrants. Tolerating diet. Positive small bowel movement yesterday GENITOURINARY: Shrestha discontinued yesterday afternoon, patient unable to void and was straight cathed 1 this morning for 450 mL INTEGUMENTARY: Skin is warm and dry with evidence of good perfusion. Anterior chest incision well approximated and covered with dry intact dressing. Left lower extremity EVH site well approximated without redness or drainage. NEUROLOGIC: Cranial nerves II through XII intact MUSKULOSKELETAL: Able to move all extremities, strength equal bilaterally PSYCHIATRIC: Alert and oriented to person place and time, appropriate affect, intact judgment and insight INVASIVE LINES AND TUBES: A/V epicardial pacemaker wires present, grounded - Allied health notes Allied health notes reviewed: nursing - Labs CBC & Chem 7: 12/13/22 04:19 12/13/22 04:19 Labs: Abnormal Lab Results - Last 24 Hours (Table) 12/12/22 12/12/22 12/12/22 Range/Units 11:27 16:21 19:57 RBC (3.80-5.40) m/uL Hgb (11.4-16.0) gm/dL Hct (34.0-46.0) % MCHC (31.0-37.0) g/dL RDW (11.5-15.5) % Sodium (137-145) mmol/L BUN (7-17) mg/dL Glucose (74-99) mg/dL POC Glucose (mg/dL) 139 H 134 H 258 H (70-110) mg/dL Calcium (8.4-10.2) mg/dL 12/13/22 12/13/22 12/13/22 Range/Units 04:19 04:19 07:09 RBC 2.67 L (3.80-5.40) m/uL Hgb 8.5 L (11.4-16.0) gm/dL Hct 22.7 L (34.0-46.0) % MCHC 37.5 H (31.0-37.0) g/dL RDW 17.7 H (11.5-15.5) % Sodium 134 L (137-145) mmol/L BUN 19 H (7-17) mg/dL Glucose 107 H (74-99) mg/dL POC Glucose (mg/dL) 159 H (70-110) mg/dL Calcium 8.3 L (8.4-10.2) mg/dL - Imaging and Cardiology Chest x-ray: report reviewed, image reviewed Assessment and Plan Assessment: Coronary artery disease, status post 2V CABG Cardiomyopathy, EF 30-35% on TTE 08/2022, 50-55% TTE 10/2022 Hypertension Hyperlipidemia, treated, cholesterol 146, LDL 75, triglycerides 155 Uncontrolled type 2 diabetes with hyperglycemia, hemoglobin A1c 13% Peripheral arterial disease with toe amputation right foot TIA in 1999 Vertigo Lifetime non-smoker, preoperative FEV1 77% Intraoperative vfib arrest with cardiac massage and defibrillation, unexpected Postoperative acute blood loss anemia and thrombocytopenia, expected Postoperative hypovolemic shock with hypotension requiring pressor support and blood transfusion, expected Plan: Continue to maximize medical therapy with low-dose aspirin, plavix, statin. Continue beta griselda with hold parameters-patient still hasn't received any yet. Will discontinue midodrine. Low dose ASHU added by cardiology Continue amio for A. fib prophylaxis Bronchodilators per pulmonology. Encourage incentive spirometry 10 times every hour while awake Increase activity, ambulate as tolerated. PT/OT/cardiac rehab following GI/DVT prophylaxis Pain control per current medication regimen Insulin management per internal medicine service. Patient needs tight blood sugar control to prevent infection and promote healing May bladder scan and straight cath for >300 mL residual Strict accurate intake and output Daily weights Will monitor daily labs and x-rays. Electrolyte replacement per protocol Dr. Ambrose guido for right foot dressing change Will place transfer orders for 3 S. cardiac stepdown unit. May transfer when bed available More recommendations to follow
[2022-12-13] MEDS: IPRATROPIUM-ALBUTEROL 3 ML NEB INHALATION SCH ×4 (08:56→20:51)
[2022-12-13] MEDS: ACETAMINOPHEN TAB 325 MG TAB PO PRN (11:08)
[2022-12-13 11:09] LABS: Glucose,Whole Blood 129 mg/dL (70-110)
--- NOTE | 2022-12-13 12:27 | P.PN ---
Subjective Progress Note Date: 12/13/22 This is a pleasant 62 year old female who is monitored in intensive care unit. Patient is postoperative day #6 2 vessel CABG. Patient is sitting up in chair, reports no acute events overnight. Ambulating in the hallway without difficulty. Patient did require urinary strait catheterization earlier today, continues to have issues with urinary retention. Patient denies having bowel movement. Labs today showing white count of 4.8, hgb stable at 8.5. Sodium 134, BUN 19, creatinine 1.02. Blood glucose is improved down to 129. Calcium 8.3. Patient is afebrile and on room air. Review of Systems Constitutional: Denied any fatigue denied any fever. Cardio vascular: denied any chest pain, palpitations Gastrointestinal: denied any nausea, vomiting, diarrhea Pulmonary: Denied any shortness of breath cough Neurologic denied any new focal deficits All inpatient medications were reviewed and appropriate changes in these medications as dictated in the interval history and assessment and plan. PHYSICAL EXAMINATION: GENERAL: The patient is alert and oriented x3, not in any acute distress. Well developed, well nourished. HEENT: Pupils are round and equally reacting to light. EOMI. No scleral icterus. No conjunctival pallor. Normocephalic, atraumatic. No pharyngeal erythema. No thyromegaly. -CARDIOVASCULAR: S1 and S2 present. No murmurs, rubs, or gallops. Surgical wound closed and healing. Heart hugger in place PULMONARY: Chest is clear to auscultation, no wheezing or crackles. ABDOMEN: Soft, nontender, nondistended, normoactive bowel sounds. No palpable organomegaly. MUSCULOSKELETAL: No joint swelling or deformity. EXTREMITIES: No cyanosis, clubbing, or pedal edema. NEUROLOGICAL: Gross neurological examination did not reveal any focal deficits. SKIN: No rashes. Assessment and Plan Assessment Status post CABG 2 vessel with BRISENO to LAD and saphenous vein graft to obtuse marginal. Postoperative day 6 Acute hypoxic respiratory failure required mechanical ventilator postoperatively currently extubated and on room air. Coronary artery disease with recent cardiac catheterization at [facility] Ischemic cardiomyopathy ejection fraction 30 to 35%. Most recent echo October 2022 showing improved EF 50-55% Right foot diabetic wound status post ray amputation and is being followed at wound care clinic Uncontrolled diabetes type 2 Hypertension Hyperlipidemia History of TIA/CVA in 1999 with no residual effects. Osteoarthritis COPD not on oxygen at home. GI and DVT prophylaxis Full Code Plan Continue ICU monitoring patient being considered for downgrade to medical floor today. Continue current insulin regimen and monitor blood glucose ACHS Continue bowel regimen Urinary strait cath/bladder scan per protocol patient Continue to encourage ambulation and incentive spirometer The impression and plan of care has been dictated by Carmen Zamudio Nurse Practitioner as directed. Dr. Faraz MD I have performed a history and physical examination and medical decision making of this patient, discussed the same with the dictator, and agree with the [facility] and plan as written, documented as a scribe. Based on total visit time, I have performed more than 50% of this visit. Objective - Vital Signs Vital signs: Vital Signs Temp 98.7 F 12/13/22 08:00 Pulse 75 12/13/22 08:00 Resp 23 12/13/22 08:00 BP 123/80 12/13/22 08:00 Pulse Ox 94 L 12/13/22 08:56 FiO2 50 12/08/22 00:00 Intake & Output 12/12/22 12/13/22 12/13/22 18:59 06:59 18:59 Intake Total 160 540 Output Total 450 900 0 Balance -290 -360 0 Weight 73.3 kg Intake: IV 160 CO/CI 10 Sodium Chloride 0.9% 500 150 ml 500 ml @ 20 mls/hr IV .Q24H [facility] Rx#:[id number] Oral 540 Output: Urine 450 450 0 Straight 450 Post Void Residual 450 Other: Voiding Method Indwelling Catheter Toilet # Bowel Movements 1 ABP, PAP, CO, CI - Last Documented Arterial Blood Pressure 87/84 Pulmonary Artery Pressure 29/10 Cardiac Output 3.7 Cardiac Index 2.1 - Labs CBC & Chem 7: 12/13/22 04:19 12/13/22 04:19 Labs: Abnormal Lab Results - Last 24 Hours (Table) 12/12/22 12/12/22 12/13/22 Range/Units 16:21 19:57 04:19 RBC 2.67 L (3.80-5.40) m/uL Hgb 8.5 L (11.4-16.0) gm/dL Hct 22.7 L (34.0-46.0) % MCHC 37.5 H (31.0-37.0) g/dL RDW 17.7 H (11.5-15.5) % Sodium (137-145) mmol/L BUN (7-17) mg/dL Glucose (74-99) mg/dL POC Glucose (mg/dL) 134 H 258 H (70-110) mg/dL Calcium (8.4-10.2) mg/dL 12/13/22 12/13/22 12/13/22 Range/Units 04:19 07:09 11:08 RBC (3.80-5.40) m/uL Hgb (11.4-16.0) gm/dL Hct (34.0-46.0) % MCHC (31.0-37.0) g/dL RDW (11.5-15.5) % Sodium 134 L (137-145) mmol/L BUN 19 H (7-17) mg/dL Glucose 107 H (74-99) mg/dL POC Glucose (mg/dL) 159 H 129 H (70-110) mg/dL Calcium 8.3 L (8.4-10.2) mg/dL Assessment and Plan Time with Patient: Less than 30
[2022-12-13] MEDS: ONDANSETRON 4 MG/2 ML VIAL IVP PRN (12:41)
[2022-12-13] MEDS ORDERED: polyethylene glycoL 3350 17 GM POWD.PACK PO STA (12:46)
[2022-12-13 14:16] LABS: Glucose,Whole Blood 232 mg/dL (70-110)
[2022-12-13 15:13] LABS: Appearance,Urine Cloudy (Clear); Bacteria,Urine Rare /hpf; Bilirubin,Urine Negative (Negative); Blood,Urine Negative (Negative); Budding Yeast,Urine Many /hpf; Color,Urine Yellow; Glucose,Urine (UA) 4+ (Negative); Hyaline Casts,Urine 27 /lpf (0-2); Ketones,Urine Negative (Negative); Leukocyte Esterase,Urine Large (Negative); Mucus,Urine Rare /hpf; Nitrite,Urine Negative (Negative); PH, Urine 5.5 (5.0-8.0); Protein,Urine Trace (Negative); RBC,Urine 110 /hpf (0-5); Specific Gravity,Urine 1.014 (1.001-1.035); Squamous Epithelial Cell,Urine 2 /hpf (0-4); Urobilinogen,Urine <2.0 mg/dL (<2.0); WBC,Urine 46 /hpf (0-5)
[2022-12-13 16:20] LABS: Glucose,Whole Blood 111 mg/dL (70-110)
[2022-12-13 20:15] LABS: Glucose,Whole Blood 89 mg/dL (70-110)
[2022-12-13] MEDS: SENNOSIDES-DOCUSATE SODIUM 1 EACH TAB PO SCH (21:42)
[2022-12-14 05:24] LABS: Glucose,Whole Blood 102 mg/dL (70-110)
[2022-12-14] MEDS: INSULIN ASPART (NovoLOG) 100 UNIT/ML VIAL SQ SCH ×7 (05:35→21:56)
[2022-12-14] MEDS: METOCLOPRAMIDE 5 MG/ML 2 ML VIAL IVP SCH (06:47)
[2022-12-14] MEDS: PANTOPRAZOLE 40 MG TABLET PO SCH (06:50)
[2022-12-14] MEDS: INSULIN DETEMIR (LEVEMIR) 100 UNIT/ML SYR SQ SCH (06:52)
[2022-12-14 07:27] LABS: Anisocytosis Slight; HCT 27.4 % (34.0-46.0); HGB 9.1 gm/dL (11.4-16.0); MCH 29.2 pg (25.0-35.0); MCHC 33.2 g/dL (31.0-37.0); MCV 88.1 fL (80.0-100.0); Mean Platelet Volume 7.8; Platelet Count 275 k/uL (150-450); RBC 3.11 m/uL (3.80-5.40); WBC 4.5 k/uL (3.8-10.6)
[2022-12-14 07:51] LABS: Calcium 8.6 mg/dL (8.4-10.2); Potassium 4.8 mmol/L (3.5-5.1)
--- NOTE | 2022-12-14 08:17 | P.CONS ---
History of Present Illness - Chief Complaint Cardiac debility - History of Present Illness I had the opportunity to see patient for inpatient rehab consultation. Patient admitted to [facility] December 07 for elective two-vessel CABG and left atrial appendage, Dr. Sanchez. Seen by Dr. Boggs who is known for wound clinic, right foot diabetic wound. Seen medically by Dr. Soto. Seen in ICU by Dr. Stroud. Multiple chest x-rays followed note persistent left pleural effusion and atelectasis. His started therapies. PT reports moderate assistance bed mobility, two-person assistance for transfer and two-person moderate assistance for gait 4 feet, hand-held. OT reports independent with feeding, supervision for grooming, moderate assistance for upper dressing and bathing, maximal assistance for lower dressing total assistance for toileting. Moderate assistance functional mobility and ADL transfers including toilet. Previous functional history as elicited from patient: 62-year-old right-handed white female who is lives in a first-floor apartment alone. In disability related to diabetic disease including blind, foot ulcer. Describes previously independent with cooking, laundry, driving, sitdown shower and gait with 4 wheeled walker. Review of Systems Review of systems: ENT: Denies sneezes or discharge. Eyes: Denies discharge or photophobia. Cardiac: Midline sternotomy. Pulmonary: Denies cough or shortness of breath. Breast: Denies discharge or lumps. Gastrointestinal: Denies nausea, emesis, constipation, diarrhea. Genitourinary: Denies discharge or frequency. Musculoskeletal: Denies muscle or bone aches. Right foot wound. Neurologic: Jean Baptiste mild to moderate generalized weakness. Endocrine: Denies shakes or sweats. Oncology: Denies cancers. Dermatologic: Denies rash, itching, pruritus. ALLERGY/immunology: Denies sneezes, rashes. Past Medical History Past Medical History: COPD, CVA/TIA, Diabetes Mellitus, Eye Disorder, Hyperlipidemia, Hypertension, Osteoarthritis (OA), Skin Disorder Additional Past Medical History / Comment(s): first 3 toes right foot removed 2021-still healing, bandaged, past hx. TIA 1999-no residual affects, decreased vision right eye History of Any Multi-Drug Resistant Organisms: None Reported Past Surgical History: Section, Heart Catheterization, Hernia Repair, Hysterectomy, Orthopedic Surgery Additional Past Surgical History / Comment(s): right rotator cuff, left hand surgery twice, big toe, 2nd & 3rd toes removed right foot, recent heart cath. @[facility] Past Anesthesia/Blood Transfusion Reactions: No Reported Reaction Past Psychological History: No Psychological Hx Reported Smoking Status: Never smoker Past Alcohol Use History: None Reported Past Drug Use History: None Reported - Past Family History Father Family Medical History: Coronary Artery Disease (CAD) Medications and Allergies Home Medications Medication Instructions Recorded Confirmed Type Atorvastatin [Lipitor] 40 mg PO HS 11/25/22 12/07/22 History Empagliflozin [Jardiance] 10 mg PO DAILY 11/25/22 12/07/22 History Ergocalciferol [Vitamin D2 (1250 1,250 mcg PO FLOYD 11/25/22 12/07/22 History Mcg = [id number] Iu)] Furosemide [Lasix] 40 mg PO BID 11/25/22 12/07/22 History Loperamide [Imodium] 2 mg PO QID PRN 11/25/22 12/07/22 History Metoprolol Tartrate [Lopressor] 25 mg PO DAILY 11/25/22 12/07/22 History Potassium Chloride ER [K-Dur 20] 20 meq PO BID 11/25/22 12/07/22 History Aspirin 81 mg PO DAILY 12/03/22 12/07/22 History Insulin Degludec [Tresiba] 200 units SQ HS 12/07/22 12/07/22 History Semaglutide [Ozempic] 2 mg SQ WEEKLY 12/07/22 12/07/22 History Allergies Allergy/AdvReac Type Severity Reaction Status Date / Time Penicillins Allergy Rash/Hives Verified 12/07/22 06:00 aspirin AdvReac Nausea & Verified 12/07/22 06:00 Vomiting & Diarrhea Physical Exam Vitals: Vital Signs Temp Pulse Resp BP BP BP BP 12/14/22 05:33 123/73 12/14/22 05:26 93/53 12/14/22 05:25 50 L 79/50 12/14/22 04:00 97.7 F 56 L 14 103/63 12/13/22 23:54 98 F 61 14 121/75 12/13/22 20:00 98 F 61 16 101/65 12/13/22 15:55 97.9 F 55 L 19 92/59 12/13/22 14:12 93/59 12/13/22 14:00 52 L 75/51 12/13/22 12:00 98.0 F 52 L 22 122/74 12/13/22 08:56 Pulse Ox 12/14/22 05:33 12/14/22 05:26 12/14/22 05:25 12/14/22 04:00 95 12/13/22 23:54 94 L 12/13/22 20:00 95 12/13/22 15:55 97 12/13/22 14:12 12/13/22 14:00 12/13/22 12:00 98 12/13/22 08:56 94 L Intake and Output 12/13/22 12/14/22 12/14/22 22:59 06:59 14:59 Intake Total 500 Output Total 320 Balance 500 -320 Intake: Oral 500 Output: Urine 320 Straight 220 Other: Voiding Method Toilet Indwelling Catheter # Voids 0 # Bowel Movements 0 0 Weight 82.1 kg Skin: Good color, texture, turgor. General: Medium build and comfortable appearance. Head: Normocephalic, atraumatic. Eyes: Symmetric. Pupils equal round. Ears: Symmetric. Hearing within normal limits. Mouth: Clear. Neck: Supple. Carotid without bruit. Cardiac: Sternotomy clean and dressed.. Lungs: Clear anteriorly and posteriorly. Abdomen: Soft active nontender. Extremities: Normal tone. Pressure cuffs on calves. Neurological: Mental status: Alert, cooperative, pleasant. Cranial nerves: Symmetric facial tone and trapezius. Motor: Able to actively elevate all 4 limbs. Sensation: Intact throughout. DTRs: Symmetric and equal throughout. Mobility: Sitting in [place] chair. Results CBC & Chem 7: 12/14/22 06:08 12/14/22 06:08 Labs: Abnormal Lab Results - Last 24 Hours (Table) 12/13/22 12/13/22 12/13/22 Range/Units 11:08 14:15 14:45 RBC (3.80-5.40) m/uL Hgb (11.4-16.0) gm/dL Hct (34.0-46.0) % RDW (11.5-15.5) % Sodium (137-145) mmol/L BUN (7-17) mg/dL Creatinine (0.52-1.04) mg/dL POC Glucose (mg/dL) 129 H 232 H (70-110) mg/dL Urine Appearance Cloudy H (Clear) Urine Protein Trace H (Negative) Urine Glucose (UA) 4+ H (Negative) Ur Leukocyte Esterase Large H (Negative) Urine RBC 110 H (0-5) /hpf Urine WBC 46 H (0-5) /hpf Urine WBC Clumps Few H (None) /hpf Urine Bacteria Rare H (None) /hpf Hyaline Casts 27 H (0-2) /lpf Urine Mucus Rare H (None) /hpf Urine Yeast (Budding) Many H (None) /hpf 12/13/22 12/14/22 12/14/22 Range/Units 16:18 06:08 06:08 RBC 3.11 L (3.80-5.40) m/uL Hgb 9.1 L (11.4-16.0) gm/dL Hct 27.4 L (34.0-46.0) % RDW 18.0 H (11.5-15.5) % Sodium 134 L (137-145) mmol/L BUN 22 H (7-17) mg/dL Creatinine 1.28 H (0.52-1.04) mg/dL POC Glucose (mg/dL) 111 H (70-110) mg/dL Urine Appearance (Clear) Urine Protein (Negative) Urine Glucose (UA) (Negative) Ur Leukocyte Esterase (Negative) Urine RBC (0-5) /hpf Urine WBC (0-5) /hpf Urine WBC Clumps (None) /hpf Urine Bacteria (None) /hpf Hyaline Casts (0-2) /lpf Urine Mucus (None) /hpf Urine Yeast (Budding) (None) /hpf Assessment and Plan (1) Triple vessel coronary artery disease Current Visit: No Status: Acute Code(s): I25.10 - ATHSCL HEART DISEASE OF [place] CORONARY ARTERY W/O ANG PCTRS SNOMED Code(s): 892884092 Plan: Comments and plan: Diagnoses should also include a diabetic right foot wound which of course making mobility difficult. His started therapies. Safety concerns noted. Demonstrate ability tolerate and benefit from therapies and discussed inpatient rehab as she seems appropriate for RPR. Patient feels that she has good insurance but discussed with her that [employer] will scrutinize this closely.
--- NOTE | 2022-12-14 08:51 | XR ---
EXAMINATION TYPE: XR chest 2V DATE OF EXAM: 12/14/2022 6:38 AM COMPARISON: Chest radiograph from one day prior. TECHNIQUE: XR chest 2V Frontal and lateral views of the chest. CLINICAL INDICATION:Female, 62 years old with history of post cardiac surgery; FINDINGS: Lungs/Pleura: Small left pleural effusion with associated atelectasis. No pneumothorax appreciated. Pulmonary vascularity: Unremarkable. Heart/mediastinum: Cardiomediastinal silhouette is enlarged and stable. Atherosclerotic calcificatio ns are seen in the aorta. Left atrial appendage occlusion device is present. Musculoskeletal: No acute osseous pathology. Interval removal of Kilgore-Freddy catheter. IMPRESSION: Stable exam with Persistent small left effusion with atelectasis changes.
[2022-12-14] MEDS ORDERED: METOCLOPRAMIDE 5 MG/ML 2 ML VIAL IVP PRN (09:07)
--- NOTE | 2022-12-14 09:16 | P.PN ---
Subjective Progress Note Date: 12/14/22 Principal diagnosis: Coronary artery disease. History of cardiomyopathy, hypertension, hyperlipidemia, uncontrolled type 2 diabetes with hyperglycemia, peripheral arterial disease with toe amputation right foot, TIA in 1999, vertigo, lifetime non-smoker POD #7 Off pump coronary artery bypass x 2, left internal mammary artery to the left anterior descending artery, reverse saphenous vein graft to the second obtuse marginal artery, occlusion of the base of the left atrial appendage with 35 mm AtriCure clip, placement of intra-aortic balloon pump percutaneously via left femoral arterial approach, endovascular vein harvest of the left greater saphenous vein from the midcalf to the groin Intraoperative vfib arrest with cardiac massage and defibrillation, unexpected Postoperative acute blood loss anemia and thrombocytopenia, expected given hemodilution Postoperative hypovolemic shock with hypotension requiring pressor support and blood transfusion, expected given volume loss The patient was seen and examined sitting up in her recliner on the cardiac stepdown unit this morning in no acute distress. States pain is controlled on current medication regimen, denies shortness of breath. Remains in sinus rhythm, blood pressure stable currently although had another episode of hypotension and bradycardia when getting up to ambulate to the shower this morning. She was given Lopressor and lisinopril last night per orders as her heart rate and blood pressure are stable when she is lying or sitting. Labs and x-rays reviewed. Patient had urinary retention and has been unable to void since removal of Shrestha catheter, Shrestha catheter reinserted and urinalysis sent. Plan was originally for discharge to home with home care when ready, however patient lives by herself and has some safety concerns and multiple reasons for close physician monitoring. Consultation placed for Dr. Rowan for IPR at discharge. No other new concerns. Objective - Vital Signs Vital signs: Vital Signs Temp 97.7 F 12/14/22 04:00 Pulse 50 L 12/14/22 05:25 Resp 14 12/14/22 04:00 BP 123/73 12/14/22 05:33 Pulse Ox 95 12/14/22 04:00 FiO2 50 12/08/22 00:00 Intake & Output 12/13/22 12/14/22 12/14/22 18:59 06:59 18:59 Intake Total 500 500 Output Total 275 320 Balance 225 -320 500 Weight 82.1 kg Intake: Oral 500 500 Output: Urine 275 320 Straight 275 220 Other: Voiding Method Toilet Indwelling Catheter # Voids 0 # Bowel Movements 0 ABP, PAP, CO, CI - Last Documented Arterial Blood Pressure 87/84 Pulmonary Artery Pressure 29/10 Cardiac Output 3.7 Cardiac Index 2.1 - Exam CONSTITUTIONAL: Appears comfortable, cooperative, no acute distress RESPIRATORY: Lungs sounds diminished bilaterally. Respirations even, nonlabored. Currently on room air with oxygen saturation 95%. Able to achieve 750 mL on her incentive spirometry. Strong cough CARDIOVASCULAR: S1, S2 present. Bradycardia but regular rate and rhythm, sinus bradycardia on telemetry with heart rate in the 50s. Sternum stable. Palpable peripheral pulses bilaterally. No edema present. No calf pain or tenderness noted. Heart hugger in place with patient demonstrating appropriate use. Antiembolism stockings, SCDs present. GASTROINTESTINAL: Abdomen soft, nontender, nondistended. Active bowel sounds present 4 quadrants. Tolerating diet. Positive bowel movement yesterday GENITOURINARY: Shrestha reinserted due to retention, 595 mL in the last 24 hours INTEGUMENTARY: Skin is warm and dry with evidence of good perfusion. Anterior chest incision well approximated and covered with dry intact dressing. Left lower extremity EVH site well approximated without redness or drainage. NEUROLOGIC: Cranial nerves II through XII intact MUSKULOSKELETAL: Able to move all extremities, strength equal bilaterally PSYCHIATRIC: Alert and oriented to person place and time, appropriate affect, intact judgment and insight INVASIVE LINES AND TUBES: A/V epicardial pacemaker wires present, grounded - Allied health notes Allied health notes reviewed: nursing - Labs CBC & Chem 7: 12/14/22 06:08 12/14/22 06:08 Labs: Abnormal Lab Results - Last 24 Hours (Table) 12/13/22 12/13/22 12/13/22 Range/Units 11:08 14:15 14:45 RBC (3.80-5.40) m/uL Hgb (11.4-16.0) gm/dL Hct (34.0-46.0) % RDW (11.5-15.5) % Sodium (137-145) mmol/L BUN (7-17) mg/dL Creatinine (0.52-1.04) mg/dL POC Glucose (mg/dL) 129 H 232 H (70-110) mg/dL Urine Appearance Cloudy H (Clear) Urine Protein Trace H (Negative) Urine Glucose (UA) 4+ H (Negative) Ur Leukocyte Esterase Large H (Negative) Urine RBC 110 H (0-5) /hpf Urine WBC 46 H (0-5) /hpf Urine WBC Clumps Few H (None) /hpf Urine Bacteria Rare H (None) /hpf Hyaline Casts 27 H (0-2) /lpf Urine Mucus Rare H (None) /hpf Urine Yeast (Budding) Many H (None) /hpf 12/13/22 12/14/22 12/14/22 Range/Units 16:18 06:08 06:08 RBC 3.11 L (3.80-5.40) m/uL Hgb 9.1 L (11.4-16.0) gm/dL Hct 27.4 L (34.0-46.0) % RDW 18.0 H (11.5-15.5) % Sodium 134 L (137-145) mmol/L BUN 22 H (7-17) mg/dL Creatinine 1.28 H (0.52-1.04) mg/dL POC Glucose (mg/dL) 111 H (70-110) mg/dL Urine Appearance (Clear) Urine Protein (Negative) Urine Glucose (UA) (Negative) Ur Leukocyte Esterase (Negative) Urine RBC (0-5) /hpf Urine WBC (0-5) /hpf Urine WBC Clumps (None) /hpf Urine Bacteria (None) /hpf Hyaline Casts (0-2) /lpf Urine Mucus (None) /hpf Urine Yeast (Budding) (None) /hpf - Imaging and Cardiology Chest x-ray: report reviewed, image reviewed Assessment and Plan Assessment: Coronary artery disease, status post 2V CABG Cardiomyopathy, EF 30-35% on TTE 08/2022, 50-55% TTE 10/2022 Hypertension Hyperlipidemia, treated, cholesterol 146, LDL 75, triglycerides 155 Uncontrolled type 2 diabetes with hyperglycemia, hemoglobin A1c 13% Peripheral arterial disease with toe amputation right foot TIA in 1999 Vertigo Lifetime non-smoker, preoperative FEV1 77% Intraoperative vfib arrest with cardiac massage and defibrillation, unexpected Postoperative acute blood loss anemia and thrombocytopenia, expected Postoperative hypovolemic shock with hypotension requiring pressor support and blood transfusion, expected Cardiac debility Urinary retention requiring replacement of Shrestha catheter Plan: Continue to maximize medical therapy with low-dose aspirin, plavix, statin. Will hold beta griselda due to bradycardia and hypotension. Low dose ASHU added by cardiology yesterday, will hold a.m. dose Will check orthostatic blood pressure and heart rate Continue amio for A. fib prophylaxis Bronchodilators per pulmonology. Encourage incentive spirometry 10 times every hour while awake Increase activity, ambulate as tolerated. PT/OT/cardiac rehab following GI/DVT prophylaxis Pain control per current medication regimen Insulin management per internal medicine service. Patient needs tight blood sugar control to prevent infection and promote healing Consultation placed to urology, appreciate recommendations Strict accurate intake and output Daily weights Will monitor daily labs and x-rays. Electrolyte replacement per protocol Dr. Boggs following for right foot dressing change Consultation placed for Dr. Rowan for inpatient rehab at discharge. Patient has multiple medical issues and safety issues requiring close physician follow-up More recommendations to follow
[2022-12-14] MEDS: HEPARIN SODIUM,PORCINE/PF 5,000 UNIT/0.5 ML SYRINGE SQ SCH ×3 (09:28→23:47)
[2022-12-14] MEDS: CLOPIDOGREL 75 MG TAB PO SCH (09:28)
[2022-12-14] MEDS: AMIODARONE 200 MG TAB PO SCH (09:28)
[2022-12-14] MEDS: DAPAGLIFLOZIN PROPANEDIOL 10 MG TABLET PO SCH (09:28)
[2022-12-14] MEDS: ASCORBIC ACID 500 MG TAB PO SCH ×2 (09:28→21:55)
[2022-12-14] MEDS: ATORVASTATIN 40 MG TAB PO SCH (09:28)
[2022-12-14] MEDS: ASPIRIN 81 MG PO SCH (09:28)
[2022-12-14] MEDS: METOPROLOL TARTRATE 12.5 MG TAB PO SCH ×2 (09:29→21:47)
[2022-12-14] MEDS: IPRATROPIUM-ALBUTEROL 3 ML NEB INHALATION SCH ×4 (10:01→21:52)
--- NOTE | 2022-12-14 10:08 | P.PN ---
Subjective Progress Note Date: 12/14/22 I am seeing this patient in new consultation today 12/08/2022 in regard to postoperative open-heart ICU management. Patient is a 62-year-old white female with past significant medical history of hypertension, hyperlipidemia, diabetes mellitus type 2, COPD, previous TIA, vertigo, peripheral 2-year-old disease with recent amputation of her great toe second and third toes of the right foot. On 09/20/2022 patient had a transthoracic 2-D echocardiogram which showed severe cardiomyopathy with an ejection fraction between 30 and 35%. A follow-up elective heart catheterization was done at [facility] which reportedly demonstrated triple-vessel coronary artery disease. Patient was scheduled for an elective CABG with Dr. Sanchez yesterday. Based on the patient's preoperative PFT, she was at no increased intraoperative risk. Patient underwent an off-pump CABG 2 with a BRISENO to the LAD, saphenous vein graft to the obtuse marginal 2, and ligation of the left atrial appendage. Intraoperatively, the patient did have a V. fib arrest. There was placement of an intra-aortic balloon pump via the left femoral artery. ROSC was achieved after a few minutes, and the procedure was completed. Patient has received a total of 2 units of PRBCs and 1 of platelets for some postoperative bleeding. Patient is currently in the intensive care unit remaining mechanically ventilated with settings of assist control, respiratory rate 14, tidal volume 400, FiO2 50%, PEEP of 5. Postoperative ABGs show a pO2 greater than 400, pCO2 48, pH of 7.33. This was done on FiO2 of 100%, which was dropped down to 50%. Postoperative chest x-ray shows endotracheal tube 3.2 cm the vernell, a NG-tube coursing below the diaphragm, an appropriately placed [place]Fred[place] catheter, bilateral thoracotomy tubes without evidence of pneumothorax, a chest tube within the mediastinum, and postoperative surgical changes. IABP remains in place at a 1-1 ratio. Augmented pressure is 93 mmHg, and mean arterial pressure is 73 mmHg. Patient currently has epinephrine infusing at 0.025 mics per kilogram per minute, Levophed in fusing at 0.03 mics per kilogram per minute, amiodarone infusing at 0.5 mg/m, nitro infusing at 5 mics per minute. Propofol and insulin are currently paused. So far, there have been no attempts at weaning. Patient is awake, alert and following commands. There have been no acute titrations to the patient's vasopressors. Patient's most recent CO/CI is 5.4 and 3.1 respectively, pulmonary artery pressure 30/14, heart rhythm is normal sinus at 90 bpm. Urine output is approximately 80-100 ML's per hour. Patient's chest tube output has slowed down to less than 50 ML's per hour. There is a total of 550 ML's of serosanguineous output out of the mediastinal chest tube, and a total of 700 ML's of serosanguinous output from the right and left pleural chest tube. Most recent CBC shows a hemoglobin of 8.9 and hematocrit of 25.7. INR is 1.2. Most recent BMP shows a sodium 142, potassium 3.7, chloride 106, serum CO2 26, BUN 23, creatinine 0.74, glucose 146. Magnesium was 2.4. Lactated Ringer's is infusing at 50 ML's per hour. Patient is currently calm and following commands. No recent acute changes in patient's hemodynamics, and patient is a potential candidate for weaning from the mechanical ventilator. The patient is seen today 12/09/2022 in follow-up in the intensive care unit. She is currently sitting up in a chair at the bedside. Awake and alert in no acute distress. She is maintaining good O2 saturations in the 90s on room air. She is postoperative day #2. She is continued on a insulin drip at 15 units per hour, nitroglycerin drip at 5 mcg/m on a lactated Ringer's at 40 ML's per hour, epinephrine and 0.025 mcg/kg/m. Norepinephrine is currently off. He is curr ently in normal sinus rhythm. No arrhythmias noted. Blood pressure stable. PA pressure 30/12. CVP 15. Chest x-ray reveals no evidence of pleural effusion, focal consolidation or pneumothorax. Chest tubes remain in place. She is status post 2 units of packed red blood cells and 1 unit of platelets. White count 9.1. Hemoglobin 7.7. Platelets 97,000. Sodium 133. Potassium 5.0. Bicarb 30. BUN 17. Creatinine 0.99. AST 105. ALT 20. Albumin 2.9. She is working well with the incentive spirometer. Continued on DuoNeb inhalations. Heparin for DVT prophylaxis. Patient is seen today 12/10/2022 in follow-up in the intensive care unit. Postoperative day #3. She is currently awake and alert in no acute distress. Sitting up in a chair at the bedside. Maintaining good O2 saturations in the 90s on room air. She is on lactated Ringer's at 40 ML's per hour. On epinephrine at 0.12 mcg/kg per hour. Remains on insulin drip at 5 units per hour. Current blood pressure 107/62 with a mean of 83. PA pressures 30/11. CVP of 7. Recent cardiac output 3.6. Cardiac index 2.0. She remains afebrile. Chest x-ray reveals postsurgical changes. Chest tubes have been removed. No evidence of pneumothorax. There is trace left pleural effusion with associated atelectasis. She continues to work well with the incentive spirometer. She is status post 2 units of packed red blood cells and 1 unit of platelets this admission. White count 8.8. Hemoglobin 9.1. Platelets 117. Sodium 131. Potassium 5.0. Bicarb 24. BUN 22. Creatinine 1.21. Glucose 202. AST 72. ALT 26. Albumin 3.1. She remains on bronchodilators, heparin for DVT prophylaxis. The patient is seen today 12/11/2022 in follow-up in the intensive care unit. Postoperative day #4. She is sitting up in a chair at the bedside. Awake and alert in no acute distress. Denies any worsening shortness of breath, cough or congestion. Pain is well managed. Working well with the incentive spirometer. Maintaining good O2 saturations in the 90s on 2 L/m per nasal cannula. Chest x- ray reveals blunting of left costophrenic angle. No focal consolidation or pneumothorax. Postsurgical changes without evidence of pneumothorax. She has normal saline at 20 MLS per hour. On epinephrine drip at 0.01 mcg/kg/min. H eparin for DVT prophylaxis. He remains on bronchodilators. She's been transitioned to Levemir. She is status post 3 units of packed red blood cells and 1 unit of platelets this admission. Current hemoglobin 9.3. Platelets 141. White count 7.7. Sodium 132. Potassium 4.7. Bicarb 24. BUN 21. Creatinine 0.89. Glucose 89. Albumin 2.6. Magnesium 2.2 The patient is seen today 12/12/2022 in follow-up in the intensive care unit. Postoperative day #5. She is awake and alert in no acute distress. Sitting up in a chair at the bedside. Maintaining good O2 saturations in the 90s on room a ir. She is off the epinephrine drip. Midodrine has been added. Vital signs stable. Current blood pressure 102/60 with a mean of 79. PA pressure 29/10 and a CVP of 7. Currently in sinus rhythm. Maintaining on amiodarone. Heparin for DVT prophylaxis. Continued on bronchodilators. Working well with the incentive spirometer. Chest x-ray shows persistent cardiomegaly and central vascular con gestion with small to moderate left pleural effusion and bibasilar atelectasis. No change compared to previous. White count 5.6. Hemoglobin 9.1. Platelets 191. Sodium 134. Potassium 4.5. Bicarb 27. BUN 17. Creatinine 0.88. Glucose 139. Calcium 8.4. Progress note dated 12/13/2022. This is a 62-year-old female postop day #6, status post CABG. The patient's doing well. She's currently on room air. She does get 1 L at nighttime. She's not receiving any IV fluids. She's getting about 750 mL on her incentive spirometer. White count 4.8, hemoglobin 8.5, hematocrit 22.7, and platelet count 197,000. Sodium 134, potassium 4.8, chlorides 102, CO2 27, BUN 19, creatinine 1.02. On 12/14/2022, the patient is on room air oxygen. She has no specific complaints. She is awaiting to be transferred to rehabilitation. Blood work shows a BUN of 22 with a creatinine of 1.28. Sodium level is at 143. The delivery suppositive 4.5 with a hemoglobin of 9.1. No other active issues for now. Using the incentive spirometer. Pulling approximately thousand, the patient is currently postop day #7.. Objective - Vital Signs Vital signs: Vital Signs Temp 97.7 F 12/14/22 04:00 Pulse 50 L 12/14/22 05:25 Resp 14 12/14/22 04:00 BP 123/73 12/14/22 05:33 Pulse Ox 95 12/14/22 10:01 FiO2 50 12/08/22 00:00 Intake & Output 12/13/22 12/14/22 12/14/22 18:59 06:59 18:59 Intake Total 500 500 Output Total 275 320 Balance 225 -320 500 Weight 82.1 kg Intake: Oral 500 500 Output: Urine 275 320 Straight 275 220 Other: Voiding Method Toilet Indwelling Catheter # Voids 0 # Bowel Movements 0 ABP, PAP, CO, CI - Last Documented Arterial Blood Pressure 87/84 Pulmonary Artery Pressure 29/10 Cardiac Output 3.7 Cardiac Index 2.1 - Exam CONSTITUTIONAL: Appears comfortable, cooperative, no acute distress RESPIRATORY: Lungs sounds diminished bilaterally. Respirations even, nonlabored. Currently on room air with oxygen saturation 95%. Able to achieve 750 mL on her incentive spirometry. Strong cough CARDIOVASCULAR: S1, S2 present. Bradycardia but regular rate and rhythm, sinus bradycardia on telemetry with heart rate in the 50s. Sternum stable. Palpable peripheral pulses bilaterally. No edema present. No calf pain or tenderness noted. Heart hugger in place with patient demonstrating appropriate use. Antiembolism stockings, SCDs present. GASTROINTESTINAL: Abdomen soft, nontender, nondistended. Active bowel sounds present 4 quadrants. Tolerating diet. Positive bowel movement yesterday GENITOURINARY: Shrestha reinserted due to retention, 595 mL in the last 24 hours INTEGUMENTARY: Skin is warm and dry with evidence of good perfusion. Anterior chest incision well approximated and covered with dry intact dressing. Left lower extremity EVH site well approximated without redness or drainage. NEUROLOGIC: Cranial nerves II through XII intact MUSKULOSKELETAL: Able to move all extremities, strength equal bilaterally PSYCHIATRIC: Alert and oriented to person place and time, appropriate affect, intact judgment and insight INVASIVE LINES AND TUBES: A/V epicardial pacemaker wires present, grounded - Labs CBC & Chem 7: 12/14/22 06:08 12/14/22 06:08 Labs: Abnormal Lab Results - Last 24 Hours (Table) 12/13/22 12/13/22 12/13/22 Range/Units 11:08 14:15 14:45 RBC (3.80-5.40) m/uL Hgb (11.4-16.0) gm/dL Hct (34.0-46.0) % RDW (11.5-15.5) % Sodium (137-145) mmol/L BUN (7-17) mg/dL Creatinine (0.52-1.04) mg/dL POC Glucose (mg/dL) 129 H 232 H (70-110) mg/dL Urine Appearance Cloudy H (Clear) Urine Protein Trace H (Negative) Urine Glucose (UA) 4+ H (Negative) Ur Leukocyte Esterase Large H (Negative) Urine RBC 110 H (0-5) /hpf Urine WBC 46 H (0-5) /hpf Urine WBC Clumps Few H (None) /hpf Urine Bacteria Rare H (None) /hpf Hyaline Casts 27 H (0-2) /lpf Urine Mucus Rare H (None) /hpf Urine Yeast (Budding) Many H (None) /hpf 12/13/22 12/14/22 12/14/22 Range/Units 16:18 06:08 06:08 RBC 3.11 L (3.80-5.40) m/uL Hgb 9.1 L (11.4-16.0) gm/dL Hct 27.4 L (34.0-46.0) % RDW 18.0 H (11.5-15.5) % Sodium 134 L (137-145) mmol/L BUN 22 H (7-17) mg/dL Creatinine 1.28 H (0.52-1.04) mg/dL POC Glucose (mg/dL) 111 H (70-110) mg/dL Urine Appearance (Clear) Urine Protein (Negative) Urine Glucose (UA) (Negative) Ur Leukocyte Esterase (Negative) Urine RBC (0-5) /hpf Urine WBC (0-5) /hpf Urine WBC Clumps (None) /hpf Urine Bacteria (None) /hpf Hyaline Casts (0-2) /lpf Urine Mucus (None) /hpf Urine Yeast (Budding) (None) /hpf Assessment and Plan Plan: Postop day #7 of an elective off-pump CABG 2 with a BRISENO to LAD, saphenous vein graft to the obtuse marginal 2, ligation of left atrial appendage. Intraoperatively, the patient did have a V. fib arrest. There was placement of an intra-aortic balloon pump via the left femoral artery with subsequent removal. Acute hypoxemic respiratory failure as an expected outcome of surgery. The patient is currently on room air oxygen Acute blood loss, expected following the procedure. Post transfusion of 3 units PRBC and one unit of platelets current hemoglobin 9.1. Coronary artery disease. Cardiomyopathy with an ejection fraction of 30-35%. Diabetes mellitus type 2. Hyperlipidemia. Hypertension. Previous TIA. Background COPD. There was no increased intraoperative risk based on patient's preoperative PFT. Peripheral arterial disease with recent amputation of the great toe, second toe, and third toe of the right foot. Plan: Clinically stable and the patient is currently on room air oxygen Continue to use incentive spirometer Hemoglobin stable at 9.1 Patient is going to [facility] for rehabilitation
--- NOTE | 2022-12-14 10:57 | P.PN ---
Subjective Progress Note Date: 12/14/22 HISTORY OF PRESENT ILLNESS: Patient is pleasant 62-year-old female with history of cardiomyopathy, hypertension, hyperlipidemia, diabetes mellitus type 2, TIA, vertigo, PAD with prior toe amputation. Patient underwent off-pump CABG 2 complicated by hypotension requiring vasopressors and blood transfusion and had postoperative anemia and thrombocytopenia as well as intraoperative V. fib arrests with cardiac massage and defibrillation. 12/11 Patient denies any chest pain or pressure. [place] catheter remains in place with improved cardiac output/cardiac index however epinephrine able to be weaned. Denies any nausea or vomiting today however had some yesterday. Admits to some lightheadedness with standing up however states feeling somewhat better than yesterday. 12/12 Patient seen and examined. Creatinine stable 0.8, hemoglobin 9.1, platelets 191. She denies any chest pain or pressure. She did have the [place] catheter removed this afternoon. She is off of any vasopressors. She is in sinus rhythm on telemetry. 12/13/2022 The patient is status post CABG with BRISENO to the LAD and SVG to the OM her intraoperative course was complicated IV A. fib and cardiac massage and intra- aortic balloon pump placement. She is feeling well this morning, awake and aler t. She denies any chest discomfort, dizziness or palpitations. She denies any nausea or vomiting. Hemodynamically she is stable and continues to be in sinus mechanism. She has no evidence of ventricle tachycardia. Her ejection fraction in October was 50-55%. Her appetite is good. 12/14/2022 Patient examined this morning. Patient is sitting up in the chair. Patient currently denies chest pain or pressure. She denies shortness of breath. Vital signs are stable. Telemetry reveals sinus mechanism. The patient had an episode of hypotension this morning which has since resolved. Patient having issues with urinary retention and has Shrestha catheter present. She has been evaluated for inpatient rehab at discharge. PHYSICAL EXAM: VITAL SIGNS: Reviewed. GENERAL: Well-developed in no acute distress. NECK: Supple. No JVD or thyromegaly LUNGS: Respirations even and unlabored. Lungs essentially clear to auscultation bilaterally, diminished. HEART: Regular rate and rhythm. S1 and S2 heard. EXTREMITIES: Normal range of motion. No clubbing or cyanosis. Peripheral pulses intact. No lower extremity edema ASSESSMENT: Coronary artery disease, status post CABG 2 vessels Ischemic cardiomyopathy EF 30-35% Hypertension Hyperlipidemia Diabetes mellitus PAD History of of TIA Vertigo Intraoperative V. fib arrest with cardiac massage and defibrillation Postoperative anemia and thrombocytopenia Postoperative hypotension requiring pressor support, improving PLAN: Continue postoperative management per cardiothoracic surgery Beta griselda placed on hold per cardiothoracic surgery secondary to bradycardia and hypotension Lisinopril 2.5mg BID was added yesterday. This morning's dose to be held per CT surgery Continue telemetry monitoring Continue to monitor blood pressure Increase activity as tolerated Encouraged use of spirometer Possible inpatient rehab at time of discharge Further recommendations pending patient course Nurse practitioner note has been reviewed by physician. Signing provider agrees with the documented findings, assessment, and plan of care. Objective - Vital Signs Vital signs: Vital Signs Temp 97.7 F 12/14/22 04:00 Pulse 50 L 12/14/22 05:25 Resp 14 12/14/22 04:00 BP 123/73 12/14/22 05:33 Pulse Ox 95 12/14/22 10:01 FiO2 50 12/08/22 00:00 Intake & Output 12/13/22 12/14/22 12/14/22 18:59 06:59 18:59 Intake Total 500 500 Output Total 275 320 Balance 225 -320 500 Weight 82.1 kg Intake: Oral 500 500 Output: Urine 275 320 Straight 275 220 Other: Voiding Method Toilet Indwelling Catheter # Voids 0 # Bowel Movements 0 ABP, PAP, CO, CI - Last Documented Arterial Blood Pressure 87/84 Pulmonary Artery Pressure 29/10 Cardiac Output 3.7 Cardiac Index 2.1 - Labs CBC & Chem 7: 12/14/22 06:08 12/14/22 06:08 Labs: Abnormal Lab Results - Last 24 Hours (Table) 12/13/22 12/13/22 12/13/22 Range/Units 11:08 14:15 14:45 RBC (3.80-5.40) m/uL Hgb (11.4-16.0) gm/dL Hct (34.0-46.0) % RDW (11.5-15.5) % Sodium (137-145) mmol/L BUN (7-17) mg/dL Creatinine (0.52-1.04) mg/dL POC Glucose (mg/dL) 129 H 232 H (70-110) mg/dL Urine Appearance Cloudy H (Clear) Urine Protein Trace H (Negative) Urine Glucose (UA) 4+ H (Negative) Ur Leukocyte Esterase Large H (Negative) Urine RBC 110 H (0-5) /hpf Urine WBC 46 H (0-5) /hpf Urine WBC Clumps Few H (None) /hpf Urine Bacteria Rare H (None) /hpf Hyaline Casts 27 H (0-2) /lpf Urine Mucus Rare H (None) /hpf Urine Yeast (Budding) Many H (None) /hpf 12/13/22 12/14/22 12/14/22 Range/Units 16:18 06:08 06:08 RBC 3.11 L (3.80-5.40) m/uL Hgb 9.1 L (11.4-16.0) gm/dL Hct 27.4 L (34.0-46.0) % RDW 18.0 H (11.5-15.5) % Sodium 134 L (137-145) mmol/L BUN 22 H (7-17) mg/dL Creatinine 1.28 H (0.52-1.04) mg/dL POC Glucose (mg/dL) 111 H (70-110) mg/dL Urine Appearance (Clear) Urine Protein (Negative) Urine Glucose (UA) (Negative) Ur Leukocyte Esterase (Negative) Urine RBC (0-5) /hpf Urine WBC (0-5) /hpf Urine WBC Clumps (None) /hpf Urine Bacteria (None) /hpf Hyaline Casts (0-2) /lpf Urine Mucus (None) /hpf Urine Yeast (Budding) (None) /hpf
[2022-12-14] MEDS ORDERED: LACTULOSE 20 GM/30 ML CUP PO ONE (11:28)
--- NOTE | 2022-12-14 11:33 | P.GSCN ---
History of Present Illness Consult date: 12/14/22 Reason for Consult: Urinary retention Requesting physician: Yvonne Edwards History of present illness: The patient is a 62-year-old female with past medical history of COPD, TIA, diabetes mellitus, hyperlipidemia, hypertension, and peripheral vascular disease with recent amputation of toes. The patient underwent an elective CABG [address] Sanchez on 12/07/22 and has had a complicated recovery period. In anticipation of being transferred to an [facility] soon her Shrestha catheter was discontinued on 12/12/22. The patient was unable to void requiring straight catheterizations 2 and a Shrestha catheter reinsertion. We will consulted for her urinary retention. Review of Systems - Constitutional Denies chills, Denies fever - EENT Ears, nose, mouth and throat: Denies headache - Gastrointestinal Reports constipation, Denies abdominal pain, Denies nausea, Denies vomiting - Genitourinary Genitourinary: Reports difficulty voiding Past Medical History Past Medical History: COPD, CVA/TIA, Diabetes Mellitus, Eye Disorder, Hyperlipidemia, Hypertension, Osteoarthritis (OA), Skin Disorder Additional Past Medical History / Comment(s): first 3 toes right foot removed 2021-still healing, bandaged, past hx. TIA 1999-no residual affects, decreased vision right eye History of Any Multi-Drug Resistant Organisms: None Reported Past Surgical History: Section, Heart Catheterization, Hernia Repair, Hysterectomy, Orthopedic Surgery Additional Past Surgical History / Comment(s): right rotator cuff, left hand surgery twice, big toe, 2nd & 3rd toes removed right foot, recent heart cath. @[facility] Past Anesthesia/Blood Transfusion Reactions: No Reported Reaction Past Psychological History: No Psychological Hx Reported Smoking Status: Never smoker Past Alcohol Use History: None Reported Past Drug Use History: None Reported - Past Family History Father Family Medical History: Coronary Artery Disease (CAD) Medications and Allergies Home Medications Medication Instructions Recorded Confirmed Type Atorvastatin [Lipitor] 40 mg PO HS 11/25/22 12/07/22 History Empagliflozin [Jardiance] 10 mg PO DAILY 11/25/22 12/07/22 History Ergocalciferol [Vitamin D2 (1250 1,250 mcg PO FLOYD 11/25/22 12/07/22 History Mcg = [id number] Iu)] Furosemide [Lasix] 40 mg PO BID 11/25/22 12/07/22 History Loperamide [Imodium] 2 mg PO QID PRN 11/25/22 12/07/22 History Metoprolol Tartrate [Lopressor] 25 mg PO DAILY 11/25/22 12/07/22 History Potassium Chloride ER [K-Dur 20] 20 meq PO BID 11/25/22 12/07/22 History Aspirin 81 mg PO DAILY 12/03/22 12/07/22 History Insulin Degludec [Tresiba] 200 units SQ HS 12/07/22 12/07/22 History Semaglutide [Ozempic] 2 mg SQ WEEKLY 12/07/22 12/07/22 History Allergies Allergy/AdvReac Type Severity Reaction Status Date / Time Penicillins Allergy Rash/Hives Verified 12/07/22 06:00 aspirin AdvReac Nausea & Verified 12/07/22 06:00 Vomiting & Diarrhea Surgical - Exam Vital Signs Temp Pulse Resp BP Pulse Ox 97.4 F L 85 18 105/71 95 12/07/22 06:20 12/07/22 06:20 12/07/22 06:20 12/07/22 06:20 12/07/22 06:20 General: Well developed, well nourished. No acute distress. Appears older than stated age. HEENT: Head is atraumatic, normocephalic. Lungs: Respirations even and nonlabored. On RA Abdomen/GI: Soft, non-distended. No guarding, rigidity, or abdominal tenderness. : Shrestha catheter present draining clear yellow urine Skin: Warm and dry Neurologic: Alert and oriented 3, CN II-XII grossly intact. No focal deficits. Psychiatric: Appropriate mood and affect. Results - Labs 12/15/22 08:08 12/15/22 08:08 Abnormal Lab Results - Last 24 Hours (Table) 12/13/22 12/13/22 12/13/22 Range/Units 11:08 14:15 14:45 RBC (3.80-5.40) m/uL Hgb (11.4-16.0) gm/dL Hct (34.0-46.0) % RDW (11.5-15.5) % Sodium (137-145) mmol/L BUN (7-17) mg/dL Creatinine (0.52-1.04) mg/dL POC Glucose (mg/dL) 129 H 232 H (70-110) mg/dL Urine Appearance Cloudy H (Clear) Urine Protein Trace H (Negative) Urine Glucose (UA) 4+ H (Negative) Ur Leukocyte Esterase Large H (Negative) Urine RBC 110 H (0-5) /hpf Urine WBC 46 H (0-5) /hpf Urine WBC Clumps Few H (None) /hpf Urine Bacteria Rare H (None) /hpf Hyaline Casts 27 H (0-2) /lpf Urine Mucus Rare H (None) /hpf Urine Yeast (Budding) Many H (None) /hpf 12/13/22 12/14/22 12/14/22 Range/Units 16:18 06:08 06:08 RBC 3.11 L (3.80-5.40) m/uL Hgb 9.1 L (11.4-16.0) gm/dL Hct 27.4 L (34.0-46.0) % RDW 18.0 H (11.5-15.5) % Sodium 134 L (137-145) mmol/L BUN 22 H (7-17) mg/dL Creatinine 1.28 H (0.52-1.04) mg/dL POC Glucose (mg/dL) 111 H (70-110) mg/dL Urine Appearance (Clear) Urine Protein (Negative) Urine Glucose (UA) (Negative) Ur Leukocyte Esterase (Negative) Urine RBC (0-5) /hpf Urine WBC (0-5) /hpf Urine WBC Clumps (None) /hpf Urine Bacteria (None) /hpf Hyaline Casts (0-2) /lpf Urine Mucus (None) /hpf Urine Yeast (Budding) (None) /hpf Diabetes panel 12/14/22 Range/Units 06:08 Sodium 134 L (137-145) mmol/L Potassium 4.8 (3.5-5.1) mmol/L Chloride 102 (98-107) mmol/L Carbon Dioxide 23 (22-30) mmol/L BUN 22 H (7-17) mg/dL Creatinine 1.28 H (0.52-1.04) mg/dL Glucose 81 (74-99) mg/dL Calcium 8.6 (8.4-10.2) mg/dL Calcium panel 12/14/22 Range/Units 06:08 Calcium 8.6 (8.4-10.2) mg/dL Pituitary panel 12/14/22 Range/Units 06:08 Sodium 134 L (137-145) mmol/L Potassium 4.8 (3.5-5.1) mmol/L Chloride 102 (98-107) mmol/L Carbon Dioxide 23 (22-30) mmol/L BUN 22 H (7-17) mg/dL Creatinine 1.28 H (0.52-1.04) mg/dL Glucose 81 (74-99) mg/dL Calcium 8.6 (8.4-10.2) mg/dL Adrenal panel 12/14/22 Range/Units 06:08 Sodium 134 L (137-145) mmol/L Potassium 4.8 (3.5-5.1) mmol/L Chloride 102 (98-107) mmol/L Carbon Dioxide 23 (22-30) mmol/L BUN 22 H (7-17) mg/dL Creatinine 1.28 H (0.52-1.04) mg/dL Glucose 81 (74-99) mg/dL Calcium 8.6 (8.4-10.2) mg/dL Assessment and Plan Assessment: The patient denies any dysuria, hematuria, or difficulties and emptying bladder prior to admission. She does report having some stress incontinence. No history of recurrent UTIs, kidney stones, or cancer. No history of urological surgeries. After the Shrestha catheter was removed the patient was not able to void at all. She reports feeling the urge to urinate, but was unable to initiate a stream. The patient is post op day #7. Her retention unlikely related to anesthesia at this point. The patient reports not having a "real" da wel movement since admission. She has had a small amount of liquid stool following administration of a suppository. She has also been on fluid restrictions and very physically active. Urinalysis showing large amount of leukocyte esterase, 46 WBCs, 110 RBC, and rare bacteria. No urine nitrates. U rine culture pending. Flomax has not been initiated due to orthostatic hypotension. (1) Urinary retention Current Visit: Yes Status: Acute Code(s): R33.9 - RETENTION OF URINE, UNSPECIFIED SNOMED Code(s): 853418762 Plan: - Awaiting urine culture - KUB - Lactulose 1 - Maintain Shrestha catheter - Additional recommendations forthcoming from surgeon - Increase activity Thank you for this consultation Impression and plan of care have been directed as dictated by the signing physician. Ayana Patino nurse practitioner acting as scribe for signing physician. Ayana Patino [facility] Palliative Care/Urology Spectralink [phone] Email: [email or web address] The patient has been interviewed and examined by myself. I concur with the above-mentioned note. Noah Reid M.D.
[2022-12-14 11:38] LABS: Glucose,Whole Blood 127 mg/dL (70-110)
--- NOTE | 2022-12-14 13:24 | XR ---
EXAMINATION TYPE: XR KUB DATE OF EXAM: 12/14/2022 COMPARISON: None INDICATION: Urinary retention, constipation TECHNIQUE: Abdomen is examined in the upright view. FINDINGS: Colonic bowel gas is present. Some mild fecal debris is throughout the colon. Psoas margins are normal. No organomegaly is present. Small left pleural effusion is present. Minimal right pleural effusion may be present. IMPRESSION: 1. Mild fecal retention. 2. Small left and minimal right pleural effusions.
--- NOTE | 2022-12-14 14:04 | P.PN ---
Subjective Progress Note Date: 12/14/22 This is a pleasant 62 year old female who is monitored in intensive care unit. Patient is postoperative day #6 2 vessel CABG. Patient is sitting up in chair, reports no acute events overnight. Ambulating in the hallway without difficulty. Patient did require urinary strait catheterization earlier today, continues to have issues with urinary retention. Patient denies having bowel movement. Labs today showing white count of 4.8, hgb stable at 8.5. Sodium 134, BUN 19, creatinine 1.02. Blood glucose is improved down to 129. Calcium 8.3. Patient is afebrile and on room air. 12/14/2022 Patient is evaluated today on stepdown unit. Indwelling catheter was reinserted due to urinary retention. Patient experienced dizziness while ambulating and was found to be hypotensive in the 70s systolic. Patient had been started on low dose lisinopril the day prior by cardiology. Both metoprolol and lisinopril have been placed on hold at this time. Creatinine up to 1.28 today. Patient has been taken off fluid restriction and encouraged to increase oral intake. Blood glucose improved and in the 100s today. Patient did have a small BM today. Review of Systems Constitutional: Denied any fatigue denied any fever. Cardio vascular: denied any chest pain, palpitations Gastrointestinal: denied any nausea, vomiting, diarrhea Pulmonary: Denied any shortness of breath cough Neurologic denied any new focal deficits All inpatient medications were reviewed and appropriate changes in these medications as dictated in the interval history and assessment and plan. PHYSICAL EXAMINATION: GENERAL: The patient is alert and oriented x3, not in any acute distress. Well developed, well nourished. HEENT: Pupils are round and equally reacting to light. EOMI. No scleral icterus. No conjunctival pallor. Normocephalic, atraumatic. No pharyngeal erythema. No thyromegaly. -CARDIOVASCULAR: S1 and S2 present. No murmurs, rubs, or gallops. Surgical wound closed and healing. Heart hugger in place PULMONARY: Chest is clear to auscultation, no wheezing or crackles. ABDOMEN: Soft, nontender, nondistended, normoactive bowel sounds. No palpable organomegaly. MUSCULOSKELETAL: No joint swelling or deformity. EXTREMITIES: No cyanosis, clubbing, or pedal edema. NEUROLOGICAL: Gross neurological examination did not reveal any focal deficits. SKIN: No rashes. Assessment and Plan Assessment Status post CABG 2 vessel with BRISENO to LAD and saphenous vein graft to obtuse marginal. Postoperative day 7 Acute hypoxic respiratory failure required mechanical ventilator postoperatively currently extubated and on room air. Coronary artery disease with recent cardiac catheterization at [facility] Ischemic cardiomyopathy ejection fraction 30 to 35%. Most recent echo October 2022 showing improved EF 50-55% Right foot diabetic wound status post ray amputation and is being followed at wound care clinic Uncontrolled diabetes type 2 with hyperglycemia A1C of 9.7 Hypertension Hyperlipidemia History of TIA/CVA in 1999 with no residual effects. Osteoarthritis COPD not on oxygen at home. GI and DVT prophylaxis Full Code Plan Lisinopril and metoprolol have been held today Patient encourage to increase oral intake Continue current insulin regimen and monitor blood glucose ACHS Continue bowel regimen Continue to encourage ambulation and incentive spirometer AM labs Patient to DC to [facility] rehab when cleared by primary services. The impression and plan of care has been dictated by Carmen Zamudio, Nurse Practitioner as directed. Dr. Faraz MD I have performed a history and physical examination and medical decision making of this patient, discussed the same with the dictator, and agree with the dictators assessment and plan as written, documented as a scribe. Based on total visit time, I have performed more than 50% of this visit. Objective - Vital Signs Vital signs: Vital Signs Temp 97.7 F 12/14/22 04:00 Pulse 50 L 12/14/22 05:25 Resp 14 12/14/22 04:00 BP 123/73 12/14/22 05:33 Pulse Ox 95 12/14/22 04:00 FiO2 50 12/08/22 00:00 Intake & Output 12/13/22 12/14/22 12/14/22 18:59 06:59 18:59 Intake Total 500 500 Output Total 275 320 Balance 225 -320 500 Weight 82.1 kg Intake: Oral 500 500 Output: Urine 275 320 Straight 275 220 Other: Voiding Method Toilet Indwelling Catheter # Voids 0 # Bowel Movements 0 ABP, PAP, CO, CI - Last Documented Arterial Blood Pressure 87/84 Pulmonary Artery Pressure 29/10 Cardiac Output 3.7 Cardiac Index 2.1 - Labs CBC & Chem 7: 12/14/22 06:08 12/14/22 06:08 Labs: Abnormal Lab Results - Last 24 Hours (Table) 12/13/22 12/13/22 12/13/22 Range/Units 11:08 14:15 14:45 RBC (3.80-5.40) m/uL Hgb (11.4-16.0) gm/dL Hct (34.0-46.0) % RDW (11.5-15.5) % Sodium (137-145) mmol/L BUN (7-17) mg/dL Creatinine (0.52-1.04) mg/dL POC Glucose (mg/dL) 129 H 232 H (70-110) mg/dL Urine Appearance Cloudy H (Clear) Urine Protein Trace H (Negative) Urine Glucose (UA) 4+ H (Negative) Ur Leukocyte Esterase Large H (Negative) Urine RBC 110 H (0-5) /hpf Urine WBC 46 H (0-5) /hpf Urine WBC Clumps Few H (None) /hpf Urine Bacteria Rare H (None) /hpf Hyaline Casts 27 H (0-2) /lpf Urine Mucus Rare H (None) /hpf Urine Yeast (Budding) Many H (None) /hpf 12/13/22 12/14/22 12/14/22 Range/Units 16:18 06:08 06:08 RBC 3.11 L (3.80-5.40) m/uL Hgb 9.1 L (11.4-16.0) gm/dL Hct 27.4 L (34.0-46.0) % RDW 18.0 H (11.5-15.5) % Sodium 134 L (137-145) mmol/L BUN 22 H (7-17) mg/dL Creatinine 1.28 H (0.52-1.04) mg/dL POC Glucose (mg/dL) 111 H (70-110) mg/dL Urine Appearance (Clear) Urine Protein (Negative) Urine Glucose (UA) (Negative) Ur Leukocyte Esterase (Negative) Urine RBC (0-5) /hpf Urine WBC (0-5) /hpf Urine WBC Clumps (None) /hpf Urine Bacteria (None) /hpf Hyaline Casts (0-2) /lpf Urine Mucus (None) /hpf Urine Yeast (Budding) (None) /hpf Assessment and Plan Time with Patient: Less than 30
[2022-12-14 16:40] LABS: Glucose,Whole Blood 111 mg/dL (70-110)
[2022-12-14] MEDS ORDERED: ALBUMIN HUMAN 5% 250 ML in EMPTY BAG 1 BAG IVPB ONE (20:02)
[2022-12-14 20:27] LABS: Glucose,Whole Blood 198 mg/dL (70-110)
[2022-12-14] MEDS: SENNOSIDES-DOCUSATE SODIUM 1 EACH TAB PO SCH (21:55)
[2022-12-15] MEDS: ONDANSETRON 4 MG/2 ML VIAL IVP PRN (03:26)
[2022-12-15 04:31] LABS: Glucose,Whole Blood 128 mg/dL (70-110)
[2022-12-15] MEDS: IPRATROPIUM-ALBUTEROL 3 ML NEB INHALATION PRN (04:43)
[2022-12-15 06:21] LABS: Glucose,Whole Blood 112 mg/dL (70-110)
[2022-12-15] MEDS: INSULIN ASPART (NovoLOG) 100 UNIT/ML VIAL SQ SCH ×7 (06:27→21:11)
[2022-12-15] MEDS: PANTOPRAZOLE 40 MG TABLET PO SCH (06:51)
[2022-12-15] MEDS: INSULIN DETEMIR (LEVEMIR) 100 UNIT/ML SYR SQ SCH (07:00)
--- NOTE | 2022-12-15 08:24 | XR ---
EXAMINATION TYPE: XR chest 1V DATE OF EXAM: 12/15/2022 6:51 AM COMPARISON: Chest radiographs from 12/14/2022 TECHNIQUE: XR chest 1V Frontal view of the chest. CLINICAL INDICATION:Female, 62 years old with history of CAD; FINDINGS: Lungs/Pleura: There is no evidence of pleural effusion, focal consolidation, or pneumothorax. Pulmonary vascularity: Unremarkable. Heart/mediastinum: Cardiomediastinal silhouette is enlarged and stable. Left atrial appendage occlusi on device is present. Musculoskeletal: No acute osseous pathology. Midline sternotomy wires are noted. IMPRESSION: Cardiomegaly, pulmonary vascular congestion and bilateral pleural effusions. Correlate with BNP for c ongestive heart failure.
[2022-12-15] MEDS: IPRATROPIUM-ALBUTEROL 3 ML NEB INHALATION SCH ×4 (08:39→22:25)
[2022-12-15] MEDS: ASCORBIC ACID 500 MG TAB PO SCH ×2 (08:53→21:15)
[2022-12-15] MEDS: ATORVASTATIN 40 MG TAB PO SCH (08:53)
[2022-12-15] MEDS: HEPARIN SODIUM,PORCINE/PF 5,000 UNIT/0.5 ML SYRINGE SQ SCH ×2 (08:53→16:44)
[2022-12-15] MEDS: MIDODRINE 5 MG TAB PO SCH ×2 (08:53→16:45)
[2022-12-15] MEDS: DAPAGLIFLOZIN PROPANEDIOL 10 MG TABLET PO SCH (08:53)
[2022-12-15] MEDS: CLOPIDOGREL 75 MG TAB PO SCH (08:53)
[2022-12-15] MEDS: METOPROLOL TARTRATE 12.5 MG TAB PO SCH ×2 (08:53→21:12)
[2022-12-15] MEDS: ASPIRIN 81 MG PO SCH (08:53)
--- NOTE | 2022-12-15 09:29 | P.PN ---
Subjective Progress Note Date: 12/15/22 Principal diagnosis: Coronary artery disease. History of cardiomyopathy, hypertension, hyperlipidemia, uncontrolled type 2 diabetes with hyperglycemia, peripheral arterial disease with toe amputation right foot, TIA in 1999, vertigo, lifetime non-smoker POD #8 Off pump coronary artery bypass x 2, left internal mammary artery to the left anterior descending artery, reverse saphenous vein graft to the second obtuse marginal artery, occlusion of the base of the left atrial appendage with 35 mm AtriCure clip, placement of intra-aortic balloon pump percutaneously via left femoral arterial approach, endovascular vein harvest of the left greater saphenous vein from the midcalf to the groin Intraoperative vfib arrest with cardiac massage and defibrillation, unexpected Postoperative acute blood loss anemia and thrombocytopenia, expected given hemodilution Postoperative hypovolemic shock with hypotension requiring pressor support and blood transfusion, expected given volume loss The patient was seen and examined sitting up in her recliner on the cardiac stepdown unit this morning in no acute distress. States pain is controlled on current medication regimen, denies shortness of breath. Remains in sinus rhythm. Patient has had further episodes of hypotension bradycardia when getting up to ambulate, she received no lisinopril or Lopressor yesterday, did receive fluid bolus this morning. Labs and x-rays reviewed. Patient had urinary retention and has been unable to void since removal of Shrestha catheter, Shrestha catheter reinserted and urinalysis sent. Urology saw patient yesterday, administered Kayexalate and patient did have large bowel movement. Per their recommendations we may discontinue Shrestha catheter and trial of void again. If she still has urine retention may reinsert Shrestha catheter and sent patient to [facility] with Shrestha catheter in place. Plan currently to discharge patient to [facility] tomorrow. No other new concerns. Objective - Vital Signs Vital signs: Vital Signs Temp 97.5 F L 12/15/22 03:23 Pulse 66 12/15/22 04:50 Resp 14 12/15/22 04:35 BP 108/60 12/15/22 06:16 Pulse Ox 98 12/15/22 08:39 FiO2 50 12/08/22 00:00 Intake & Output 12/14/22 12/15/22 12/15/22 18:59 06:59 18:59 Intake Total 700 118 Output Total 600 350 Balance 100 -350 118 Intake: Oral 700 118 Output: Urine 600 350 Other: Voiding Method Indwelling Catheter Indwelling Catheter # Bowel Movements 1 ABP, PAP, CO, CI - Last Documented Arterial Blood Pressure 87/84 Pulmonary Artery Pressure 29/10 Cardiac Output 3.7 Cardiac Index 2.1 - Exam CONSTITUTIONAL: Appears comfortable, cooperative, no acute distress RESPIRATORY: Lungs sounds diminished bilaterally. Respirations even, nonlabored. Currently on room air with oxygen saturation 98%. Able to achieve 750 mL on her incentive spirometry. Strong cough CARDIOVASCULAR: S1, S2 present. Bradycardia but regular rate and rhythm, sinus bradycardia on telemetry with heart rate in the 50s. Sternum stable. Palpable peripheral pulses bilaterally. No edema present. No calf pain or tenderness noted. Heart hugger in place with patient demonstrating appropriate use. Antiembolism stockings, SCDs present. GASTROINTESTINAL: Abdomen soft, nontender, nondistended. Active bowel sounds present 4 quadrants. Tolerating diet. Positive large bowel movement yesterday GENITOURINARY: Shrestha remains present, 950 mL in the last 24 hours INTEGUMENTARY: Skin is warm and dry with evidence of good perfusion. Anterior chest incision well approximated. Left lower extremity EVH site well approximated without redness or drainage. NEUROLOGIC: Cranial nerves II through XII intact MUSKULOSKELETAL: Able to move all extremities, strength equal bilaterally PSYCHIATRIC: Alert and oriented to person place and time, appropriate affect, intact judgment and insight INVASIVE LINES AND TUBES: A/V epicardial pacemaker wires present, grounded - Allied health notes Allied health notes reviewed: nursing - Labs CBC & Chem 7: 12/14/22 06:08 12/14/22 06:08 Labs: Abnormal Lab Results - Last 24 Hours (Table) 12/14/22 12/14/22 12/14/22 Range/Units 11:33 16:38 20:26 POC Glucose (mg/dL) 127 H 111 H 198 H (70-110) mg/dL 12/15/22 12/15/22 Range/Units 04:30 06:19 POC Glucose (mg/dL) 128 H 112 H (70-110) mg/dL Microbiology - Last 24 Hours (Table) 12/14/22 02:25 Urine Culture - Preliminary Urine,Catheterized - Imaging and Cardiology Chest x-ray: report reviewed, image reviewed Assessment and Plan Assessment: Coronary artery disease, status post 2V CABG Cardiomyopathy, EF 30-35% on TTE 08/2022, 50-55% TTE 10/2022 Hypertension, episodes of orthostatic hypotension Hyperlipidemia, treated, cholesterol 146, LDL 75, triglycerides 155 Uncontrolled type 2 diabetes with hyperglycemia, hemoglobin A1c 13% Peripheral arterial disease with toe amputation right foot TIA in 1999 Vertigo Lifetime non-smoker, preoperative FEV1 77% Intraoperative vfib arrest with cardiac massage and defibrillation, unexpected Postoperative acute blood loss anemia and thrombocytopenia, expected Postoperative hypovolemic shock with hypotension requiring pressor support and blood transfusion, expected Cardiac debility Urinary retention requiring replacement of Shrestha catheter Plan: Continue to maximize medical therapy with low-dose aspirin, plavix, statin. Hold parameters present for beta griselda. Low dose ASHU discontinued yesterday, patient did not receive any doses Amio discontinued yesterday Bronchodilators per pulmonology. Encourage incentive spirometry 10 times every hour while awake Increase activity, ambulate as tolerated. PT/OT/cardiac rehab following GI/DVT prophylaxis Pain control per current medication regimen Insulin management per internal medicine service. Patient needs tight blood sugar control to prevent infection and promote healing Consultation placed to urology, recommendations were appreciated, will consult on patient goes to IPR Strict accurate intake and output Daily weights Will monitor daily labs and x-rays. Electrolyte replacement per protocol Dr. Boggs following for right foot dressing change Consultation placed for Dr. Rowan for inpatient rehab at discharge. Patient has multiple medical issues and safety issues requiring close physician follow-up. Insurance requesting peer to peer authorization More recommendations to follow
[2022-12-15 09:53] LABS: Anisocytosis Slight; HCT 25.9 % (34.0-46.0); HGB 8.5 gm/dL (11.4-16.0); MCH 28.9 pg (25.0-35.0); MCHC 32.8 g/dL (31.0-37.0); Mean Platelet Volume 7.7; Platelet Count 323 k/uL (150-450); RBC 2.95 m/uL (3.80-5.40); RDW 18.6 % (11.5-15.5); WBC 6.9 k/uL (3.8-10.6)
[2022-12-15 10:17] LABS: Calcium 8.7 mg/dL (8.4-10.2); Potassium 4.5 mmol/L (3.5-5.1)
--- NOTE | 2022-12-15 10:43 | P.PN ---
Subjective Progress Note Date: 12/15/22 The patient is a 62-year-old female with past medical history of COPD, TIA, diabetes mellitus, hyperlipidemia, hypertension, and peripheral vascular disease with recent amputation of toes. The patient underwent an elective CABG [address] Sanchez on 12/07/22 and has had a complicated recovery period. In anticipation of being transferred to an [facility] soon her Shrestha catheter was discontinued on 12/12/22. The patient was unable to void requiring straight catheterizations 2 and a Shrestha catheter reinsertion. We will consulted for her urinary retention. 12/14 The patient denies any dysuria, hematuria, or difficulties and emptying bladder prior to admission. She does report having some stress incontinence. No history of recurrent UTIs, kidney stones, or cancer. No history of urological surgeries. After the Shrestha catheter was removed the patient was not able to void at all. She reports feeling the urge to urinate, but was unable to initiate a stream. The patient is post op day #7. Her retention unlikely related to anesthesia at this point. The patient reports not having a "real" bowel movement since admission. She has had a small amount of liquid stool following administration of a suppository. She has also been on fluid restrictions and very physically active. Urinalysis showing large amount of leukocyte esterase, 46 WBCs, 110 RBC, and rare bacteria. No urine nitrates. Ur ine culture pending. Flomax has not been initiated due to orthostatic hypotension. Objective - Vital Signs Vital signs: Vital Signs Temp 97.9 F 12/15/22 08:50 Pulse 62 12/15/22 08:50 Resp 18 12/15/22 08:50 BP 93/53 12/15/22 08:50 Pulse Ox 94 L 12/15/22 08:50 FiO2 50 12/08/22 00:00 Intake & Output 12/14/22 12/15/22 12/15/22 18:59 06:59 18:59 Intake Total 700 118 Output Total 600 350 Balance 100 -350 118 Intake: Oral 700 118 Output: Urine 600 350 Other: Voiding Method Indwelling Catheter Indwelling Catheter Indwelling Catheter # Bowel Movements 1 ABP, PAP, CO, CI - Last Documented Arterial Blood Pressure 87/84 Pulmonary Artery Pressure 29/10 Cardiac Output 3.7 Cardiac Index 2.1 - Exam General: Well developed, well nourished. No acute distress. Appears older than stated age. HEENT: Head is atraumatic, normocephalic. Lungs: Respirations even and nonlabored. On RA Abdomen/GI: Soft, non-distended. No guarding, rigidity, or abdominal tenderness. : Shrestha catheter present draining clear yellow urine Skin: Warm and dry Neurologic: Alert and oriented 3, CN II-XII grossly intact. No focal deficits. Psychiatric: Appropriate mood and affect. - Labs CBC & Chem 7: 12/15/22 08:08 12/15/22 08:08 Labs: Abnormal Lab Results - Last 24 Hours (Table) 12/14/22 12/14/22 12/14/22 Range/Units 11:33 16:38 20:26 RBC (3.80-5.40) m/uL Hgb (11.4-16.0) gm/dL Hct (34.0-46.0) % RDW (11.5-15.5) % Sodium (137-145) mmol/L BUN (7-17) mg/dL Creatinine (0.52-1.04) mg/dL POC Glucose (mg/dL) 127 H 111 H 198 H (70-110) mg/dL 12/15/22 12/15/22 12/15/22 Range/Units 04:30 06:19 08:08 RBC 2.95 L (3.80-5.40) m/uL Hgb 8.5 L (11.4-16.0) gm/dL Hct 25.9 L (34.0-46.0) % RDW 18.6 H (11.5-15.5) % Sodium (137-145) mmol/L BUN (7-17) mg/dL Creatinine (0.52-1.04) mg/dL POC Glucose (mg/dL) 128 H 112 H (70-110) mg/dL 12/15/22 Range/Units 08:08 RBC (3.80-5.40) m/uL Hgb (11.4-16.0) gm/dL Hct (34.0-46.0) % RDW (11.5-15.5) % Sodium 132 L (137-145) mmol/L BUN 23 H (7-17) mg/dL Creatinine 1.33 H (0.52-1.04) mg/dL POC Glucose (mg/dL) (70-110) mg/dL Microbiology - Last 24 Hours (Table) 12/14/22 02:25 Urine Culture - Preliminary Urine,Catheterized Assessment and Plan Assessment: The patient is lying in bed and appears comfortable. Her Shrestha catheter is draining clear yellow urine. Yesterday's KUB showed mild fecal retention. The patient had a bowel movement yesterday. The etiology of her urinary retention is unclear at this time. The Shrestha catheter will be removed tomorrow morning for a voiding trial. If the patient is unable to void/empty her bladder completely she may have the Shrestha catheter reinserted. She may be discharged to [facility] with her Shrestha catheter in place if she fails her voiding trial. (1) Urinary retention Current Visit: Yes Status: Acute Code(s): R33.9 - RETENTION OF URINE, UNSPECIFIED SNOMED Code(s): 124345444 Plan: - Awaiting urine culture - Remove Shrestha catheter tomorrow morning for voiding trial - Check PVR - Increase activity Thank you for this consultation Impression and plan of care have been directed as dictated by the signing physician. Ayana Patino nurse practitioner acting as scribe for signing physician. Ayana Patino [facility] Palliative Care/Urology Spectralink [phone] Email: [email or web address] The patient is in urine retention post-cardiac surgery. We'll give her a voiding trial today. If this fails then she'll need the catheter when she goes to inpatient rehabilitation and a voiding trial can be obtained at that point in time. Concur with the above note. Noah Reid M.D.
--- NOTE | 2022-12-15 11:28 | P.PN ---
Subjective Progress Note Date: 12/15/22 HISTORY OF PRESENT ILLNESS: Patient is pleasant 62-year-old female with history of cardiomyopathy, hypertension, hyperlipidemia, diabetes mellitus type 2, TIA, vertigo, PAD with prior toe amputation. Patient underwent off-pump CABG 2 complicated by hypotension requiring vasopressors and blood transfusion and had postoperative anemia and thrombocytopenia as well as intraoperative V. fib arrests with cardiac massage and defibrillation. 12/11 Patient denies any chest pain or pressure. [place] catheter remains in place with improved cardiac output/cardiac index however epinephrine able to be weaned. Denies any nausea or vomiting today however had some yesterday. Admits to some lightheadedness with standing up however states feeling somewhat better than yesterday. 12/12 Patient seen and examined. Creatinine stable 0.8, hemoglobin 9.1, platelets 191. She denies any chest pain or pressure. She did have the [place] catheter removed this afternoon. She is off of any vasopressors. She is in sinus rhythm on telemetry. 12/13/2022 The patient is status post CABG with BRISENO to the LAD and SVG to the OM her intraoperative course was complicated IV A. fib and cardiac massage and intra- aortic balloon pump placement. She is feeling well this morning, awake and aler t. She denies any chest discomfort, dizziness or palpitations. She denies any nausea or vomiting. Hemodynamically she is stable and continues to be in sinus mechanism. She has no evidence of ventricle tachycardia. Her ejection fraction in October was 50-55%. Her appetite is good. 12/14/2022 Patient examined this morning. Patient is sitting up in the chair. Patient currently denies chest pain or pressure. She denies shortness of breath. Vital signs are stable. Telemetry reveals sinus mechanism. The patient had an episode of hypotension this morning which has since resolved. Patient having issues with urinary retention and has Shrestha catheter present. She has been evaluated for inpatient rehab at discharge. 12/15/2022 Patient examined this morning. Patient denies chest pain or pressure. She denies shortness of breath. Patient states that she attempted to stand up today to ambulate and became very dizzy and felt like she was going to pass out. Patient was found to be hypotensive with a systolic blood pressure in the 70s. Her medications have been adjusted per cardiothoracic surgery. PHYSICAL EXAM: VITAL SIGNS: Reviewed. GENERAL: Well-developed in no acute distress. NECK: Supple. No JVD or thyromegaly LUNGS: Respirations even and unlabored. Lungs essentially clear to auscultation bilaterally, diminished. HEART: Regular rate and rhythm. S1 and S2 heard. EXTREMITIES: Normal range of motion. No clubbing or cyanosis. Peripheral pulses intact. No lower extremity edema ASSESSMENT: Coronary artery disease, status post CABG 2 vessels Ischemic cardiomyopathy EF 30-35% Hypertension Hyperlipidemia Diabetes mellitus PAD History of of TIA Vertigo Intraoperative V. fib arrest with cardiac massage and defibrillation Postoperative anemia and thrombocytopenia Postoperative hypotension requiring pressor support, improving PLAN: Continue postoperative management per cardiothoracic surgery Continue metoprolol with parameters Lisinopril discontinued secondary to hypotension Midodrine added per CT surgery Continue telemetry monitoring Continue to monitor blood pressure Increase activity as tolerated Encouraged use of spirometer Tentative discharge tomorrow to IPR Further recommendations pending patient course Nurse practitioner note has been reviewed by physician. Signing provider agrees with the documented findings, assessment, and plan of care. Objective - Vital Signs Vital signs: Vital Signs Temp 97.9 F 12/15/22 08:50 Pulse 62 12/15/22 08:50 Resp 18 12/15/22 08:50 BP 93/53 12/15/22 08:50 Pulse Ox 94 L 12/15/22 08:50 FiO2 50 12/08/22 00:00 Intake & Output 12/14/22 12/15/22 12/15/22 18:59 06:59 18:59 Intake Total 700 118 Output Total 600 350 Balance 100 -350 118 Intake: Oral 700 118 Output: Urine 600 350 Other: Voiding Method Indwelling Catheter Indwelling Catheter Indwelling Catheter # Bowel Movements 1 ABP, PAP, CO, CI - Last Documented Arterial Blood Pressure 87/84 Pulmonary Artery Pressure 29/10 Cardiac Output 3.7 Cardiac Index 2.1 - Labs CBC & Chem 7: 12/15/22 08:08 12/15/22 08:08 Labs: Abnormal Lab Results - Last 24 Hours (Table) 12/14/22 12/14/22 12/14/22 Range/Units 11:33 16:38 20:26 RBC (3.80-5.40) m/uL Hgb (11.4-16.0) gm/dL Hct (34.0-46.0) % RDW (11.5-15.5) % Sodium (137-145) mmol/L BUN (7-17) mg/dL Creatinine (0.52-1.04) mg/dL POC Glucose (mg/dL) 127 H 111 H 198 H (70-110) mg/dL 12/15/22 12/15/22 12/15/22 Range/Units 04:30 06:19 08:08 RBC 2.95 L (3.80-5.40) m/uL Hgb 8.5 L (11.4-16.0) gm/dL Hct 25.9 L (34.0-46.0) % RDW 18.6 H (11.5-15.5) % Sodium (137-145) mmol/L BUN (7-17) mg/dL Creatinine (0.52-1.04) mg/dL POC Glucose (mg/dL) 128 H 112 H (70-110) mg/dL 12/15/22 Range/Units 08:08 RBC (3.80-5.40) m/uL Hgb (11.4-16.0) gm/dL Hct (34.0-46.0) % RDW (11.5-15.5) % Sodium 132 L (137-145) mmol/L BUN 23 H (7-17) mg/dL Creatinine 1.33 H (0.52-1.04) mg/dL POC Glucose (mg/dL) (70-110) mg/dL Microbiology - Last 24 Hours (Table) 12/14/22 02:25 Urine Culture - Preliminary Urine,Catheterized
[2022-12-15 11:31] LABS: Glucose,Whole Blood 91 mg/dL (70-110)
--- NOTE | 2022-12-15 12:25 | P.PN ---
Subjective Progress Note Date: 12/15/22 I am seeing this patient in new consultation today 12/08/2022 in regard to postoperative open-heart ICU management. Patient is a 62-year-old white female with past significant medical history of hypertension, hyperlipidemia, diabetes mellitus type 2, COPD, previous TIA, vertigo, peripheral 2-year-old disease with recent amputation of her great toe second and third toes of the right foot. On 09/20/2022 patient had a transthoracic 2-D echocardiogram which showed severe cardiomyopathy with an ejection fraction between 30 and 35%. A follow-up elective heart catheterization was done at [facility] which reportedly demonstrated triple-vessel coronary artery disease. Patient was scheduled for an elective CABG with Dr. Sanchez yesterday. Based on the patient's preoperative PFT, she was at no increased intraoperative risk. Patient underwent an off-pump CABG 2 with a BRISENO to the LAD, saphenous vein graft to the obtuse marginal 2, and ligation of the left atrial appendage. Intraoperatively, the patient did have a V. fib arrest. There was placement of an intra-aortic balloon pump via the left femoral artery. ROSC was achieved after a few minutes, and the procedure was completed. Patient has received a total of 2 units of PRBCs and 1 of platelets for some postoperative bleeding. Patient is currently in the intensive care unit remaining mechanically ventilated with settings of assist control, respiratory rate 14, tidal volume 400, FiO2 50%, PEEP of 5. Postoperative ABGs show a pO2 greater than 400, pCO2 48, pH of 7.33. This was done on FiO2 of 100%, which was dropped down to 50%. Postoperative chest x-ray shows endotracheal tube 3.2 cm the vernell, a NG-tube coursing below the diaphragm, an appropriately placed [place] catheter, bilateral thoracotomy tubes without evidence of pneumothorax, a chest tube within the mediastinum, and postoperative surgical changes. IABP remains in place at a 1-1 ratio. Augmented pressure is 93 mmHg, and mean arterial pressure is 73 mmHg. Patient currently has epinephrine infusing at 0.025 mics per kilogram per minute, Levophed in fusing at 0.03 mics per kilogram per minute, amiodarone infusing at 0.5 mg/m, nitro infusing at 5 mics per minute. Propofol and insulin are currently paused. So far, there have been no attempts at weaning. Patient is awake, alert and following commands. There have been no acute titrations to the patient's vasopressors. Patient's most recent CO/CI is 5.4 and 3.1 respectively, pulmonary artery pressure 30/14, heart rhythm is normal sinus at 90 bpm. Urine output is approximately 80-100 ML's per hour. Patient's chest tube output has slowed down to less than 50 ML's per hour. There is a total of 550 ML's of serosanguineous output out of the mediastinal chest tube, and a total of 700 ML's of serosanguinous output from the right and left pleural chest tube. Most recent CBC shows a hemoglobin of 8.9 and hematocrit of 25.7. INR is 1.2. Most recent BMP shows a sodium 142, potassium 3.7, chloride 106, serum CO2 26, BUN 23, creatinine 0.74, glucose 146. Magnesium was 2.4. Lactated Ringer's is infusing at 50 ML's per hour. Patient is currently calm and following commands. No recent acute changes in patient's hemodynamics, and patient is a potential candidate for weaning from the mechanical ventilator. The patient is seen today 12/09/2022 in follow-up in the intensive care unit. She is currently sitting up in a chair at the bedside. Awake and alert in no acute distress. She is maintaining good O2 saturations in the 90s on room air. She is postoperative day #2. She is continued on a insulin drip at 15 units per hour, nitroglycerin drip at 5 mcg/m on a lactated Ringer's at 40 ML's per hour, epinephrine and 0.025 mcg/kg/m. Norepinephrine is currently off. He is curr ently in normal sinus rhythm. No arrhythmias noted. Blood pressure stable. PA pressure 30/12. CVP 15. Chest x-ray reveals no evidence of pleural effusion, focal consolidation or pneumothorax. Chest tubes remain in place. She is status post 2 units of packed red blood cells and 1 unit of platelets. White count 9.1. Hemoglobin 7.7. Platelets 97,000. Sodium 133. Potassium 5.0. Bicarb 30. BUN 17. Creatinine 0.99. AST 105. ALT 20. Albumin 2.9. She is working well with the incentive spirometer. Continued on DuoNeb inhalations. Heparin for DVT prophylaxis. Patient is seen today 12/10/2022 in follow-up in the intensive care unit. Postoperative day #3. She is currently awake and alert in no acute distress. Sitting up in a chair at the bedside. Maintaining good O2 saturations in the 90s on room air. She is on lactated Ringer's at 40 ML's per hour. On epinephrine at 0.12 mcg/kg per hour. Remains on insulin drip at 5 units per hour. Current blood pressure 107/62 with a mean of 83. PA pressures 30/11. CVP of 7. Recent cardiac output 3.6. Cardiac index 2.0. She remains afebrile. Chest x-ray reveals postsurgical changes. Chest tubes have been removed. No evidence of pneumothorax. There is trace left pleural effusion with associated atelectasis. She continues to work well with the incentive spirometer. She is status post 2 units of packed red blood cells and 1 unit of platelets this admission. White count 8.8. Hemoglobin 9.1. Platelets 117. Sodium 131. Potassium 5.0. Bicarb 24. BUN 22. Creatinine 1.21. Glucose 202. AST 72. ALT 26. Albumin 3.1. She remains on bronchodilators, heparin for DVT prophylaxis. The patient is seen today 12/11/2022 in follow-up in the intensive care unit. Postoperative day #4. She is sitting up in a chair at the bedside. Awake and alert in no acute distress. Denies any worsening shortness of breath, cough or congestion. Pain is well managed. Working well with the incentive spirometer. Maintaining good O2 saturations in the 90s on 2 L/m per nasal cannula. Chest x- ray reveals blunting of left costophrenic angle. No focal consolidation or pneumothorax. Postsurgical changes without evidence of pneumothorax. She has normal saline at 20 MLS per hour. On epinephrine drip at 0.01 mcg/kg/min. H eparin for DVT prophylaxis. He remains on bronchodilators. She's been transitioned to Levemir. She is status post 3 units of packed red blood cells and 1 unit of platelets this admission. Current hemoglobin 9.3. Platelets 141. White count 7.7. Sodium 132. Potassium 4.7. Bicarb 24. BUN 21. Creatinine 0.89. Glucose 89. Albumin 2.6. Magnesium 2.2 The patient is seen today 12/12/2022 in follow-up in the intensive care unit. Postoperative day #5. She is awake and alert in no acute distress. Sitting up in a chair at the bedside. Maintaining good O2 saturations in the 90s on room a ir. She is off the epinephrine drip. Midodrine has been added. Vital signs stable. Current blood pressure 102/60 with a mean of 79. PA pressure 29/10 and a CVP of 7. Currently in sinus rhythm. Maintaining on amiodarone. Heparin for DVT prophylaxis. Continued on bronchodilators. Working well with the incentive spirometer. Chest x-ray shows persistent cardiomegaly and central vascular con gestion with small to moderate left pleural effusion and bibasilar atelectasis. No change compared to previous. White count 5.6. Hemoglobin 9.1. Platelets 191. Sodium 134. Potassium 4.5. Bicarb 27. BUN 17. Creatinine 0.88. Glucose 139. Calcium 8.4. Progress note dated 12/13/2022. This is a 62-year-old female postop day #6, status post CABG. The patient's doing well. She's currently on room air. She does get 1 L at nighttime. She's not receiving any IV fluids. She's getting about 750 mL on her incentive spirometer. White count 4.8, hemoglobin 8.5, hematocrit 22.7, and platelet count 197,000. Sodium 134, potassium 4.8, chlorides 102, CO2 27, BUN 19, creatinine 1.02. On 12/14/2022, the patient is on room air oxygen. She has no specific complaints. She is awaiting to be transferred to rehabilitation. Blood work shows a BUN of 22 with a creatinine of 1.28. Sodium level is at 143. The delivery suppositive 4.5 with a hemoglobin of 9.1. No other active issues for now. Using the incentive spirometer. Pulling approximately thousand, the patient is currently postop day #7.. On today's evaluation of 12/15/2022, the patient is being seen in a follow-up. Noted the patient had an episode of hypotension and bradycardia while trying to ambulate. Based on that, Lopressor in his upper was placed on hold. She was given a fluid bolus this morning. The patient also had some urinary retention and Shrestha catheter was reinserted. Awaiting a urinalysis. Urology will be seeing the patient also. Meanwhile, no respiratory distress, she continues to use incentive spirometer, BUN is at 22 with a creatinine of 1.28, bili was positive for 0.5 with a hemoglobin of 9.1 and his sodium level is at 134. Pacemaker wires have been removed. The patient is post operative day #8 Objective - Vital Signs Vital signs: Vital Signs Temp 98 F 12/15/22 11:45 Pulse 62 12/15/22 11:45 Resp 17 12/15/22 11:45 BP 104/55 12/15/22 11:45 Pulse Ox 92 L 12/15/22 11:45 FiO2 50 12/08/22 00:00 Intake & Output 12/14/22 12/15/22 12/15/22 18:59 06:59 18:59 Intake Total 700 118 Output Total 600 350 Balance 100 -350 118 Intake: Oral 700 118 Output: Urine 600 350 Other: Voiding Method Indwelling Catheter Indwelling Catheter Indwelling Catheter # Bowel Movements 1 ABP, PAP, CO, CI - Last Documented Arterial Blood Pressure 87/84 Pulmonary Artery Pressure 29/10 Cardiac Output 3.7 Cardiac Index 2.1 - Exam CONSTITUTIONAL: Appears comfortable, cooperative, no acute distress RESPIRATORY: Lungs sounds diminished bilaterally. Respirations even, nonlabored. Currently on room air with oxygen saturation 95%. Able to achieve 750 mL on her incentive spirometry. Strong cough CARDIOVASCULAR: S1, S2 present. Bradycardia but regular rate and rhythm, sinus bradycardia on telemetry with heart rate in the 50s. Sternum stable. Palpable peripheral pulses bilaterally. No edema present. No calf pain or tenderness noted. Heart hugger in place with patient demonstrating appropriate use. Antiembolism stockings, SCDs present. GASTROINTESTINAL: Abdomen soft, nontender, nondistended. Active bowel sounds present 4 quadrants. Tolerating diet. Positive bowel movement yesterday GENITOURINARY: Shrestha reinserted due to retention, 595 mL in the last 24 hours INTEGUMENTARY: Skin is warm and dry with evidence of good perfusion. Anterior chest incision well approximated and covered with dry intact dressing. Left lower extremity EVH site well approximated without redness or drainage. NEUROLOGIC: Cranial nerves II through XII intact MUSKULOSKELETAL: Able to move all extremities, strength equal bilaterally PSYCHIATRIC: Alert and oriented to person place and time, appropriate affect, intact judgment and insight INVASIVE LINES AND TUBES: A/V epicardial pacemaker wires present, grounded - Labs CBC & Chem 7: 12/15/22 08:08 12/15/22 08:08 Labs: Abnormal Lab Results - Last 24 Hours (Table) 12/14/22 12/14/22 12/15/22 Range/Units 16:38 20:26 04:30 RBC (3.80-5.40) m/uL Hgb (11.4-16.0) gm/dL Hct (34.0-46.0) % RDW (11.5-15.5) % Sodium (137-145) mmol/L BUN (7-17) mg/dL Creatinine (0.52-1.04) mg/dL POC Glucose (mg/dL) 111 H 198 H 128 H (70-110) mg/dL 12/15/22 12/15/22 12/15/22 Range/Units 06:19 08:08 08:08 RBC 2.95 L (3.80-5.40) m/uL Hgb 8.5 L (11.4-16.0) gm/dL Hct 25.9 L (34.0-46.0) % RDW 18.6 H (11.5-15.5) % Sodium 132 L (137-145) mmol/L BUN 23 H (7-17) mg/dL Creatinine 1.33 H (0.52-1.04) mg/dL POC Glucose (mg/dL) 112 H (70-110) mg/dL Microbiology - Last 24 Hours (Table) 12/14/22 02:25 Urine Culture - Preliminary Urine,Catheterized Gram Neg Bacilli Assessment and Plan Plan: Postop day #7 of an elective off-pump CABG 2 with a BRISENO to LAD, saphenous vein graft to the obtuse marginal 2, ligation of left atrial appendage. Intraoperatively, the patient did have a V. fib arrest. There was placement of an intra-aortic balloon pump via the left femoral artery with subsequent removal. Acute hypoxemic respiratory failure as an expected outcome of surgery. The patient is currently on room air oxygen Acute blood loss, expected following the procedure. Post transfusion of 3 units PRBC and one unit of platelets current hemoglobin 9.1. Coronary artery disease. Cardiomyopathy with an ejection fraction of 30-35%. Diabetes mellitus type 2. Hyperlipidemia. Hypertension. Previous TIA. Background COPD. There was no increased intraoperative risk based on patient's preoperative PFT. Peripheral arterial disease with recent amputation of the great toe, second toe, and third toe of the right foot. Acute hypotension, recovered Acute urinary retention and Shrestha catheter was inserted Plan: Pacemaker wires were removed Clinically stable and the patient is currently on room air oxygen Continue to use incentive spirometer We'll continue aspirin and Plavix and statins and will hold the beta blockers. Will monitor the blood pressure. The patient is currently off amiodarone. Pain control is adequate for now. We will encourage increase oral intake. We'll repeat her labs tomorrow. Possible discharge to [facility] tomorrow
[2022-12-15] MEDS ORDERED: NITROFURANTOIN MONOHYD/M-CRYST 100 MG CAP PO SCH (12:45)
--- NOTE | 2022-12-15 14:22 | P.PN ---
Subjective Progress Note Date: 12/15/22 This is a pleasant 62 year old female who is monitored in intensive care unit. Patient is postoperative day #6 2 vessel CABG. Patient is sitting up in chair, reports no acute events overnight. Ambulating in the hallway without difficulty. Patient did require urinary strait catheterization earlier today, continues to have issues with urinary retention. Patient denies having bowel movement. Labs today showing white count of 4.8, hgb stable at 8.5. Sodium 134, BUN 19, creatinine 1.02. Blood glucose is improved down to 129. Calcium 8.3. Patient is afebrile and on room air. 12/14/2022 Patient is evaluated today on stepdown unit. Indwelling catheter was reinserted due to urinary retention. Patient experienced dizziness while ambulating and was found to be hypotensive in the 70s systolic. Patient had been started on low dose lisinopril the day prior by cardiology. Both metoprolol and lisinopril have been placed on hold at this time. Creatinine up to 1.28 today. Patient has been taken off fluid restriction and encouraged to increase oral intake. Blood glucose improved and in the 100s today. Patient did have a small BM today. 12/15/2022 Patient is evaluated today resting in bed. Reports feeling better than yesterday. She had a large BM last night. Patients blood pressure remains on the lower side. Received a dose of IV albumin last night. Lisinopril being held and parameters on metoprolol. 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 Patient continues to report feeling dizzy. Continues using incentive spirometer patient reports reaching about 1200. Chest xray today showing cardiomegaly, pulmonary vascular congestion and bilateral pleural effusions. Correlate for CHF. Creatinine is up today at 1.33 likely from the hypotension. Sodium is 132. Continues with carmona catheter. Urine culture showing gram negative bacilli. This is being monitored. Patient is afebrile and no white count. Denying dysuria. Review of Systems Constitutional: Reports dizziness, fatigue. denied any fever. Cardio vascular: denied any chest pain, palpitations Gastrointestinal: denied any nausea, vomiting, diarrhea Pulmonary: Denied any shortness of breath cough Neurologic denied any new focal deficits All inpatient medications were reviewed and appropriate changes in these medications as dictated in the interval history and assessment and plan. PHYSICAL EXAMINATION: GENERAL: The patient is alert and oriented x3, not in any acute distress. Well developed, well nourished. Pale. HEENT: Pupils are round and equally reacting to light. EOMI. No scleral icterus. No conjunctival pallor. Normocephalic, atraumatic. No pharyngeal erythema. No thyromegaly. -CARDIOVASCULAR: S1 and S2 present. No murmurs, rubs, or gallops. Surgical wound closed and healing. Heart hugger in place PULMONARY: Chest is clear to auscultation, no wheezing or crackles. Diminished. ABDOMEN: Soft, nontender, nondistended, normoactive bowel sounds. No palpable organomegaly. MUSCULOSKELETAL: No joint swelling or deformity. EXTREMITIES: No cyanosis, clubbing, or pedal edema. NEUROLOGICAL: Gross neurological examination did not reveal any focal deficits. Generalized weakness. SKIN: No rashes. Assessment and Plan Assessment Status post CABG 2 vessel with BRISENO to LAD and saphenous vein graft to obtuse marginal. Postoperative day 8 Acute hypoxic respiratory failure required mechanical ventilator postoperatively currently extubated and on room air. Urinary retention and abnormal urine possibly asymptomatic bacteriurea. Urology following. Coronary artery disease with recent cardiac catheterization at [facility] Ischemic cardiomyopathy ejection fraction 30 to 35%. Most recent echo October 2022 showing improved EF 50-55% Right foot diabetic wound status post ray amputation and is being followed at wound care clinic Uncontrolled diabetes type 2 with hyperglycemia A1C of 9.7 Hypertension Currently hypotensive Hyperlipidemia History of TIA/CVA in 1999 with no residual effects. Osteoarthritis COPD not on oxygen at home. GI and DVT prophylaxis Full Code Plan Lisinopril remains on hold and parameters on metoprolol for primary service Patient encourage to increase oral intake Continue current insulin regimen and monitor blood glucose ACHS Continue bowel regimen Continue to encourage ambulation and incentive spirometer AM labs Urology following and plan to do voiding trial tomorrow and awaiting urine culture to finalize Patient to [place] to [facility] rehab when cleared by primary services. The impression and plan of care has been dictated by Carmen Zamudio, Nurse Practitioner as directed. Dr. Faraz MD I have performed a history and physical examination and medical decision making of this patient, discussed the same with the dictator, and agree with the dictators assessment and plan as written, documented as a scribe. Based on total visit time, I have performed more than 50% of this visit. Objective - Vital Signs Vital signs: Vital Signs Temp 98 F 12/15/22 11:45 Pulse 62 12/15/22 11:45 Resp 17 12/15/22 11:45 BP 104/55 12/15/22 11:45 Pulse Ox 92 L 12/15/22 11:45 FiO2 50 12/08/22 00:00 Intake & Output 12/14/22 12/15/22 12/15/22 18:59 06:59 18:59 Intake Total 700 236 Output Total 600 350 Balance 100 -350 236 Intake: Oral 700 236 Output: Urine 600 350 Other: Voiding Method Indwelling Catheter Indwelling Catheter Indwelling Catheter # Bowel Movements 1 ABP, PAP, CO, CI - Last Documented Arterial Blood Pressure 87/84 Pulmonary Artery Pressure 29/10 Cardiac Output 3.7 Cardiac Index 2.1 - Labs CBC & Chem 7: 12/15/22 08:08 12/15/22 08:08 Labs: Abnormal Lab Results - Last 24 Hours (Table) 12/14/22 12/14/22 12/15/22 Range/Units 16:38 20:26 04:30 RBC (3.80-5.40) m/uL Hgb (11.4-16.0) gm/dL Hct (34.0-46.0) % RDW (11.5-15.5) % Sodium (137-145) mmol/L BUN (7-17) mg/dL Creatinine (0.52-1.04) mg/dL POC Glucose (mg/dL) 111 H 198 H 128 H (70-110) mg/dL 12/15/22 12/15/22 12/15/22 Range/Units 06:19 08:08 08:08 RBC 2.95 L (3.80-5.40) m/uL Hgb 8.5 L (11.4-16.0) gm/dL Hct 25.9 L (34.0-46.0) % RDW 18.6 H (11.5-15.5) % Sodium 132 L (137-145) mmol/L BUN 23 H (7-17) mg/dL Creatinine 1.33 H (0.52-1.04) mg/dL POC Glucose (mg/dL) 112 H (70-110) mg/dL Microbiology - Last 24 Hours (Table) 12/14/22 02:25 Urine Culture - Preliminary Urine,Catheterized Gram Neg Bacilli Assessment and Plan Time with Patient: Less than 30
[2022-12-15 16:31] LABS: Glucose,Whole Blood 160 mg/dL (70-110)
[2022-12-15 20:24] LABS: Glucose,Whole Blood 93 mg/dL (70-110)
[2022-12-15] MEDS: SENNOSIDES-DOCUSATE SODIUM 1 EACH TAB PO SCH (21:15)
[2022-12-16] MEDS: HEPARIN SODIUM,PORCINE/PF 5,000 UNIT/0.5 ML SYRINGE SQ SCH ×3 (00:09→15:08)
[2022-12-16 06:15] LABS: Glucose,Whole Blood 124 mg/dL (70-110)
[2022-12-16] MEDS: INSULIN ASPART (NovoLOG) 100 UNIT/ML VIAL SQ SCH ×4 (07:07→11:55)
[2022-12-16] MEDS: MIDODRINE 5 MG TAB PO SCH (07:10)
[2022-12-16] MEDS: INSULIN DETEMIR (LEVEMIR) 100 UNIT/ML SYR SQ SCH (07:10)
[2022-12-16] MEDS: PANTOPRAZOLE 40 MG TABLET PO SCH (07:10)
--- NOTE | 2022-12-16 07:14 | XR ---
EXAMINATION TYPE: XR chest 2V DATE OF EXAM: 12/16/2022 6:34 AM COMPARISON: Chest radiographs from 12/15/2022 TECHNIQUE: XR chest 2V Frontal and lateral views of the chest. CLINICAL INDICATION:Female, 62 years old with history of post cardiac surgery; FINDINGS: Lungs/Pleura: No pneumothorax. Blunting of both costophrenic angles. No focal consolidation. Pulmonary vascularity: Mild pulmonary vascular congestion. Heart/mediastinum: Cardiomediastinal silhouette is enlarged and stable. Left atrial appendage occlusi on devices present. Musculoskeletal: No acute osseous pathology. Midline sternotomy wires are noted and stable. Orthopedi c anchors within the right humeral head. IMPRESSION: Post surgical changes with persistent cardiomegaly, small bilateral pleural effusions, and pulmonary vascular congestion.
[2022-12-16] MEDS: METOPROLOL TARTRATE 12.5 MG TAB PO SCH (07:53)
[2022-12-16] MEDS: ASCORBIC ACID 500 MG TAB PO SCH (07:54)
[2022-12-16] MEDS: ASPIRIN 81 MG PO SCH (07:54)
[2022-12-16] MEDS: CLOPIDOGREL 75 MG TAB PO SCH (07:54)
[2022-12-16] MEDS: ATORVASTATIN 40 MG TAB PO SCH (07:54)
[2022-12-16] MEDS: DAPAGLIFLOZIN PROPANEDIOL 10 MG TABLET PO SCH (07:55)
[2022-12-16] MEDS: IPRATROPIUM-ALBUTEROL 3 ML NEB INHALATION SCH ×3 (08:29→15:35)
[2022-12-16 10:11] LABS: Anisocytosis Slight; HGB 9.7 gm/dL (11.4-16.0); MCH 28.6 pg (25.0-35.0); MCHC 32.5 g/dL (31.0-37.0); MCV 88.1 fL (80.0-100.0); Platelet Count 435 k/uL (150-450); RDW 18.9 % (11.5-15.5); WBC 8.8 k/uL (3.8-10.6)
--- NOTE | 2022-12-16 10:18 | P.PN ---
Subjective Progress Note Date: 12/16/22 Principal diagnosis: Coronary artery disease. History of cardiomyopathy, hypertension, hyperlipidemia, uncontrolled type 2 diabetes with hyperglycemia, peripheral arterial disease with toe amputation right foot, TIA in 1999, vertigo, lifetime non-smoker POD #9 Off pump coronary artery bypass x 2, left internal mammary artery to the left anterior descending artery, reverse saphenous vein graft to the second obtuse marginal artery, occlusion of the base of the left atrial appendage with 35 mm AtriCure clip, placement of intra-aortic balloon pump percutaneously via left femoral arterial approach, endovascular vein harvest of the left greater saphenous vein from the midcalf to the groin Intraoperative vfib arrest with cardiac massage and defibrillation, unexpected Postoperative acute blood loss anemia and thrombocytopenia, expected given hemodilution Postoperative hypovolemic shock with hypotension requiring pressor support and blood transfusion, expected given volume loss The patient was seen and examined sitting up in her recliner on the cardiac stepdown unit this morning in no acute distress. States pain is controlled on current medication regimen, denies shortness of breath. Remains in sinus rhythm. Patient has had no further episodes of hypotension, bradycardia when getting up to ambulate, she received no Lopressor yesterday, was restarted on midodrine. Labs and x-rays reviewed. Shrestha catheter discontinued this am for trial of void per urology recommendations. If she still has urine retention may reinsert Shrestha catheter and follow up outpatient with urology. Peer to peer completed, insurance refuses to authorize IPR at discharge, will authorize CRISTINO. Discussed with patient who states she wants to go home. The son called and has some concerns with her going home, namely blood sugar control, dressing change to her right foot, Shrestha catheter management if it needs to be reinserted, and her overall living conditions in the house. This was discussed with the patient, she states she will be compliant with all of her medications and blood sugar control and feels that she could handle a Shrestha catheter and dressing change by herself. Insurance authorization is being sought in case she changes her mind later today. No other new concerns. Objective - Vital Signs Vital signs: Vital Signs Temp 98.4 F 12/16/22 07:50 Pulse 72 12/16/22 08:42 Resp 20 12/16/22 07:50 BP 91/52 12/16/22 07:50 Pulse Ox 96 12/16/22 08:32 FiO2 50 12/08/22 00:00 Intake & Output 12/15/22 12/16/22 12/16/22 18:59 06:59 18:59 Intake Total 236 140 Output Total 500 900 Balance -264 -900 140 Weight 82.6 kg Intake: Oral 236 140 Output: Urine 500 900 Straight 400 Other: Voiding Method Indwelling Catheter Indwelling Catheter Toilet ABP, PAP, CO, CI - Last Documented Arterial Blood Pressure 87/84 Pulmonary Artery Pressure 29/10 Cardiac Output 3.7 Cardiac Index 2.1 - Exam CONSTITUTIONAL: Appears comfortable, cooperative, no acute distress RESPIRATORY: Lungs sounds diminished bilaterally. Respirations even, nonlabored. Currently on room air with oxygen saturation 96%. Able to achieve 750 mL on her incentive spirometry. Strong cough CARDIOVASCULAR: S1, S2 present. Regular rate and rhythm, sinus rhythm on telemetry with heart rate in the 60s. Sternum stable. Palpable peripheral pulses bilaterally. No edema present. No calf pain or tenderness noted. Heart hugger in place with patient demonstrating appropriate use. Antiembolism stockings, SCDs present. GASTROINTESTINAL: Abdomen soft, nontender, nondistended. Active bowel sounds present 4 quadrants. Tolerating diet. Positive large bowel movement 12/14 GENITOURINARY: Shrestha discontinued this morning, due to void, 1400 mL in the last 24 hours INTEGUMENTARY: Skin is warm and dry. Anterior chest incision well approximated. Left lower extremity EVH site well approximated without redness or drainage. NEUROLOGIC: Cranial nerves II through XII intact MUSKULOSKELETAL: Able to move all extremities, strength equal bilaterally PSYCHIATRIC: Alert and oriented to person place and time, appropriate affect, intact judgment and insight - Allied health notes Allied health notes reviewed: nursing - Labs CBC & Chem 7: 12/15/22 08:08 12/15/22 08:08 Labs: Abnormal Lab Results - Last 24 Hours (Table) 12/15/22 12/15/22 12/16/22 Range/Units 08:08 16:30 06:14 Sodium 132 L (137-145) mmol/L BUN 23 H (7-17) mg/dL Creatinine 1.33 H (0.52-1.04) mg/dL POC Glucose (mg/dL) 160 H 124 H (70-110) mg/dL Microbiology - Last 24 Hours (Table) 12/14/22 02:25 Urine Culture - Preliminary Urine,Catheterized Gram Neg Bacilli - Imaging and Cardiology Chest x-ray: report reviewed, image reviewed Assessment and Plan Assessment: Coronary artery disease, status post 2V CABG Cardiomyopathy, EF 30-35% on TTE 08/2022, 50-55% TTE 10/2022 Hypertension, episodes of orthostatic hypotension Hyperlipidemia, treated, cholesterol 146, LDL 75, triglycerides 155 Uncontrolled type 2 diabetes with hyperglycemia, hemoglobin A1c 13% Peripheral arterial disease with toe amputation right foot TIA in 1999 Vertigo Lifetime non-smoker, preoperative FEV1 77% Intraoperative vfib arrest with cardiac massage and defibrillation, unexpected Postoperative acute blood loss anemia and thrombocytopenia, expected Postoperative hypovolemic shock with hypotension requiring pressor support and blood transfusion, expected Cardiac debility Urinary retention requiring replacement of Shrestha catheter Plan: Continue to maximize medical therapy with low-dose aspirin, plavix, statin. Beta griselda discontinued, contraindicated due to hypotension, bradycardia Will hopefully restart beta griselda and afterload reduction in the outpatient setting Continue midodrine Bronchodilators per pulmonology. Encourage incentive spirometry 10 times every hour while awake Increase activity, ambulate as tolerated. PT/OT/cardiac rehab following GI/DVT prophylaxis Pain control per current medication regimen Insulin management per internal medicine service. Patient needs tight blood sugar control to prevent infection and promote healing Shrestha discontinued, monitor for urine output. Patient remains unable to void Shrestha to be reinserted and patient to follow-up with urology outpatient Strict accurate intake and output Daily weights Will monitor daily labs and x-rays. Electrolyte replacement per protocol Dr. Ambrose guido for right foot dressing change Consultation placed for Dr. Rowan for inpatient rehab at discharge. Peer to peer completed with [employer], refused to authorize IPR at discharge, will a uthorize CRISTINO if patient is agreeable Plan is to discharge patient to home this afternoon with home care unless patient agreeable to subacute rehab. Will wait to see if patient able to void, will wait for conversation between patient and her son More recommendations to follow
[2022-12-16 10:24] LABS: Potassium 4.4 mmol/L (3.5-5.1)
--- NOTE | 2022-12-16 11:11 | P.PN ---
Subjective Progress Note Date: 12/16/22 The patient is a 62-year-old female with past medical history of COPD, TIA, diabetes mellitus, hyperlipidemia, hypertension, and peripheral vascular disease with recent amputation of toes. The patient underwent an elective CABG [address] Sanchez on 12/07/22 and has had a complicated recovery period. In anticipation of being transferred to an [facility] soon her Shrestha catheter was discontinued on 12/12/22. The patient was unable to void requiring straight catheterizations 2 and a Shrestha catheter reinsertion. We will consulted for her urinary retention. 12/14 The patient denies any dysuria, hematuria, or difficulties and emptying bladder prior to admission. She does report having some stress incontinence. No history of recurrent UTIs, kidney stones, or cancer. No history of urological surgeries. After the Shrestha catheter was removed the patient was not able to void at all. She reports feeling the urge to urinate, but was unable to initiate a stream. The patient is post op day #7. Her retention unlikely related to anesthesia at this point. The patient reports not having a "real" bowel movement since admission. She has had a small amount of liquid stool following administration of a suppository. She has also been on fluid restrictions and very physically active. Urinalysis showing large amount of leukocyte esterase, 46 WBCs, 110 RBC, and rare bacteria. No urine nitrates. Ur ine culture pending. Flomax has not been initiated due to orthostatic hypotension. 12/15 The patient is lying in bed and appears comfortable. Her Shrestha catheter is draining clear yellow urine. Yesterday's KUB showed mild fecal retention. The patient had a bowel movement yesterday. The etiology of her urinary retention is unclear at this time. The Shrestha catheter will be removed tomorrow morning for a voiding trial. If the patient is unable to void/empty her bladder completely she may have the Shrestha catheter reinserted. She may be discharged to [facility] with her Shrestha catheter in place if she fails her voiding trial. Objective - Vital Signs Vital signs: Vital Signs Temp 98.4 F 12/16/22 07:50 Pulse 72 12/16/22 08:42 Resp 20 12/16/22 07:50 BP 91/52 12/16/22 07:50 Pulse Ox 96 12/16/22 08:32 FiO2 50 12/08/22 00:00 Intake & Output 12/15/22 12/16/22 12/16/22 18:59 06:59 18:59 Intake Total 236 140 Output Total 500 900 Balance -264 -900 140 Weight 82.6 kg 83.1 kg Intake: Oral 236 140 Output: Urine 500 900 Straight 400 Other: Voiding Method Indwelling Catheter Indwelling Catheter Toilet ABP, PAP, CO, CI - Last Documented Arterial Blood Pressure 87/84 Pulmonary Artery Pressure 29/10 Cardiac Output 3.7 Cardiac Index 2.1 - Exam General: Well developed, well nourished. No acute distress. Appears older than stated age. HEENT: Head is atraumatic, normocephalic. Lungs: Respirations even and nonlabored. On RA Abdomen/GI: Soft, non-distended. No guarding, rigidity, or abdominal tenderness. : No suprapubic tenderness. Shrestha out. DTV Skin: Warm and dry Neurologic: Alert and oriented 3, CN II-XII grossly intact. No focal deficits. Psychiatric: Appropriate mood and affect. - Labs CBC & Chem 7: 12/16/22 09:24 12/16/22 09:24 Labs: Abnormal Lab Results - Last 24 Hours (Table) 12/15/22 12/16/22 12/16/22 Range/Units 16:30 06:14 09:24 RBC 3.40 L (3.80-5.40) m/uL Hgb 9.7 L (11.4-16.0) gm/dL Hct 30.0 L (34.0-46.0) % RDW 18.9 H (11.5-15.5) % Sodium (137-145) mmol/L BUN (7-17) mg/dL Creatinine (0.52-1.04) mg/dL Glucose (74-99) mg/dL POC Glucose (mg/dL) 160 H 124 H (70-110) mg/dL 12/16/22 Range/Units 09:24 RBC (3.80-5.40) m/uL Hgb (11.4-16.0) gm/dL Hct (34.0-46.0) % RDW (11.5-15.5) % Sodium 132 L (137-145) mmol/L BUN 22 H (7-17) mg/dL Creatinine 1.18 H (0.52-1.04) mg/dL Glucose 111 H (74-99) mg/dL POC Glucose (mg/dL) (70-110) mg/dL Microbiology - Last 24 Hours (Table) 12/14/22 02:25 Urine Culture - Preliminary Urine,Catheterized Gram Neg Bacilli Assessment and Plan Assessment: The patient is sitting up in the chair. She reports that she is going home today instead of IPR due to insurance issues. Her catheter was removed at 0400. She is due to void. 1100 The patient is unable to void after several attempts. Bladder scan show 460ml urine. RN instructed to place a Shrestha catheter. The patient may be discharged home with the catheter and follow up with Dr. Rivera in one week. Preliminary urine culture growing gram negative bacilli. CV surgery team aware. Antibiotics will be deferred to them. (1) Urinary retention Status: Acute Code(s): R33.9 - RETENTION OF URINE, UNSPECIFIED SNOMED Co de(s): 953994379 Plan: - Replace Shrestha catheter - May discharge patient home with Shrestha catheter - Follow up with Dr. Rivera in one week - Antibiotics per CV surgery team Impression and plan of care have been directed as dictated by the signing physician. Ayana Patino nurse practitioner acting as scribe for signing physician. Ayana Patino [facility]- Palliative Care/Urology [facility] [id number] Email: [email or web address] The patient has been evaluated and I concur with the above note jennifer rivera md
[2022-12-16 11:33] LABS: Glucose,Whole Blood 140 mg/dL (70-110)
--- NOTE | 2022-12-16 12:18 | P.PN ---
Subjective Progress Note Date: 12/16/22 HISTORY OF PRESENT ILLNESS: Patient is pleasant 62-year-old female with history of cardiomyopathy, hypertension, hyperlipidemia, diabetes mellitus type 2, TIA, vertigo, PAD with prior toe amputation. Patient underwent off-pump CABG 2 complicated by hypotension requiring vasopressors and blood transfusion and had postoperative anemia and thrombocytopenia as well as intraoperative V. fib arrests with cardiac massage and defibrillation. 12/11 Patient denies any chest pain or pressure. [place] catheter remains in place with improved cardiac output/cardiac index however epinephrine able to be weaned. Denies any nausea or vomiting today however had some yesterday. Admits to some lightheadedness with standing up however states feeling somewhat better than yesterday. 12/12 Patient seen and examined. Creatinine stable 0.8, hemoglobin 9.1, platelets 191. She denies any chest pain or pressure. She did have the [place] catheter removed this afternoon. She is off of any vasopressors. She is in sinus rhythm on telemetry. 12/13/2022 The patient is status post CABG with BRISENO to the LAD and SVG to the OM her intraoperative course was complicated IV A. fib and cardiac massage and intra- aortic balloon pump placement. She is feeling well this morning, awake and aler t. She denies any chest discomfort, dizziness or palpitations. She denies any nausea or vomiting. Hemodynamically she is stable and continues to be in sinus mechanism. She has no evidence of ventricle tachycardia. Her ejection fraction in October was 50-55%. Her appetite is good. 12/14/2022 Patient examined this morning. Patient is sitting up in the chair. Patient currently denies chest pain or pressure. She denies shortness of breath. Vital signs are stable. Telemetry reveals sinus mechanism. The patient had an episode of hypotension this morning which has since resolved. Patient having issues with urinary retention and has Shrestha catheter present. She has been evaluated for inpatient rehab at discharge. 12/15/2022 Patient examined this morning. Patient denies chest pain or pressure. She denies shortness of breath. Patient states that she attempted to stand up today to ambulate and became very dizzy and felt like she was going to pass out. Patient was found to be hypotensive with a systolic blood pressure in the 70s. Her medications have been adjusted per cardiothoracic surgery. 12/16/2022 Patient examined this morning. Patient is sitting up in the chair. Patient states that she has had no further episodes of dizziness or lightheadedness. Blood pressure has been stable. She denies chest pain or pressure. She denies shortness of breath. PHYSICAL EXAM: VITAL SIGNS: Reviewed. GENERAL: Well-developed in no acute distress. NECK: Supple. No JVD or thyromegaly LUNGS: Respirations even and unlabored. Lungs essentially clear to auscultation bilaterally, diminished. HEART: Regular rate and rhythm. S1 and S2 heard. EXTREMITIES: Normal range of motion. No clubbing or cyanosis. Peripheral pulses intact. No lower extremity edema ASSESSMENT: Coronary artery disease, status post CABG 2 vessels Ischemic cardiomyopathy EF 30-35% Hypertension Hyperlipidemia Diabetes mellitus PAD History of of TIA Vertigo Intraoperative V. fib arrest with cardiac massage and defibrillation Postoperative anemia and thrombocytopenia Postoperative hypotension requiring pressor support, improving PLAN: Continue postoperative management per cardiothoracic surgery Metoprolol and lisinopril have been discontinued secondary to hypotension and bradycardia Continue additional cardiac medications Increase activity as tolerated Encourage use of incentive spirometer Patient is stable for discharge today from a cardiac standpoint Further recommendations pending patient course Nurse practitioner note has been reviewed by physician. Signing provider agrees with the documented findings, assessment, and plan of care. Objective - Vital Signs Vital signs: Vital Signs Temp 98.4 F 12/16/22 07:50 Pulse 65 12/16/22 11:05 Resp 18 12/16/22 11:05 BP 105/60 12/16/22 11:05 Pulse Ox 95 12/16/22 11:05 FiO2 50 12/08/22 00:00 Intake & Output 12/15/22 12/16/22 12/16/22 18:59 06:59 18:59 Intake Total 236 140 Output Total 500 900 800 Balance -264 900 -660 Weight 82.6 kg 83.1 kg Intake: Oral 236 140 Output: Urine 500 900 800 Straight 400 400 Other: Voiding Method Indwelling Catheter Indwelling Catheter Toilet ABP, PAP, CO, CI - Last Documented Arterial Blood Pressure 87/84 Pulmonary Artery Pressure 29/10 Cardiac Output 3.7 Cardiac Index 2.1 - Labs CBC & Chem 7: 12/16/22 09:24 12/16/22 09:24 Labs: Abnormal Lab Results - Last 24 Hours (Table) 0412/16/22 12/16/22 Range/Units 16:30 06:14 09:24 RBC 3.40 L (3.80-5.40) m/uL Hgb 9.7 L (11.4-16.0) gm/dL Hct 30.0 L (34.0-46.0) % RDW 18.9 H (11.5-15.5) % Sodium (137-145) mmol/L BUN (7-17) mg/dL Creatinine (0.52-1.04) mg/dL Glucose (74-99) mg/dL POC Glucose (mg/dL) 160 H 124 H (70-110) mg/dL 12/16/22 12/16/22 Range/Units 09:24 11:31 RBC (3.80-5.40) m/uL Hgb (11.4-16.0) gm/dL Hct (34.0-46.0) % RDW (11.5-15.5) % Sodium 132 L (137-145) mmol/L BUN 22 H (7-17) mg/dL Creatinine 1.18 H (0.52-1.04) mg/dL Glucose 111 H (74-99) mg/dL POC Glucose (mg/dL) 140 H (70-110) mg/dL Microbiology - Last 24 Hours (Table) 12/14/22 02:25 Urine Culture - Preliminary Urine,Catheterized Gram Neg Bacilli
--- NOTE | 2022-12-16 14:43 | P.PN ---
Subjective Progress Note Date: 12/16/22 This is a pleasant 62 year old female who is monitored in intensive care unit. Patient is postoperative day #6 2 vessel CABG. Patient is sitting up in chair, reports no acute events overnight. Ambulating in the hallway without difficulty. Patient did require urinary strait catheterization earlier today, continues to have issues with urinary retention. Patient denies having bowel movement. Labs today showing white count of 4.8, hgb stable at 8.5. Sodium 134, BUN 19, creatinine 1.02. Blood glucose is improved down to 129. Calcium 8.3. Patient is afebrile and on room air. 12/14/2022 Patient is evaluated today on stepdown unit. Indwelling catheter was reinserted due to urinary retention. Patient experienced dizziness while ambulating and was found to be hypotensive in the 70s systolic. Patient had been started on low dose lisinopril the day prior by cardiology. Both metoprolol and lisinopril have been placed on hold at this time. Creatinine up to 1.28 today. Patient has been taken off fluid restriction and encouraged to increase oral intake. Blood glucose improved and in the 100s today. Patient did have a small BM today. 12/15/2022 Patient is evaluated today resting in bed. Reports feeling better than yesterday. She had a large BM last night. Patients blood pressure remains on the lower side. Received a dose of IV albumin last night. Lisinopril being held and parameters on metoprolol. Discussed case with cardiothoracic CONTRACT CONSULTANT and possible D/C tomorrow to inpatient rehab. Patient continues to report feeling dizzy. Continues using incentive spirometer patient reports reaching about 1200. Chest xray today showing cardiomegaly, pulmonary vascular congestion and bilateral pleural effusions. Correlate for CHF. Creatinine is up today at 1.33 likely from the hypotension. Sodium is 132. Continues with carmona catheter. Urine culture showing gram negative bacilli. This is being monitored. Patient is afebrile and no white count. Denying dysuria. 12/16/2022 Patient evaluated today on stepdown unit. She is postoperative day #9 2 vessel CABG. Patient has been started on midodrine and blood pressure has improved and patient reports overall improvement in dizziness. Feels better today. Creatinine has improved to 1.18, sodium of 132. Blood glucose is fairly controlled on current regimen and will recommend patient to discharge on the same lantus dose 7 units daily will increase the Jardiance at this time. Patient does follow with Dr. Kaylin Reveles and will recommend to make an appointment on discharge for close follow. Patient has been recommended for rehab on discharge patient is adament would like to discharge home and arrangements are being made tentatively. She did fail voiding trial today and indwelling catheter has been reinserted. Urine culture showing gram negative bacilli, urology recommending to DC with indwelling catheter and see urology in the office in 1 week. Review of Systems Constitutional: Improvement in dizziness while ambulating. No fatigue. denied any fever. Cardio vascular: denied any chest pain, palpitations Gastrointestinal: denied any nausea, vomiting, diarrhea Pulmonary: Denied any shortness of breath cough Neurologic denied any new focal deficits All inpatient medications were reviewed and appropriate changes in these medications as dictated in the interval history and assessment and plan. PHYSICAL EXAMINATION: GENERAL: The patient is alert and oriented x3, not in any acute distress. Well developed, well nourished. Pale. HEENT: Pupils are round and equally reacting to light. EOMI. No scleral icterus. No conjunctival pallor. Normocephalic, atraumatic. No pharyngeal erythema. No thyromegaly. -CARDIOVASCULAR: S1 and S2 present. No murmurs, rubs, or gallops. Surgical wound closed and healing. Heart hugger in place PULMONARY: Chest is clear to auscultation, no wheezing or crackles. Diminished. ABDOMEN: Soft, nontender, nondistended, normoactive bowel sounds. No palpable organomegaly. MUSCULOSKELETAL: No joint swelling or deformity. EXTREMITIES: No cyanosis, clubbing. Patient has bilateral lower extremity edema. NEUROLOGICAL: Gross neurological examination did not reveal any focal deficits. Generalized weakness. SKIN: No rashes. Dressing intact to right foot. Assessment and Plan Assessment Status post CABG 2 vessel with BRISENO to LAD and saphenous vein graft to obtuse marginal. Postoperative day 9 Acute hypoxic respiratory failure required mechanical ventilator postoperatively currently extubated and on room air. Urinary retention and abnormal urine possibly asymptomatic bacteriurea. Urology following. Coronary artery disease with recent cardiac catheterization at [facility] Ischemic cardiomyopathy ejection fraction 30 to 35%. Most recent echo October 2022 showing improved EF 50-55% Right foot diabetic wound status post ray amputation and is being followed at wound care clinic Uncontrolled diabetes type 2 with hyperglycemia A1C of 9.7 Hypertension Currently hypotensive Hyperlipidemia History of TIA/CVA in 1999 with no residual effects. Osteoarthritis COPD not on oxygen at home. GI and DVT prophylaxis Full Code Plan Lisinopril remains on hold and parameters on metoprolol Diabetic management in place with daily lantus SQ and jardiance has been increased and patient to follow up with Dr. Reveles on discharge. This plan has been discussed All other discharge medications per primary Continue to encourage ambulation, incentive spirometry. Bowel regimen in place. Thank you kindly for this consultation. The impression and plan of care has been dictated by Carmen Zamudio, Nurse Practitioner as directed. Dr. Faraz MD I have performed a history and physical examination and medical decision making of this patient, discussed the same with the dictator, and agree with the dictators assessment and plan as written, documented as a scribe. Based on total visit time, I have performed more than 50% of this visit. Objective - Vital Signs Vital signs: Vital Signs Temp 98.4 F 12/16/22 07:50 Pulse 65 12/16/22 13:09 Resp 18 12/16/22 11:05 BP 105/60 12/16/22 11:05 Pulse Ox 95 12/16/22 11:05 FiO2 50 12/08/22 00:00 Intake & Output 12/15/22 12/16/22 12/16/22 18:59 06:59 18:59 Intake Total 236 140 Output Total 500 900 800 Balance -313 -900 -373 Weight 82.6 kg 83.1 kg Intake: Oral 236 140 Output: Urine 500 900 800 Straight 400 400 Other: Voiding Method Indwelling Catheter Indwelling Catheter Indwelling Catheter ABP, PAP, CO, CI - Last Documented Arterial Blood Pressure 87/84 Pulmonary Artery Pressure 29/10 Cardiac Output 3.7 Cardiac Index 2.1 - Labs CBC & Chem 7: 12/16/22 09:24 12/16/22 09:24 Labs: Abnormal Lab Results - Last 24 Hours (Table) 12/15/22 12/16/22 12/16/22 Range/Units 16:30 06:14 09:24 RBC 3.40 L (3.80-5.40) m/uL Hgb 9.7 L (11.4-16.0) gm/dL Hct 30.0 L (34.0-46.0) % RDW 18.9 H (11.5-15.5) % Sodium (137-145) mmol/L BUN (7-17) mg/dL Creatinine (0.52-1.04) mg/dL Glucose (74-99) mg/dL POC Glucose (mg/dL) 160 H 124 H (70-110) mg/dL 12/16/22 12/16/22 Range/Units 09:24 11:31 RBC (3.80-5.40) m/uL Hgb (11.4-16.0) gm/dL Hct (34.0-46.0) % RDW (11.5-15.5) % Sodium 132 L (137-145) mmol/L BUN 22 H (7-17) mg/dL Creatinine 1.18 H (0.52-1.04) mg/dL Glucose 111 H (74-99) mg/dL POC Glucose (mg/dL) 140 H (70-110) mg/dL Microbiology - Last 24 Hours (Table) 12/14/22 02:25 Urine Culture - Preliminary Urine,Catheterized Gram Neg Bacilli Assessment and Plan Time with Patient: Less than 30
--- NOTE | 2022-12-16 15:29 | P.DS ---
Providers Date of admission: 12/07/22 05:37 Expected date of discharge: 12/16/22 Attending physician: Sammy Sanchez Consults: 12/07/22 13:45 Consult Physician Routine Consulting Provider: Lobito Stroud Consult Reason/Comments: Diamond Saw Operator Consult: post cardiac surgery Do you want consulting provider notified?: Yes Consult Physician Routine Consulting Provider: Tennille Berry Consult Reason/Comments: Medical management Do you want consulting provider notified?: Yes Consult Physician Routine Consulting Provider: Vincent Sanchez Consult Reason/Comments: Hydramatic Specialist Consult: post cardiac surgery Do you want consulting provider notified?: Yes 12/08/22 09:50 Consult Physician Routine Consulting Provider: Rafa Boggs Consult Reason/Comments: right foot Do you want consulting provider notified?: Already Contacted 12/14/22 07:34 Consult Physician Routine Consulting Provider: Leonard Rowan Consult Reason/Comments: IPR at discharge Do you want consulting provider notified?: Yes 12/14/22 07:36 Consult Physician Routine Consulting Provider: Noah Reid Consult Reason/Comments: urine retention Do you want consulting provider notified?: Already Contacted Primary care physician: [facility] Course: FINAL DIAGNOSIS: 1. Coronary artery disease 2. Cardiomyopathy, EF 30-35% TTE 09/17/2022, 50-55% on TTE 11/15/2022 3. Hypertension, episodes of orthostatic hypotension this admission 4. Hyperlipidemia, treated, cholesterol 146, LDL 75, triglycerides 155 5. Uncontrolled type 2 diabetes with hyperglycemia, hemoglobin A1c 13% 6. Peripheral arterial disease with toe amputation right foot 7. TIA in 1999 8. Vertigo 9. Lifetime nonsmoker, preoperative FEV1 77% of predicted 10. Intraoperative V. fib arrest with cardiac massage and defibrillation 11. Postoperative acute blood loss anemia and thrombocytopenia 12. Postoperative hypovolemic shock with hypotension requiring pressor support and blood transfusion 13. Urinary retention requiring replacement of Shrestha catheter PRINCIPAL PROCEDURE: 1. Off-pump coronary artery bypass 2, left internal mammary artery to the left anterior descending artery, reverse saphenous vein graft to the second obtuse marginal artery 2. Occlusion of the base of the left atrial appendage with a 35 mm AtriCure clip 3. Placement of intra-aortic balloon pump percutaneously via left femoral arterial approach 4. Endovascular vein harvest of the left greater saphenous vein from the midcalf to the groin HISTORY OF PRESENT ILLNESS: This is a 62-year-old female who follows outpatient with Dr aCba for primary care and Dr. Sanchez for cardiology. She was experiencing symptoms of chest discomfort. Echocardiogram completed in August at [facility] reported ejection fraction of 30%. Heart catheterization completed at the same time demonstrated severe triple-vessel coronary artery disease with complete occlusion of the right coronary artery, second obtuse marginal branch of the circumflex with 90% stenosis, diffuse stenosis in the first obtuse marginal artery branch. She was treated and released at that time. She did have a follow-up echocardiogram in October with ejection fraction 50% with good wall motion throughout. The patient was referred to Dr. Sanchez from cardiothoracic surgery. She was recommended to undergo coronary artery bypass grafting. The usual perioperative course was discussed in detail with the patient and her son, all risks and benefits were explained, all questions were answered, and consent was obtained to proceed with surgery. The patient was strongly counseled to quit smoking, get her diabetes under better control, and allow for more healing of her right foot. She was then scheduled for elective surgery. HOSPITAL COURSE: The patient was brought to the hospital on 12/07/22, taken to the preoperative area, prepared in the usual fashion, and subsequently taken to the operating room where Dr. Sanchez performed two-vessel off-pump CABG, with placement of intra-aortic balloon pump after V. fib arrest and subsequent resuscitation. Upon completion of surgery the patient was transferred to the cardiovascular intensive care unit where she was recovered and monitored hemodynamically. She was extubated, intra-aortic balloon pump was discontinued, all lines, tubes, and drips were discontinued when appropriate. She did have a schuyler recovery with acute blood loss requiring blood transfusion, urinary retention requiring replacement of Shrestha catheter, and episodes of orthostatic hypotension. She was eventually transferred to 3 S. cardiac stepdown unit for further monitoring and rehabilitation. Her oxygen was titrated down, she continued to work with physical and occupational therapy, she was tolerating oral diet, her pain was controlled, and she was ready to be discharged to home with home care on postoperative day #9. She received written and verbal instruction regarding her medications, activity restrictions, signs and symptoms requiring physician notification, and follow-up appointments. She was instructed to keep a log of her blood sugars to take to her follow-up appointments. She was not discharged on beta griselda/ASHU/ARB, contraindicated due to orthostatic hypotension, likely to be restarted in the outpatient setting. Patient Condition at Discharge: Stable Plan - Discharge Summary Discharge Rx Participant: Yes New Discharge Prescriptions: New Empagliflozin [Jardiance] 25 mg PO DAILY #30 tablet Midodrine [ProAmatine] 5 mg PO AC-BID #60 tab Pantoprazole [Protonix] 40 mg PO AC-BRKFST #30 tab Sennosides-Docusate Sodium [Senokot-S] 2 each PO HS PRN tab PRN Reason: Constipation Acetaminophen Tab [Tylenol] 650 mg PO Q4HR PRN tab PRN Reason: Fever And/ Or Pain Insulin Glargine [Lantus Vial] 7 unit SQ DAILY #10 ml Sulfamethox-Tmp 800-160Mg [Bactrim DS 800-160 mg] 1 tab PO Q12HR #14 tab Clopidogrel [Plavix] 75 mg PO DAILY #30 tab Continue Loperamide [Imodium] 2 mg PO QID PRN PRN Reason: Diarrhea Atorvastatin [Lipitor] 40 mg PO HS Ergocalciferol [Vitamin D2 (1250 Mcg = 43384 Iu)] 1,250 mcg PO FLOYD Aspirin 81 mg PO DAILY Discontinued Potassium Chloride ER [K-Dur 20] 20 meq PO BID Metoprolol Tartrate [Lopressor] 25 mg PO DAILY Empagliflozin [Jardiance] 10 mg PO DAILY Semaglutide [Ozempic] 2 mg SQ WEEKLY Insulin Degludec [Tresiba] 200 units SQ HS Furosemide [Lasix] 40 mg PO BID Discharge Medication List Atorvastatin [Lipitor] 40 mg PO HS 11/25/22 [History] Ergocalciferol [Vitamin D2 (1250 Mcg = 93045 Iu)] 1,250 mcg PO FLOYD 11/25/22 [History] Loperamide [Imodium] 2 mg PO QID PRN 11/25/22 [History] Aspirin 81 mg PO DAILY 12/03/22 [History] Acetaminophen Tab [Tylenol] 650 mg PO Q4HR PRN tab 12/16/22 [Rx] Clopidogrel [Plavix] 75 mg PO DAILY #30 tab 12/16/22 [Rx] Empagliflozin [Jardiance] 25 mg PO DAILY #30 tablet 12/16/22 [Rx] Insulin Glargine [Lantus Vial] 7 unit SQ DAILY #10 ml 12/16/22 [Rx] Midodrine [ProAmatine] 5 mg PO AC-BID #60 tab 12/16/22 [Rx] Pantoprazole [Protonix] 40 mg PO AC-BRKFST #30 tab 12/16/22 [Rx] Sennosides-Docusate Sodium [Senokot-S] 2 each PO HS PRN tab 12/16/22 [Rx] Sulfamethox-Tmp 800-160Mg [Bactrim DS 800-160 mg] 1 tab PO Q12HR #14 tab 12/16/22 [Rx] Follow up Appointment(s)/Referral(s): Yvonne Edwards NPC [Nurse Practitioner] - 12/23/22 (Come to the surgeons office at [address] [place] [address] Boggs) Rehab Kishor PH,Cardiac [NON-STAFF] - 1 Week Vincent Sanchez MD [STAFF PHYSICIAN] - 12/29/22 4:30 pm Sammy Sanchez MD [STAFF PHYSICIAN] - 01/06/23 1:15 pm Lobito Stroud DO [Doctor of Osteopathic Medicine] - 01/06/23 8:45 am Kaylin Reveles MD [STAFF PHYSICIAN] - 1 Week (Please make an appointment as soon as possible and bring log of your blood sugars with you) Michelle Caba [Primary Care Provider] - 12/29/22 11:30 am Rafa Boggs MD [STAFF PHYSICIAN] - 12/23/22 10:30 am Noah Reid MD [STAFF PHYSICIAN] - 1 Week (Genoveva from the office will give you a call to set up the appointment) [facility] Visiting Nurse, [NON-STAFF] - 1-2 Days (To see patient day after discharge, then 2-3 times per week thereafter) Ambulatory/Diagnostic Orders: Complete Blood Count w/diff [LAB.AMB] Time Frame: 3 Days, Location: None Selected Comprehensive Metabolic Panel [LAB.AMB] Time Frame: 3 Days, Location: None Selected Patient Instructions/Handouts: Shrestha Catheter Placement and Care (DC), Urinary Leg Bag (GEN), How to Change a Catheter Drainage Bag (DC) Activity/Diet/Wound Care/Special Instructions: Shrestha catheter should remain in place until follow up visit with Dr. Reid in one week DISCHARGE INSTRUCTIONS: 1. No driving for 4 weeks, or until physician gives their ok. 2. The patient should sleep in their own bed, no medical bed needed. 3. Stairs are not an issue. If the bedroom is upstairs, it is advised that the patient go up at night and down in the morning for the first week. Go slowly, using handrail and take 1 step at a time. 4. FLORINA hose are to be worn for 30 days post surgery or until physician di scontinues. 5. Heart hugger is to be worn 100% of the time until physician discontinues.(except when showering) 6. No lifting, pushing, or pulling more than 10 pounds for 12 weeks. The physician will advise of any restriction changes. 7. The patient is expected to continue the prescribed walking program. 8. Continue pain control per as needed orders. 9. Continue with incentive spirometry and splinting/heart hugger until otherwise directed by the physician. 10. Must shower daily using liquid antibacterial soap 11. Routine sternal incision care. No powders, lotions, ointments on incisions. No dressings are necessary on incisions unless they are draining. Dermabond tape is to remain on sternal incision until surgeon follow-up. 12. Please call surgeon/QUALITY COORDINATOR for temp greater than 101 F or purulent drainage from incisions. 13. You should weigh yourself daily, record and bring log with you to follow up appointments. 14. All prescriptions given by surgeon for 30 days. Refills need to be filled through pre sales network engineer/primary care physician. 15. Check blood sugars before each meal and at bedtime, keep a log and take with you to your appointment with Dr. Levine and Dr. Reveles 16. A Red armband has been placed on the patient. It should be worn for 30 days post discharge from surgery and will be removed by the cardiac surgeons. If an ER visit is necessary, please make sure the number on the Red armband is called before going to ER. 17. You have been referred to and are expected to begin Cardiac Rehab in approximately 4-6 weeks. 18. Quitting smoking is the most important step you can take to improve your health. For additional information and assistance to quit smoking, please call the [employer] tobacco quit line (4-734-CONP-NOW/ ) or online: [email or web address] o HOME HEALTH SERVICES TO PROVIDE: RN SKILLED HOME CARE SERVICES FOR POST-OP SURGICAL PATIENTS WITH THE FOLLOWING: Coronary Artery Bypass Surgery (CABG), Mitral Valve Replacement/Repair ( MVR), Aortic Valve Replacement/Repair (AVR) RN TO CONTINUE EDUCATION FROM ``ROAD TO A HEALTH HEART PATIENT EDUCATION MANUAL (GIVEN TO PATIENT IN THE HOSPITAL) MEDICATION RECONCILIATION WITH EDUCATION NEEDED ON FIRST HOME VISIT EMPHASIZE IMPORTANCE OF WEARING BREAST SUPPORT/HEART HUGGER ENCOURAGE USE OF INCENTIVE SPIROMETER 10 X EVERY HOUR WHILE AWAKE ENCOURAGE UTILIZATION OF LOWER EXTREMITY COMPRESSION STOCKINGS/FLORINA HOSE and ELEVATE LEGS ABOVE LEVEL OF HEART WHILE AT REST. ENCOURAGE AMBULATION 3-5x/day INCREASING TOLERATES, WHILE AVOIDING EXTREMES IN TEMPERATURE FREQUENCY: RN TO OPEN THE PATIENT WITHIN 24 HOURS OF DISCHARGE FROM THE HOSPITAL WITH TELEHEALTH INSTALLED AT [facility], RN TO VISIT 2-3 X A WEEK FOR 4 WEEKS ESTABLISHED BY PATIENT NEEDS. LABORATORY: CBC, CMP TO BE DRAWN ON THE THIRD DAY HOME, (RAN STAT) FAX RESULTS TO [phone]. TELEHEALTH PARAMETERS: WEIGHT: NOTIFY MD OF WEIGHT GAIN OF 2 LBS IN 24 HOURS OR 5 LBS IN ONE WEEK HR: NOTIFY MD OF HR <55 BPM OR HR>100 BPM BP: NOTIFY MD IF BP <90/55 OR BP>140/100 O2 SAT: NOTIFY MD IF PO2<93% ON ROOM AIR SEND TELEHEALTH REPORT TO SOCIAL ORGANIZATION PROFESSOR AND CARDIOVASCULAR SURGEON THE FIRST WEEK OF CARE AND THEN BI-WEEKLY. PLEASE ADDITIONALLY COMMUNICATE ANY ABNORMALS AND NEW FINDINGS TO THE SURGEONS OFFICE. Discharge Disposition: HOME WITH HOME HEALTH SERVICES
[2022-12-16 15:52] VITALS: BP 119/64; PULSE 63; RESP 20; TEMP 98.2
== END 2022-12-16 16:22 | disposition home health service (06) | DRG 235 ==
LOC: 2ORMAIN 05:37 → 2SICU 13:26 → 3SCARD 12-13 15:49
PROVIDERS: ADMIT Thoracic Surgery (Cardiothoracic Vascular Surgery); ATTEND Thoracic Surgery (Cardiothoracic Vascular Surgery)
PROC: 5A02210 Assistance with Cardiac Output using Balloon Pump, Continuous (ICD-10-PCS; 2022-12-07)
PROC: 30233N1 Transfusion of Nonautologous Red Blood Cells into Peripheral Vein, Percutaneous Approach (ICD-10-PCS; 2022-12-07)
PROC: 6A550Z2 Pheresis of Platelets, Single (ICD-10-PCS; 2022-12-07)
PROC: 02100AW Bypass Coronary Artery, One Artery from Aorta with Autologous Arterial Tissue, Open Approach (ICD-10-PCS; principal; 2022-12-07 08:00)
PROC: 02100Z9 Bypass Coronary Artery, One Artery from Left Internal Mammary, Open Approach (ICD-10-PCS; 2022-12-07 08:00)
PROC: 06BQ4ZZ Excision of Left Saphenous Vein, Percutaneous Endoscopic Approach (ICD-10-PCS; 2022-12-08)
PROC: 30233R1 Transfusion of Nonautologous Platelets into Peripheral Vein, Percutaneous Approach (ICD-10-PCS; 2022-12-08)
PROC: 02L70CK Occlusion of Left Atrial Appendage with Extraluminal Device, Open Approach (ICD-10-PCS; 2022-12-08)
PROC: 3E033XZ Introduction of Vasopressor into Peripheral Vein, Percutaneous Approach (ICD-10-PCS; 2022-12-08)
DX: I25.119 Atherosclerotic heart disease of native coronary artery with unspecified angina pectoris (principal); I46.2 Cardiac arrest due to underlying cardiac condition; I49.01 Ventricular fibrillation; J96.01 Acute respiratory failure with hypoxia; R57.1 Hypovolemic shock; E11.52 Type 2 diabetes mellitus with diabetic peripheral angiopathy with gangrene; D62 Acute posthemorrhagic anemia; I97.710 Intraoperative cardiac arrest during cardiac surgery; I95.89 Other hypotension; E11.621 Type 2 diabetes mellitus with foot ulcer; J44.9 Chronic obstructive pulmonary disease, unspecified; D69.59 Other secondary thrombocytopenia; I25.82 Chronic total occlusion of coronary artery; E11.69 Type 2 diabetes mellitus with other specified complication; I11.9 Hypertensive heart disease without heart failure; R82.71 Bacteriuria; B96.89 Other specified bacterial agents as the cause of diseases classified elsewhere; E11.65 Type 2 diabetes mellitus with hyperglycemia; I48.91 Unspecified atrial fibrillation; K21.9 Gastro-esophageal reflux disease without esophagitis; E78.5 Hyperlipidemia, unspecified; I95.1 Orthostatic hypotension; R33.9 Retention of urine, unspecified; F17.210 Nicotine dependence, cigarettes, uncomplicated; H54.61 Unqualified visual loss, right eye, normal vision left eye; I25.5 Ischemic cardiomyopathy; M19.90 Unspecified osteoarthritis, unspecified site; L97.519 Non-pressure chronic ulcer of other part of right foot with unspecified severity; N39.3 Stress incontinence (female) (male); Z28.310 Unvaccinated for COVID-19; Z86.73 Personal history of transient ischemic attack (TIA), and cerebral infarction without residual deficits; Z89.431 Acquired absence of right foot; Z79.899 Other long term (current) drug therapy; Z79.82 Long term (current) use of aspirin; Z79.4 Long term (current) use of insulin; Z79.85 Long-term (current) use of injectable non-insulin antidiabetic drugs; Z88.0 Allergy status to penicillin; Z88.6 Allergy status to analgesic agent; Z79.84 Long term (current) use of oral hypoglycemic drugs; Z82.49 Family history of ischemic heart disease and other diseases of the circulatory system
CPT/HCPCS: 71045; 71046; 74018; 80048; 80053; 81001; 82330; 82805; 83036; 83735; 84132; 85025; 85027; 85384; 85610; 85730; 86850; 86891; 86900; 86901; 86920; 87077; 87086; 87186; 94002; 94640; 94760

== ENCOUNTER 2022-12-28 20:39 | Observation (INO) | payer MEDICARE, OTHER ==
[2022-12-28 20:58] LABS: Glucose,Whole Blood 44 mg/dL (70-110)
[2022-12-28] MEDS ORDERED: SODIUM CHLORIDE 0.9% 1,000 ML IV STA (21:03)
[2022-12-28] MEDS ORDERED: VANCOMYCIN IV PER PHARMACY 1 EACH MISC MISCELLANE PRN (21:10)
[2022-12-28] MEDS ORDERED: CEFEPIME 2 GM in SODIUM CHLORIDE 0.9% 100 ML IVPB STA (21:11)
[2022-12-28] MEDS ORDERED: VANCOMYCIN 1,500 MG in SODIUM CHLORIDE 0.9% 500 ML 500 ML IVPB STA (21:13)
[2022-12-28 21:18] LABS: Anisocytosis Slight; Basophils % (A) 0 %; Eosinophils # (A) 0.1 k/uL (0-0.7); Eosinophils % (A) 2 %; HCT 32.9 % (34.0-46.0); HGB 10.4 gm/dL (11.4-16.0); Hypochromasia Moderate; Lymphocytes # (A) 0.8 k/uL (1.0-4.8); Lymphocytes % (A) 23 %; MCH 27.9 pg (25.0-35.0); MCHC 31.7 g/dL (31.0-37.0); MCV 88.1 fL (80.0-100.0); Mean Platelet Volume 6.9; Monocytes # (A) 0.2 k/uL (0-1.0); Monocytes % (A) 5 %; Neutrophils # (A) 2.5 k/uL (1.3-7.7); Neutrophils % (A) 69 %; Platelet Count 493 k/uL (150-450); Poikilocytosis Slight; RBC 3.73 m/uL (3.80-5.40); WBC 3.7 k/uL (3.8-10.6)
[2022-12-28 21:27] LABS: Glucose,Whole Blood 141 mg/dL (70-110)
--- NOTE | 2022-12-28 21:28 | ED ---
General Adult HPI - General Chief complaint: Altered Mental Status Stated complaint: Altered Mental Time Seen by Provider: 12/28/22 21:01 Source: EMS Mode of arrival: EMS Limitations: altered mental status - History of Present Illness Initial comments: Dictation was produced using Call[employer] dictation software. please excuse any grammatical, word or spelling errors. Chief Complaint: 62-year-old female 3 weeks postop from 2 vessel CABG presents to the ER after 24 hours of weakness. History of Present Illness: 62-year-old female history of present illness obtained from patient and son. Son is the primary history of present illness p misha santos. States that he saw her 2 days ago and she's been doing fine. She had a coronary artery bypass graft performed by Dr. Sanchez 3 weeks ago. She's been recovering well. She had indwelling Shrestha catheter that was to be removed in the next couple days. Patient typically causes mother twice a day to check in with her blood glucose levels. She's had intensive blood glucose treatment since she had major cardiothoracic surgery. Today she spoke with her son this morning states that her blood sugar was well controlled. Patient usually receives a call from her around midafternoon or early afternoon. He is thought something was going on when she didn't return his call. He called his cousin who was a blighted go check on her. She was found the ground with her walker flipped over. So was not sure if she may have fallen. Patient able to provide some basic information states that she feels really weak. She denies any pain complaints. The ROS documented in this emergency department record has been reviewed and confirmed by me. Those systems with pertinent positive or negative responses have been documented in the HPI. All other systems are other negative and/or noncontributory. - Related Data Home Medications Medication Instructions Recorded Confirmed Loperamide [Imodium] 2 mg PO QID PRN 11/25/22 12/28/22 Aspirin 81 mg PO DAILY 12/03/22 12/28/22 Atorvastatin [Lipitor] 80 mg PO HS 12/28/22 12/28/22 Cholecalciferol (Vitamin D3) 1,250 mcg PO FLOYD 12/28/22 12/28/22 [Decara (50,000 Iu)] Glimepiride [Amaryl] 2 mg PO AC-BRKFST 12/28/22 12/28/22 Sennosides-Docusate Sodium 2 tab PO HS PRN 12/28/22 12/28/22 [Senokot-S] Previous Rx's Medication Instructions Recorded Acetaminophen Tab [Tylenol] 650 mg PO Q4HR PRN tab 12/16/22 Clopidogrel [Plavix] 75 mg PO DAILY #30 tab 12/16/22 Empagliflozin [Jardiance] 25 mg PO DAILY #30 tablet 12/16/22 Midodrine [ProAmatine] 5 mg PO AC-BID #60 tab 12/16/22 Pantoprazole [Protonix] 40 mg PO AC-BRKFST #30 tab 12/16/22 Allergies Allergy/AdvReac Type Severity Reaction Status Date / Time Penicillins Allergy Rash/Hives Verified 12/07/22 06:00 aspirin AdvReac Nausea & Verified 12/07/22 06:00 Vomiting & Diarrhea Review of Systems ROS Statement: Those systems with pertinent positive or pertinent negative responses have been documented in the HPI. ROS Other: All systems not noted in ROS Statement are negative. Past Medical History Past Medical History: COPD, CVA/TIA, Diabetes Mellitus, Hyperlipidemia, Hypertension, Osteoarthritis (OA) Additional Past Medical History / Comment(s): first 3 toes right foot removed 2021-still healing, bandaged, past hx. TIA 1999-no residual affects, decreased vision right eye History of Any Multi-Drug Resistant Organisms: None Reported Past Surgical History: Section, Hernia Repair, Hysterectomy Additional Past Surgical History / Comment(s): right rotator cuff, left hand surgery twice Past Anesthesia/Blood Transfusion Reactions: No Reported Reaction Past Psychological History: No Psychological Hx Reported Smoking Status: Never smoker Past Alcohol Use History: None Reported Past Drug Use History: None Reported - Past Family History Father Family Medical History: Coronary Artery Disease (CAD) General Exam - General Exam Comments Initial Comments: PHYSICAL EXAM: General Impression: Alert and oriented x3, mildly lethargic HEENT: Normocephalic atraumatic, extra-ocular movements intact, pupils equal and reactive to light bilaterally, dry mucous membranes Cardiovascular: Heart regular rate and rhythm Chest: Able to complete full sentences, no retractions, no tachypnea Abdomen: abdomen soft, non-tender, non-distended, no organomegaly Musculoskeletal: Pulses present and equal in all extremities, no peripheral edema Motor: no focal deficits noted Neurological: CN II-XII grossly intact, no focal motor or sensory deficits noted Skin: Intact with no visualized rashes, wound to the right lower extremity without any drainage, cardiothoracic surgical site is clean dry and intact without any drainage Psych: Normal affect and mood Limitations: altered mental status Course Vital Signs 12/28/22 12/28/22 12/28/22 20:47 22:00 22:33 Temperature 91.4 F L Pulse Rate 54 L 52 L 53 L Respiratory 22 16 18 Rate Blood Pressure 147/94 117/87 110/72 O2 Sat by Pulse 94 L 94 L 96 Oximetry 12/28/22 23:44 Temperature 92.4 F L Pulse Rate Respiratory Rate Blood Pressure O2 Sat by Pulse Oximetry EKG Findings - EKG Comments: EKG Findings:: My EKG interpretation: Ventricular rate 48, sinus bradycardia,. Interval 92, QRS 70, QTC 185. No AK prolongation, no QTC prolongation, no ST or T-wave changes noted. Interpretation limited due to significant artifact EKG compared to 12/15/2022 showing no changes. Overall, this EKG is unremarkable Medical Decision Making - Medical Decision Making Was pt. sent in by a medical professional or institution (, PA, [employer], urgent care, hospital, or retirement...) When possible be specific @ -No Did you speak to anyone other than the patient for history (EMS, parent, family, police, friend...)? What history was obtained from this source @ -History of present illness obtained from son. Please see HPI for further detail Did you review nursing and triage notes (agree or disagree)? Why? @ -I reviewed and agree with nursing and triage notes Were old charts reviewed (outside hosp., previous admission, EMS record, old EKG, old radiological studies, urgent care reports/EKG's, retirement records)? Report findings @ -Prior charting From recent admission was reviewed Differential Diagnosis (chest pain, altered mental status, abdominal pain women, abdominal pain men, vaginal bleeding, musculoskeletal, weakness, fever, dyspnea, syncope, headache, dizziness, GI bleed, back pain, seizure, CVA, palpatations, mental health)? @ -Differential Altered Mental Status: Hypoglycemia, DKA, hypercapnia, ETOH, overdose, CO poisoning, trauma, myxedema coma, HTN encephalopathy, infection, encephalitis, psychosis, intercranial hemorrhage, hepatic encephalopathy, meningitis, CVA, this is not meant to be an all-inclusive list EKG interpreted by me (3pts min.). @ -See above X-rays interpreted by me (1pt min.). @ -Mild vascular congestion CT interpreted by me (1pt min.). @ -CT brain unremarkable for acute processes U/S interpreted by me (1pt. min.). @ -None done What testing was considered but not performed or refused? (CT, X-rays, U/S, labs)? Why? @ -None What meds were considered but not given or refused? Why? @ -None Did you discuss the management of the patient with other professionals (professionals i.e. , PA, [employer], lab, RT, psych nurse, social media assistant, biology tutor, teacher, gifts officer, director of casework services)? Give summary @ -Case discussed with Dr. Sanchez for admission. Case also discussed with hospitalist for consultation Was smoking cessation discussed for >3mins.? @ -No Was critical care preformed (if so, how long)? @ -yes, 33 mins Were there social determinants of health that impacted care today? How? (Homelessness, low income, unemployed, alcoholism, drug addiction, transportation, low edu. Level, literacy, decrease access to med. care, penitentiary, rehab)? @ -No Was there de-escalation of care discussed even if they declined (Discuss DNR or withdrawal of care, Hospice)? DNR status @ -No What co-morbidities impacted this encounter? (DM, HTN, Smoking, COPD, CAD, Cancer, CVA, ARF, Chemo, Hep., AIDS, mental health diagnosis, sleep apnea, morbid obesity)? @ -None Was patient admitted / discharged? Hospital course, mention meds given and route, prescriptions, significant lab abnormalities, going to OR and other pertinent info. @ -62-year-old female presents to the emergency department for altered mental status. Patient appeared to be mildly lethargic at the bedside. She is hypothermic arrival. Patient also had hypoglycemia prior to arrival. Laboratory evaluation obtained. Leukopenia 3.7 with hemoglobin of 10.4. Hemoglobin level appears to be improved. Coag panel is negative. Metabolic panel shows findings within acceptable limits. Troponin is elevated 0.095 likely postoperative. Urinalysis shows mild UTI. Imaging studies are unremarkable. Patient be admitted for medical monitoring and further care. Undiagnosed new problem with uncertain prognosis? @ -No Drug Therapy requiring intensive monitoring for toxicity (Heparin, Nitro, Insulin, Cardizem)? @ -No Were any procedures done? @ -No Diagnosis/symptom? Acute, or Chronic, or Acute on Chronic? Uncomplicated (without systemic symptoms) or Complicated (systemic symptoms)? @ -1. Hypoglycemia, no obvious source, 2. Encephalopathy, secondary to #1, 3. Hypothermia, no obvious source Side effects of treatment? @ -No Exacerbation, Progression, or Severe Exacerbation? @ -No Poses a threat to life or bodily function? How? (Chest pain, USA, SD, pneumonia, PE, COPD, DKA, ARF, appy, cholecystitis, CVA, Diverticulitis, Homicidal, Suicidal, threat to staff... and all critical care pts) @ -yes - Lab Data Result diagrams: 12/28/22 21:00 12/28/22 21:00 Lab Results 12/28/22 12/28/22 12/28/22 Range/Units 20:56 21:00 21:00 WBC 3.7 L (3.8-10.6) k/uL RBC 3.73 L (3.80-5.40) m/uL Hgb 10.4 L (11.4-16.0) gm/dL Hct 32.9 L (34.0-46.0) % MCV 88.1 (80.0-100.0) fL MCH 27.9 (25.0-35.0) pg MCHC 31.7 (31.0-37.0) g/dL RDW 19.0 H (11.5-15.5) % Plt Count 493 H (150-450) k/uL MPV 6.9 Neutrophils % 69 % Lymphocytes % 23 % Monocytes % 5 % Eosinophils % 2 % Basophils % 0 % Neutrophils # 2.5 (1.3-7.7) k/uL Lymphocytes # 0.8 L (1.0-4.8) k/uL Monocytes # 0.2 (0-1.0) k/uL Eosinophils # 0.1 (0-0.7) k/uL Basophils # 0.0 (0-0.2) k/uL Hypochromasia Moderate Poikilocytosis Slight Anisocytosis Slight PT (9.0-12.0) sec INR (<1.2) APTT (22.0-30.0) sec Sodium 139 (137-145) mmol/L Potassium 3.5 (3.5-5.1) mmol/L Chloride 104 (98-107) mmol/L Carbon Dioxide 25 (22-30) mmol/L Anion Gap 10 mmol/L BUN 15 (7-17) mg/dL Creatinine 0.71 (0.52-1.04) mg/dL Est GFR (CKD-EPI)AfAm >90 (>60 ml/min/1.73 sqM) Est GFR (CKD-EPI)NonAf >90 (>60 ml/min/1.73 sqM) Glucose 41 L* (74-99) mg/dL POC Glucose (mg/dL) 44 L (70-110) mg/dL POC Glu Fixture Designer ID Apple Philippe Plasma Lactic Acid Alex (0.7-2.0) mmol/L Calcium 8.8 (8.4-10.2) mg/dL Magnesium 2.1 (1.6-2.3) mg/dL Total Bilirubin 0.9 (0.2-1.3) mg/dL AST 63 H (14-36) U/L ALT 81 H (4-34) U/L Alkaline Phosphatase 464 H (38-126) U/L Troponin I (0.000-0.034) ng/mL Total Protein 6.5 (6.3-8.2) g/dL Albumin 3.4 L (3.5-5.0) g/dL Urine Color Urine Appearance (Clear) Urine pH (5.0-8.0) Ur Specific [place] (1.001-1.035) Urine Protein (Negative) Urine Glucose (UA) (Negative) Urine Ketones (Negative) Urine Blood (Negative) Urine Nitrite (Negative) Urine Bilirubin (Negative) Urine Urobilinogen (<2.0) mg/dL Ur Leukocyte Esterase (Negative) Urine RBC (0-5) /hpf Urine WBC (0-5) /hpf Urine Mucus (None) /hpf Urine Yeast (Budding) (None) /hpf 12/28/22 12/28/22 12/28/22 Range/Units 21:00 21:00 21:24 WBC (3.8-10.6) k/uL RBC (3.80-5.40) m/uL Hgb (11.4-16.0) gm/dL Hct (34.0-46.0) % MCV (80.0-100.0) fL MCH (25.0-35.0) pg MCHC (31.0-37.0) g/dL RDW (11.5-15.5) % Plt Count (150-450) k/uL MPV Neutrophils % % Lymphocytes % % Monocytes % % Eosinophils % % Basophils % % Neutrophils # (1.3-7.7) k/uL Lymphocytes # (1.0-4.8) k/uL Monocytes # (0-1.0) k/uL Eosinophils # (0-0.7) k/uL Basophils # (0-0.2) k/uL Hypochromasia Poikilocytosis Anisocytosis PT (9.0-12.0) sec INR (<1.2) APTT (22.0-30.0) sec Sodium (137-145) mmol/L Potassium (3.5-5.1) mmol/L Chloride (98-107) mmol/L Carbon Dioxide (22-30) mmol/L Anion Gap mmol/L BUN (7-17) mg/dL Creatinine (0.52-1.04) mg/dL Est GFR (CKD-EPI)AfAm (>60 ml/min/1.73 sqM) Est GFR (CKD-EPI)NonAf (>60 ml/min/1.73 sqM) Glucose (74-99) mg/dL POC Glucose (mg/dL) 141 H (70-110) mg/dL POC Glu Fixture Designer ID Apple Philippe Plasma Lactic Acid Alex 1.4 (0.7-2.0) mmol/L Calcium (8.4-10.2) mg/dL Magnesium (1.6-2.3) mg/dL Total Bilirubin (0.2-1.3) mg/dL AST (14-36) U/L ALT (4-34) U/L Alkaline Phosphatase (38-126) U/L Troponin I 0.095 H* (0.000-0.034) ng/mL Total Protein (6.3-8.2) g/dL Albumin (3.5-5.0) g/dL Urine Color Urine Appearance (Clear) Urine pH (5.0-8.0) Ur Specific [place] (1.001-1.035) Urine Protein (Negative) Urine Glucose (UA) (Negative) Urine Ketones (Negative) Urine Blood (Negative) Urine Nitrite (Negative) Urine Bilirubin (Negative) Urine Urobilinogen (<2.0) mg/dL Ur Leukocyte Esterase (Negative) Urine RBC (0-5) /hpf Urine WBC (0-5) /hpf Urine Mucus (None) /hpf Urine Yeast (Budding) (None) /hpf 12/28/22 12/28/22 12/28/22 Range/Units 21:25 22:29 23:38 WBC (3.8-10.6) k/uL RBC (3.80-5.40) m/uL Hgb (11.4-16.0) gm/dL Hct (34.0-46.0) % MCV (80.0-100.0) fL MCH (25.0-35.0) pg MCHC (31.0-37.0) g/dL RDW (11.5-15.5) % Plt Count (150-450) k/uL MPV Neutrophils % % Lymphocytes % % Monocytes % % Eosinophils % % Basophils % % Neutrophils # (1.3-7.7) k/uL Lymphocytes # (1.0-4.8) k/uL Monocytes # (0-1.0) k/uL Eosinophils # (0-0.7) k/uL Basophils # (0-0.2) k/uL Hypochromasia Poikilocytosis Anisocytosis PT 11.3 (9.0-12.0) sec INR 1.1 (<1.2) APTT 26.8 (22.0-30.0) sec Sodium (137-145) mmol/L Potassium (3.5-5.1) mmol/L Chloride (98-107) mmol/L Carbon Dioxide (22-30) mmol/L Anion Gap mmol/L BUN (7-17) mg/dL Creatinine (0.52-1.04) mg/dL Est GFR (CKD-EPI)AfAm (>60 ml/min/1.73 sqM) Est GFR (CKD-EPI)NonAf (>60 ml/min/1.73 sqM) Glucose (74-99) mg/dL POC Glucose (mg/dL) 98 (70-110) mg/dL POC Glu Fixture Designer ID Apple Philippe Plasma Lactic Acid Alex (0.7-2.0) mmol/L Calcium (8.4-10.2) mg/dL Magnesium (1.6-2.3) mg/dL Total Bilirubin (0.2-1.3) mg/dL AST (14-36) U/L ALT (4-34) U/L Alkaline Phosphatase (38-126) U/L Troponin I (0.000-0.034) ng/mL Total Protein (6.3-8.2) g/dL Albumin (3.5-5.0) g/dL Urine Color Light Yellow Urine Appearance Cloudy H (Clear) Urine pH 5.5 (5.0-8.0) Ur Specific [place] 1.011 (1.001-1.035) Urine Protein Negative (Negative) Urine Glucose (UA) 4+ H (Negative) Urine Ketones Negative (Negative) Urine Blood Trace H (Negative) Urine Nitrite Negative (Negative) Urine Bilirubin Negative (Negative) Urine Urobilinogen <2.0 (<2.0) mg/dL Ur Leukocyte Esterase Large H (Negative) Urine RBC 8 H (0-5) /hpf Urine WBC 24 H (0-5) /hpf Urine Mucus Rare H (None) /hpf Urine Yeast (Budding) Many H (None) /hpf Disposition Clinical Impression: Hypoglycemia Disposition: ADMITTED IP TO THIS [facility] Condition: Fair Decision Time: 23:09
[2022-12-28 21:30] LABS: ALT 81 U/L (4-34); AST 63 U/L (14-36); African American GFR (CKD) >90 (>60 ml/min/1.73 sqM); Albumin 3.4 g/dL (3.5-5.0); Alkaline Phosphatase 464 U/L (38-126); Anion Gap 10 mmol/L; Blood Urea Nitrogen 15 mg/dL (7-17); Calcium 8.8 mg/dL (8.4-10.2); Carbon Dioxide 25 mmol/L (22-30); Chloride 104 mmol/L (98-107); Magnesium 2.1 mg/dL (1.6-2.3); Non-African American GFR(CKD) >90 (>60 ml/min/1.73 sqM); Potassium 3.5 mmol/L (3.5-5.1); Sodium 139 mmol/L (137-145); Total Bilirubin 0.9 mg/dL (0.2-1.3); Total Protein 6.5 g/dL (6.3-8.2)
[2022-12-28] MEDS ORDERED: DEXTROSE 50% SYRINGE 50 ML IVP STA (21:31)
[2022-12-28 21:42] LABS: Glucose 41 mg/dL (74-99)
--- NOTE | 2022-12-28 22:05 | XR ---
EXAMINATION TYPE: XR chest 1V portable DATE OF EXAM: 12/28/2022 COMPARISON: Chest x-ray December 16, 2022 HISTORY: Hypothermia and weakness. TECHNIQUE: Single frontal view of the chest is obtained. FINDINGS: Overlying sternal wires are redemonstrated. Left atrial appendage clip again seen. Persist ent moderate size left pleural effusion. Moderate central vascular congestion on current study. Cardi omegaly redemonstrated. Metallic anchors right humeral head level are redemonstrated. IMPRESSION: Cardiomegaly with moderate central vascular congestion. Correlate for CHF exacerbation. Stable small to moderate size left pleural effusion.
[2022-12-28 22:27] LABS: Partial Thromboplastin Time 26.8 sec (22.0-30.0)
[2022-12-28 22:30] LABS: Glucose,Whole Blood 98 mg/dL (70-110)
--- NOTE | 2022-12-28 22:34 | CT ---
EXAMINATION TYPE: CT brain cspine wo con DATE OF EXAM: 12/28/2022 COMPARISON: Prior trauma CT 2018. HISTORY: fall injury with headache and neck pain. CT DLP: 1481.2 mGycm. Automated Exposure Control for Dose Reduction was Utilized. TECHNIQUE: CT scan of the head and cervical spine are performed without contrast. FINDINGS: There is no acute intracranial hemorrhage or midline shift identified. Mild ventricular a nd sulcal prominence redemonstrated. Some faint bilateral basal ganglia calcifications redemonstrated . Mild low attenuation in the periventricular white matter redemonstrated. The calvarium is intact. B ilateral aphakia is now noted. The visualized paranasal sinuses are clear. Cervical spine is visualized in its entirety from C1 through upper thoracic levels and demonstrates s table and satisfactory alignment without evidence of acute fracture or dislocation. Prevertebral sof t tissue appears within normal limits. The C1-C2 articulation remains within normal limits on the co keena images. Vertebral body heights are preserved. [id number] spurring and disc space narrowin g C6-C7 level is redemonstrated. Posterior spur disc complex mildly effaces the anterior thecal sac a nd sagittal and axial images at this level. Moderate calcified plaque left carotid bulb level again s een. Lung apices show at least small to moderate sized bilateral pleural effusions on current exam le ft greater than right. No pneumothorax is seen. IMPRESSION: 1. There is no acute fracture or dislocation evident in the cervical spine. 2. No acute intracranial hemorrhage or midline shift is seen.
[2022-12-28 22:42] LABS: INR 1.1 (<1.2); Prothrombin Time 11.3 sec (9.0-12.0)
[2022-12-29] MEDS ORDERED: NALOXONE 0.4 MG/ML 1 ML VIAL IV PRN (00:11)
[2022-12-29] MEDS ORDERED: SODIUM CHLORIDE 0.9% 1,000 ML IV SCH (00:15)
[2022-12-29 00:37] LABS: Appearance,Urine Cloudy (Clear); Bilirubin,Urine Negative (Negative); Blood,Urine Trace (Negative); Budding Yeast,Urine Many /hpf; Color,Urine Light Yellow; Glucose,Urine (UA) 4+ (Negative); Ketones,Urine Negative (Negative); Leukocyte Esterase,Urine Large (Negative); Mucus,Urine Rare /hpf; Nitrite,Urine Negative (Negative); PH, Urine 5.5 (5.0-8.0); Protein,Urine Negative (Negative); RBC,Urine 8 /hpf (0-5); Specific Gravity,Urine 1.011 (1.001-1.035); Urobilinogen,Urine <2.0 mg/dL (<2.0); WBC,Urine 24 /hpf (0-5)
[2022-12-29 00:55] LABS: Glucose,Whole Blood 79 mg/dL (70-110)
[2022-12-29 02:02] LABS: Glucose,Whole Blood 79 mg/dL (70-110)
[2022-12-29 05:55] LABS: Glucose,Whole Blood 123 mg/dL (70-110)
[2022-12-29] MEDS ORDERED: SENNOSIDES-DOCUSATE SODIUM 1 EACH TAB PO PRN (06:57)
[2022-12-29] MEDS ORDERED: ACETAMINOPHEN TAB 325 MG TAB PO PRN (06:57)
[2022-12-29] MEDS ORDERED: LOPERAMIDE 2 MG CAP PO PRN (06:57)
[2022-12-29] MEDS ORDERED: DEXTROSE 50% SYRINGE 50 ML IVP PRN ×2 (07:01)
[2022-12-29] MEDS: INSULIN ASPART (NovoLOG) 100 UNIT/ML VIAL SQ SCH ×4 (07:38→20:45)
[2022-12-29] MEDS: PANTOPRAZOLE 40 MG TABLET PO SCH (08:57)
[2022-12-29] MEDS: ASPIRIN 81 MG PO SCH (09:00)
[2022-12-29] MEDS: MIDODRINE 5 MG TAB PO SCH ×2 (09:00→17:33)
[2022-12-29] MEDS: CLOPIDOGREL 75 MG TAB PO SCH (09:00)
[2022-12-29 09:03] LABS: Anisocytosis Slight; HCT 28.8 % (34.0-46.0); HGB 9.1 gm/dL (11.4-16.0); Hypochromasia Moderate; MCH 27.8 pg (25.0-35.0); MCHC 31.5 g/dL (31.0-37.0); MCV 88.2 fL (80.0-100.0); Mean Platelet Volume 7.2; Platelet Count 504 k/uL (150-450); Poikilocytosis Slight; RBC 3.27 m/uL (3.80-5.40); RDW 19.4 % (11.5-15.5); WBC 7.6 k/uL (3.8-10.6)
[2022-12-29 09:22] LABS: Calcium 8.6 mg/dL (8.4-10.2); Potassium 4.4 mmol/L (3.5-5.1)
--- NOTE | 2022-12-29 09:45 | P.GSHP ---
History of Present Illness H&P Date: 12/29/22 Chief Complaint: fall at home This is a 62 year old female patient who follow outpatient with Dr. Caba for primary care and Dr. Sanchez for cardiology. She has a previous medical history of coronary artery disease with 2 vessel off pump CABG 12/07/22 with intraoperative V. fib arrest and postoperative hypotension as well as acute blood loss anemia and urinary retention, cardiomyopathy with EF 30-35% in August with improvement to 50-55% in October of this year, hypertension, hyperlipidemia, uncontrolled type 2 diabetes with hyperglycemia, peripheral arterial disease with right foot toe amputation, TIA in 1999, and vertigo. The patient was discharged from [facility] on December 16 to home although her son felt she should go to rehab but the patient refused, and she was recovering at home. She was seen last week in the surgeons office and had no complaints except some weakness although states she was up ambulating several times daily with a walker and sleeping on the couch. Her son has been checking in on her several times daily. Yesterday, however, she chose to sleep in her bed and does state she got a bit more sleep that she has been getting. Unfortunately at some point she must have gotten out of bed and fallen. She does not remember falli ng, only remembers waking up with her walker tipped over and her shirt and Heart Hugger off. Since her son had been unable to get a hold of her by phone he sent a family member for a wellness check and the patient was found down. She was brought to [facility] emergency room, her blood glucose level was 44, and urinalysis reveals cloudy urine with large leukocyte esterase, negative nitrites, and 24 WBCs. She was also hypothermic with temperature 91.4F. She was given dextrose, IV fluids, initiated on antibiotics, was warmed up, and was admitted for evaluation and further treatment. She also had a head CT which demonstrated no acute process. EKG demonstrated sinus bradycardia with heart rate in the high 40s, remains off all AV shanae agents. She was seen and examined this morning, feels much better, vital signs were stable. . - Review of Systems Comment: Review of systems was completed and was negative except as noted - Cardiovascular Cardiovascular: Reports leg edema, Reports syncope - Musculoskeletal Musculoskeletal: Reports muscle weakness Past Medical History Past Medical History: Coronary Artery Disease (CAD), Heart Failure, COPD, CVA/TIA, Diabetes Mellitus, Hyperlipidemia, Hypertension, Osteoarthritis (OA), Vascular Disorder Additional Past Medical History / Comment(s): first 3 toes right foot removed 2021-still healing, bandaged, past hx. TIA 1999-no residual affects, decreased vision right eye History of Any Multi-Drug Resistant Organisms: None Reported Past Surgical History: Section, Coronary Bypass/CABG, Hernia Repair, Hysterectomy Additional Past Surgical History / Comment(s): right rotator cuff, left hand surgery twice, x4. 2 vessel off pump cabg 12/07/22 Past Anesthesia/Blood Transfusion Reactions: No Reported Reaction Past Psychological History: No Psychological Hx Reported Smoking Status: Never smoker Past Alcohol Use History: None Reported Past Drug Use History: None Reported - Past Family History Father Family Medical History: Coronary Artery Disease (CAD) Medications and Allergies Home Medications Medication Instructions Recorded Confirmed Type Loperamide [Imodium] 2 mg PO QID PRN 11/25/22 12/28/22 History Aspirin 81 mg PO DAILY 12/03/22 12/28/22 History Acetaminophen Tab [Tylenol] 650 mg PO Q4HR PRN tab 12/16/22 12/28/22 Rx Clopidogrel [Plavix] 75 mg PO DAILY #30 tab 12/16/22 12/28/22 Rx Empagliflozin [Jardiance] 25 mg PO DAILY #30 tablet 12/16/22 12/28/22 Rx Midodrine [ProAmatine] 5 mg PO AC-BID #60 tab 12/16/22 12/28/22 Rx Pantoprazole [Protonix] 40 mg PO AC-BRKFST #30 tab 12/16/22 12/28/22 Rx Atorvastatin [Lipitor] 80 mg PO HS 12/28/22 12/28/22 History Cholecalciferol (Vitamin D3) 1,250 mcg PO FLOYD 12/28/22 12/28/22 History [Decara (50,000 Iu)] Glimepiride [Amaryl] 2 mg PO AC-BRKFST 12/28/22 12/28/22 History Sennosides-Docusate Sodium 2 tab PO HS PRN 12/28/22 12/28/22 History [Senokot-S] Allergies Allergy/AdvReac Type Severity Reaction Status Date / Time Penicillins Allergy Rash/Hives Verified 12/07/22 06:00 aspirin AdvReac Nausea & Verified 12/07/22 06:00 Vomiting & Diarrhea Surgical - Exam Vital Signs Temp Pulse Resp BP Pulse Ox 91.4 F L 54 L 22 147/94 94 L 12/28/22 20:47 12/28/22 20:47 12/28/22 20:47 12/28/22 20:47 12/28/22 20:47 CONSTITUTIONAL: Awake and alert, appears comfortable, cooperative, well-dev eloped, well-nourished, no pain, no acute distress EYES: Pupils equal, round, reactive to light, normal ocular movement ENT: Moist mucous membranes without oral lesions present NECK: No masses, no bruits, trachea midline RESPIRATORY: Lungs sounds clear to auscultation bilaterally. Respirations even, nonlabored. Currently on room air with oxygen saturation 96%. Strong cough CARDIOVASCULAR: S1, S2 present. Slow but regular rate and rhythm, sinus eron to sinus rhythm on telemetry. Sternum stable. Palpable peripheral pulses bilaterally. Bilateral lower edema present. No calf pain or tenderness noted. GASTROINTESTINAL: Abdomen soft, nontender, nondistended without masses or orga nomegaly noted. There is no rebound or guarding present. Active bowel sounds present 4 quadrants. GENITOURINARY: Carmona present draining yellow urine with sediment INTEGUMENTARY: Skin is warm and dry. Anterior chest incision and left lower extremity incisions well approximated without redness or drainage NEUROLOGIC: Cranial nerves II through XII intact, normal coordination, no obvious motor or sensory deficits, speech is normal MUSKULOSKELETAL: Able to move all extremities, strength equal bilaterally, normal posture, walks with walker PSYCHIATRIC: Alert and oriented to person place and time, appropriate affect, intact judgment and insight Results - Labs 12/28/22 21:00 12/28/22 21:00 Abnormal Lab Results - Last 24 Hours (Table) 12/28/22 12/28/22 12/28/22 Range/Units 20:56 21:00 21:00 WBC 3.7 L (3.8-10.6) k/uL RBC 3.73 L (3.80-5.40) m/uL Hgb 10.4 L (11.4-16.0) gm/dL Hct 32.9 L (34.0-46.0) % RDW 19.0 H (11.5-15.5) % Plt Count 493 H (150-450) k/uL Lymphocytes # 0.8 L (1.0-4.8) k/uL Glucose 41 L* (74-99) mg/dL POC Glucose (mg/dL) 44 L (70-110) mg/dL AST 63 H (14-36) U/L ALT 81 H (4-34) U/L Alkaline Phosphatase 464 H (38-126) U/L Troponin I (0.000-0.034) ng/mL Albumin 3.4 L (3.5-5.0) g/dL Urine Appearance (Clear) Urine Glucose (UA) (Negative) Urine Blood (Negative) Ur Leukocyte Esterase (Negative) Urine RBC (0-5) /hpf Urine WBC (0-5) /hpf Urine Mucus (None) /hpf Urine Yeast (Budding) (None) /hpf 12/28/22 12/28/22 12/28/22 Range/Units 21:00 21:24 23:38 WBC (3.8-10.6) k/uL RBC (3.80-5.40) m/uL Hgb (11.4-16.0) gm/dL Hct (34.0-46.0) % RDW (11.5-15.5) % Plt Count (150-450) k/uL Lymphocytes # (1.0-4.8) k/uL Glucose (74-99) mg/dL POC Glucose (mg/dL) 141 H (70-110) mg/dL AST (14-36) U/L ALT (4-34) U/L Alkaline Phosphatase (38-126) U/L Troponin I 0.095 H* (0.000-0.034) ng/mL Albumin (3.5-5.0) g/dL Urine Appearance Cloudy H (Clear) Urine Glucose (UA) 4+ H (Negative) Urine Blood Trace H (Negative) Ur Leukocyte Esterase Large H (Negative) Urine RBC 8 H (0-5) /hpf Urine WBC 24 H (0-5) /hpf Urine Mucus Rare H (None) /hpf Urine Yeast (Budding) Many H (None) /hpf 12/29/22 Range/Units 05:53 WBC (3.8-10.6) k/uL RBC (3.80-5.40) m/uL Hgb (11.4-16.0) gm/dL Hct (34.0-46.0) % RDW (11.5-15.5) % Plt Count (150-450) k/uL Lymphocytes # (1.0-4.8) k/uL Glucose (74-99) mg/dL POC Glucose (mg/dL) 123 H (70-110) mg/dL AST (14-36) U/L ALT (4-34) U/L Alkaline Phosphatase (38-126) U/L Troponin I (0.000-0.034) ng/mL Albumin (3.5-5.0) g/dL Urine Appearance (Clear) Urine Glucose (UA) (Negative) Urine Blood (Negative) Ur Leukocyte Esterase (Negative) Urine RBC (0-5) /hpf Urine WBC (0-5) /hpf Urine Mucus (None) /hpf Urine Yeast (Budding) (None) /hpf Diabetes panel 12/28/22 Range/Units 21:00 Sodium 139 (137-145) mmol/L Potassium 3.5 (3.5-5.1) mmol/L Chloride 104 (98-107) mmol/L Carbon Dioxide 25 (22-30) mmol/L BUN 15 (7-17) mg/dL Creatinine 0.71 (0.52-1.04) mg/dL Glucose 41 L* (74-99) mg/dL Calcium 8.8 (8.4-10.2) mg/dL AST 63 H (14-36) U/L ALT 81 H (4-34) U/L Alkaline Phosphatase 464 H (38-126) U/L Total Protein 6.5 (6.3-8.2) g/dL Albumin 3.4 L (3.5-5.0) g/dL Calcium panel 12/28/22 Range/Units 21:00 Calcium 8.8 (8.4-10.2) mg/dL Albumin 3.4 L (3.5-5.0) g/dL Pituitary panel 12/28/22 Range/Units 21:00 Sodium 139 (137-145) mmol/L Potassium 3.5 (3.5-5.1) mmol/L Chloride 104 (98-107) mmol/L Carbon Dioxide 25 (22-30) mmol/L BUN 15 (7-17) mg/dL Creatinine 0.71 (0.52-1.04) mg/dL Glucose 41 L* (74-99) mg/dL Calcium 8.8 (8.4-10.2) mg/dL Adrenal panel 12/28/22 Range/Units 21:00 Sodium 139 (137-145) mmol/L Potassium 3.5 (3.5-5.1) mmol/L Chloride 104 (98-107) mmol/L Carbon Dioxide 25 (22-30) mmol/L BUN 15 (7-17) mg/dL Creatinine 0.71 (0.52-1.04) mg/dL Glucose 41 L* (74-99) mg/dL Calcium 8.8 (8.4-10.2) mg/dL Total Bilirubin 0.9 (0.2-1.3) mg/dL AST 63 H (14-36) U/L ALT 81 H (4-34) U/L Alkaline Phosphatase 464 H (38-126) U/L Total Protein 6.5 (6.3-8.2) g/dL Albumin 3.4 L (3.5-5.0) g/dL - Imaging Chest x-ray: report reviewed, image reviewed EKG: image reviewed Assessment and Plan Assessment: Fall at home, likely from hypoglycemia Bradycardia, was discharged on no AV shanae agents Hypothermia UTI, present previously and treated at previous discharge with Macrobid History of coronary artery disease with 2 vessel off pump CABG 12/07/22 Intraoperative V. fib arrest Postoperative hypotension as well as acute blood loss anemia and urinary retention Cardiomyopathy with EF 30-35% in August with improvement to 50-55% in October of this year Hypertension, was hypotensive last admission and discharged on midodrine and no antihypertensives Hyperlipidemia, treated, cholesterol 146, LDL 75, triglycerides 155 Uncontrolled type 2 diabetes with hyperglycemia, preoperative hemoglobin A1c 13% Peripheral arterial disease with right foot toe amputation 07/2022 TIA in 1999 Vertigo Cardiac debility, weakness, using walker for ambulation Plan: Continue current medication regimen. Avoid AV shanae agents, antihypertensives for now. Will add beta griselda, afterload reduction when able PT/OT ordered for eval Social work ordered for insurance authorization for [facility] at discharge as patient is now willing to go. Insurance will not authorize IPR as a peer to peer was completed last admission Will discontinue carmona at patient request, patient was supposed to follow up with urology this week May bladder scan if no void, replace carmona if retention >300 mL and patient to follow up outpatient with urology Will recheck Hgb A1c, diabetic management per internal medicine Increase activity as tolerated, shower daily Sternal precautions remain in place Strict, accurate I/O Daily weights Will discharge to [facility] once insurance auth received More recommendations to follow
[2022-12-29] MEDS ORDERED: VANCOMYCIN 1,500 MG in SODIUM CHLORIDE 0.9% 500 ML 500 ML IVPB SCH (12:00)
[2022-12-29 12:07] LABS: Glucose,Whole Blood 137 mg/dL (70-110)
--- NOTE | 2022-12-29 15:58 | P.CONS ---
History of Present Illness - Reason for Consult Consult date: 12/29/22 Medical consultation - History of Present Illness This is a pleasant 62-year-old female who is postoperative 2-vessel coronary artery bypass. Patient presents to the emergency room with low blood glucose and weakness. Patient reports falling at home x 2. She was found down by family and upon blood glucose was found to be 44. Additionally complains of lower extremity edema which is making ambulation and ADLs difficult. Patient has medical history of diabetes mellitus, heart failure, copd, hypertension, hyperlipidemia, chronic wound to the right foot s/p 3 toe amputations back in July following with Dr. Boggs for wound care. Patient was discharged home on 12/16/2022 after open heart surgery did not want to go to rehab at that time. She had issues with urinary retention postoperatively and was discharged on oral antibiotics. Urine culture at that time showing citrobacter freundii. Patient continued with indw elling catheter since discharge was not contacted by the urology office for voiding trial and IDC removal. They did get back with the patients son and she was supposed to see urology in the office tomorrow. Patients catheter has been removed and voiding trial in progress. Patient has been doing local wound care with dry aquacel per Dr Boggs at home to the right foot wound. There is no drainage or surrounding erythema. On admission blood glucose found to be 44 and will recommend to stop the glimiperide and cut back the jardiance. Patient was also found to be hypothermic with a temperature of 91.4. Brain CT showing no acute fracture or dislocation evident in the cervical spine. No acute intr acranial hemorrhage or midline shift is seen. Additional labs reveal no white count, hemoglobin of 9.1, sodium 138, stable kidney function. Glucose has improved to 120s. Patient was warmed up and started on broad spectrum antibiotics as the urinalysis was abnormal. Admitted to the stepdown unit under cardiothoracic services. REVIEW OF SYSTEMS: CONSTITUTIONAL: No fever, no malaise, Reports fatigue. HEENT: No recent visual problems or hearing problems. Denied any sore throat. CARDIOVASCULAR: No chest pain, orthopnea, PND, no palpitations, no syncope. PULMONARY: No shortness of breath, no cough, no hemoptysis. GASTROINTESTINAL: No diarrhea, no nausea, no vomiting, no abdominal pain. NEUROLOGICAL: No headaches, no weakness, no numbness. HEMATOLOGICAL: Denies any bleeding or petechiae. GENITOURINARY: Denies any burning micturition, frequency, or urgency. MUSCULOSKELETAL/RHEUMATOLOGICAL: Denies any joint pain, swelling, or any muscle pain. Reports lower extremity edema. ENDOCRINE: Denies any polyuria or polydipsia. The rest of the 14-point review of systems is negative. PHYSICAL EXAMINATION: GENERAL: The patient is alert and oriented x3, not in any acute distress. Well developed, well nourished. HEENT: Pupils are round and equally reacting to light. EOMI. No scleral icterus. No conjunctival pallor. Normocephalic, atraumatic. No pharyngeal erythema. No thyromegaly. CARDIOVASCULAR: S1 and S2 present. No murmurs, rubs, or gallops. Post surgical incisions clean dry approximated. PULMONARY: Chest is clear to auscultation, no wheezing or crackles. ABDOMEN: Soft, nontender, nondistended, normoactive bowel sounds. No palpable organomegaly. MUSCULOSKELETAL: No joint swelling or deformity. EXTREMITIES: No cyanosis, clubbing, Mild lower extremity peripheral edema right greater than left. S/P surgical removal of toe# 1-3 on the right foot. NEUROLOGICAL: Gross neurological examination did not reveal any focal deficits. Generalized weakness. SKIN: No rashes. Assessment Hypothermia and hypoglycemia on admission Unwitnessed fall found on the floor by family likely from the hypoglycemia Bradycardia Recent 2 vessel open heart with v.fib arrest during surgery patient having issues with postoperative hypotension and continues on midodrine Postoperative urinary retention requiring IDC, patient is currently undergoing voiding trial Recent urinary tract infection with citrobacter treated with macrobid urinalysis is slightly abnormal however improved from previous. Coronary artery disease with recent cardiac catheterization at [facility] Ischemic cardiomyopathy ejection fraction 30 to 35%. Most recent echo October 2022 showing improved EF 50-55% Right foot diabetic wound status post ray amputation and is being followed at wound care clinic Uncontrolled diabetes type 2 with hypoglycemia Hypertension Currently normotensive Hyperlipidemia History of TIA/CVA in 1999 with no residual effects. Osteoarthritis COPD not on oxygen at home. GI and DVT prophylaxis Full Code Plan Recommend to stop the glimiperide and cut back jardiance. Continue with acc uchecks ACHS. Physical therapy on consultation and patient is agreeable for discharge to sub acute rehab Cardiothoracic to manage medications patient continues on midodrine and off AV shanae blockers for now Urinalysis improving from prior admission. Recommend f/u urinalysis. Patient is undergoing voiding trial currently. Follow up with urology if urinary retention persists. Pending insurance authorization for discharge to [facility]. Thank you kindly for this consultation The impression and plan of care has been dictated by Carmen Zamudio, Nurse Practitioner as directed. Dr. Faraz MD I have performed a history and physical examination and medical decision making of this patient, discussed the same with the dictator, and agree with the dictators assessment and plan as written, documented as a scribe. Based on total visit time, I have performed more than 50% of this visit. Past Medical History Past Medical History: COPD, CVA/TIA, Diabetes Mellitus, Hyperlipidemia, Hypertension, Osteoarthritis (OA) Additional Past Medical History / Comment(s): first 3 toes right foot removed 2021-still healing, bandaged, past hx. TIA 1999-no residual affects, decreased vision right eye History of Any Multi-Drug Resistant Organisms: None Reported Past Surgical History: Section, Hernia Repair, Hysterectomy Additional Past Surgical History / Comment(s): right rotator cuff, left hand surgery twice, x4. Past Anesthesia/Blood Transfusion Reactions: No Reported Reaction Past Psychological History: No Psychological Hx Reported Smoking Status: Never smoker Past Alcohol Use History: None Reported Past Drug Use History: None Reported - Past Family History Father Family Medical History: Coronary Artery Disease (CAD) Medications and Allergies Home Medications Medication Instructions Recorded Confirmed Type Loperamide [Imodium] 2 mg PO QID PRN 11/25/22 12/28/22 History Aspirin 81 mg PO DAILY 12/03/22 12/28/22 History Acetaminophen Tab [Tylenol] 650 mg PO Q4HR PRN tab 12/16/22 12/28/22 Rx Clopidogrel [Plavix] 75 mg PO DAILY #30 tab 12/16/22 12/28/22 Rx Midodrine [ProAmatine] 5 mg PO AC-BID #60 tab 12/16/22 12/28/22 Rx Pantoprazole [Protonix] 40 mg PO AC-BRKFST #30 tab 12/16/22 12/28/22 Rx Atorvastatin [Lipitor] 80 mg PO HS 12/28/22 12/28/22 History Cholecalciferol (Vitamin D3) 1,250 mcg PO FLOYD 12/28/22 12/28/22 History [Decara (50,000 Iu)] Sennosides-Docusate Sodium 2 tab PO HS PRN 12/28/22 12/28/22 History [Senokot-S] Empagliflozin [Jardiance] 10 mg PO DAILY #30 tablet 12/29/22 Rx INSULIN ASPART (NovoLOG) [NovoLOG 0 unit SQ ACHS each 12/29/22 Rx (formulary)] Allergies Allergy/AdvReac Type Severity Reaction Status Date / Time Penicillins Allergy Rash/Hives Verified 12/07/22 06:00 aspirin AdvReac Nausea & Verified 12/07/22 06:00 Vomiting & Diarrhea Physical Exam Vitals: Vital Signs Temp Pulse Pulse Resp BP BP Pulse Ox 12/29/22 08:10 98.4 F 68 16 117/71 96 12/29/22 03:29 97.7 F 46 L 16 92/61 92 L 12/29/22 02:02 97.5 F L 57 L 16 94/60 94 L 12/29/22 01:42 96.8 F L 12/29/22 01:28 58 L 20 105/61 95 12/28/22 23:44 92.4 F L 12/28/22 22:33 53 L 18 110/72 96 12/28/22 22:00 52 L 16 117/87 94 L 12/28/22 20:47 91.4 F L 54 L 22 147/94 94 L Intake and Output 12/28/22 12/29/22 12/29/22 22:59 06:59 14:59 Intake Total 118 Output Total 425 Balance -425 118 Intake: Oral 118 Output: Urine 425 Other: Voiding Method Indwelling Catheter # Bowel Movements 1 Weight 83.007 kg 86.5 kg Results CBC & Chem 7: 12/29/22 08:39 12/29/22 08:39 Labs: Abnormal Lab Results - Last 24 Hours (Table) 12/28/22 12/28/22 12/28/22 Range/Units 20:56 21:00 21:00 WBC 3.7 L (3.8-10.6) k/uL RBC 3.73 L (3.80-5.40) m/uL Hgb 10.4 L (11.4-16.0) gm/dL Hct 32.9 L (34.0-46.0) % RDW 19.0 H (11.5-15.5) % Plt Count 493 H (150-450) k/uL Lymphocytes # 0.8 L (1.0-4.8) k/uL Glucose 41 L* (74-99) mg/dL POC Glucose (mg/dL) 44 L (70-110) mg/dL AST 63 H (14-36) U/L ALT 81 H (4-34) U/L Alkaline Phosphatase 464 H (38-126) U/L Troponin I (0.000-0.034) ng/mL Albumin 3.4 L (3.5-5.0) g/dL Urine Appearance (Clear) Urine Glucose (UA) (Negative) Urine Blood (Negative) Ur Leukocyte Esterase (Negative) Urine RBC (0-5) /hpf Urine WBC (0-5) /hpf Urine Mucus (None) /hpf Urine Yeast (Budding) (None) /hpf 12/28/22 12/28/22 12/28/22 Range/Units 21:00 21:24 23:38 WBC (3.8-10.6) k/uL RBC (3.80-5.40) m/uL Hgb (11.4-16.0) gm/dL Hct (34.0-46.0) % RDW (11.5-15.5) % Plt Count (150-450) k/uL Lymphocytes # (1.0-4.8) k/uL Glucose (74-99) mg/dL POC Glucose (mg/dL) 141 H (70-110) mg/dL AST (14-36) U/L ALT (4-34) U/L Alkaline Phosphatase (38-126) U/L Troponin I 0.095 H* (0.000-0.034) ng/mL Albumin (3.5-5.0) g/dL Urine Appearance Cloudy H (Clear) Urine Glucose (UA) 4+ H (Negative) Urine Blood Trace H (Negative) Ur Leukocyte Esterase Large H (Negative) Urine RBC 8 H (0-5) /hpf Urine WBC 24 H (0-5) /hpf Urine Mucus Rare H (None) /hpf Urine Yeast (Budding) Many H (None) /hpf 12/29/22 12/29/22 Range/Units 05:53 08:39 WBC (3.8-10.6) k/uL RBC 3.27 L (3.80-5.40) m/uL Hgb 9.1 L (11.4-16.0) gm/dL Hct 28.8 L (34.0-46.0) % RDW 19.4 H (11.5-15.5) % Plt Count 504 H (150-450) k/uL Lymphocytes # (1.0-4.8) k/uL Glucose (74-99) mg/dL POC Glucose (mg/dL) 123 H (70-110) mg/dL AST (14-36) U/L ALT (4-34) U/L Alkaline Phosphatase (38-126) U/L Troponin I (0.000-0.034) ng/mL Albumin (3.5-5.0) g/dL Urine Appearance (Clear) Urine Glucose (UA) (Negative) Urine Blood (Negative) Ur Leukocyte Esterase (Negative) Urine RBC (0-5) /hpf Urine WBC (0-5) /hpf Urine Mucus (None) /hpf Urine Yeast (Budding) (None) /hpf Assessment and Plan Time with Patient: Less than 30
--- NOTE | 2022-12-29 16:28 | P.GSCN ---
History of Present Illness History of present illness: 62-year-old white female, patient is well known to me from the past. 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 Patient has been coming to the wound local wound care. Patient went for coronary artery bypass after that sheath last follow-up in the wound clinic. Patient also had a history of fall at home patient may be going to go back to prison. On examination neck supple no bruit appreciated Chest is clear few crackles the lung bases Abdomen soft nontender Right foot has some swelling of the foot patient had a ray amputation of the toes in the past plan is we'll use excess silver dressing change she on the bedside advise if patient goes to prison follow-up in the wound clinic at [facility] axis silver dressing should be changed every 48 hours and one pillow elevation Past Medical History Past Medical History: COPD, CVA/TIA, Diabetes Mellitus, Hyperlipidemia, Hypertension, Osteoarthritis (OA) Additional Past Medical History / Comment(s): first 3 toes right foot removed 2021-still healing, bandaged, past hx. TIA 1999-no residual affects, decreased vision right eye History of Any Multi-Drug Resistant Organisms: None Reported Past Surgical History: Section, Hernia Repair, Hysterectomy Additional Past Surgical History / Comment(s): right rotator cuff, left hand surgery twice, x4. Past Anesthesia/Blood Transfusion Reactions: No Reported Reaction Past Psychological History: No Psychological Hx Reported Smoking Status: Never smoker Past Alcohol Use History: None Reported Past Drug Use History: None Reported - Past Family History Father Family Medical History: Coronary Artery Disease (CAD) Medications and Allergies Home Medications Medication Instructions Recorded Confirmed Type Loperamide [Imodium] 2 mg PO QID PRN 11/25/22 12/28/22 History Aspirin 81 mg PO DAILY 12/03/22 12/28/22 History Acetaminophen Tab [Tylenol] 650 mg PO Q4HR PRN tab 12/16/22 12/28/22 Rx Clopidogrel [Plavix] 75 mg PO DAILY #30 tab 12/16/22 12/28/22 Rx Midodrine [ProAmatine] 5 mg PO AC-BID #60 tab 12/16/22 12/28/22 Rx Pantoprazole [Protonix] 40 mg PO AC-BRKFST #30 tab 12/16/22 12/28/22 Rx Atorvastatin [Lipitor] 80 mg PO HS 12/28/22 12/28/22 History Cholecalciferol (Vitamin D3) 1,250 mcg PO FLOYD 12/28/22 12/28/22 History [Decara (50,000 Iu)] Sennosides-Docusate Sodium 2 tab PO HS PRN 12/28/22 12/28/22 History [Senokot-S] Empagliflozin [Jardiance] 10 mg PO DAILY #30 tablet 12/29/22 Rx INSULIN ASPART (NovoLOG) [NovoLOG 0 unit SQ ACHS each 12/29/22 Rx (formulary)] Allergies Allergy/AdvReac Type Severity Reaction Status Date / Time Penicillins Allergy Rash/Hives Verified 12/07/22 06:00 aspirin AdvReac Nausea & Verified 12/07/22 06:00 Vomiting & Diarrhea Surgical - Exam Vital Signs Temp Pulse Resp BP Pulse Ox 91.4 F L 54 L 22 147/94 94 L 12/28/22 20:47 12/28/22 20:47 12/28/22 20:47 12/28/22 20:47 12/28/22 20:47 Results - Labs 12/29/22 08:39 12/29/22 08:39 Abnormal Lab Results - Last 24 Hours (Table) 12/28/22 12/28/22 12/28/22 Range/Units 20:56 21:00 21:00 WBC 3.7 L (3.8-10.6) k/uL RBC 3.73 L (3.80-5.40) m/uL Hgb 10.4 L (11.4-16.0) gm/dL Hct 32.9 L (34.0-46.0) % RDW 19.0 H (11.5-15.5) % Plt Count 493 H (150-450) k/uL Lymphocytes # 0.8 L (1.0-4.8) k/uL Chloride (98-107) mmol/L Carbon Dioxide (22-30) mmol/L Glucose 41 L* (74-99) mg/dL POC Glucose (mg/dL) 44 L (70-110) mg/dL Hemoglobin A1c (0.0-6.0) % AST 63 H (14-36) U/L ALT 81 H (4-34) U/L Alkaline Phosphatase 464 H (38-126) U/L Troponin I (0.000-0.034) ng/mL Albumin 3.4 L (3.5-5.0) g/dL Urine Appearance (Clear) Urine Glucose (UA) (Negative) Urine Blood (Negative) Ur Leukocyte Esterase (Negative) Urine RBC (0-5) /hpf Urine WBC (0-5) /hpf Urine Mucus (None) /hpf Urine Yeast (Budding) (None) /hpf 12/28/22 12/28/22 12/28/22 Range/Units 21:00 21:24 23:38 WBC (3.8-10.6) k/uL RBC (3.80-5.40) m/uL Hgb (11.4-16.0) gm/dL Hct (34.0-46.0) % RDW (11.5-15.5) % Plt Count (150-450) k/uL Lymphocytes # (1.0-4.8) k/uL Chloride (98-107) mmol/L Carbon Dioxide (22-30) mmol/L Glucose (74-99) mg/dL POC Glucose (mg/dL) 141 H (70-110) mg/dL Hemoglobin A1c (0.0-6.0) % AST (14-36) U/L ALT (4-34) U/L Alkaline Phosphatase (38-126) U/L Troponin I 0.095 H* (0.000-0.034) ng/mL Albumin (3.5-5.0) g/dL Urine Appearance Cloudy H (Clear) Urine Glucose (UA) 4+ H (Negative) Urine Blood Trace H (Negative) Ur Leukocyte Esterase Large H (Negative) Urine RBC 8 H (0-5) /hpf Urine WBC 24 H (0-5) /hpf Urine Mucus Rare H (None) /hpf Urine Yeast (Budding) Many H (None) /hpf 12/29/22 12/29/22 12/29/22 Range/Units 05:53 08:39 08:39 WBC (3.8-10.6) k/uL RBC 3.27 L (3.80-5.40) m/uL Hgb 9.1 L (11.4-16.0) gm/dL Hct 28.8 L (34.0-46.0) % RDW 19.4 H (11.5-15.5) % Plt Count 504 H (150-450) k/uL Lymphocytes # (1.0-4.8) k/uL Chloride 109 H (98-107) mmol/L Carbon Dioxide 20 L (22-30) mmol/L Glucose 164 H (74-99) mg/dL POC Glucose (mg/dL) 123 H (70-110) mg/dL Hemoglobin A1c (0.0-6.0) % AST (14-36) U/L ALT (4-34) U/L Alkaline Phosphatase (38-126) U/L Troponin I (0.000-0.034) ng/mL Albumin (3.5-5.0) g/dL Urine Appearance (Clear) Urine Glucose (UA) (Negative) Urine Blood (Negative) Ur Leukocyte Esterase (Negative) Urine RBC (0-5) /hpf Urine WBC (0-5) /hpf Urine Mucus (None) /hpf Urine Yeast (Budding) (None) /hpf 12/29/22 12/29/22 Range/Units 08:39 11:54 WBC (3.8-10.6) k/uL RBC (3.80-5.40) m/uL Hgb (11.4-16.0) gm/dL Hct (34.0-46.0) % RDW (11.5-15.5) % Plt Count (150-450) k/uL Lymphocytes # (1.0-4.8) k/uL Chloride (98-107) mmol/L Carbon Dioxide (22-30) mmol/L Glucose (74-99) mg/dL POC Glucose (mg/dL) 137 H (70-110) mg/dL Hemoglobin A1c 7.8 H (0.0-6.0) % AST (14-36) U/L ALT (4-34) U/L Alkaline Phosphatase (38-126) U/L Troponin I (0.000-0.034) ng/mL Albumin (3.5-5.0) g/dL Urine Appearance (Clear) Urine Glucose (UA) (Negative) Urine Blood (Negative) Ur Leukocyte Esterase (Negative) Urine RBC (0-5) /hpf Urine WBC (0-5) /hpf Urine Mucus (None) /hpf Urine Yeast (Budding) (None) /hpf Diabetes panel 12/28/22 12/29/22 12/29/22 Range/Units 21:00 08:39 08:39 Sodium 139 138 (137-145) mmol/L Potassium 3.5 4.4 (3.5-5.1) mmol/L Chloride 104 109 H (98-107) mmol/L Carbon Dioxide 25 20 L (22-30) mmol/L BUN 15 15 (7-17) mg/dL Creatinine 0.71 0.85 (0.52-1.04) mg/dL Glucose 41 L* 164 H (74-99) mg/dL Hemoglobin A1c 7.8 H (0.0-6.0) % Calcium 8.8 8.6 (8.4-10.2) mg/dL AST 63 H (14-36) U/L ALT 81 H (4-34) U/L Alkaline Phosphatase 464 H (38-126) U/L Total Protein 6.5 (6.3-8.2) g/dL Albumin 3.4 L (3.5-5.0) g/dL Calcium panel 12/28/22 12/29/22 Range/Units 21:00 08:39 Calcium 8.8 8.6 (8.4-10.2) mg/dL Albumin 3.4 L (3.5-5.0) g/dL Pituitary panel 12/28/22 12/29/22 Range/Units 21:00 08:39 Sodium 139 138 (137-145) mmol/L Potassium 3.5 4.4 (3.5-5.1) mmol/L Chloride 104 109 H (98-107) mmol/L Carbon Dioxide 25 20 L (22-30) mmol/L BUN 15 15 (7-17) mg/dL Creatinine 0.71 0.85 (0.52-1.04) mg/dL Glucose 41 L* 164 H (74-99) mg/dL Calcium 8.8 8.6 (8.4-10.2) mg/dL Adrenal panel 12/28/22 12/29/22 Range/Units 21:00 08:39 Sodium 139 138 (137-145) mmol/L Potassium 3.5 4.4 (3.5-5.1) mmol/L Chloride 104 109 H (98-107) mmol/L Carbon Dioxide 25 20 L (22-30) mmol/L BUN 15 15 (7-17) mg/dL Creatinine 0.71 0.85 (0.52-1.04) mg/dL Glucose 41 L* 164 H (74-99) mg/dL Calcium 8.8 8.6 (8.4-10.2) mg/dL Total Bilirubin 0.9 (0.2-1.3) mg/dL AST 63 H (14-36) U/L ALT 81 H (4-34) U/L Alkaline Phosphatase 464 H (38-126) U/L Total Protein 6.5 (6.3-8.2) g/dL Albumin 3.4 L (3.5-5.0) g/dL
[2022-12-29 16:40] LABS: Glucose,Whole Blood 141 mg/dL (70-110)
[2022-12-29 20:26] LABS: Glucose,Whole Blood 134 mg/dL (70-110)
[2022-12-29] MEDS ORDERED: ATORVASTATIN 80 MG TAB PO SCH (21:00)
[2022-12-30 05:58] LABS: Glucose,Whole Blood 126 mg/dL (70-110)
[2022-12-30] MEDS: INSULIN ASPART (NovoLOG) 100 UNIT/ML VIAL SQ SCH ×3 (06:09→16:34)
[2022-12-30] MEDS: MIDODRINE 5 MG TAB PO SCH ×2 (06:43→16:27)
[2022-12-30] MEDS: PANTOPRAZOLE 40 MG TABLET PO SCH (06:43)
[2022-12-30] MEDS ORDERED: METOCLOPRAMIDE 5 MG/ML 2 ML VIAL IVP STA (07:17)
--- NOTE | 2022-12-30 07:18 | XR ---
EXAMINATION TYPE: XR chest 2V DATE OF EXAM: 12/30/2022 6:24 AM COMPARISON: Chest radiographs from 01/15/2023 TECHNIQUE: XR chest 2V Frontal and lateral views of the chest. CLINICAL INDICATION:Female, 62 years old with history of post cardiac surgery; FINDINGS: Lungs/Pleura: Left basilar atelectasis with small left pleural effusion. There is no evidence of pleu ral effusion, focal consolidation, or pneumothorax. Pulmonary vascularity: Improved pulmonary vascular congestion Heart/mediastinum: Cardiomediastinal silhouette is enlarged and stable. Left atrial appendage occlusi on device is present. Musculoskeletal: No acute osseous pathology. Midline sternotomy wires are noted. Post repair anchors of the right humerus. IMPRESSION: Mild improvement of pulmonary vascular congestion with persistent left pleural effusion and cardiomeg letty.
[2022-12-30 08:31] LABS: Anisocytosis Slight; HCT 29.7 % (34.0-46.0); HGB 9.3 gm/dL (11.4-16.0); Hypochromasia Moderate; MCH 27.7 pg (25.0-35.0); MCHC 31.2 g/dL (31.0-37.0); MCV 88.9 fL (80.0-100.0); Platelet Count 509 k/uL (150-450); Poikilocytosis Slight; RBC 3.34 m/uL (3.80-5.40); WBC 5.8 k/uL (3.8-10.6)
[2022-12-30 08:43] LABS: Calcium 8.8 mg/dL (8.4-10.2); Magnesium 1.9 mg/dL (1.6-2.3); Potassium 4.1 mmol/L (3.5-5.1); Total Bilirubin 0.9 mg/dL (0.2-1.3); Total Protein 5.8 g/dL (6.3-8.2)
[2022-12-30] MEDS ORDERED: MAGNESIUM SULFATE-D5W PMX 1 GM in DEXTROSE/WATER 1 100ML.BAG IVPB ONE (08:52)
--- NOTE | 2022-12-30 09:38 | P.PN ---
Subjective Progress Note Date: 12/30/22 Principal diagnosis: Fall from standing, likely from hypoglycemia. Past medical history significant for coronary artery disease with 2 vessel off pump CABG 12/07/22 with intraopera tive V. fib arrest and postoperative hypotension as well as acute blood loss anemia, bradycardia with a heart rate in the high 40s on no AV shanae agents, urinary retention with history of UTI 12/14/2022 Citrobacter freundii treated, cardiomyopathy with EF 30-35% in August with improvement to 50-55% in October of this year, hypertension, hyperlipidemia, uncontrolled type 2 diabetes with hyperglycemia, peripheral arterial disease with right foot toe amputations, TIA in 1999, and vertigo. The patient was seen and examined in follow-up today 12/30/2022 at her bedside on the cardiac stepdown unit. Currently she is sitting up to the bedside chair, is awake, alert, oriented 3 and is in no acute distress. Denies any complaints of pain or shortness of breath at this time. Reports that she does not really remember what happened to bring her to the hospital but was told that she was found on her floor at home and had a low blood sugar in the 40s and was hypothermic. She remains hemodynamically stable and is on no inotropic pressor support. Her blood sugar in the last 24 hours a been ranging from 126-141. Remote telemetry showing normal sinus rhythm heart rate 69 BPM at this time. Ox ygen saturations are 94% on room air and she is achieving 1000 mL on her incentive spirometry with encouragement. Laboratory and chest x-ray results reviewed. The patient remains afebrile the last 24 hours. The patient's Carmona catheter was removed yesterday, although the patient continued to have post void residuals of 400-500 mL of urine and subsequently a Carmona catheter was inserted. Objective - Vital Signs Vital signs: Vital Signs Temp 98.5 F 12/30/22 04:30 Pulse 60 12/30/22 04:30 Resp 15 12/30/22 04:30 BP 123/68 12/30/22 04:30 Pulse Ox 93 L 12/30/22 04:30 FiO2 Intake & Output 12/29/22 12/30/22 12/30/22 18:59 06:59 18:59 Intake Total 118 560 360 Output Total 300 600 Balance -182 -40 360 Weight 87.6 kg Intake: IV 20 Invasive Line 2 10 Invasive Line 3 10 Oral 118 540 360 Output: Urine 300 600 Uretheral (Carmona) 175 Other: Voiding Method Toilet Indwelling Catheter - Exam CONSTITUTIONAL: Sitting up to the bedside chair on the cardiac stepdown unit, appears comfortable, cooperative, no apparent acute distress. HEENT: Neck is supple, no JVD, no lymphadenopathy. RESPIRATORY: Lungs sounds essentially clear throughout, with few scattered crackles and diminished to her left lower lobe. Respirations are symmetrical and nonlabored. Currently on room air with oxygen saturations 94%. Able to achieve 1000 mL on incentive spirometry. Strong cough. CARDIOVASCULAR: Regular rhythm and rate. S1 and S2 present, negative for S3, gallop or murmur. Sternum is stable. Palpable peripheral pulses bilaterally. No calf pain or tenderness noted. Heart hugger in place with patient demonstrating appropriate use. Knee-high FLORINA hose and sequential compression devices in place to her left lower extremity. GASTROINTESTINAL: Abdomen soft, nontender, nondistended. Active bowel sounds present 4 quadrants. Tolerating diet. Passing flatus. No guarding or rigidity. GENITOURINARY: Carmona present draining clear, yellow urine. INTEGUMENTARY: Skin is warm and dry with no evidence of clubbing or cyanosis. Midline sternal incision clean dry and well approximated, covered with dry intact dressing. Left lower extremity EVH site well approximated without redness or drainage. NEUROLOGIC: Cranial nerves II through XII intact. No focal deficits. MUSKULOSKELETAL: Able to move all extremities, strength equal bilaterally. PSYCHIATRIC: Alert and oriented to person place and time, appropriate affect, intact judgment and insight. - Allied health notes Allied health notes reviewed: nursing - Labs CBC & Chem 7: 12/30/22 07:51 12/30/22 07:51 Labs: Abnormal Lab Results - Last 24 Hours (Table) 12/29/22 12/29/22 12/29/22 Range/Units 08:39 08:39 08:39 RBC 3.27 L (3.80-5.40) m/uL Hgb 9.1 L (11.4-16.0) gm/dL Hct 28.8 L (34.0-46.0) % RDW 19.4 H (11.5-15.5) % Plt Count 504 H (150-450) k/uL Sodium (137-145) mmol/L Chloride 109 H (98-107) mmol/L Carbon Dioxide 20 L (22-30) mmol/L Glucose 164 H (74-99) mg/dL POC Glucose (mg/dL) (70-110) mg/dL Hemoglobin A1c 7.8 H (0.0-6.0) % ALT (4-34) U/L Alkaline Phosphatase (38-126) U/L Total Protein (6.3-8.2) g/dL Albumin (3.5-5.0) g/dL 12/29/22 12/29/22 12/29/22 Range/Units 11:54 16:38 20:24 RBC (3.80-5.40) m/uL Hgb (11.4-16.0) gm/dL Hct (34.0-46.0) % RDW (11.5-15.5) % Plt Count (150-450) k/uL Sodium (137-145) mmol/L Chloride (98-107) mmol/L Carbon Dioxide (22-30) mmol/L Glucose (74-99) mg/dL POC Glucose (mg/dL) 137 H 141 H 134 H (70-110) mg/dL Hemoglobin A1c (0.0-6.0) % ALT (4-34) U/L Alkaline Phosphatase (38-126) U/L Total Protein (6.3-8.2) g/dL Albumin (3.5-5.0) g/dL 12/30/22 12/30/22 12/30/22 Range/Units 05:54 07:51 07:51 RBC 3.34 L (3.80-5.40) m/uL Hgb 9.3 L (11.4-16.0) gm/dL Hct 29.7 L (34.0-46.0) % RDW 19.0 H (11.5-15.5) % Plt Count 509 H (150-450) k/uL Sodium 136 L (137-145) mmol/L Chloride (98-107) mmol/L Carbon Dioxide (22-30) mmol/L Glucose 131 H (74-99) mg/dL POC Glucose (mg/dL) 126 H (70-110) mg/dL Hemoglobin A1c (0.0-6.0) % ALT 51 H (4-34) U/L Alkaline Phosphatase 350 H (38-126) U/L Total Protein 5.8 L (6.3-8.2) g/dL Albumin 3.0 L (3.5-5.0) g/dL Microbiology - Last 24 Hours (Table) 12/28/22 21:00 Blood Culture - Preliminary Blood 12/28/22 21:25 Blood Culture - Preliminary Blood 12/29/22 18:12 Urine Culture - Preliminary Urine,Catheterized - Imaging and Cardiology Chest x-ray: report reviewed, image reviewed Assessment and Plan Assessment: Status post fall from standing, likely secondary to hypoglycemia Bradycardia, was discharged home on no AV shanae agents Hypothermia, resolved UTI, present previously and treated at previous discharge with Macrobid History of coronary artery disease with 2 vessel off pump CABG 12/07/22 Intraoperative ventricular fibrillation arrest Postoperative hypotension as well as acute blood loss anemia and urinary retention Cardiomyopathy with EF 30-35% in August with improvement to 50-55% in October of this year Hypertension, was hypotensive last admission and discharged on midodrine and no antihypertensives Hyperlipidemia, treated, cholesterol 146, LDL 75, triglycerides 155 Uncontrolled type 2 diabetes with hyperglycemia, preoperative hemoglobin A1c 13% Peripheral arterial disease with right foot toe amputations 07/2022 TIA in 1999 Vertigo Cardiac debility, weakness, using walker for ambulation Plan: Continue current medication regimen. Continue to avoid AV shanae agents, and antihypertensives for now, continue midodrine 5 mg by mouth twice a day. Will add beta griselda, afterload reduction when able PT/OT following. Discharge planning in place for discharge home, insurance denied placement to subacute rehab per [id number] evaluation. Continue carmona catheter, and follow-up with urology as scheduled. Hgb A1c result pending. Increase activity as tolerated, shower daily. Sternal precautions remain in place, heart hugger is in place. Strict, accurate I/O. Daily weights. Anticipate discharge home in the next 24 hours. Wound care management per Dr. Boggs's recommendations. Electrolyte replacement per protocol. More recommendations follow based on patient's clinical course. Time with Patient: Greater than 30
[2022-12-30] MEDS: ASPIRIN 81 MG PO SCH (09:46)
[2022-12-30] MEDS: CLOPIDOGREL 75 MG TAB PO SCH (09:46)
[2022-12-30 11:48] LABS: Glucose,Whole Blood 206 mg/dL (70-110)
[2022-12-30 14:20] VITALS: RESP 16; TEMP 96.9
[2022-12-30 14:25] VITALS: BP 117/70; PULSE 62
--- NOTE | 2022-12-30 16:44 | US ---
EXAMINATION TYPE: US chest DATE OF EXAM: 12/30/2022 COMPARISON: NONE CLINICAL INDICATION: Female, 62 years old with history of left pleural effusion; left pleural effusio n. TECHNIQUE: Targeted ultrasound of the posterior lower left hemithorax EXAM MEASUREMENTS: Right Pleural Effusion pocket size: 8 cm Right skin surface to fluid distance: 1.2 cm lung tissue visualized 3.7 cm in fluid pocket. Left side marked for possible thoracentesis outside the dept. Pulmonologists are able to review the images in the patient?s EMR. IMPRESSIONS: Large left pleural effusion.
--- NOTE | 2022-12-30 22:22 | P.DS ---
Providers Date of admission: 12/29/22 00:12 Expected date of discharge: 12/30/22 Attending physician: Sammy Sanchez Consults: 12/29/22 00:10 Consult Physician Routine Consulting Provider: Tennille Berry Consult Reason/Comments: medicine consult Do you want consulting provider notified?: Yes 12/29/22 08:09 Consult Physician Routine Consulting Provider: Rafa Boggs Consult Reason/Comments: dressing change to right foot Do you want consulting provider notified?: Yes Primary care physician: [facility] Course: Diagnoses: Fall at home, likely from hypoglycemia Bradycardia, was discharged on no AV shanae agents Hypothermia, resolved UTI, present previously and treated at previous discharge with Macrobid History of coronary artery disease with 2 vessel off pump CABG 12/07/22 Intraoperative V. fib arrest Postoperative hypotension as well as acute blood loss anemia and urinary retention Cardiomyopathy with EF 30-35% in August with improvement to 50-55% in October of this year Hypertension, was hypotensive last admission and discharged on midodrine and no antihypertensives Hyperlipidemia, treated, cholesterol 146, LDL 75, triglycerides 155 Uncontrolled type 2 diabetes with hyperglycemia, preoperative hemoglobin A1c 13% Peripheral arterial disease with right foot toe amputation 07/2022 TIA in 1999 Vertigo Cardiac debility, weakness, using walker for ambulation This is a 62 year old female patient who follows outpatient with Dr. Caba for primary care and Dr. Sanchez for cardiology. The patient was discharged from [facility] on December 16 to home although her son felt she should go to rehab but the patient refused, and she was recovering at home. She was seen last week in the surgeons office and had no complaints except some weakness although states she was up ambulating several times daily with a walker and sleeping on the couch. Her son has been checking in on her several times daily. On 12/28/22, however, she chose to sleep in her bed and does state she got a bit more sleep that she has been getting. Unfortunately at some point she must have gotten out of bed and fallen. She does not remember falling, only rem embers waking up with her walker tipped over and her shirt and Heart Hugger off. Since her son had been unable to get a hold of her by phone he sent a family member for a wellness check and the patient was found down. She was brought to [facility] emergency room, her blood glucose level was 44, and urinalysis reveals cloudy urine with large leukocyte esterase, negative nitrites, and 24 WBCs. She was also hypothermic with temperature 91.4F. She was given dextrose, IV fluids, initiated on antibiotics, was warmed up, and was admitted for observation, evaluation and further treatment. She also had a head CT which demonstrated no acute process. EKG demonstrated sinus bradycardia with heart rate in the high 40s, remains off all AV shanae agents. She was seen and examined in the hospital, feels much better, vital signs were stable. She was seen by PT and OT who felt discharge for short term to sub-acute rehab was appropriate for further strength training, especially as she has no live in help at home. Due to insurance denial for short term rehab, she will be discharged to her sons house with home health care. Continue current medication regimen. Avoid AV shanae agents, antihypertensives for now. Will add beta griselda, afterload reduction when able. Shrestha catheter was placed due to greater than 300 ml post void residuals. She will follow up with urology as an outpatient. Blood sugars to be monitored ACHS. Increase activity as tolerated, shower daily, sternal precautions remain in place. Patient was felt to be stable for discharge to home with home health care. She should follow up with her physicians as scheduled. Patient Condition at Discharge: Stable Plan - Discharge Summary Discharge Rx Participant: No New Discharge Prescriptions: New Insulin Aspart [NovoLOG Flexpen] 0 units SQ AC-TID #2 each Empagliflozin [Jardiance] 10 mg PO DAILY #30 tablet Continue Loperamide [Imodium] 2 mg PO QID PRN PRN Reason: Diarrhea Midodrine [ProAmatine] 5 mg PO AC-BID #60 tab Pantoprazole [Protonix] 40 mg PO AC-BRKFST #30 tab Acetaminophen Tab [Tylenol] 650 mg PO Q4HR PRN tab PRN Reason: Fever And/ Or Pain Sennosides-Docusate Sodium [Senokot-S] 2 tab PO HS PRN PRN Reason: Constipation Cholecalciferol (Vitamin D3) [Decara (50,000 Iu)] 1,250 mcg PO FLOYD Aspirin 81 mg PO DAILY Clopidogrel [Plavix] 75 mg PO DAILY #30 tab Atorvastatin [Lipitor] 80 mg PO HS Discontinued Empagliflozin [Jardiance] 25 mg PO DAILY #30 tablet Glimepiride [Amaryl] 2 mg PO AC-BRKFST No Action Insulin (Unknown Samples) 1 dose SQ DIRECTED Discharge Medication List Loperamide [Imodium] 2 mg PO QID PRN 11/25/22 [History] Aspirin 81 mg PO DAILY 12/03/22 [History] Acetaminophen Tab [Tylenol] 650 mg PO Q4HR PRN tab 12/16/22 [Rx] Clopidogrel [Plavix] 75 mg PO DAILY #30 tab 12/16/22 [Rx] Midodrine [ProAmatine] 5 mg PO AC-BID #60 tab 12/16/22 [Rx] Pantoprazole [Protonix] 40 mg PO AC-BRKFST #30 tab 12/16/22 [Rx] Atorvastatin [Lipitor] 80 mg PO HS 12/28/22 [History] Cholecalciferol (Vitamin D3) [Decara (50,000 Iu)] 1,250 mcg PO FLOYD 12/28/22 [History] Sennosides-Docusate Sodium [Senokot-S] 2 tab PO HS PRN 12/28/22 [History] Empagliflozin [Jardiance] 10 mg PO DAILY #30 tablet 12/30/22 [Rx] Insulin (Unknown Samples) 1 dose SQ DIRECTED 12/30/22 [History] Insulin Aspart [NovoLOG Flexpen] 0 units SQ AC-TID #2 each 12/30/22 [Rx] Follow up Appointment(s)/Referral(s): Vincent Sanchez MD [STAFF PHYSICIAN] - 01/05/23 4:45 pm () Sammy Sanchez MD [STAFF PHYSICIAN] - 01/06/23 1:00 pm () Lobito Stroud DO [Doctor of Osteopathic Medicine] - 01/06/23 8:45 am Kaylin Reveles MD [STAFF PHYSICIAN] - 1 Week (Godfrey call for appointment upon discharge from rehab. Bring log of blood sugars with you) Michelle Caba [Primary Care Provider] - 01/03/23 11:30 am Rafa Boggs MD [STAFF PHYSICIAN] - 01/06/23 11:30 am () Noah Reid MD [STAFF PHYSICIAN] - 1 Week (Please call the office to make a follow up appointment.) [facility] Visiting Nurse, [NON-STAFF] - Ambulatory/Diagnostic Orders: Complete Blood Count w/diff [LAB.AMB] Time Frame: 01/03/23, Facility: [facility], Location: Laboratory [facility] Comprehensive Metabolic Panel [LAB.AMB] Time Frame: 01/03/23, Facility: [facility], Location: Laboratory [facility] Activity/Diet/Wound Care/Special Instructions: DISCHARGE INSTRUCTIONS: 1. No driving for 4 weeks, or until physician gives their ok. 2. The patient should sleep in their own bed, no medical bed needed. 3. Stairs are not an issue. If the bedroom is upstairs, it is advised that the patient go up at night and down in the morning for the first week. Go slowly, using handrail and take 1 step at a time. 4. FLORINA hose are to be worn for 30 days post surgery or until physician discontinues. 5. Heart hugger is to be worn 100% of the time until physician discontinues.(except when showering) 6. No lifting, pushing, or pulling more than 10 pounds for 12 weeks. The physician will advise of any restriction changes. 7. The patient is expected to continue the prescribed walking program. 8. Continue pain control per as needed orders. 9. Continue with incentive spirometry and splinting/heart hugger until otherwise directed by the physician. 10. MUST shower daily using liquid antibacterial soap 11. Routine sternal incision care. No powders, lotions, ointments on incisions. No dressings are necessary on incisions unless they are draining. Dermabond tape is to remain on sternal incision until surgeon follow-up. 12. Please call surgeon/PROFESSIONAL APPLICATION DESIGNER for temp greater than 101 F or purulent drainage from incisions. 13. You should weigh yourself daily, record and bring log with you to follow up appointments. 14. Check blood sugars before each meal and at bedtime, keep a log and take with you to your appointment with Dr. Levine and Dr. Reveles 15. A Red armband has been placed on the patient. It should be worn for 30 days post discharge from surgery and will be removed by the cardiac surgeons. If an ER visit is necessary, please make sure the number on the Red armband is called before going to ER. 16. You have been referred to and are expected to begin Cardiac Rehab in approximately 4-6 weeks. 17. Shrestha catheter should remain in place until follow up visit with Dr. Reid in one week SUBACUTE REHAB TO PROVIDE: EMPHASIZE IMPORTANCE OF WEARING BREAST SUPPORT/HEART HUGGER ENCOURAGE USE OF INCENTIVE SPIROMETER 10 X EVERY HOUR WHILE AWAKE ENCOURAGE UTILIZATION OF LOWER EXTREMITY COMPRESSION STOCKINGS/FLORINA HOSE and ELEVATE LEGS ABOVE LEVEL OF HEART WHILE AT REST. ENCOURAGE AMBULATION 3-5x/day INCREASING TOLERATES, WHILE AVOIDING EXTREMES IN TEMPERATURE LABORATORY: CBC, CMP TO BE DRAWN ON THE THIRD DAY AT REHAB, (RAN STAT) FAX RESULTS TO [phone]. WEIGHT: NOTIFY MD OF WEIGHT GAIN OF 2 LBS IN 24 HOURS OR 5 LBS IN ONE WEEK HR: NOTIFY MD OF HR <55 BPM OR HR>100 BPM BP: NOTIFY MD IF BP <90/55 OR BP>140/100 O2 SAT: NOTIFY MD IF PO2<93% ON ROOM AIR Sliding Scale Insulin Check blood glucose before meals three times a day DO NOT take insulin if blood glucose is less than 150 Novolog pen on discharge to be taken three times a day with meals based on blood glucose and use the following scale provided: For 151 - 200 take 2 units of insulin For 201 - 250 take 4 units of insulin For 251 - 300 take 6 units of insulin For 301 - 350 take 8 units of insulin For 351 - 400 take 10 units of insulin Follow up closely with community health agent. Stop the glimiperide and jardiance has been decreased to 10 mg daily. If your blood glucose is 70 or less notify provider and also drink juice or use peanut butter with crackers to bring blood glucose back up. Discharge/Stand Alone Forms: Who Do I Call?, Community Resources Discharge Disposition: HOME WITH HOME HEALTH SERVICES
--- NOTE | 2022-12-30 22:40 | P.PN ---
Subjective Progress Note Date: 12/30/22 This is a pleasant 62-year-old female who is postoperative 2-vessel coronary artery bypass. Patient presents to the emergency room with low blood glucose and weakness. Patient reports falling at home x 2. She was found down by family and upon blood glucose was found to be 44. Additionally complains of lower extremity edema which is making ambulation and ADLs difficult. Patient has medical history of diabetes mellitus, heart failure, copd, hypertension, hyperlipidemia, chronic wound to the right foot s/p 3 toe amputations back in July following with Dr. Boggs for wound care. Patient was discharged home on 12/16/2022 after open heart surgery did not want to go to rehab at that time. She had issues with urinary retention postoperatively and was discharged on oral antibiotics. Urine culture at that time showing citrobacter freundii. Patient continued with indwelling catheter since discharge was not contacted by the urology office for voiding trial and IDC removal. They did get back with the patients son and she was supposed to see urology in the office tomorrow. Patients catheter has been removed and voiding trial in progress. Patient has been doing local wound care with dry aquacel per Dr Boggs at home to the right foot wound. There is no drainage or surrounding erythema. On admission blood glucose found to be 44 and will recommend to stop the glimiperide and cut back the jardiance. Patient was also found to be hypothermic with a temperature of 91.4. Brain CT showing no acute fracture or dislocation evident in the cervical spine. No acute intracranial hemorrhage or midline shift is seen. Additional labs reveal no white count, hemoglobin of 9.1, sodium 138, stable kidney function. Glucose has improved to 120s. Patient was warmed up and started on broad spectrum antibiotics as the urinalysis was abnormal. Admitted to the stepdown unit under cardiothoracic services. 12/30/2022 Patient is evaluated today sitting up in bed reports no acute events overnight. Patient was evaluated by Dr Boggs recommending to continue with same local wound care to the right foot with aquacel dry and wrap with gauze. Patient has compression stockings on today. Failed voiding trial and indwelling catheter was reinserted. Liver enzymes are trending down. Chest xray shows mild improvement of the pulmonary vascular congestion with persistent left pleural effusions and cardiomegaly. The sodium level is 136 today. Blood glucose in the 130-140s. Patient was denied at subacute rehab and will be discharging home to stay with her son. Given information on [place] on aging/community resources for transportation assistance. Patient remains on midodrine and blood pressures are improving. PHYSICAL EXAMINATION: GENERAL: The patient is alert and oriented x3, not in any acute distress. Well developed, well nourished. HEENT: Pupils are round and equally reacting to light. EOMI. No scleral icterus. No conjunctival pallor. Normocephalic, atraumatic. No pharyngeal erythema. No thyromegaly. CARDIOVASCULAR: S1 and S2 present. No murmurs, rubs, or gallops. Post surgical incisions clean dry approximated. PULMONARY: Chest is clear to auscultation, no wheezing or crackles. ABDOMEN: Soft, nontender, nondistended, normoactive bowel sounds. No palpable organomegaly. MUSCULOSKELETAL: No joint swelling or deformity. EXTREMITIES: No cyanosis, clubbing, Mild lower extremity peripheral edema right greater than left. S/P surgical removal of toe# 1-3 on the right foot. NEUROLOGICAL: Gross neurological examination did not reveal any focal deficits. Generalized weakness. SKIN: No rashes. Assessment Hypothermia and hypoglycemia on admission Unwitnessed fall found on the floor by family likely from the hypoglycemia Bradycardia Recent 2 vessel open heart with v.fib arrest during surgery patient having issues with postoperative hypotension and continues on midodrine Postoperative urinary retention requiring IDC, patient is currently undergoing voiding trial Recent urinary tract infection with citrobacter treated with macrobid urinalysis is slightly abnormal however improved from previous. Coronary artery disease with recent cardiac catheterization at [facility] Ischemic cardiomyopathy ejection fraction 30 to 35%. Most recent echo October 2022 showing improved EF 50-55% Right foot diabetic wound status post ray amputation and is being followed at wound care clinic Uncontrolled diabetes type 2 with hypoglycemia Hypertension Currently normotensive Hyperlipidemia History of TIA/CVA in 1999 with no residual effects. Osteoarthritis COPD not on oxygen at home. GI and DVT prophylaxis Full Code Plan Recommend to stop the glimiperide and cut back jardiance. Continue slding scale insulin. Patient continues on midodrine and off AV shanae blockers for now Urinalysis improving from prior admission. Patient failed voiding trial and will discharge with IDC and f/u with urology. Recommend repeat urinalysis outpatient. Patient is cleared medically for discharge home, cardiothoracic plans to D/C patient hometoday, home care services in place. Patient to continue follow up with Dr. Boggs and continue local wound care with aquacel and gauze to the right foot. Patient is given information on community resources /counsils on aging for transportation assistance. Thank you kindly for this consultation The impression and plan of care has been dictated by Carmen Zamudio, Nurse Practitioner as directed. Dr. Faraz MD I have performed a history and physical examination and medical decision making of this patient, discussed the same with the dictator, and agree with the dictators assessment and plan as written, documented as a scribe. Based on total visit time, I have performed more than 50% of this visit. Objective - Vital Signs Vital signs: Vital Signs Temp 96.9 F L 12/30/22 08:00 Pulse 62 12/30/22 11:55 Resp 16 12/30/22 11:55 BP 117/70 12/30/22 11:55 Pulse Ox 92 L 12/30/22 11:55 FiO2 Intake & Output 12/30/22 12/30/22 12/31/22 06:59 18:59 06:59 Intake Total 560 478 Output Total 600 1525 Balance -40 -1047 Weight 87.6 kg Intake: IV 20 Invasive Line 2 10 Invasive Line 3 10 Oral 540 478 Output: Urine 600 1525 Uretheral (Shrestha) 175 350 Other: Voiding Method Indwelling Catheter Indwelling Catheter - Labs CBC & Chem 7: 12/30/22 07:51 12/30/22 07:51 Labs: Abnormal Lab Results - Last 24 Hours (Table) 12/30/22 12/30/22 12/30/22 Range/Units 05:54 07:51 07:51 RBC 3.34 L (3.80-5.40) m/uL Hgb 9.3 L (11.4-16.0) gm/dL Hct 29.7 L (34.0-46.0) % RDW 19.0 H (11.5-15.5) % Plt Count 509 H (150-450) k/uL Sodium 136 L (137-145) mmol/L Glucose 131 H (74-99) mg/dL POC Glucose (mg/dL) 126 H (70-110) mg/dL ALT 51 H (4-34) U/L Alkaline Phosphatase 350 H (38-126) U/L Total Protein 5.8 L (6.3-8.2) g/dL Albumin 3.0 L (3.5-5.0) g/dL 12/30/22 Range/Units 11:34 RBC (3.80-5.40) m/uL Hgb (11.4-16.0) gm/dL Hct (34.0-46.0) % RDW (11.5-15.5) % Plt Count (150-450) k/uL Sodium (137-145) mmol/L Glucose (74-99) mg/dL POC Glucose (mg/dL) 206 H (70-110) mg/dL ALT (4-34) U/L Alkaline Phosphatase (38-126) U/L Total Protein (6.3-8.2) g/dL Albumin (3.5-5.0) g/dL Microbiology - Last 24 Hours (Table) 12/28/22 21:00 Blood Culture - Preliminary Blood 12/28/22 21:25 Blood Culture - Preliminary Blood 12/29/22 18:12 Urine Culture - Preliminary Urine,Catheterized Assessment and Plan Time with Patient: Less than 30
[2023-01-02] MEDS ORDERED: ERGOCALCIFEROL 1,250 MCG (50,000 IU) CAPSULE PO SCH (09:00)
== END 2022-12-30 16:43 | disposition home health service (06) ==
LOC: EC 20:39 → 3SCARD 12-29 00:12 → INTOOBSV 12-29 00:12 → 3SCARD 12-29 00:57
PROVIDERS: ADMIT Thoracic Surgery (Cardiothoracic Vascular Surgery); ATTEND Thoracic Surgery (Cardiothoracic Vascular Surgery)
DX: E11.649 Type 2 diabetes mellitus with hypoglycemia without coma (principal); R68.0 Hypothermia, not associated with low environmental temperature; N39.0 Urinary tract infection, site not specified; R00.1 Bradycardia, unspecified; G93.40 Encephalopathy, unspecified; I25.10 Atherosclerotic heart disease of native coronary artery without angina pectoris; D62 Acute posthemorrhagic anemia; I11.0 Hypertensive heart disease with heart failure; I50.9 Heart failure, unspecified; I25.5 Ischemic cardiomyopathy; E11.52 Type 2 diabetes mellitus with diabetic peripheral angiopathy with gangrene; E11.628 Type 2 diabetes mellitus with other skin complications; S91.301A Unspecified open wound, right foot, initial encounter; E11.65 Type 2 diabetes mellitus with hyperglycemia; M19.90 Unspecified osteoarthritis, unspecified site; E78.5 Hyperlipidemia, unspecified; J44.9 Chronic obstructive pulmonary disease, unspecified; H54.7 Unspecified visual loss; I95.81 Postprocedural hypotension; D72.819 Decreased white blood cell count, unspecified; R79.89 Other specified abnormal findings of blood chemistry; W18.30XA Fall on same level, unspecified, initial encounter; Y92.009 Unspecified place in unspecified non-institutional (private) residence as the place of occurrence of the external cause; Z79.82 Long term (current) use of aspirin; Z79.84 Long term (current) use of oral hypoglycemic drugs; Z79.02 Long term (current) use of antithrombotics/antiplatelets; Z79.899 Other long term (current) drug therapy; Z88.0 Allergy status to penicillin; Z88.6 Allergy status to analgesic agent; Z86.73 Personal history of transient ischemic attack (TIA), and cerebral infarction without residual deficits; Z89.421 Acquired absence of other right toe(s); Z95.1 Presence of aortocoronary bypass graft; Z86.74 Personal history of sudden cardiac arrest; Z90.710 Acquired absence of both cervix and uterus; Z98.891 History of uterine scar from previous surgery; Z98.890 Other specified postprocedural states; Z82.49 Family history of ischemic heart disease and other diseases of the circulatory system
CPT/HCPCS: 96367 ×2; 96375 ×2; 96365; 96366 ×2; 99291; 36415; 93005; 97162; 97166; 80053 ×2; 80048; 83605; 83735 ×2; 84484; 85025; 85027 ×2; 85610; 85730; 81001; 87086; 83036; 71045; 71046; 76604; 72125; 70450; G0378 ×2; J3370; J2765; J0692; J3475

== ENCOUNTER 2023-01-04 09:39 | Inpatient (IN) | payer MEDICARE, OTHER ==
[2023-01-04] MEDS ORDERED: SODIUM BICARB 8.4% 50 ML SYR (1 MEQ/ML) ONE ×3 (09:40→14:06)
[2023-01-04] MEDS ORDERED: EPINEPHrine 10 ML SYRINGE (0.1 MG/ML) ONE ×2 (09:40→14:00)
[2023-01-04 09:47] LABS: Glucose,Whole Blood 65 mg/dL (70-110)
[2023-01-04] MEDS ORDERED: IPRATROPIUM-ALBUTEROL 3 ML NEB INHALATION PRN (10:03)
[2023-01-04] MEDS ORDERED: LORazepam 2 MG/ML INJ IV PRN ×2 (10:03)
[2023-01-04 10:06] LABS: Anisocytosis Slight; Basophils # (A) 0.1 k/uL (0-0.2); Basophils % (A) 1 %; Eosinophils # (A) 0.3 k/uL (0-0.7); Eosinophils % (A) 3 %; HCT 35.8 % (34.0-46.0); HGB 10.9 gm/dL (11.4-16.0); Hypochromasia Marked; Lymphocytes # (A) 3.5 k/uL (1.0-4.8); Lymphocytes % (A) 39 %; MCH 28.1 pg (25.0-35.0); MCHC 30.4 g/dL (31.0-37.0); MCV 92.4 fL (80.0-100.0); Monocytes # (A) 0.5 k/uL (0-1.0); Monocytes % (A) 5 %; Neutrophils # (A) 4.6 k/uL (1.3-7.7); Neutrophils % (A) 51 %; Platelet Count 324 k/uL (150-450); Poikilocytosis Slight; RBC 3.87 m/uL (3.80-5.40); RDW 19.3 % (11.5-15.5)
--- NOTE | 2023-01-04 10:06 | ED ---
General Adult HPI - General Chief complaint: Cardiac Arrest/CPR Stated complaint: Cardiac Arrest Time Seen by Provider: 01/04/23 09:57 Source: family, RN notes reviewed, old records reviewed (Previous admission) Mode of arrival: ambulatory - History of Present Illness Initial comments: Patient is an unresponsive 62-year-old female arriving at the front door by private vehicle with cardiac arrest. Patient did get extracted from the car by myself and staff and is unresponsive and provides no history. Patient was pulseless and apneic. Patient was moved to trauma 1 and intubated and CPR was done. Patient did have appendectomy through endotracheal tube followed by bicarbonate through interosseous access. Patient then did get IV access. Patient received epinephrine total with return of pulse. Patient remains unresponsive and unable to provide any history. Patient reportedly had CABG done approximately 10 days ago. - Related Data Home Medications Medication Instructions Recorded Confirmed Empagliflozin [Jardiance] 12.5 mg PO DAILY 01/04/23 01/04/23 Insulin Aspart [NovoLOG Flexpen] See Protocol SQ AC-TID 01/04/23 01/04/23 Sulfamethox-Tmp 800-160Mg [Bactrim 1 tab PO Q12H 01/04/23 01/04/23 DS 800-160 mg] Previous Rx's Medication Instructions Recorded Clopidogrel [Plavix] 75 mg PO DAILY #30 tab 12/16/22 Midodrine [ProAmatine] 5 mg PO AC-BID #60 tab 12/16/22 Pantoprazole [Protonix] 40 mg PO AC-BRKFST #30 tab 12/16/22 Allergies Allergy/AdvReac Type Severity Reaction Status Date / Time Penicillins Allergy Rash/Hives Verified 12/07/22 06:00 aspirin AdvReac Nausea & Verified 12/07/22 06:00 Vomiting & Diarrhea Review of Systems ROS Statement: Those systems with pertinent positive or pertinent negative responses have been documented in the HPI. ROS Other: All systems not noted in ROS Statement are negative. Limitations: ROS unobtainable due to patients medical condition Past Medical History Past Medical History: COPD, CVA/TIA, Diabetes Mellitus, Hyperlipidemia, Hypertension, Osteoarthritis (OA) Additional Past Medical History / Comment(s): first 3 toes right foot removed 2021-still healing, bandaged, past hx. TIA 1999-no residual affects, decreased vision right eye History of Any Multi-Drug Resistant Organisms: None Reported Past Surgical History: Section, Hernia Repair, Hysterectomy Additional Past Surgical History / Comment(s): right rotator cuff, left hand surgery twice, x4. Past Anesthesia/Blood Transfusion Reactions: No Reported Reaction Past Psychological History: No Psychological Hx Reported Smoking Status: Never smoker Past Alcohol Use History: None Reported Past Drug Use History: None Reported - Past Family History Father Family Medical History: Coronary Artery Disease (CAD) General Exam Limitations: altered mental status, physical limitation General appearance: obtunded Head exam: Present: atraumatic Eye exam: Present: other (Pupils dilated and sluggish) ENT exam: Present: other (Significant emesis in the oral pharynx, this was suctioned out) Neck exam: Present: normal inspection Respiratory exam: Present: other (Patient is apneic) Cardiovascular Exam: Present: other (Patient is pulseless) GI/Abdominal exam: Present: soft. Absent: tenderness Extremities exam: Present: normal inspection Neurological exam: Present: other (Unresponsive, GCS 3) Psychiatric exam: Present: other (Unresponsive) Skin exam: Present: normal color Course Vital Signs 01/04/23 01/04/23 01/04/23 09:40 10:00 10:01 Temperature 0 F L Pulse Rate 138 H Respiratory 0 L 20 Rate Blood Pressure 160/101 O2 Sat by Pulse 0 L 94 L Oximetry Fraction of 100 100 Inspired Oxygen (FIO2) 01/04/23 01/04/23 01/04/23 10:03 10:04 10:15 Temperature Pulse Rate 131 H 109 H Respiratory 18 20 Rate Blood Pressure 153/101 131/85 O2 Sat by Pulse 100 100 Oximetry Fraction of 100 100 Inspired Oxygen (FIO2) 01/04/23 01/04/23 01/04/23 10:16 10:30 10:45 Temperature 98.1 F Pulse Rate 92 87 Respiratory 22 25 H Rate Blood Pressure 97/75 71/47 O2 Sat by Pulse 100 99 Oximetry Fraction of 100 100 Inspired Oxygen (FIO2) 01/04/23 01/04/23 01/04/23 11:00 11:45 12:00 Temperature Pulse Rate 93 111 H 102 H Respiratory 20 18 21 Rate Blood Pressure 143/83 159/93 112/77 O2 Sat by Pulse 92 L 89 L 90 L Oximetry Fraction of 100 100 100 Inspired Oxygen (FIO2) - Reevaluation(s) Reevaluation #1: 01/04/23 10:13 Case was earlier discussed with practitioner Yvonne with cardiothoracic surgery who will let Dr. Sanchez know. Case was also discussed with cardiology, Dr. Matthews and is evaluating patient EKG Findings - EKG Results: EKG: interpreted by ATIYA (Junctional tachycardia with suspicion of underlying [place]/sinus tachycardia. Left axis. Right bundle branch block. Nonspecific ST-T.) Procedures - Intubation Laryngoscope: Kwon Size: 3 ET Tube Size: 7.5 Tube Placement Confirmation: visualized tube passing through cords, equal breath sounds bilaterally, no breath sounds over epigastrium, confirmation by capnometry Patient Tolerated Procedure: well Intubation Complications: none, other (Patient did have emesis in the oral pharynx prior to intubation and this was suctioned out) - IO Right Consent Obtained: emergent situation IO Instrument Used to Penetrate the Cortex: battery powered IO drill Complications: none Medical Decision Making - Medical Decision Making Was pt. sent in by a medical professional or institution (, PA, EMPLOYEE RELATIONS ADMINISTRATOR, urgent care, hospital, or longterm...) When possible be specific @ -No Did you speak to anyone other than the patient for history (EMS, parent, family, police, friend...)? What history was obtained from this source @ -physics technical officer and family stated patient arrested at the local [place] station Did you review nursing and triage notes (agree or disagree)? Why? @ -I reviewed and agree with nursing and triage notes Were old charts reviewed (outside hosp., previous admission, EMS record, old EKG, old radiological studies, urgent care reports/EKG's, longterm records)? Report findings @ -Fevers admission reviewed Differential Diagnosis (chest pain, altered mental status, abdominal pain women, abdominal pain men, vaginal bleeding, weakness, fever, dyspnea, syncope, he adache, dizziness, GI bleed, back pain, seizure, CVA, palpatations, mental health)? @ -Differential Chest Pain: Stable Angina, Unstable Angina, STEMI, NSTEMI Aortic Dissection, Pneumothorax, Musculoskeletal, Esophageal Spasm GERD, Cholecystitis, Pancreatitis, Zoster, this is not meant to be an all-inclusive list. EKG interpreted by me (3pts min.). @ -As above X-rays interpreted by me (1pt min.). @ -Chest x-ray shows endotracheal tube and NG tube. CT interpreted by me (1pt min.). @ -CT is ordered U/S interpreted by me (1pt. min.). @ -None done What testing was considered but not performed or refused? (CT, X-rays, U/S, labs)? Why? @ -None What meds were considered but not given or refused? Why? @ -None Did you discuss the management of the patient with other professionals (professionals i.e. Dr., PA, EMPLOYEE RELATIONS ADMINISTRATOR, lab, RT, psych nurse, social work specialist, retort cooler, teacher, chief green officer, foster care case manager)? Give summary @ -Case was discussed with [facility] as well as cardiology, Dr. Schmitt as well as intensive care, Dr. Anton who would like patient to go to the ICU as soon as possible. He is aware there is not a central line placed yet. Dr. Ruth has been paged for admission Was smoking cessation discussed for >3mins.? @ -No Was critical care preformed (if so, how long)? @ -50 minutes critical care time Were there social determinants of health that impacted care today? How? ( Homelessness, low income, unemployed, alcoholism, drug addiction, transportation, low edu. Level, literacy, decrease access to med. care, skilled nursing, rehab)? @ -No Was there de-escalation of care discussed even if they declined (Discuss DNR or withdrawal of care, Hospice)? DNR status @ -No What co-morbidities impacted this encounter? (DM, HTN, Smoking, COPD, CAD, Cancer, CVA, ARF, Chemo, Hep., AIDS, mental health diagnosis, sleep apnea, morbid obesity)? @ -None Was patient admitted / discharged? Hospital course, mention meds given and route, prescriptions, significant lab abnormalities, going to OR and other pertinent info. @ -Patient had cardiac arrest with return of circulation. Patient was started on low-dose Levaphed. Patient will be admitted to ICU with multiple consults. Undiagnosed new problem with uncertain prognosis? @ -No Drug Therapy requiring intensive monitoring for toxicity (Heparin, Nitro, Insulin, Cardizem)? @ -No Were any procedures done? @ -See above Diagnosis/symptom? @ -Cardiac arrest Acute, or Chronic, or Acute on Chronic? @ -Acute Uncomplicated (without systemic symptoms) or Complicated (systemic symptoms)? @ -default Side effects of treatment? @ -No Exacerbation, Progression, or Severe Exacerbation? @ -No Poses a threat to life or bodily function? How? (Chest pain, [place], [place], pneumonia, PE, COPD, DKA, ARF, appy, cholecystitis, CVA, Diverticulitis, Homicidal, Suicidal, threat to staff... and all critical care pts) @ -No Case also discussed with Dr. Reveles who will admit covering for [facility] who recently consult with this patient Case was again discussed with practitioner Yvonne who agrees with high dose heparin. His has been started. Endotracheal tube has been withdrawn. - Lab Data Result diagrams: 01/04/23 10:00 01/04/23 10:00 Lab Results 01/04/23 01/04/23 01/04/23 Range/Units 09:45 10:00 10:00 WBC 9.0 (3.8-10.6) k/uL RBC 3.87 (3.80-5.40) m/uL Hgb 10.9 L (11.4-16.0) gm/dL Hct 35.8 (34.0-46.0) % MCV 92.4 (80.0-100.0) fL MCH 28.1 (25.0-35.0) pg MCHC 30.4 L (31.0-37.0) g/dL RDW 19.3 H (11.5-15.5) % Plt Count 324 (150-450) k/uL MPV 7.0 Neutrophils % 51 % Lymphocytes % 39 % Monocytes % 5 % Eosinophils % 3 % Basophils % 1 % Neutrophils # 4.6 (1.3-7.7) k/uL Lymphocytes # 3.5 (1.0-4.8) k/uL Monocytes # 0.5 (0-1.0) k/uL Eosinophils # 0.3 (0-0.7) k/uL Basophils # 0.1 (0-0.2) k/uL Hypochromasia Marked Poikilocytosis Slight Anisocytosis Slight PT 11.5 (9.0-12.0) sec INR 1.1 (<1.2) APTT 20.7 L (22.0-30.0) sec Sample Site ABG pH (7.35-7.45) ABG pCO2 (35-45) mmHg ABG pO2 (83-108) mmHg ABG HCO3 (21-25) mmol/L ABG Total CO2 (19-24) mmol/L ABG O2 Saturation (94-97) % ABG Base Excess mmol/L [place] Test FiO2 % Sodium (137-145) mmol/L Potassium (3.5-5.1) mmol/L Chloride (98-107) mmol/L Carbon Dioxide (22-30) mmol/L Anion Gap mmol/L BUN (7-17) mg/dL Creatinine (0.52-1.04) mg/dL Est GFR (CKD-EPI)AfAm (>60 ml/min/1.73 sqM) Est GFR (CKD-EPI)NonAf (>60 ml/min/1.73 sqM) Glucose (74-99) mg/dL POC Glucose (mg/dL) 65 L (70-110) mg/dL POC Glu Attache ID Airam Muhammad Calcium (8.4-10.2) mg/dL Magnesium (1.6-2.3) mg/dL Total Bilirubin (0.2-1.3) mg/dL AST (14-36) U/L ALT (4-34) U/L Alkaline Phosphatase (38-126) U/L Troponin I (0.000-0.034) ng/mL NT-Pro-B Natriuret Pep pg/mL Total Protein (6.3-8.2) g/dL Albumin (3.5-5.0) g/dL 01/04/23 01/04/23 01/04/23 Range/Units 10:00 10:00 10:00 WBC (3.8-10.6) k/uL RBC (3.80-5.40) m/uL Hgb (11.4-16.0) gm/dL Hct (34.0-46.0) % MCV (80.0-100.0) fL MCH (25.0-35.0) pg MCHC (31.0-37.0) g/dL RDW (11.5-15.5) % Plt Count (150-450) k/uL MPV Neutrophils % % Lymphocytes % % Monocytes % % Eosinophils % % Basophils % % Neutrophils # (1.3-7.7) k/uL Lymphocytes # (1.0-4.8) k/uL Monocytes # (0-1.0) k/uL Eosinophils # (0-0.7) k/uL Basophils # (0-0.2) k/uL Hypochromasia Poikilocytosis Anisocytosis PT (9.0-12.0) sec INR (<1.2) APTT (22.0-30.0) sec Sample Site ABG pH (7.35-7.45) ABG pCO2 (35-45) mmHg ABG pO2 (83-108) mmHg ABG HCO3 (21-25) mmol/L ABG Total CO2 (19-24) mmol/L ABG O2 Saturation (94-97) % ABG Base Excess mmol/L [place] Test FiO2 % Sodium 142 (137-145) mmol/L Potassium 3.8 (3.5-5.1) mmol/L Chloride 104 (98-107) mmol/L Carbon Dioxide 26 (22-30) mmol/L Anion Gap 12 mmol/L BUN 18 H (7-17) mg/dL Creatinine 0.99 (0.52-1.04) mg/dL Est GFR (CKD-EPI)AfAm 71 (>60 ml/min/1.73 sqM) Est GFR (CKD-EPI)NonAf 61 (>60 ml/min/1.73 sqM) Glucose 123 H (74-99) mg/dL POC Glucose (mg/dL) (70-110) mg/dL POC Glu Attache ID Calcium 8.3 L (8.4-10.2) mg/dL Magnesium 2.0 (1.6-2.3) mg/dL Total Bilirubin 0.9 (0.2-1.3) mg/dL AST 80 H (14-36) U/L ALT 65 H (4-34) U/L Alkaline Phosphatase 312 H (38-126) U/L Troponin I 0.077 H* (0.000-0.034) ng/mL NT-Pro-B Natriuret Pep 8910 pg/mL Total Protein 5.4 L (6.3-8.2) g/dL Albumin 2.8 L (3.5-5.0) g/dL 01/04/23 Range/Units 10:19 WBC (3.8-10.6) k/uL RBC (3.80-5.40) m/uL Hgb (11.4-16.0) gm/dL Hct (34.0-46.0) % MCV (80.0-100.0) fL MCH (25.0-35.0) pg MCHC (31.0-37.0) g/dL RDW (11.5-15.5) % Plt Count (150-450) k/uL MPV Neutrophils % % Lymphocytes % % Monocytes % % Eosinophils % % Basophils % % Neutrophils # (1.3-7.7) k/uL Lymphocytes # (1.0-4.8) k/uL Monocytes # (0-1.0) k/uL Eosinophils # (0-0.7) k/uL Basophils # (0-0.2) k/uL Hypochromasia Poikilocytosis Anisocytosis PT (9.0-12.0) sec INR (<1.2) APTT (22.0-30.0) sec Sample Site r rad ABG pH 7.39 (7.35-7.45) ABG pCO2 38 (35-45) mmHg ABG pO2 218 H (83-108) mmHg ABG HCO3 23 (21-25) mmol/L ABG Total CO2 24 (19-24) mmol/L ABG O2 Saturation 98.9 H (94-97) % ABG Base Excess -1.9 mmol/L [place] Test Yes FiO2 100 % Sodium (137-145) mmol/L Potassium (3.5-5.1) mmol/L Chloride (98-107) mmol/L Carbon Dioxide (22-30) mmol/L Anion Gap mmol/L BUN (7-17) mg/dL Creatinine (0.52-1.04) mg/dL Est GFR (CKD-EPI)AfAm (>60 ml/min/1.73 sqM) Est GFR (CKD-EPI)NonAf (>60 ml/min/1.73 sqM) Glucose (74-99) mg/dL POC Glucose (mg/dL) (70-110) mg/dL POC Glu Attache ID Calcium (8.4-10.2) mg/dL Magnesium (1.6-2.3) mg/dL Total Bilirubin (0.2-1.3) mg/dL AST (14-36) U/L ALT (4-34) U/L Alkaline Phosphatase (38-126) U/L Troponin I (0.000-0.034) ng/mL NT-Pro-B Natriuret Pep pg/mL Total Protein (6.3-8.2) g/dL Albumin (3.5-5.0) g/dL Critical Care Time Critical Care Time: Yes Total Critical Care Time: 70 Disposition Clinical Impression: Cardiac arrest, Pulmonary embolus Disposition: ADMITTED IP TO THIS [facility] Condition: Critical Is patient prescribed a controlled substance at d/c from ED?: No Time of Disposition: 11:34
[2023-01-04 10:17] LABS: Albumin 2.8 g/dL (3.5-5.0); Calcium 8.3 mg/dL (8.4-10.2); Potassium 3.8 mmol/L (3.5-5.1); Total Bilirubin 0.9 mg/dL (0.2-1.3); Total Protein 5.4 g/dL (6.3-8.2)
[2023-01-04 10:27] LABS: Allen Test Performed? Yes
[2023-01-04 10:27] LABS: INR 1.1 (<1.2); Prothrombin Time 11.5 sec (9.0-12.0)
--- NOTE | 2023-01-04 10:28 | XR ---
EXAMINATION TYPE: XR chest 1V portable DATE OF EXAM: 01/04/2023 COMPARISON: 12/30/2022 INDICATION: Cardiac arrest TECHNIQUE: Single frontal view of the chest is obtained. FINDINGS: The heart size is large. The pulmonary vasculature is normal. Left lower lobe infiltrate is present. Left effusion may be present. Endotracheal tube is placed, the tip appears to be 0.9 cm above the vernell. This should be pulled mauricio k 2 cm. Nasogastric tube transverses the thorax and ends within the proximal abdomen. Consider advanc ing approximately 5 cm for better positioning. IMPRESSION: 1. Left lower lobe infiltrate with small left pleural effusion. 2. Endotracheal tube tip 0.9 cm above the vernell, recommend pullback to centimeters. 3. Nasogastric tube tip proximal abdomen, recommend advancing 5 cm.
[2023-01-04 10:29] LABS: ABG Base Excess -1.9 mmol/L; ABG HCO3 23 mmol/L (21-25); ABG Oxygen Saturation 98.9 % (94-97); ABG PCO2 38 mmHg (35-45); ABG PH 7.39 (7.35-7.45); ABG PO2 218 mmHg (83-108); ABG TCO2 24 mmol/L (19-24)
[2023-01-04] MEDS ORDERED: NOREPINEPHRINE 4 MG in SODIUM CHLORIDE 0.9% 250 ML IV ONE (10:29)
[2023-01-04] MEDS ORDERED: PNEUMONIA PROTOCOL UTILIZED 1 EACH MISC PO PRN (10:31)
[2023-01-04] MEDS ORDERED: AZITHROMYCIN 500 MG in SODIUM CHLORIDE 0.9% 250 ML IVPB STA (10:31)
[2023-01-04 10:38] LABS: Partial Thromboplastin Time 20.7 sec (22.0-30.0)
[2023-01-04] MEDS ORDERED: ACETAMINOPHEN TAB 325 MG TAB PO PRN (11:34)
[2023-01-04] MEDS ORDERED: NALOXONE 0.4 MG/ML 1 ML VIAL IV PRN (11:34)
[2023-01-04] MEDS ORDERED: PANTOPRAZOLE 40 MG/10 ML VIAL IV SCH (11:45)
[2023-01-04] MEDS ORDERED: SODIUM CHLORIDE 0.9% 1,000 ML IV SCH (11:45)
--- NOTE | 2023-01-04 11:50 | CT ---
EXAMINATION TYPE: CT angio chest CT DLP: 487.9 mGycm, Automated exposure control for dose reduction was used. DATE OF EXAM: 01/04/2023 11:37 AM COMPARISON: Chest radiograph from same day. CLINICAL INDICATION:Female, 62 years old with history of arrest; Cardiac arrest CPR TECHNIQUE/CONTRAST: CTA scan of the thorax is performed with IV Contrast, patient injected with 100 mL of Isovue 370, pul monary embolism protocol. MIP images are created and reviewed. FINDINGS: Pulmonary Artery: Pulmonary artery is normal in size. There is a filling defect demonstrated within t he right upper lobe segmental and subsegmental pulmonary arteries. (Series 601, image 46). No evidenc e for right heart strain. Reflux of contrast in the IVC. Lungs/Pleura: Small bilateral pleural effusions. Patchy groundglass opacities demonstrated within the bilateral upper lungs and right lower lobe. Consolidation with air bronchograms demonstrated involvi ng the entire left lower lobe. Airway: Endotracheal tube terminates just above the vernell. Heart: The heart is mildly enlarged for size. No pericardial effusion. Moderate coronary arterial julia cifications. Left atrial appendage occlusion clip identified. Vasculature: No evidence of aortic aneurysm. Mediastinum: No gross evidence of adenopathy. Musculoskeletal: No acute displaced fractures. Orthopedic anchors within the right humeral head. Medi an sternotomy wires. Soft Tissues: Diffuse anasarca. Lower neck: No significant findings. Upper Abdomen: NG tube demonstrated within the distal esophagus. The tip is not imaged. Partially vis ualized ascites. IMPRESSION: 1. Nonocclusive pulmonary embolism involving the right upper lobe segmental and subsegmental branches . 2. Small bilateral pleural effusions with multifocal patchy groundglass opacities throughout the lung with consolidation involving the entire left lower lobe. This suggests multifocal pneumonia with pos sible aspiration. 3. Endotracheal tube terminates just above the vernell. Recommend retraction 2 cm. Findings called to and discussed with Dr. Ron West at 11:47 AM on 01/04/2023.
[2023-01-04] MEDS ORDERED: HEPARIN SOD,PORK IN 0.45% NACL 25,000 UNIT in 0.45% NACL 1 250ML.BAG IV SCH (12:15)
[2023-01-04] MEDS ORDERED: HEPARIN SODIUM 1,000 UN/ML (10ML VL) IV PRN (12:15)
[2023-01-04] MEDS ORDERED: HEPARIN SODIUM 1,000 UN/ML (10ML VL) IV ONE (12:15)
[2023-01-04] MEDS ORDERED: CISATRACURIUM 2 MG/ML 5 ML VIAL IV ONE (13:06)
[2023-01-04] MEDS ORDERED: DEXTROSE 50% SYRINGE 50 ML IVP ONE ×3 (13:10→14:06)
[2023-01-04 13:11] LABS: Glucose,Whole Blood 55 mg/dL (70-110)
--- NOTE | 2023-01-04 13:11 | CT ---
EXAMINATION TYPE: CT brain wo con CT DLP: 1091.4 mGycm, Automated exposure control for dose reduction was used. DATE OF EXAM: 01/04/2023 1:06 PM COMPARISON: CT brain C-spine 12/28/2022. CLINICAL INDICATION:Female, 62 years old with history of ams, Cardiac arrest, CPR TECHNIQUE: Brain: Multiple axial CT images of the brain were obtained without IV contrast. Coronal and sagittal reformats reviewed. FINDINGS: Brain: Extra-axial spaces: No abnormal extra-axial fluid collections. Ventricular system: Within normal limits Cerebral parenchyma: Minimal cerebral volume loss. No acute intraparenchymal hemorrhage or mass effec t. The goldman-white junction is well differentiated. Scattered hypoattenuating areas are seen within t he white matter. Nonspecific bilateral basal ganglia calcifications. Cerebellum: Unremarkable. Mass effect: No evidence of midline shift. Intracranial vasculature: Atherosclerotic calcifications of the intracranial vessels. Soft tissues: Normal. Calvarium/osseous structures: No depressed skull fracture. Paranasal sinuses and mastoid air cells: Mild scattered paranasal sinus disease. Visualized orbits: Bilateral aphakia IMPRESSION: 1. No acute intracranial process. 2. Nonspecific white matter changes, likely secondary to chronic small vessel ischemic disease.
--- NOTE | 2023-01-04 13:14 | P.GSCN ---
History of Present Illness Consult date: 01/04/23 Reason for Consult: Cardiac arrest, known to our services from recent CABG Requesting physician: Ron West History of present illness: This is a 62 year old female patient who follow outpatient with Dr. Caba for primary care and Dr. Sanchez for cardiology. She has a previous medical history of coronary artery disease with 2 vessel off pump CABG 12/07/22 with intraoperative V. fib arrest and postoperative hypotension as well as acute blood loss anemia and urinary retention, cardiomyopathy with EF 30-35% in August with improvement to 50-55% in October of this year, hypertension, hyperlipidemia, uncontrolled type 2 diabetes with hyperglycemia, peripheral arterial disease with right foot toe amputation, TIA in 1999, and vertigo. She was seen last week with an observation hospitalization for syncope likely felt to be from hypoglycemia. During that admission she was evaluated for possible subacute rehab at discharge, however she was physically doing too well for admission to [facility] and was discharged to her son's house on 12/30/2022. She had a follow-up appointment scheduled today with Dr. Stroud and was on her way when she became unresponsive in her son's car. He drove her to the emergency room he re at [facility], she had to be extricated from the vehicle by the trauma room staff and was found to be pulseless and apneic. She was taken to the trauma room, intubated and CPR was performed. She was given epinephrine with return of pulse. Cardiology as well as cardiothoracic surgery were notified. A transthoracic echocardiogram was ordered, a CT of the chest was ordered and she was found to be positive for pulmonary embolism in the right upper lobe segmental and subsegmental pulmonary arteries, small bilateral pleural effusions with multifocal patchy ground glass opacities throughout the lungs with consolidation in the left lower lobe. Antibiotics and IV heparin were ordered by the emergency room physicians. She was also started on IV levo for hypotension. Lab work revealed WBC 9.0, hemoglobin 10.9, INR 1.1, creatinine 0.99, AST 80, ALT 65, troponin 0.077, BNP 8910. She remains intubated and sedated. The patient will be admitted to the intensive care unit with consultation placed to [employer], cardiology and cardiothoracic surgery. Review of Systems ROS unobtainable: due to endotracheal tube Past Medical History Past Medical History: Coronary Artery Disease (CAD), COPD, CVA/TIA, Diabetes Mellitus, Hyperlipidemia, Hypertension, Osteoarthritis (OA) Additional Past Medical History / Comment(s): first 3 toes right foot removed 2021-still healing, bandaged, past hx. TIA 1999-no residual affects, decreased vision right eye History of Any Multi-Drug Resistant Organisms: None Reported Past Surgical History: Section, Coronary Bypass/CABG, Hernia Repair, Hysterectomy Additional Past Surgical History / Comment(s): right rotator cuff, left hand surgery twice, x4. Two-vessel off-pump CABG 12/07/2022 Past Anesthesia/Blood Transfusion Reactions: No Reported Reaction Past Psychological History: No Psychological Hx Reported Smoking Status: Never smoker Past Alcohol Use History: None Reported Past Drug Use History: None Reported - Past Family History Father Family Medical History: Coronary Artery Disease (CAD) Medications and Allergies Home Medications Medication Instructions Recorded Confirmed Type Clopidogrel [Plavix] 75 mg PO DAILY #30 tab 12/16/22 01/04/23 Rx Midodrine [ProAmatine] 5 mg PO AC-BID #60 tab 12/16/22 01/04/23 Rx Pantoprazole [Protonix] 40 mg PO AC-BRKFST #30 tab 12/16/22 01/04/23 Rx Empagliflozin [Jardiance] 12.5 mg PO DAILY 01/04/23 01/04/23 History Insulin Aspart [NovoLOG Flexpen] See Protocol SQ AC-TID 01/04/23 01/04/23 History Sulfamethox-Tmp 800-160Mg [Bactrim 1 tab PO Q12H 01/04/23 01/04/23 History DS 800-160 mg] Allergies Allergy/AdvReac Type Severity Reaction Status Date / Time Penicillins Allergy Rash/Hives Verified 01/04/23 12:27 aspirin AdvReac Nausea & Verified 01/04/23 12:27 Vomiting & Diarrhea Surgical - Exam Vital Signs Temp Resp Pulse Ox 0 F L 0 L 0 L 01/04/23 09:40 01/04/23 09:40 01/04/23 09:40 CONSTITUTIONAL: Currently laying in bed in the emergency room on mechanical ventilation with propofol used for sedation EYES: Pupils equal, round, reactive to light ENT: Moist mucous membranes without oral lesions present NECK: No masses, no bruits, trachea midline; 7.5 ET tube present, 22 at the lip RESPIRATORY: Lungs sounds coarse bilaterally. Respirations even, nonlabored on mechanical ventilation. Current settings assist control mode, FiO2 100%, tidal volume 400, respiratory rate 20, PEEP 5 CARDIOVASCULAR: S1, S2 present. Regular rate and rhythm, sinus rhythm on telemetry. Sternum stable. Palpable peripheral pulses bilaterally. Bilateral lower extremity edema present. GASTROINTESTINAL: Abdomen soft, nontender, nondistended without masses or organomegaly noted. There is no rebound or guarding present. Active bowel sounds present 4 quadrants. OG tube present to low intermittent suction GENITOURINARY: Shrestha present draining clear yellow urine INTEGUMENTARY: Skin is warm and dry. Anterior chest incision as well as left lower extremity EVH site well approximated without redness or drainage. Skin excoriated and red under breasts and abdomen NEUROLOGIC: Ventilated and sedated Results - Labs 01/04/23 10:00 01/04/23 10:00 Abnormal Lab Results - Last 24 Hours (Table) 01/04/23 01/04/23 01/04/23 Range/Units 09:45 10:00 10:00 Hgb 10.9 L (11.4-16.0) gm/dL MCHC 30.4 L (31.0-37.0) g/dL RDW 19.3 H (11.5-15.5) % APTT 20.7 L (22.0-30.0) sec ABG pO2 (83-108) mmHg ABG O2 Saturation (94-97) % BUN (7-17) mg/dL Glucose (74-99) mg/dL POC Glucose (mg/dL) 65 L (70-110) mg/dL Calcium (8.4-10.2) mg/dL AST (14-36) U/L ALT (4-34) U/L Alkaline Phosphatase (38-126) U/L Troponin I (0.000-0.034) ng/mL Total Protein (6.3-8.2) g/dL Albumin (3.5-5.0) g/dL 01/04/23 01/04/23 01/04/23 Range/Units 10:00 10:00 10:19 Hgb (11.4-16.0) gm/dL MCHC (31.0-37.0) g/dL RDW (11.5-15.5) % APTT (22.0-30.0) sec ABG pO2 218 H (83-108) mmHg ABG O2 Saturation 98.9 H (94-97) % BUN 18 H (7-17) mg/dL Glucose 123 H (74-99) mg/dL POC Glucose (mg/dL) (70-110) mg/dL Calcium 8.3 L (8.4-10.2) mg/dL AST 80 H (14-36) U/L ALT 65 H (4-34) U/L Alkaline Phosphatase 312 H (38-126) U/L Troponin I 0.077 H* (0.000-0.034) ng/mL Total Protein 5.4 L (6.3-8.2) g/dL Albumin 2.8 L (3.5-5.0) g/dL Diabetes panel 01/04/23 Range/Units 10:00 Sodium 142 (137-145) mmol/L Potassium 3.8 (3.5-5.1) mmol/L Chloride 104 (98-107) mmol/L Carbon Dioxide 26 (22-30) mmol/L BUN 18 H (7-17) mg/dL Creatinine 0.99 (0.52-1.04) mg/dL Glucose 123 H (74-99) mg/dL Calcium 8.3 L (8.4-10.2) mg/dL AST 80 H (14-36) U/L ALT 65 H (4-34) U/L Alkaline Phosphatase 312 H (38-126) U/L Total Protein 5.4 L (6.3-8.2) g/dL Albumin 2.8 L (3.5-5.0) g/dL Calcium panel 01/04/23 Range/Units 10:00 Calcium 8.3 L (8.4-10.2) mg/dL Albumin 2.8 L (3.5-5.0) g/dL Pituitary panel 01/04/23 Range/Units 10:00 Sodium 142 (137-145) mmol/L Potassium 3.8 (3.5-5.1) mmol/L Chloride 104 (98-107) mmol/L Carbon Dioxide 26 (22-30) mmol/L BUN 18 H (7-17) mg/dL Creatinine 0.99 (0.52-1.04) mg/dL Glucose 123 H (74-99) mg/dL Calcium 8.3 L (8.4-10.2) mg/dL Adrenal panel 01/04/23 Range/Units 10:00 Sodium 142 (137-145) mmol/L Potassium 3.8 (3.5-5.1) mmol/L Chloride 104 (98-107) mmol/L Carbon Dioxide 26 (22-30) mmol/L BUN 18 H (7-17) mg/dL Creatinine 0.99 (0.52-1.04) mg/dL Glucose 123 H (74-99) mg/dL Calcium 8.3 L (8.4-10.2) mg/dL Total Bilirubin 0.9 (0.2-1.3) mg/dL AST 80 H (14-36) U/L ALT 65 H (4-34) U/L Alkaline Phosphatase 312 H (38-126) U/L Total Protein 5.4 L (6.3-8.2) g/dL Albumin 2.8 L (3.5-5.0) g/dL - Imaging Chest x-ray: report reviewed, image reviewed CT scan - chest: report reviewed, image reviewed EKG: image reviewed Assessment and Plan Assessment: Cardiopulmonary arrest Acute hypoxic respiratory failure with mechanical ventilation Acute right upper lobe pulmonary embolism Left pleural effusion/infiltrate Transaminitis, likely due to hypoperfusion History of coronary artery disease with 2 vessel off pump CABG 12/07/22 with intraoperative V. fib arrest and postoperative hypotension as well as acute blood loss anemia and urinary retention Cardiomyopathy with EF 30-35% in August with improvement to 50-55% in October of this year History of hypertension, currently hypotensive Hyperlipidemia Uncontrolled type 2 diabetes with hyperglycemia, currently having episodes of hypoglycemia Peripheral arterial disease with right foot toe amputation TIA in 1999 Vertigo Plan: The patient was seen and examined in the ER. Chart/diagnostics were reviewed. The case was discussed with Dr. Sanchez. Agree with IV heparin for pulmonary embolism. Ventilator management per Dr. Anton. Wean levo as tolerated. Sternal precautions in place. Patient was not discharged home on AV shanae blockers nor antihypertensives after surgery due to episodes of hypotension and bradycardia, will defer management to cardiology. Prognosis guarded. Son updated by ER staff. We will continue to follow and make further recommendations as appropriate. I have personally seen and examined the patient, performed the documentation and the assessment and plan as written. Number of minutes spent on the visit: 30. BLAINE Mazariegos
[2023-01-04 13:38] LABS: Glucose,Whole Blood 105 mg/dL (70-110)
[2023-01-04] MEDS ORDERED: VANCOMYCIN IV PER PHARMACY 1 EACH MISC MISCELLANE PRN (13:39)
[2023-01-04] MEDS ORDERED: NOREPINEPHRINE 32 MG in SODIUM CHLORIDE 0.9% 218 ML IV SCH (13:45)
[2023-01-04] MEDS ORDERED: DEXTROSE 5%-0.9% NACL 1,000 ML IV SCH (13:45)
[2023-01-04] MEDS ORDERED: PANTOPRAZOLE 40 MG/10 ML VIAL IVP SCH (13:45)
--- NOTE | 2023-01-04 13:49 | XR ---
EXAMINATION TYPE: XR chest 1V DATE OF EXAM: 01/04/2023 COMPARISON: 01/04/2023 HISTORY: Tube placement TECHNIQUE: Single frontal view of the chest is obtained. FINDINGS: ET tube approximately 4.4 cm above vernell. NG tube seen coursing the left abdomen. Left-si ded central line with tip overlying the SVC. No pneumothorax. Bilateral airspace disease and left-tio ed pleural effusion. Right costophrenic angle not included. Previous rotator cuff surgery noted on th e right. No pneumothorax. IMPRESSION: 1. ET tube appears in good position. 2. Bilateral infiltrate and small effusion correlate for pneumonia versus pulmonary edema.
--- NOTE | 2023-01-04 13:57 | P.CNPUL ---
History of Present Illness Consult date: 01/04/23 Chief complaint: Cardiac arrest History of present illness: 62-year-old female patient, presented to the emergency department after becoming unresponsive and going into a cardiac arrest. The patient is known to have coronary artery disease and the patient undergone 2 vessel bypass surgery on 12/07/2022. The patient postop developed urinary retention and the patient was discharged home with a Shrestha catheter in place. She is known to have c ardiomyopathy with an ejection fraction of 30-35%. She did improve and she had an EF of around 50-55% back in October of this current year 2022. She also known to be diabetic, hypertension and has hyperlipidemia and peripheral vascular disease and she has a previous right foot toe amputation that was further complicated by incomplete healing of the surgical one-sided with some ongoing chronic infection. The patient was again seen postop approximately a week ago for observation as the patient had an episode of hypoglycemia. During her last observation admission, the patient was being considered for subacute rehabilitation, however physically the patient was doing well and she was discharged home. She was supposed to follow-up with us in the office regarding a left-sided pleural effusion that was noted on the chest x-ray. However, today, the patient was a gas station and she became acutely unresponsive and apneic. This occurred while she was eating. No further details are available. She was drooling by family members to the emergency department. Initially she wasn't PEA arrest. CPR was initiated. The patient was intubated. The patient was given 3 rounds of epinephrine. There was return of smoking as her condition following that. The patient was given a CT antigram that showed a very tiny subsegmental pulmonary embolism the right upper lobe. There was bilateral pleur al effusion and patchy groundglass pulmonary opacities bilaterally and significant consolidation of the left lung base. The patient was started on pressors and currently she is on norepinephrine 0.2 mg/kg/m. She was brought into the intensive care unit. A CAT scan of the brain was also done in em ergency department showing no acute process. Her current cardiac rhythm is sinus. She is on pressors. She had a blood sugar of 55 and she was given D50 and her subsequent blood sugar is 105. Post intubation blood gas with a pH of 7.39 with a pCO2 of 38 and pO2 of 218 and the patient is currently on a mechanical ventilator, assist control mode with a tidal volume of 400, rate of 28, PEEP of 14 and FiO2 of 100%. Repeat gases will be done prior to weaning the FiO2 as the patient became quite hypoxic at the time of arrival to the ICU. Her current lactic acid level is at 3.9. Influenza screen was negative. RSV and Covid 19 testing was also negative. The blood work also showed a WBC count of 5 with a hemoglobin of 10.9 and platelet count of 324. No other information is available. Echocardiogram was done in the emergency department. No frothy or any other respiratory secretions at this point in time. Review of Systems ROS unobtainable: due to endotracheal tube Past Medical History Past Medical History: Coronary Artery Disease (CAD), COPD, CVA/TIA, Diabetes Mellitus, Hyperlipidemia, Hypertension, Osteoarthritis (OA) Additional Past Medical History / Comment(s): first 3 toes right foot removed 2021-still healing, bandaged, past hx. TIA 1999-no residual affects, decre ased vision right eye History of Any Multi-Drug Resistant Organisms: None Reported Past Surgical History: Section, Coronary Bypass/CABG, Hernia Repair, Hysterectomy Additional Past Surgical History / Comment(s): right rotator cuff, left hand surgery twice, x4. Two-vessel off-pump CABG 12/07/2022 Past Anesthesia/Blood Transfusion Reactions: No Reported Reaction Past Psychological History: No Psychological Hx Reported Smoking Status: Never smoker Past Alcohol Use History: None Reported Past Drug Use History: None Reported - Past Family History Father Family Medical History: Coronary Artery Disease (CAD) Medications and Allergies Home Medications Medication Instructions Recorded Confirmed Type Clopidogrel [Plavix] 75 mg PO DAILY #30 tab 12/16/22 01/04/23 Rx Midodrine [ProAmatine] 5 mg PO AC-BID #60 tab 12/16/22 01/04/23 Rx Pantoprazole [Protonix] 40 mg PO AC-BRKFST #30 tab 12/16/22 01/04/23 Rx Empagliflozin [Jardiance] 12.5 mg PO DAILY 01/04/23 01/04/23 History Insulin Aspart [NovoLOG Flexpen] See Protocol SQ AC-TID 01/04/23 01/04/23 History Sulfamethox-Tmp 800-160Mg [Bactrim 1 tab PO Q12H 01/04/23 01/04/23 History DS 800-160 mg] Allergies Allergy/AdvReac Type Severity Reaction Status Date / Time Penicillins Allergy Rash/Hives Verified 01/04/23 12:27 aspirin AdvReac Nausea & Verified 01/04/23 12:27 Vomiting & Diarrhea Physical Exam Vitals: Vital Signs Temp Pulse Resp BP Pulse Ox FiO2 01/04/23 13:15 100 01/04/23 13:10 100 01/04/23 12:45 101 H 20 137/77 91 L 01/04/23 12:30 105 H 19 121/92 89 L 100 01/04/23 12:15 106 H 24 131/102 89 L 100 01/04/23 12:00 102 H 21 112/77 90 L 100 01/04/23 11:45 111 H 18 159/93 89 L 100 01/04/23 11:00 93 20 143/83 92 L 100 01/04/23 10:45 87 25 H 71/47 99 100 01/04/23 10:30 92 22 97/75 100 100 01/04/23 10:16 98.1 F 01/04/23 10:15 109 H 20 131/85 100 100 01/04/23 10:04 100 01/04/23 10:03 131 H 18 153/101 100 01/04/23 10:01 100 01/04/23 10:00 138 H 20 160/101 94 L 100 01/04/23 09:40 0 F L 0 L 0 L Intake and Output 01/03/23 01/04/23 01/04/23 22:59 06:59 14:59 Intake Total 48.938 Balance 48.938 Intake: Intake, IV Titration 48.938 Amount Norepinephrine 4 mg In 40.846 Sodium Chloride 0.9% 250 ml @ 0.03 MCG/KG/MIN 9. 487 mls/hr IV .Q24H [facility] Rx#:[id number] propofoL 1,000 mg In 8.092 Empty Bag 1 bag @ 15 MCG/ KG/MIN 7.47 mls/hr IV . [id number] [facility] Rx#:[id number] Other: Weight 83 kg CONSTITUTIONAL: Currently laying in bed in the emergency room on mechanical ventilation with propofol used for sedation EYES: Pupils equal, round, reactive to light ENT: Moist mucous membranes without oral lesions present NECK: No masses, no bruits, trachea midline; 7.5 ET tube present, 22 at the lip, the patient has a platelet catheter in her left subclavian vein RESPIRATORY: Lungs sounds coarse bilaterally. Respirations even, nonlabored on mechanical ventilation. Diminished breath on the lung bases special left lung base. CARDIOVASCULAR: S1, S2 present. Regular rate and rhythm, sinus rhythm on telemetry. Sternum stable. Palpable peripheral pulses bilaterally. Bilateral lower extremity edema present. GASTROINTESTINAL: Abdomen soft, nontender, nondistended without masses or organomegaly noted. There is no rebound or guarding present. Active bowel sounds present 4 quadrants. OG tube present to low intermittent suction GENITOURINARY: Shrestha present draining clear yellow urine INTEGUMENTARY: Skin is warm and dry. Anterior chest incision as well as left lower extremity EVH site well approximated without redness or drainage. Skin excoriated and red under breasts and abdomen NEUROLOGIC: Ventilated and sedated Extremities Patient has right great toe amputations with base of the bones being incompletely healed with some purulent yellowish drainage covering the surface. Left pedal and left radial pulses are palpable. Results - Laboratory Findings CBC and BMP: 01/04/23 10:00 01/04/23 10:00 ABG ABG pH 7.39 (7.35-7.45) 01/04/23 10:19 ABG pCO2 38 mmHg (35-45) 01/04/23 10:19 ABG pO2 218 mmHg (83-108) H 01/04/23 10:19 ABG O2 Saturation 98.9 % (94-97) H 01/04/23 10:19 PT/INR, D-dimer PT 11.5 sec (9.0-12.0) 01/04/23 10:00 INR 1.1 (<1.2) 01/04/23 10:00 Abnormal lab findings: Abnormal Labs 01/04/23 01/04/23 01/04/23 09:45 10:00 10:00 Hgb 10.9 L MCHC 30.4 L RDW 19.3 H APTT 20.7 L ABG pO2 ABG O2 Saturation BUN Glucose POC Glucose (mg/dL) 65 L Plasma Lactic Acid Alex Calcium AST ALT Alkaline Phosphatase Troponin I Total Protein Albumin 01/04/23 01/04/23 01/04/23 10:00 10:00 10:19 Hgb MCHC RDW APTT ABG pO2 218 H ABG O2 Saturation 98.9 H BUN 18 H Glucose 123 H POC Glucose (mg/dL) Plasma Lactic Acid Alex Calcium 8.3 L AST 80 H ALT 65 H Alkaline Phosphatase 312 H Troponin I 0.077 H* Total Protein 5.4 L Albumin 2.8 L 01/04/23 01/04/23 11:04 13:09 Hgb MCHC RDW APTT ABG pO2 ABG O2 Saturation BUN Glucose POC Glucose (mg/dL) 55 L Plasma Lactic Acid Alex 3.9 H* Calcium AST ALT Alkaline Phosphatase Troponin I Total Protein Albumin - Diagnostic Findings Chest x-ray: image reviewed CT scan - chest: image reviewed Assessment and Plan Plan: Acute PEA cardiac arrest, possibly following an episode of aspiration/pneumonia. The patient was resuscitated in the emergency department. The patient received CPR and 3 rounds of epinephrine with return of spontaneous circulation. Down time was less than 10 minutes. Patient is currently on pressors and currently on norepinephrine infusion Acute shock/hypotension post cardiac arrest could be cardiogenic in nature. Possibility of septic shock cannot be ruled out Bilateral groundglass pulmonary infiltrates in addition to extensive consolidation of the left lower lobe. Consider aspiration pneumonia Acute hypoxic respiratory failure secondary to above Questionable subsegmental right upper lobe filling defect reflecting the possibility of pulmonary embolism. Yet, is not considered to be the culprit for respiratory/cardiac arrest. Left-sided pleural effusion Mild lactic acidosis post cardiac arrest coronary artery disease with 2 vessel off pump CABG 12/07/22 with intraoperative V. fib arrest and postoperative hypotension as well as acute blood loss anemia and urinary retention Cardiomyopathy with EF 30-35% in August with improvement to 50-55% in October of this year History of hypertension, currently hypotensive Hyperlipidemia Uncontrolled type 2 diabetes with hyperglycemia, currently having episodes of hypoglycemia Peripheral arterial disease with right foot toe amputation TIA in 1999 Vertigo Severe peripheral vascular disease with previous habitation of the toe on the left with ongoing chronic nonhealing wound/possible infection. Urinary retention patient has a Shrestha catheter in place with recent gram- negative UTI with Citrobacter. Plan Continue ventilator support and necessary ventilator changes were done Awaiting blood gas Check blood cultures and urine cultures and wound cultures Keep the patient on propofol for sedation used fentanyl if needed Cover the patient with a combination of Merrem and vancomycin and discontinue the Rocephin and Zithromax Continue norepinephrine infusion. Blood pressure control titrate to maintain a mean arterial pressure above 60 Echocardiogram to be done today Continue IV heparin IV Protonix Monitor for any hypoglycemic events and the patient will be maintained on D5 nor mal saline at 75 mL an hour Cardiology consultation Continue bronchodilators Laboratory established We'll continue to follow. Condition is critical. Time with Patient: Greater than 30
[2023-01-04] MEDS: NYSTATIN 100,000 UNIT/GM POWD 15 GM TOPICAL SCH ×2 (13:58→20:30)
[2023-01-04] MEDS ORDERED: VANCOMYCIN 1,500 MG in SODIUM CHLORIDE 0.9% 500 ML 500 ML IVPB SCH (14:00)
--- NOTE | 2023-01-04 14:00 | P.PCN ---
Date of Procedure: 01/04/23 Preoperative Diagnosis: Cardiac arrest Postoperative Diagnosis: Cardiac arrest Procedure(s) Performed: Central line, arterial line Anesthesia: local Surgeon: Mona Anton Estimated Blood Loss (ml): 0 Pathology: none sent Condition: critical Disposition: ICU Operative Findings: Indication: Hemodynamic monitoring. A time-out was completed verifying correct patient, procedure, site, positioning, and implant(s) or special equipment if applicable. Allens test was performed to ensure adequate perfusion. The patients left wrist was prepped and draped in sterile fashion. 1% Lidocaine was used to anesthetize the area. An 18G Arrow arterial line was introduced into the left radial artery. The catheter was threaded over the guide wire and the needle was removed with appropriate pulsatile blood return. Blood loss was minimal. The catheter was then sutured in place to the skin and a sterile dressing applied. Perfusion to the extremity distal to the point of catheter insertion was checked and found to be adequate. The patient tolerated the procedure well and there were no complications. Indication: Hemodynamic monitoring/Intravenous access. A time-out was completed verifying correct patient, procedure, site, positioning, and implant(s) or special equipment if applicable. The patient was placed in a dependent position appropriate for central line placement based on the vein to be cannulated. The patients left chest was prepped and draped in sterile fashion. 1% Lidocaine was used to anesthetize the surrounding skin area. A triple lumen 9F Cordis catheter was introduced into t he left subclavian vein using Seldinger technique. The catheter was threaded smoothly over the guide wire and appropriate blood return was obtained. Each lumen of the catheter was evacuated of air and flushed with sterile saline. The catheter was then sutured in place to the skin and a sterile dressing applied. Perfusion to the extremity distal to the point of catheter insertion was checked and found to be adequate. The patient tolerated the procedure well and there were no complications.
[2023-01-04 14:26] LABS: Glucose,Whole Blood 213 mg/dL (70-110)
[2023-01-04 14:37] LABS: ABG Base Excess -2.3 mmol/L; ABG HCO3 23 mmol/L (21-25); ABG Oxygen Saturation 73.2 % (94-97); ABG PCO2 40 mmHg (35-45); ABG PH 7.37 (7.35-7.45); ABG TCO2 24 mmol/L (19-24); Allen Test Performed? Yes
[2023-01-04 14:39] LABS: ABG PO2 40 mmHg (83-108)
[2023-01-04 14:53] LABS: INR 1.2 (<1.2); Prothrombin Time 12.5 sec (9.0-12.0)
[2023-01-04] MEDS ORDERED: VASOPRESSIN 60 UNIT in SODIUM CHLORIDE 0.9% 150 ML IV SCH (15:00)
[2023-01-04] MEDS: IPRATROPIUM-ALBUTEROL 3 ML NEB INHALATION SCH ×2 (15:11→20:13)
[2023-01-04] MEDS ORDERED: CISATRACURIUM 200 MG in SODIUM CHLORIDE 0.9% 180 ML IV SCH (15:15)
[2023-01-04 15:32] LABS: Glucose,Whole Blood 167 mg/dL (70-110)
[2023-01-04 15:54] LABS: ABG Base Excess -4.5 mmol/L; ABG HCO3 22 mmol/L (21-25); ABG Oxygen Saturation 85.3 % (94-97); ABG PCO2 49 mmHg (35-45); ABG PH 7.27 (7.35-7.45); ABG TCO2 24 mmol/L (19-24); Allen Test Performed? Yes
[2023-01-04 15:56] LABS: ABG PO2 57 mmHg (83-108)
[2023-01-04] MEDS ORDERED: MEROPENEM 1 GM in SODIUM CHLORIDE 0.9% 100 ML IVPB SCH (16:00)
[2023-01-04 16:16] LABS: Anisocytosis Slight; Basophils % (A) 0 %; Eosinophils # (A) 0.1 k/uL (0-0.7); Eosinophils % (A) 1 %; HCT 40.4 % (34.0-46.0); Hypochromasia Marked; Lymphocytes # (A) 1.6 k/uL (1.0-4.8); Lymphocytes % (A) 14 %; MCH 27.7 pg (25.0-35.0); MCHC 29.6 g/dL (31.0-37.0); MCV 93.4 fL (80.0-100.0); Macrocytosis Slight; Mean Platelet Volume 7.4; Monocytes # (A) 0.4 k/uL (0-1.0); Monocytes % (A) 3 %; Neutrophils # (A) 9.5 k/uL (1.3-7.7); Neutrophils % (A) 81 %; Platelet Count 448 k/uL (150-450); Poikilocytosis Slight; RBC 4.32 m/uL (3.80-5.40); WBC 11.7 k/uL (3.8-10.6)
[2023-01-04 16:29] LABS: Albumin 2.8 g/dL (3.5-5.0); Calcium 7.8 mg/dL (8.4-10.2); Magnesium 1.5 mg/dL (1.6-2.3); Phosphorus 4.5 mg/dL (2.5-4.5); Potassium 3.4 mmol/L (3.5-5.1); Total Bilirubin 1.1 mg/dL (0.2-1.3); Total Protein 5.6 g/dL (6.3-8.2)
--- NOTE | 2023-01-04 16:36 | XR ---
EXAMINATION TYPE: XR chest 1V DATE OF EXAM: 01/04/2023 4:21 PM COMPARISON: Chest radiographs from earlier today. CTA chest 01/04/2023. TECHNIQUE: XR chest 1V Portable AP radiograph of the chest. CLINICAL INDICATION:Female, 62 years old with history of desat; FINDINGS: Lungs/Pleura: No pneumothorax. Similar patchy consolidation within the left mid and lower lung and ri ght perihilar region with new opacity within the right upper lung with widening loss consistent with atelectasis. Pulmonary vascularity: Unremarkable. Heart/mediastinum: Cardiomediastinal silhouette is prominent in size. Left atrial appendage occlusion devices present. Musculoskeletal: No acute osseous pathology. Orthopedic anchors within the right humeral head. Other findings: None Lines/Tubes: Endotracheal tube with distal tip 3.8 cm above the vernell Nasogastric tube with its distal tip and side-port projecting under the diaphragm. Left subclavian approach central venous catheter with distal tip at the cavoatrial junction. IMPRESSION: 1. Similar patchy consolidation within the left mid and lower lung and right perihilar region concer angélica for pneumonia/aspiration with new region of atelectasis within the right upper lung. This may re late to mucous plugging. 2. Stable support lines and tubes.
[2023-01-04 17:16] LABS: Glucose,Whole Blood 140 mg/dL (70-110)
[2023-01-04] MEDS ORDERED: Potassium Replacement Protocol 1 EACH MISC MISCELLANE PRN (17:32)
[2023-01-04] MEDS ORDERED: Magnesium Replacement Protocol 1 EACH MISC MISCELLANE PRN (17:33)
[2023-01-04] MEDS: MAGNESIUM SULFATE-D5W PMX 1 GM in DEXTROSE/WATER 1 100ML.BAG IVPB SCH ×2 (17:45→20:02)
[2023-01-04 17:59] LABS: Anisocytosis Slight; Basophils % (A) 0 %; Eosinophils % (A) 0 %; HGB 12.2 gm/dL (11.4-16.0); Hypochromasia Marked; Lymphocytes # (A) 1.1 k/uL (1.0-4.8); Lymphocytes % (A) 7 %; MCH 27.7 pg (25.0-35.0); MCHC 29.8 g/dL (31.0-37.0); Macrocytosis Slight; Monocytes # (A) 0.7 k/uL (0-1.0); Monocytes % (A) 4 %; Neutrophils # (A) 13.3 k/uL (1.3-7.7); Neutrophils % (A) 88 %; Platelet Count 460 k/uL (150-450); Poikilocytosis Slight; RBC 4.41 m/uL (3.80-5.40); RDW 19.2 % (11.5-15.5); WBC 15.2 k/uL (3.8-10.6)
[2023-01-04] MEDS ORDERED: EPINEPHrine 4 MG in DEXTROSE 5% IN WATER 250 ML IV SCH ×2 (18:00)
[2023-01-04 18:11] LABS: Magnesium 1.7 mg/dL (1.6-2.3); Potassium 3.8 mmol/L (3.5-5.1)
[2023-01-04] MEDS: POTASSIUM CHLORIDE 20 MEQ in WATER FOR INJECTION 1 100ML.BAG IVPB SCH ×2 (18:50→19:42)
[2023-01-04] MEDS ORDERED: SODIUM CHLORIDE 0.9% 1,000 ML IV ONE (18:58)
[2023-01-04 20:52] LABS: Glucose,Whole Blood 114 mg/dL (70-110)
[2023-01-04] MEDS ORDERED: CHLORHEXIDINE GLUCONATE 15 ML CUP MUCOUS MEM SCH (21:00)
[2023-01-04 21:03] VITALS: RESP 27; TEMP 97.7
[2023-01-04 23:34] VITALS: BP 116/97; PULSE 59
--- NOTE | 2023-01-05 01:02 | HP ---
HISTORY AND PHYSICAL CHIEF COMPLAINT: Cardiac arrest. HISTORY OF PRESENT ILLNESS: This is a 62-year-old woman with a past medical history of multiple medical problems, had recently CAD CABG. The patient was subsequently admitted and currently the patient had some urinary retention, was on Shrestha catheter, ejection fraction improved after surgery, however, the patient presented to [facility] with cardiac arrest. There was apparently an episode of aspiration also. A chest CTA was done in the ER which showed small pulmonary embolism of questionable significance according to Dr. Anton. The patient possibly had bilateral pneumonia as well. The patient is mechanically intubated. PAST MEDICAL HISTORY: Reviewed, include history of recent CAD, CABG, rest of the history and rest of the chart is also reviewed. HOME MEDICATIONS: Again reviewed include Bactrim, dose and rest of medications reviewed. ALLERGIES: Penicillin, aspirin. FAMILY HISTORY, SOCIAL HISTORY, REVIEW OF SYSTEMS: Could not be taken as the patient is mechanically intubated sedated. PHYSICAL EXAMINATION: VITAL SIGNS: Pulse is 133, regular; blood pressure 110/69, respirations 20. HEENT: Conjunctivae normal. NECK: No jugular venous distention. CARDIOVASCULAR: S1, S2 muffled. RESPIRATIONS: One respiration impression the bases, bilateral scattered rhonchi and crackles. ABDOMEN: Soft, nontender. LEGS: No edema, no swelling. NERVOUS SYSTEM: No focal deficits. LABORATORY DATA: Reviewed. Chest x-ray reviewed personally. ASSESSMENT: 1. Status post cardiac respiratory arrest and pulseless electrical activity, possible aspiration pneumonia. 2. Left-sided pleural effusion/aspiration pneumonia. 3. History of recent CAD, CABG. 4. Chronic obstructive pulmonary disease. 5. History of CVA, TIA. 6. Diabetes mellitus, type 2. 7. Hypertension. 8. Hyperlipidemia. 9. Multiple medical issues. RECOMMENDATIONS AND DISCUSSION: This 62-year-old woman presented with multiple complex medical issues, we will monitor the patient closely. Continue with current medications and continue the mechanical ventilation. Continue empiric antibiotics. Closely follow with Dr. Anton. The patient is currently on vancomycin. I would recommend vancomycin and meropenem and we will follow the cultures. See orders for further details. Prognosis guarded because of multiple complex medical issues. Further recommendations to follow. I would also recommend infectious disease evaluation also. MMODL / IJN: [id number] /
[2023-01-05] MEDS ORDERED: AZITHROMYCIN 500 MG TAB PO SCH (09:00)
--- NOTE | 2023-01-05 11:30 | CA ---
Transthoracic Echo Report Name: Aziza Harrison Age: 62 Gender: F : 1960 Exam Date: 01/04/2023 10:24 Exam Location: [facility] Ht (in): 65 Wt (lb): 182 Ordering Physician: Ron West DO Attending/Referring Phys: Slip Seat Coverer Cedrick Tate RDCS Procedure CPT: Indications: arrest Cardiac Hx: Technical Quality: Fair Contrast 1: Total Dose (mL): Contrast 2: Total Dose (mL): MEASUREMENTS (Male / Female) Normal Values 2D ECHO LV Diastolic Diameter PLAX 2.9 cm 4.2 - 5.9 / 3.9 - 5.3 cm LV Systolic Diameter PLAX 2.4 cm LV Fractional Shortening PLAX 19.4 % IVS Diastolic Thickness 1.4 cm 0.6 - 1.0 / 0.6 - 0.9 cm IVS Systolic Thickness 1.4 cm LVPW Diastolic Thickness 1.5 cm 0.6 - 1.0 / 0.6 - 0.9 cm LVPW Systolic Thickness 1.8 cm LV Relative Wall Thickness 1.0 RV Internal Dim ED PLAX 2.5 cm LVOT Diameter 1.9 cm Aortic Root Diameter 2.9 cm LA Systolic Diameter LX 2.6 cm 3.0 - 4.0 / 2.7 - 3.8 cm LA Ao Ratio 0.9 LV Diastolic Volume MOD 4C 57.8 cm??? LV Systolic Volume MOD 4C 47.2 cm??? LV Ejection Fraction MOD 4C 18.3 % LV Stroke Volume MOD 4C 10.6 cm??? LV Diastolic Length 4C 7.8 cm LV Systolic Length 4C 7.4 cm LV Diastolic Volume MOD 2C 83.5 cm??? LV Diastolic Length 2C 7.6 cm M-MODE Aortic Root Diameter MM 2.7 cm LA Systolic Diameter MM 2.9 cm LA Ao Ratio MM 1.1 MV E Point Septal Separation 1.0 cm AV Cusp Separation MM 1.9 cm DOPPLER AV Peak Velocity 107.0 cm/s AV Peak Gradient 4.6 mmHg AV Mean Velocity 56.5 cm/s AV Mean Gradient 1.6 mmHg AV Velocity Time Integral 12.9 cm LVOT Peak Velocity 54.7 cm/s LVOT Peak Gradient 1.2 mmHg LVOT Mean Velocity 38.2 cm/s LVOT Mean Gradient 0.7 mmHg LVOT Velocity Time Integral 9.1 cm LVOT Stroke Volume 25.5 cm??? LVOT Stroke Volume Index 13.4 ml/m??? AV Area Cont Eq vti 2.0 cm??? AV Area Cont Eq pk 1.4 cm??? MV Peak Velocity 83.2 cm/s MV Peak Gradient 2.8 mmHg MV Mean Velocity 62.6 cm/s MV Mean Gradient 1.7 mmHg MV Velocity Time Integral 21.4 cm MV Deceleration [place] 518.5 cm/s??? Mitral E Point Velocity 79.0 cm/s Mitral A Point Velocity 69.1 cm/s Mitral E to A Ratio 1.1 MV Deceleration Time 152.4 ms Pulmonary Vein Systolic Velocity 40.1 cm/s Pulmonary Vein Diastolic Velocit 32.1 cm/s Pulmonary Vein S/D Ratio 1.2 Pulmonary Vein A Velocity 19.4 cm/s Pulmonary Vein A to Mitral A Rat 0.3 TR Peak Velocity 241.4 cm/s TR Peak Gradient 23.3 mmHg Right Ventricular Systolic Press 33.3 mmHg PV Peak Velocity 69.7 cm/s PV Peak Gradient 1.9 mmHg FINDINGS Left Ventricle Left ventricular ejection fraction is estimated at 25-30%. Mild concentric left ventricular hypertrophy. Grade 3 diastolic dysfunction. Severely reduced global left ventricular systolic function.hypokinetic septum. [place] hypokinetic. Right Ventricle Moderate reduced RV function,RVSP- 33 mm Hg. Right Atrium Mild right atrial dilatation. Left Atrium Mild left atrial dilatation. Mitral Valve Mild thickening/calcification of the anterior mitral valve leaflet. Moderate thickening/calcification of the posterior mitral valve leaflet. Mild mitral annular calcification. Aortic Valve Trileaflet aortic valve. Diffuse thickening (sclerosis) of the aortic valve cusps without reduced excursion. No aortic stenosis. No aortic regurgitation. Tricuspid Valve [id number] tricuspid regurgitation. Pulmonic Valve Pulmonic valve not well visualized. Pericardium Normal pericardium. No pericardial effusion. Aorta Normal size aortic root and proximal ascending aorta. CONCLUSIONS Left ventricular ejection fraction 25-30% Global hypokinesis Mild increased left ventricular wall thickness Mild mitral and intercuspation No aortic regurgitation Mild to moderate tricuspid regurgitation RVSP 33 Previewed by: Dr. Bryce Peters DO (Electronically Signed) Final Date: 05 Jan 2023 11:29
--- NOTE | 2023-01-05 21:02 | DS ---
DISCHARGE SUMMARY PRELIMINARY CAUSE OF : 1. Possibly aspiration pneumonia with sepsis and hypotension. 2. Possible cardiogenic shock. OTHER DIAGNOSES: 1. Left-sided pleural effusion and aspiration pneumonia. 2. History of recent coronary artery disease, coronary artery bypass graft. 3. Chronic obstructive pulmonary disease. 4. History of cerebrovascular accident, transient ischemic attack. 5. Diabetes mellitus, type 2. 6. Hypertension. 7. Hyperlipidemia. 8. Multiple medical issues. HISTORY OF PRESENT ILLNESS: This is a 62-year-old woman with a past medical history of multiple complex medical issues, has recently underwent CAD, CABG. The patient had multiple medical issues. The patient currently was admitted with [id number] cardiac arrest, and pulseless electrical activity with prolonged CPR. The patient probably had aspiration and possible septic shock and subsequent complication per Dr. Anton's notes. The patient was monitored in ICU, supported aggressively, but because of the above- mentioned multiple complex medical issues, the patient succumbed to her illness in the ICU. The prognosis remained extremely guarded throughout the hospital, which was discussed with family on multiple occasions and please refer to the consultations, progress note, staff notes, and ER notes, and consultation notes for further information. MMODL / IJN: [id number] /
--- NOTE | 2023-01-06 10:59 | P.CRDCN ---
History of Present Illness History of present illness: Patient was evaluated in the ER Called by Dr. West regarding patient's cardiac arrest with IESHA 62-year-old female with known coronary artery disease status post coronary artery bypass grafting who was brought in by private vehicle by his son with a cardiac arrest The patient and his son were at a gas station The son went in to the gas station and when he came out the patient was apneic and pulseless She drove her to the emergency room In the emergency room she was pulseless and apneic ACLS protocol and CPR initiated Patient was intubated She received epinephrine She was found to be in PEA Recently discharged from the hospital EKG showed sinus tachycardia 2-D echo did not show any pericardial effusion Left ventricular ejection fraction reduced at 25-30% Chest CT showed a nonocclusive pulmonary embolism in the right upper lobe and bilateral pleural effusions Multifocal patchy groundglass opacities throughout the lung with consolidation of the entire left lower lobe Likely multifocal pneumonia When I saw her she was tachycardic 130 beats a minute. Later settled down but p ressure 153 100 mmHg Breath sounds equal bilaterally but reduced Heart sounds tachycardic Impression Likely multilobar pneumonia with small pulmonary embolism as the final cause of the PEA Known coronary artery disease status post coronary artery bypass grafting Severe ischemic cardio myopathy From a cardiac standpoint continue supportive care Discussed with Dr. Anton Prognosis poor Past Medical History Past Medical History: Coronary Artery Disease (CAD), COPD, CVA/TIA, Diabetes Mellitus, Hyperlipidemia, Hypertension, Osteoarthritis (OA) Additional Past Medical History / Comment(s): first 3 toes right foot removed 2021-still healing, bandaged, past hx. TIA 1999-no residual affects, decreased vision right eye History of Any Multi-Drug Resistant Organisms: None Reported Past Surgical History: Section, Coronary Bypass/CABG, Hernia Repair, Hysterectomy Additional Past Surgical History / Comment(s): right rotator cuff, left hand s urgery twice, x4. Two-vessel off-pump CABG 12/07/2022 Past Anesthesia/Blood Transfusion Reactions: No Reported Reaction Past Psychological History: No Psychological Hx Reported Smoking Status: Never smoker Past Alcohol Use History: None Reported Past Drug Use History: None Reported - Past Family History Father Family Medical History: Coronary Artery Disease (CAD) Medications and Allergies Home Medications Medication Instructions Recorded Confirmed Type Clopidogrel [Plavix] 75 mg PO DAILY #30 tab 12/16/22 01/04/23 Rx Midodrine [ProAmatine] 5 mg PO AC-BID #60 tab 12/16/22 01/04/23 Rx Pantoprazole [Protonix] 40 mg PO AC-BRKFST #30 tab 12/16/22 01/04/23 Rx Empagliflozin [Jardiance] 12.5 mg PO DAILY 01/04/23 01/04/23 History Insulin Aspart [NovoLOG Flexpen] See Protocol SQ AC-TID 01/04/23 01/04/23 History Sulfamethox-Tmp 800-160Mg [Bactrim 1 tab PO Q12H 01/04/23 01/04/23 History DS 800-160 mg] Allergies Allergy/AdvReac Type Severity Reaction Status Date / Time Penicillins Allergy Rash/Hives Verified 01/04/23 12:27 aspirin AdvReac Nausea & Verified 01/04/23 12:27 Vomiting & Diarrhea Results 01/04/23 17:13 01/04/23 17:13 01/04/23 17:13 01/04/23 17:13
== END 2023-01-05 00:41 | disposition expired | DRG 871 ==
LOC: EC 09:39 → 2SICU 11:37
PROVIDERS: ADMIT Internal Medicine; ATTEND Internal Medicine
PROC: 0BH17EZ Insertion of Endotracheal Airway into Trachea, Via Natural or Artificial Opening (ICD-10-PCS; principal; 2023-01-04)
PROC: 5A1935Z Respiratory Ventilation, Less than 24 Consecutive Hours (ICD-10-PCS; 2023-01-04)
PROC: 5A12012 Performance of Cardiac Output, Single, Manual (ICD-10-PCS; 2023-01-04)
PROC: B246ZZ4 Ultrasonography of Right and Left Heart, Transesophageal (ICD-10-PCS; 2023-01-04)
PROC: 4A133B1 Monitoring of Arterial Pressure, Peripheral, Percutaneous Approach (ICD-10-PCS; 2023-01-04)
PROC: 4A133J1 Monitoring of Arterial Pulse, Peripheral, Percutaneous Approach (ICD-10-PCS; 2023-01-04)
PROC: 3E033XZ Introduction of Vasopressor into Peripheral Vein, Percutaneous Approach (ICD-10-PCS; 2023-01-04)
DX: A41.9 Sepsis, unspecified organism (principal); I26.99 Other pulmonary embolism without acute cor pulmonale; J69.0 Pneumonitis due to inhalation of food and vomit; R65.21 Severe sepsis with septic shock; J96.01 Acute respiratory failure with hypoxia; E87.20 Acidosis, unspecified; I46.8 Cardiac arrest due to other underlying condition; I25.5 Ischemic cardiomyopathy; R74.01 Elevation of levels of liver transaminase levels; I10 Essential (primary) hypertension; E11.649 Type 2 diabetes mellitus with hypoglycemia without coma; E78.5 Hyperlipidemia, unspecified; E11.51 Type 2 diabetes mellitus with diabetic peripheral angiopathy without gangrene; M19.90 Unspecified osteoarthritis, unspecified site; I25.10 Atherosclerotic heart disease of native coronary artery without angina pectoris; J44.9 Chronic obstructive pulmonary disease, unspecified; Z20.822 Contact with and (suspected) exposure to COVID-19; Z86.73 Personal history of transient ischemic attack (TIA), and cerebral infarction without residual deficits; R33.8 Other retention of urine; I08.3 Combined rheumatic disorders of mitral, aortic and tricuspid valves; R57.0 Cardiogenic shock; F17.200 Nicotine dependence, unspecified, uncomplicated; Z66 Do not resuscitate; Z88.0 Allergy status to penicillin; Z88.6 Allergy status to analgesic agent; Z89.429 Acquired absence of other toe(s), unspecified side; Z79.02 Long term (current) use of antithrombotics/antiplatelets; Z79.899 Other long term (current) drug therapy; Z90.710 Acquired absence of both cervix and uterus; Z82.49 Family history of ischemic heart disease and other diseases of the circulatory system; Z95.1 Presence of aortocoronary bypass graft; Z87.19 Personal history of other diseases of the digestive system; Z89.431 Acquired absence of right foot
CPT/HCPCS: 36415; 36600; 70450; 71045; 71275; 80048; 80053; 82805; 83605; 83735; 83880; 84100; 84484; 85025; 85610; 85730; 87070; 87205; 87449; 87636; 92950; 93005; 93306; 94640; 96365; 96366; 96368; 96375; 99291